=== PATIENT | male | born 1965 | race Hispanic/Latino ===

== ENCOUNTER 2017-12-13 20:47 | Emergency (ER) | payer MEDICARE ==
[~2017-12-13] VITALS: Ht 177.8 cm; Wt 167.8 kg
[~2017-12-13 20:47] MED LIST: ASPIR 8181 MG PO; COUMADIN1 MG PO; COUMADIN10 MG PO; COUMADIN5 MG PO; FUROSEMIDE40 MG PO; LEVAQUIN500 MG PO; LISINOPRIL5 MG PO; METOPROLOL TART25 MG PO; OMEPRAZOLE20 MG PO; POTASSIUM CHLO10 ME1 PO; POTASSIUM CHLO20 ME1 PO; PROAIR HFA INH8.5 GM; SPIRONOLACTONE25 MG PO; TESSALON PERLE100 MG PO; ULTRAM50 MG PO; ZOCOR10 MG PO; [UNRECOGNIZED DRUG - OTHER]
--- OUTSIDE RECORDS SUMMARY | 2017-12-13 20:50 | XMS REPORT ---
Author Author [facility] Address Unknown Phone Unavailable Care Team Providers Care Adult Remedial Education Instructor Name Role Phone OLEGARIO WILLIAM Unavailable Unavailable Problems This patient has no known problems. Allergies, Adverse Reactions, Alerts This patient has no known allergies or adverse reactions. Medications This patient has no known medications. Results Test Description Test Time Test Comments Text Results Atomic Results Result Comments CT ABDOMEN/PELVIS WO [place] [address] Patient Name: SHARMILA TORRES MR #: [id number] : 1965 Age/Sex: 52/M Req #: [id number] Adm Physician: Ordered by: OLEGARIO WILLIAM MD Report #: [id number] Location: ER Room/Bed: Procedure: [id number] CT/CT ABDOMEN/PELVIS WO Exam Date: 04/26/17 Exam Time: 2310 REPORT STATUS: Signed EXAM: CT ABDOMEN/PELVIS WO DATE: 11:06 PM INDICATION: Right flank pain, kidney stone history COMPARISON: None TECHNIQUE: The abdomen and pelvis were scanned using a multidetector helical scanner. Coronal and sagittal reformations were obtained. Routine protocol performed. IV Contrast: None FINDINGS: Lack of IV contrast and body habitus decrease sensitivity in evaluating abdominal and pelvic organs. LOWER THORAX: Cardiomegaly with prior sternotomy , aortic and mitral valve prosthesis. LIVER/BILIARY: No obvious masses seen. GALLBLADDER: Several gallstones are noted. SPLEEN: Not enlarged PANCREAS: Grossly unremarkable ADRENALS: No nodules KIDNEYS: No stones. No hydronephrosis. GI TRACT: No distention, wall thickening or evidence of obstruction. Appendix is not well seen but no secondary findings of appendicitis. VESSELS: Mild atherosclerotic calcifications PERITONEUM/ RETROPERITONEUM: No free air or fluid LYMPH NODES: No lymphadenopathy REPRODUCTIVE ORGANS/BLADDER: Bladder is decompressed precluding its evaluation. Prostate appears normal size. SOFT TISSUES: Rectus muscle diastases with small ventral fat-containing hernias at the level of the liver and umbilicus BONES: Multilevel degenerative changes with T6-7 and lumbar posterior disc osteophyte complexes causing spinal canal narrowing. IMPRESSION: Examination is degraded by body habitus and lack of IV contrast. No nephroureterolithiasis or acute abdominal or pelvic abnormality seen. Signed by: Dr Nkechi Doyle MD on 04/26/2017 11:45 PM Dictated By: NKECHI DOYLE MD [id number] Transcribed By: DEE DEE on 04/26/17 2345 COPY TO: OLEGARIO WILLIAM MD CHEST 2 VIEWS [place] [address] Patient Name: SHARMILA TORRES MR #: [id number] : 1965 Age/Sex: 52/M Req #: [id number] Adm Physician: Ordered by: OLEGARIO WILLIAM MD Report #: [id number] Location: ER Room/Bed: Procedure: [id number] DX/CHEST 2 VIEWS Exam Date: 04/26/17 Exam Time: 2124 REPORT STATUS: Signed CHEST 2 VIEWS, Technique: CHEST 2 VIEWS Comparison: 08/17/2016 History: Shortness of breath, right pleuritic pain DISCUSSION: See impression. Lateral is markedly degraded by motion. IMPRESSION: 1. Stable enlarged cardiomediastinal silhouette poststernotomy. 2. Diffuse right greater than left interstitial opacities, likely edema with small right pleural effusion. Signed by: Dr Nkechi Doyle MD on 04/26/2017 10:18 PM Dictated By: NKECHI DOYLE MD 17 Transcribed By: DEE DEE on 04/26/172217 COPY TO: OLEGARIO WILLIAM MD
[2017-12-13 22:07] LABS: BASOPHILS # (AUTO) 0.1 (0.0-0.1); BASOPHILS % 0.5 % (0.0-1.0); EOSINOPHILS # (AUTO) 0.4 (0.0-0.4); EOSINOPHILS % 3.3 % (0.0-6.0); HEMATOCRIT 48.4 % (38.2-49.6); HEMOGLOBIN 15.9 g/dL (14.0-18.0); LYMPHOCYTES # (AUTO) 1.5 (1.0-3.2); LYMPHOCYTES % 13.3 % (18.0-39.1); MEAN CORPUSCULAR HEMOGLOBIN 29.4 pg (28-32); MEAN CORPUSCULAR HGB CONC 32.9 g/dL (31-35); MEAN CORPUSCULAR VOLUME 89.5 fL (81-99); MONOCYTES # (AUTO) 0.9 (0.2-0.8); MONOCYTES % 8.1 % (4.4-11.3); NEUTROPHILS # (AUTO) 8.3 (2.1-6.9); NEUTROPHILS % 74.4 % (38.7-80.0); PLATELET COUNT 206 x10e3/uL (140-360); RED BLOOD COUNT 5.41 x10e6/uL (4.3-5.7); RED CELL DISTRIBUTION WIDTH 13.7 % (11.7-14.4)
[2017-12-13 22:25] LABS: ALANINE AMINOTRANSFERASE 14 IU/L (0-55); ALBUMIN 3.5 g/dL (3.5-5.0); ALBUMIN/GLOBULIN RATIO 0.7 (0.8-2.0); ALKALINE PHOSPHATASE 107 IU/L (40-150); ANION GAP 14.9 mmol/L (8-16); BLOOD UREA NITROGEN 14 mg/dL (7-26); BUN/CREATININE RATIO 17 (6-25); CALCIUM 9.4 mg/dL (8.4-10.2); CARBON DIOXIDE 30 mmol/L (22-29); CHLORIDE 95 mmol/L (98-107); CREATININE, SERUM 0.84 mg/dL (0.72-1.25); EST GLOMERULAR FILTRATION RATE > 60 ML/MIN (60-); GLUCOSE 95 mg/dL (74-118); POTASSIUM 3.9 mmol/L (3.5-5.1); SODIUM 136 mmol/L (136-145)
--- NOTE | 2017-12-13 22:56 | Diagnostic Imaging Report ---
History:Left cheek swelling since yesterday. Comparison studies: None Technique: Axial images were obtained through the maxillofacial region. Coronal and sagittal images reconstructed from the axial data. Intravenous contrast: None Findings: Soft tissues: Moderate left periparotid and perimandibular subcutaneous soft tissue inflammatory fat stranding with asymmetric thickening of left platysma. Asymmetric and heterogeneously enhancing mildly enlarged left parotid gland with multiple intrinsic punctate calcified lesion, the largest measures 2.5 mm in the anterior aspect of the superficial lobe of left parotid gland, possibly represents multiple sialoliths. Mild asymmetric prominence and dilatation of left Stensen's duct. No discrete hypodense fluid collection however suboptimal evaluation for abscess given lack of intravenous contrast. Bones: No fractures or bony abnormalities. Orbits: Globes: Intact Extra or intraconal abnormalities: None. Paranasal sinuses: Mild mucosal thickening in bilateral ethmoid sinuses. Incidental finding: Multiple missing teeth, multifocal dental caries and endodontal disease, the activity of which is to be determined mind clinically. Nonspecific linear 8 mm radiopaque density at the level of the thoracic inlet anterior and superior to the sternum. IMPRESSION: 1. Left periparotid cellulitis with findings concerning for acute left parotitis with multiple left parotid sialoliths. 2. Asymmetric mild dilatation of left Stensen's duct raises possibility of obstruction secondary to left intraparotid sialolith. Signed by: Dr. Khadijah Wiley M.D. on 12/13/2017 10:53 PM
[2017-12-14 00:33] VITALS: BP 121/74
== END 2017-12-14 00:44 | disposition home or self-care (01) ==
LOC: ER 20:51
CPT/HCPCS: 36415; 70486; 80053; 85025; 99283

== ENCOUNTER 2017-12-29 13:56 | Emergency (ER) | payer MEDICARE ==
[~2017-12-29] VITALS: Ht 177.8 cm; Wt 163.3 kg
--- OUTSIDE RECORDS SUMMARY | 2017-12-29 13:59 | XMS REPORT | Continuity of Care Document ---
Author Author [facility] Organization [facility] Address [address] [place] [address] Phone Unavailable Care Team Providers Care Activity Specialist Name Role Phone KATHRYN CUMMINGS MD PCP Insurance Providers Guarantor Tyrell Albright Address [address] [place] [address] Payer Medicare A & B Policy Number [id number] Subscriber's Name Tyrell Albright Relationship 18 Self / Same As Patient Effective Date 08 Advance Directives Directive Response Recorded Date/Time Does the patient have an advance directive? No 04/27/17 1:47am If yes, is advance directive on file with [facility]? No 08/16/16 8:00pm If not on file with [facility] will patient provide a copy? Yes 08/16/16 8:00pm Problems Medical Problem Onset Date Status CHF (congestive heart failure) 04/14/2016 Acute CHF exacerbation Unknown Chronic atrial fibrillation Unknown Dyspnea 04/14/2016 Acute Flank pain Unknown Hypoxia Unknown Morbid obesity 04/14/2016 Acute Medications Current Home Medications Medication Dose Units Route Directions Days Qty Instructions Start Date Aspirin (Aspir 81) 81 Mg Tablet.dr 81 Mg Oral Daily Furosemide 40 Mg Tablet 40 Mg Oral Twice A Day 30 Tab Metoprolol Tartrate 25 Mg Tablet 25 Mg Oral Every 12 Hours Potassium Chloride 10 Meq Tab.er.prt 10 Meq Oral Twice A Day Simvastatin (Zocor) 10 Mg Tablet 20 Mg Oral Daily Tramadol Hcl (Ultram) 50 Mg Tablet 50 Mg Oral Every 6 Hours as needed for Pain Warfarin Sodium (Coumadin) 1 Mg Tablet 5 Mg Oral Mtwthf 100 Warfarin Sodium (Coumadin) 5 Mg Tablet 7.5 Mg Oral Wednesday And Wednesday Past Home Medications Medication Directions Ordered Status Albuterol Sulfate (Proair Hfa Inhaler*) 8.5 Gm Inh, Unknown Dose Discontinued Benzonatate (Tessalon Perle) 100 Mg Capsule, Cap Oral Every 6 Hours for Cough Discontinued Benzonatate (Tessalon Perle) 100 Mg Capsule, Mg Oral Every 4 Hours Discontinued Furosemide 40 Mg Tablet, 40 Mg Oral Daily Discontinued Levofloxacin (Levaquin) 500 Mg Tablet, 500 Mg Oral Daily Discontinued Levofloxacin (Levaquin) 500 Mg Tablet, 500 Mg Oral Daily Discontinued Lisinopril 5 Mg Tablet, 5 Mg Oral Daily Discontinued Omeprazole 20 Mg Capsule.dr, 20 Mg Oral Daily Discontinued Potassium Chloride 20 Meq Tab.er.prt, 20 Mg Oral Twice A Day Discontinued Spironolactone 25 Mg Tablet, 25 Mg Oral Daily Discontinued Warfarin Sodium (Coumadin) 5 Mg Tablet, 1 - 5 Mg Oral Daily Discontinued Warfarin Sodium (Coumadin) 10 Mg Tablet, 10 Mg Oral Daily Discontinued Xaroxolyn , 5 Twice A Day for Swelling Discontinued Social History Social History Problem Response Recorded Date/Time Onset Date Status Hx Psychiatric Problems No 04/27/2017 1:47am Not Applicable Not Applicable Hx Eating Disorder No 04/27/2017 1:47am Not Applicable Not Applicable Hx Substance Use Disorder No 04/27/2017 1:47am Not Applicable Not Applicable Hx Depression No 04/27/2017 1:47am Not Applicable Not Applicable Hx Alcohol Use No 08/16/2016 8:00pm Not Applicable Not Applicable Hx Substance Use Treatment No 04/27/2017 1:47am Not Applicable Not Applicable Hx Physical Abuse No 08/16/2016 8:00pm Not Applicable Not Applicable Smoking Status Start Date Stop Date Never Smoker Hospital Discharge Instructions No hospital discharge instruction information available. Plan of Care Discharge Date 12/14/17 12:44am Disposition HOME, SELF-CARE Condition at Discharge Stable Forms Provided Work/School Excuse Prescriptions See Medication Section Referrals KATHRYN CUMMINGS MD Order Date: Call for an appointment Address: [address] [place] [id number] [address] ONE[address] Order Date: Call for an appointment Address: [address] [place] [address] ANYA BLANCHARD Address: [address] [place], [place] [id number] Additional Instructions/Education TAKE MEDS DIRECTED FOLLOW UP WITH PCP AND ENT SUCK ON LEMON OR SOUR THINGS APPLY WARM COMPRESSESS RETURN TO THE ER NEEDED Functional Status No functional status information available. Allergies, Adverse Reactions, Alerts Allergen Type Severity Reaction Status Last Updated Iodine Allergy Severe Anaphylaxis Active 08/16/16 Immunizations No immunization information available. Vital Signs Acute Vital Signs Vital Response Date/Time Temperature (Fahrenheit) 97.1 degrees F (97.6 - 99.5) 12/14/2017 12:33am Pulse Pulse Rate (adult) 75 bpm (60 - 90) 12/14/2017 12:33am Respiratory Rate 18 bpm (12 - 24) 12/14/2017 12:33am Blood Pressure 121/74 mm Hg 12/14/2017 12:33am Height 5 ft 10 in 12/13/2017 9:23pm Weight 370 lb 12/13/2017 9:23pm Body Mass Index 53.1 kg/m^2 12/13/2017 9:23pm Results Laboratory Results Test Name Result Units Flags Reference Collection Date/Time Result Date/ Time Comments Prothrombin Time 27.0 seconds H 11.9-14.5 04/26/2017 8:50pm 04/26/2017 9 :26pm Prothromb Time International Ratio 2.35 04/26/2017 8:50pm 2016 9:26pm Oral Anticoagulant Therapy INR Values: 1. Low Intensity Therapy 1.5 - 2.0 2. Moderate Intensity Therapy 2.0 - 3.0 3. High Intensity Therapy(1) 2.5 - 3.5 4. High Intensity Therapy(2) 3.0 - 4.0 5. Panic Value INR > 5.0 Activated Partial Thromboplast Time 46.8 seconds H 23.8-35.5 04/26/2017 8 :50pm 04/26/2017 9:28pm D-Dimer Quantitative (PE/DVT) 0.22 ug/mLFEU 0.00-0.45 04/26/2017 8:50pm 04/26/2017 9:31pm Urine Color YELLOW YELLOW 04/26/2017 9:05pm 04/26/2017 9:46pm Urine Clarity CLEAR CLEAR 04/26/2017 9:05pm 04/26/2017 9:46pm Urine Specific [place] 1.015 1.010-1.025 04/26/2017 9:05pm 2016 9:46pm Urine pH 6 5 - 7 04/26/2017 9:05pm 04/26/2017 9:46pm Urine Leukocyte Esterase NEGATIVE NEGATIVE 04/26/2017 9:05pm 2016 9:46pm Urine Nitrite NEGATIVE NEGATIVE 04/26/2017 9:05pm 04/26/2017 9:46pm Urine Protein 1+ H NEGATIVE 04/26/2017 9:05pm 04/26/2017 9:46pm Urine Glucose (UA) NEGATIVE NEGATIVE 04/26/2017 9:05pm 04/26/2017 9: 46pm Urine Ketones NEGATIVE NEGATIVE 04/26/2017 9:05pm 04/26/2017 9:46pm Urine Urobilinogen 0.2 mg/dL 0.2 - 1 04/26/2017 9:05pm 04/26/2017 9: 46pm Urine Bilirubin NEGATIVE NEGATIVE 04/26/2017 9:05pm 04/26/2017 9: 46pm Urine Blood 3+ H NEGATIVE 04/26/2017 9:05pm 04/26/2017 9:46pm Urine WBC 0-5 /HPF 0-5 04/26/2017 9:05pm 04/26/2017 9:51pm Urine RBC 21-50 /HPF H 0-5 04/26/2017 9:05pm 04/26/2017 9:51pm Urine Bacteria RARE /HPF NONE 04/26/2017 9:05pm 04/26/2017 9:51pm Urine Epithelial Cells FEW /LPF NONE 04/26/2017 9:05pm 04/26/2017 9: 51pm Magnesium Level 2.1 MG/DL 1.3-2.1 04/26/2017 8:50pm 04/26/2017 9:37pm B-Type Natriuretic Peptide 68.3 pg/mL 0-100 04/26/2017 8:50pm 2016 9:44pm Creatine Kinase 105 IU/L 30-200 04/27/2017 2:20pm 04/27/2017 3:23pm Creatine Kinase MB 1.90 ng/mL 0.00-5.00 04/27/2017 2:20pm 04/27/2017 3: 30pm Troponin I 0.012 ng/mL 0-0.300 04/27/2017 2:20pm 04/27/2017 3:30pm White Blood Count 11.20 x10e3/uL H 4.8-10.8 12/13/2017 9:50pm 2017 10:08pm Red Blood Count 5.41 x10e6/uL 4.3-5.7 12/13/2017 9:50pm 12/13/2017 10: 08pm Hemoglobin 15.9 g/dL 14.0-18.0 12/13/2017 9:50pm 12/13/2017 10:08pm Hematocrit 48.4 % 38.2-49.6 12/13/2017 9:50pm 12/13/2017 10:08pm Mean Corpuscular Volume 89.5 fL 81-99 12/13/2017 9:50pm 12/13/2017 10: 08pm Mean Corpuscular Hemoglobin 29.4 pg 28-32 12/13/2017 9:50pm 12/13/2017 10:08pm Mean Corpuscular Hemoglobin Concent 32.9 g/dL 31-35 12/13/2017 9:50pm 12/13/2017 10:08pm Red Cell Distribution Width 13.7 % 11.7-14.4 12/13/2017 9:50pm 2017 10:08pm Platelet Count 206 x10e3/uL 140-360 12/13/2017 9:50pm 12/13/2017 10: 08pm Neutrophils (%) (Auto) 74.4 % 38.7-80.0 12/13/2017 9:50pm 12/13/2017 10 :08pm Lymphocytes (%) (Auto) 13.3 % L 18.0-39.1 12/13/2017 9:50pm 12/13/2017 10:08pm Monocytes (%) (Auto) 8.1 % 4.4-11.3 12/13/2017 9:50pm 12/13/2017 10: 08pm Eosinophils (%) (Auto) 3.3 % 0.0-6.0 12/13/2017 9:50pm 12/13/2017 10: 08pm Basophils (%) (Auto) 0.5 % 0.0-1.0 12/13/2017 9:50pm 12/13/2017 10: 08pm IM GRANULOCYTES % 0.4 % 0.0-1.0 12/13/2017 9:50pm 12/13/2017 10:08pm Neutrophils # (Auto) 8.3 H 2.1-6.9 12/13/2017 9:50pm 12/13/2017 10: 08pm Lymphocytes # (Auto) 1.5 1.0-3.2 12/13/2017 9:50pm 12/13/2017 10: 08pm Monocytes # (Auto) 0.9 H 0.2-0.8 12/13/2017 9:50pm 12/13/2017 10:08pm Eosinophils # (Auto) 0.4 0.0-0.4 12/13/2017 9:50pm 12/13/2017 10: 08pm Basophils # (Auto) 0.1 0.0-0.1 12/13/2017 9:50pm 12/13/2017 10:08pm Absolute Immature Granulocyte (auto 0.05 x10e3/uL 0-0.1 12/13/2017 9: 50pm 12/13/2017 10:08pm Sodium Level 136 mmol/L 136-145 12/13/2017 9:50pm 12/13/2017 10:25pm Potassium Level 3.9 mmol/L 3.5-5.1 12/13/2017 9:50pm 12/13/2017 10: 25pm Chloride Level 95 mmol/L L 98-107 12/13/2017 9:50pm 12/13/2017 10:25pm Carbon Dioxide Level 30 mmol/L H 22-29 12/13/2017 9:50pm 12/13/2017 10: 25pm Anion Gap 14.9 mmol/L 8-16 12/13/2017 9:50pm 12/13/2017 10:25pm Blood Urea Nitrogen 14 mg/dL 7-12/13/2017 9:50pm 12/13/2017 10:25pm Creatinine 0.84 mg/dL 0.72-1.25 12/13/2017 9:50pm 12/13/2017 10:25pm BUN/Creatinine Ratio 17 6-12/13/2017 9:50pm 12/13/2017 10:25pm Estimat Glomerular Filtration Rate > 60 ML/MIN 60- 12/13/2017 9:50pm 10:25pm Ranges were taken from the National Kidney Disease Education Program and the National [employer] literature. Reference ranges: 60 or greater: Normal 16-59 (for 3 consecutive months): Chronic kidney disease 15 or less: Kidney failure Glucose Level 95 mg/dL 74-118 12/13/2017 9:50pm 12/13/2017 10:25pm Calcium Level 9.4 mg/dL 8.4-10.2 12/13/2017 9:50pm 12/13/2017 10:25pm Total Bilirubin 1.0 mg/dL 0.2-1.2 12/13/2017 9:50pm 12/13/2017 10:25pm Aspartate Amino Transf (AST/SGOT) 22 IU/L 5-34 12/13/2017 9:50pm 2017 10:25pm Alanine Aminotransferase (ALT/SGPT) 14 IU/L 0-55 12/13/2017 9:50pm 02/2018 10:25pm Total Protein 8.6 g/dL H 6.5-8.1 12/13/2017 9:50pm 12/13/2017 10:25pm Albumin 3.5 g/dL 3.5-5.0 12/13/2017 9:50pm 12/13/2017 10:25pm Globulin 5.1 g/dL H 2.3-3.5 12/13/2017 9:50pm 12/13/2017 10:25pm Albumin/Globulin Ratio 0.7 L 0.8-2.0 12/13/2017 9:50pm 12/13/2017 10: 25pm Alkaline Phosphatase 107 IU/L 40-150 12/13/2017 9:50pm 12/13/2017 10: 25pm Microbiology Results Procedure Source Organism/Result Collection Date/Time Result Date/Time Result Status Blood Culture Blood NO GROWTH AFTER 5 DAYS, FINAL REPORT 04/26/2017 8:50pm 05/01/2017 10:21pm Final Procedures Procedure Status Date Provider(s) X-ray of chest, two views Active 04/26/[address] of abdomen and pelvis without contrast Active 04/26/[address] maxillofacial area wo contrast Active 12/13/17 ELVA VIVEROS MD Encounters Encounter Location Arrival/Admit Date Discharge/Depart Date Attending Provider Departed Emergency Room [facility] 12/13/17 8:51pm 12:44am ELVA VIVEROS MD Discharged Inpatient (obs) [facility] 04/27/17 12:28am 6:02pm KATHRYN CUMMINGS MD
[2017-12-29] MEDS ORDERED: SODIUM CHLORIDE 0.9% 500ML 500 ML IV STA (14:32)
[2017-12-29] MEDS ORDERED: ACETAMINOPHEN 325 MG TAB PO ONE (14:32)
[2017-12-29 16:13] LABS: BASOPHILS # (AUTO) 0.1 (0.0-0.1); BASOPHILS % 0.5 % (0.0-1.0); EOSINOPHILS # (AUTO) 0.1 (0.0-0.4); EOSINOPHILS % 0.7 % (0.0-6.0); HEMATOCRIT 46.9 % (38.2-49.6); HEMOGLOBIN 15.7 g/dL (14.0-18.0); LYMPHOCYTES # (AUTO) 1.4 (1.0-3.2); LYMPHOCYTES % 9.5 % (18.0-39.1); MEAN CORPUSCULAR HEMOGLOBIN 29.9 pg (28-32); MEAN CORPUSCULAR HGB CONC 33.5 g/dL (31-35); MEAN CORPUSCULAR VOLUME 89.3 fL (81-99); MONOCYTES % 7.2 % (4.4-11.3); NEUTROPHILS # (AUTO) 11.6 (2.1-6.9); NEUTROPHILS % 81.5 % (38.7-80.0); PLATELET COUNT 184 x10e3/uL (140-360); RED BLOOD COUNT 5.25 x10e6/uL (4.3-5.7); RED CELL DISTRIBUTION WIDTH 13.8 % (11.7-14.4)
[2017-12-29 16:26] LABS: ALANINE AMINOTRANSFERASE 12 IU/L (0-55); ALBUMIN 3.8 g/dL (3.5-5.0); ALBUMIN/GLOBULIN RATIO 0.8 (0.8-2.0); ALKALINE PHOSPHATASE 98 IU/L (40-150); BLOOD UREA NITROGEN 12 mg/dL (7-26); BUN/CREATININE RATIO 14 (6-25); CALCIUM 9.8 mg/dL (8.4-10.2); CARBON DIOXIDE 32 mmol/L (22-29); CHLORIDE 95 mmol/L (98-107); CREATININE, SERUM 0.85 mg/dL (0.72-1.25); EST GLOMERULAR FILTRATION RATE > 60 ML/MIN (60-); GLUCOSE 100 mg/dL (74-118); SODIUM 136 mmol/L (136-145)
--- NOTE | 2017-12-29 16:30 | Diagnostic Imaging Report ---
PROCEDURE: Frontal and lateral views of the chest. COMPARISON: Patients [facility], , CHEST 2 VIEWS, 04/26/2017, 21:11. INDICATIONS: SHORT OF BREATH FINDINGS: Lines/tubes: None. Lungs: Prominence of the central pulmonary vasculature bilaterally. Reticular-nodular densities particularly in the lower lobes may reflect superimposed atypical pneumonia. Pleura: There is pneumothorax. Small left pleural effusion. Heart and mediastinum: The cardiac silhouette is moderately enlarged. Median sternotomy wires are Bones: No acute bony abnormality. IMPRESSION: 1. Findings suggestive of decompensated CHF with possible superimposed pneumonia in the proper clinical setting. Rasheed Woods M.D. Dictated by: Rasheed Woods M.D. on 12/29/2017 at 16:32 Electronically approved by: Rasheed Woods M.D. on 12/29/2017 at 16:32
[2017-12-29 16:35] LABS: BILIRUBIN,URINE NEGATIVE (NEGATIVE); CLARITY,URINE HAZY (CLEAR); COLOR,URINE YELLOW (YELLOW); KETONES,URINE NEGATIVE (NEGATIVE); LEUKOCYTE ESTERASE ,URINE 1+ (NEGATIVE); NITRITE,URINE NEGATIVE (NEGATIVE); PROTEIN,URINE DIPSTICK 2+ (NEGATIVE); URINE UROBILINOGEN 1 mg/dL (0.2 - 1)
[2017-12-29 16:48] LABS: WBC,URINE (MAN) >50 /HPF (0-5)
[2017-12-29 16:49] LABS: BACTERIA,URINE FEW /HPF; RBC,URINE 21-50 /HPF (0-5)
[2017-12-29 16:50] LABS: EPITHELIAL CELLS,URINE FEW /LPF; TRANSITIONAL EPI CELLS,URINE MODERATE
[2017-12-29] MEDS ORDERED: AZITHROMYCIN250 MG PO (17:28)
[2017-12-29] MEDS ORDERED: AZITHROMYCIN 250 MG TAB PO ONE (17:30)
[2017-12-29] MEDS ORDERED: LEVOFLOXACIN 500 MG TAB PO ONE (17:30)
[2017-12-29 18:59] VITALS: BP 141/85
== END 2017-12-29 18:40 | disposition home or self-care (01) ==
LOC: ER 13:56
DX: R50.9 Fever, unspecified (principal); R05 Cough; J15.9 Unspecified bacterial pneumonia; N30.91 Cystitis, unspecified with hematuria; I51.9 Heart disease, unspecified
CPT/HCPCS: 36415; 71046; 80053; 81001; 83605; 85025; 87040; 93005; 99283; J7040

== ENCOUNTER 2018-09-08 04:20 | Inpatient (IN) | payer MEDICARE ==
[~2018-09-08] VITALS: Ht 177.8 cm; Wt 167.0 kg
[~2018-09-08 04:20] MED LIST changes: +AZITHROMYCIN250 MG PO
[2018-09-08 04:44] LABS: BASOPHILS # (AUTO) 0.1 (0.0-0.1); BASOPHILS % 0.7 % (0.0-1.0); EOSINOPHILS # (AUTO) 0.3 (0.0-0.4); HEMATOCRIT 45.4 % (38.2-49.6); HEMOGLOBIN 14.2 g/dL (14.0-18.0); LYMPHOCYTES # (AUTO) 1.6 (1.0-3.2); LYMPHOCYTES % 18.6 % (18.0-39.1); MEAN CORPUSCULAR HEMOGLOBIN 29.1 pg (28-32); MEAN CORPUSCULAR HGB CONC 31.3 g/dL (31-35); MONOCYTES # (AUTO) 0.6 (0.2-0.8); MONOCYTES % 7.5 % (4.4-11.3); NEUTROPHILS # (AUTO) 5.8 (2.1-6.9); NEUTROPHILS % 68.8 % (38.7-80.0); PLATELET COUNT 187 x10e3/uL (140-360); RED BLOOD COUNT 4.88 x10e6/uL (4.3-5.7); RED CELL DISTRIBUTION WIDTH 15.1 % (11.7-14.4)
[2018-09-08 05:05] LABS: ALANINE AMINOTRANSFERASE 15 IU/L (0-55); ALBUMIN 3.8 g/dL (3.5-5.0); ALBUMIN/GLOBULIN RATIO 0.8 (0.8-2.0); ALKALINE PHOSPHATASE 129 IU/L (40-150); ANION GAP 15.9 mmol/L (8-16); BLOOD UREA NITROGEN 18 mg/dL (7-26); BUN/CREATININE RATIO 17 (6-25); CALCIUM 9.4 mg/dL (8.4-10.2); CARBON DIOXIDE 33 mmol/L (22-29); CHLORIDE 90 mmol/L (98-107); CREATINE KINASE 52 IU/L (30-200); CREATININE, SERUM 1.05 mg/dL (0.72-1.25); EST GLOMERULAR FILTRATION RATE > 60 ML/MIN (60-); GLUCOSE 106 mg/dL (74-118); INR 2.04; POTASSIUM 3.9 mmol/L (3.5-5.1); PROTHROMBIN TIME 24.6 seconds (11.9-14.5); SODIUM 135 mmol/L (136-145)
[2018-09-08 05:06] LABS: PARTIAL THROMBOPLASTIN TIME 43.5 seconds (23.8-35.5)
--- NOTE | 2018-09-08 05:18 | Diagnostic Imaging Report ---
CHEST SINGLE (PORTABLE), 09/08/2018 4:26 AM Technique: CHEST SINGLE (PORTABLE) Comparison: 12/29/2017 Clinical history: Shortness of breath Findings: See Impression Impression: 1. Limited by portable technique and soft tissue attenuation 2. Stable enlarged cardiomediastinal silhouette status post median sternotomy. 3. Diffuse opacities, likely edema. No significant effusion appreciated or pneumothorax. Signed by: Dr Raysa Doyle MD on 09/08/2018 5:15 AM
[2018-09-08] MEDS ORDERED: FUROSEMIDE INJ 10 MG/ML 4 ML VIAL IV ONE (05:45)
[2018-09-08] MEDS ORDERED: FUROSEMIDE40 MG PO (05:52)
[2018-09-08] MEDS ORDERED: VENTOLIN HFA18 GM INH (05:55)
[2018-09-08] MEDS ORDERED: SODIUM CHLORIDE FLUSH 10 ML SYR INJ PRN (06:00)
[2018-09-08] MEDS ORDERED: ASPIRIN 81 MG CHEW TAB PO ONE (06:00)
--- NOTE | 2018-09-08 07:10 | NUR ---
received pt lying in bed with eyes open, Resp even and unlabored. O2 via NC @3lpm. Tele in place with cont. pulse ox. PIV to right AC saline locked. denies pain at this time, denies Chest pain. call light within reach and instructed to call for assistance. bed in low and locked position.
[2018-09-08 07:51] VITALS: BP 133/90
[2018-09-08] MEDS ORDERED: ALBUTEROL SULFATE HFA 8GM INHALATION AEROSOL INH PRN (09:15)
[2018-09-08 09:43] VITALS: BP 133/90
[2018-09-08 09:46] VITALS: BP 133/90
[2018-09-08] MEDS ORDERED: WARFARIN SOD 2.5 MG TAB PO ONE ×2 (11:00→17:00)
[2018-09-08 11:49] VITALS: BP 124/76
[2018-09-08] MEDS: FUROSEMIDE INJ 10 MG/ML 4 ML VIAL IV SCH ×2 (12:40→18:07)
[2018-09-08] MEDS: METOPROLOL TARTRATE 25 MG TAB PO SCH ×2 (12:40→21:15)
[2018-09-08 13:14] LABS: CREATINE KINASE MB 1.6 ng/mL (0-5.0)
--- NOTE | 2018-09-08 13:21 | Consultation ---
DATE OF CONSULTATION: September 08, 2018 CARDIOLOGY CONSULTATION REASON FOR CONSULT: Congestive heart failure. HISTORY OF PRESENT ILLNESS: This is a 53-year-old man with a history of mechanical mitral and aortic valve replacements, hypertension, hyperlipidemia, and morbid obesity, who presents with complaints of shortness of breath. The patient reports he began having shortness of breath 3 days ago, but denies any chest pain, palpitations, orthopnea, or PND. He presented to the ER for further evaluation. REVIEW OF SYSTEMS: Negative except as per HPI. PAST MEDICAL HISTORY: Mechanical mitral and aortic valve replacements, hypertension, hyperlipidemia. PAST SURGICAL HISTORY: Mechanical mitral and aortic valve replacements, tonsillectomy. ALLERGIES: IODINE. MEDICATIONS: Please see medication list. SOCIAL HISTORY: No tobacco or drugs. Occasional alcohol. FAMILY HISTORY: Negative for heart disease. PHYSICAL EXAMINATION VITALS: Temperature 97 degrees, pulse 80, respiratory rate 19, blood pressure 133/90, oxygen saturation 95% on 3 L nasal cannula. GENERAL: A morbidly obese gentleman in no acute distress. Awake and alert. LUNGS: Clear to auscultation bilaterally. CARDIOVASCULAR: Irregularly irregular mechanical S1 and S2. Diastolic murmur is present. ABDOMEN: Soft and nontender. EXTREMITIES: Trace edema. NEURO: Nonfocal exam. CARDIAC MEDICATIONS 1. Warfarin 5 mg Wednesday through Wednesday with 7.5 mg on the weekends. 2. Metoprolol tartrate 25 mg. WBC 8.44, hemoglobin 14.2, hematocrit 45.4, and platelets 187,000. Sodium 135, potassium 3.9, chloride 93, CO2 33, BUN 18, creatinine 1.05. BNP 128. Troponin 0.025. INR 2.04. EKG with atrial fibrillation. Telemetry with atrial fibrillation. IMPRESSION 1. Mechanical aortic and mitral valves. 2. Limmk-aq-zgpxrsr diastolic heart failure. 3. Severe aortic valve insufficiency. 4. Atrial fibrillation. 5. Subtherapeutic INR. 6. Hypertension. 7. Hyperlipidemia. RECOMMENDATIONS: Continue monitoring the patient on telemetry. Additional 2.5 mg warfarin today given the patient's INR target is 2.5 to 3.5 given presence of his mechanical mitral valve, as well as atrial fibrillation. Agree with IV diuretics. Echocardiogram has been ordered to evaluate the patient's valvular disease. Continue home cardiac medications otherwise. Thank you for this consult. We will continue to follow. Job#: [id number] [place]
[2018-09-08 16:14] VITALS: BP 121/79
[2018-09-08] MEDS ORDERED: POTASSIUM CHLORIDE 10MEQ EA PO SCH (17:00)
[2018-09-08] MEDS ORDERED: WARFARIN SOD 1 MG TAB PO SCH (17:00)
[2018-09-08] MEDS: WARFARIN SOD 5 MG TAB PO SCH (18:08)
[2018-09-08 20:13] VITALS: BP 102/64
[2018-09-08] MEDS ORDERED: FUROSEMIDE INJ 10 MG/ML 4 ML VIAL IV SCH (21:00)
[2018-09-08 21:04] LABS: CREATINE KINASE MB 1.6 ng/mL (0-5.0)
[2018-09-08] MEDS: SIMVASTATIN 20 MG TAB PO SCH (21:15)
[2018-09-09] MEDS: FUROSEMIDE INJ 10 MG/ML 4 ML VIAL IV SCH ×5 (00:22→23:58)
[2018-09-09 05:56] VITALS: BP 119/68
[2018-09-09 06:19] LABS: BASOPHILS # (AUTO) 0.1 (0.0-0.1); BASOPHILS % 0.7 % (0.0-1.0); EOSINOPHILS # (AUTO) 0.3 (0.0-0.4); EOSINOPHILS % 3.8 % (0.0-6.0); HEMATOCRIT 46.2 % (38.2-49.6); LYMPHOCYTES # (AUTO) 1.2 (1.0-3.2); LYMPHOCYTES % 14.3 % (18.0-39.1); MEAN CORPUSCULAR HEMOGLOBIN 28.7 pg (28-32); MEAN CORPUSCULAR HGB CONC 30.3 g/dL (31-35); MEAN CORPUSCULAR VOLUME 94.9 fL (81-99); MONOCYTES # (AUTO) 0.6 (0.2-0.8); MONOCYTES % 6.9 % (4.4-11.3); NEUTROPHILS # (AUTO) 6.3 (2.1-6.9); NEUTROPHILS % 74.2 % (38.7-80.0); PLATELET COUNT 189 x10e3/uL (140-360); RED BLOOD COUNT 4.87 x10e6/uL (4.3-5.7); RED CELL DISTRIBUTION WIDTH 14.9 % (11.7-14.4)
[2018-09-09 06:35] LABS: INR 1.87
[2018-09-09 06:40] LABS: ANION GAP 15.2 mmol/L (8-16); BLOOD UREA NITROGEN 17 mg/dL (7-26); BUN/CREATININE RATIO 18 (6-25); CALCIUM 9.5 mg/dL (8.4-10.2); CARBON DIOXIDE 38 mmol/L (22-29); CHLORIDE 91 mmol/L (98-107); CREATININE, SERUM 0.95 mg/dL (0.72-1.25); EST GLOMERULAR FILTRATION RATE > 60 ML/MIN (60-); GLUCOSE 112 mg/dL (74-118); POTASSIUM 5.2 mmol/L (3.5-5.1); SODIUM 139 mmol/L (136-145)
--- NOTE | 2018-09-09 07:45 | NUR ---
The pt. is in bed awake and consuming morning meal at this time. The pt. reports he is discharging home today.
[2018-09-09 08:17] VITALS: BP 141/85
[2018-09-09 09:00] VITALS: BP 141/85
[2018-09-09] MEDS: ASPIRIN 81 MG CHEW TAB PO SCH (09:00)
[2018-09-09] MEDS ORDERED: SIMVASTATIN 20 MG PO SCH (09:00)
[2018-09-09] MEDS ORDERED: HEPARIN SOD (PORCINE) 5,000 UNIT/ML VIAL IV NR (11:00)
--- NOTE | 2018-09-09 12:00 | NUR ---
Dr. Brown visited earlier and left orders for heparin drip which was initiated at 1230 and next lab due at 1830.
[2018-09-09 12:10] VITALS: BP 91/51
[2018-09-09] MEDS: HEPARIN 25,000U/0.45% NS 250ML 1,500 UNIT in Premix Bag 250 ML IV SCH (12:30)
[2018-09-09 12:33] LABS: INR 2.07; PROTHROMBIN TIME 24.9 seconds (11.9-14.5)
[2018-09-09] MEDS: METOPROLOL TARTRATE 25 MG TAB PO SCH ×2 (12:42→20:37)
--- NOTE | 2018-09-09 13:47 | Progress Note ---
DATE: September 09, 2018 CARDIOLOGY PROGRESS NOTE SUBJECTIVE: The patient denies chest pain. He reports his shortness of breath is better. OBJECTIVE VITALS: Temperature 96.2 degrees, pulse 78, respiratory rate 20, blood pressure 141/85, oxygen saturation is 94% on 3 L nasal cannula. GENERAL: Obese gentleman in no acute distress. Awake and alert. LUNGS: Clear to auscultation bilaterally. No wheezes or crackles. CARDIOVASCULAR: Irregularly irregular. Mechanical S1 and S2. Diastolic murmur is present. ABDOMEN: Soft and nontender. EXTREMITIES: Trace edema. CARDIAC MEDICATIONS 1. Metoprolol tartrate 25 mg p.o. q.12 h. 2. Aspirin 81 mg p.o. daily. 3. Furosemide 40 mg IV q.6 h. 4. Simvastatin 20 mg p.o. at bedtime. 5. Warfarin 7.5 mg on Wednesday and Wednesday with 5 mg the rest of the week. LABS: WBC 8.53, hemoglobin 14, hematocrit 46.2, and platelets 189,000. INR 2.07. Sodium 139, potassium 5.2, chloride 91, CO2 38, BUN 17, creatinine 0.95. Troponin 0.21. Telemetry is atrial fibrillation. IMPRESSION 1. Mechanical aortic and mitral valves. 2. Ipcox-om-ycdpkma diastolic and systolic heart failure. 3. Severe aortic valve insufficiency. 4. Atrial fibrillation. 5. Subtherapeutic INR. 6. Hypertension. 7. Hyperlipidemia. RECOMMENDATIONS: Continue monitoring the patient on telemetry. Heparin drip to bridge the therapeutic INR given the patient's mechanical mitral and aortic valves. Continue IV diuretics. Continue current cardiac medications. Thank you for this consult. We will continue to follow. Job#: [id number] [place]
[2018-09-09 15:55] VITALS: BP 103/56
[2018-09-09] MEDS: WARFARIN SOD 5 MG TAB PO SCH (17:30)
--- NOTE | 2018-09-09 19:22 | NUR ---
Report to the oncoming nurse
[2018-09-09 19:30] VITALS: BP 115/67
[2018-09-09] MEDS: SIMVASTATIN 20 MG TAB PO SCH (20:37)
--- NOTE | 2018-09-09 22:43 | NUR ---
Patient receiving sitting up in bed. AAO x 3. No complaints of pain. No signs of respiratory distress. Heparin drip infusing at 50 cc /hr. Bed locked and in lowest position. Bed rails up x 2. Patient instructed to call for assistance when needed. Call light within reach. Addendum: 09/10/18 at 0204 by Timmy Kohler RN Heparin drip infusing at 15cc/hr.
[2018-09-10] VITALS (9 sets, daily range): BP systolic 90–148; BP diastolic 52–81
--- NOTE | 2018-09-10 01:10 | NUR ---
Blood specimen sent to the lab for PTT analysis.
--- NOTE | 2018-09-10 01:18 | NUR ---
PTT recorded as 57.0 (therapeutic range). No adjustment of dose. Heparin drip infusing at 15cc/hr.
[2018-09-10 05:59] LABS: BASOPHILS % 0.4 % (0.0-1.0); EOSINOPHILS # (AUTO) 0.3 (0.0-0.4); EOSINOPHILS % 4.4 % (0.0-6.0); HEMOGLOBIN 13.2 g/dL (14.0-18.0); LYMPHOCYTES # (AUTO) 1.3 (1.0-3.2); LYMPHOCYTES % 17.7 % (18.0-39.1); MEAN CORPUSCULAR HEMOGLOBIN 28.8 pg (28-32); MEAN CORPUSCULAR HGB CONC 30.7 g/dL (31-35); MEAN CORPUSCULAR VOLUME 93.9 fL (81-99); MONOCYTES # (AUTO) 0.7 (0.2-0.8); NEUTROPHILS # (AUTO) 4.9 (2.1-6.9); NEUTROPHILS % 68.2 % (38.7-80.0); PLATELET COUNT 165 x10e3/uL (140-360); RED BLOOD COUNT 4.58 x10e6/uL (4.3-5.7); RED CELL DISTRIBUTION WIDTH 14.7 % (11.7-14.4)
[2018-09-10] MEDS: FUROSEMIDE INJ 10 MG/ML 4 ML VIAL IV SCH ×3 (06:04→18:00)
[2018-09-10] MEDS: HEPARIN 25,000U/0.45% NS 250ML 1,500 UNIT in Premix Bag 250 ML IV SCH (06:09)
[2018-09-10 06:23] LABS: ANION GAP 13.8 mmol/L (8-16); BLOOD UREA NITROGEN 19 mg/dL (7-26); BUN/CREATININE RATIO 22 (6-25); CARBON DIOXIDE 36 mmol/L (22-29); CHLORIDE 89 mmol/L (98-107); CREATININE, SERUM 0.85 mg/dL (0.72-1.25); EST GLOMERULAR FILTRATION RATE > 60 ML/MIN (60-); GLUCOSE 99 mg/dL (74-118); POTASSIUM 3.8 mmol/L (3.5-5.1); SODIUM 135 mmol/L (136-145)
--- NOTE | 2018-09-10 07:00 | NUR ---
Received the pt. with heparin drip infusing @15 cc/hr.
--- NOTE | 2018-09-10 07:10 | NUR ---
Shift report given to oncoming nurse.
[2018-09-10] MEDS: ASPIRIN 81 MG CHEW TAB PO SCH (09:01)
[2018-09-10] MEDS: METOPROLOL TARTRATE 25 MG TAB PO SCH ×2 (09:03→21:16)
--- NOTE | 2018-09-10 12:31 | Progress Note ---
DATE: September 10, 2018 MEDICINE PROGRESS NOTE SUBJECTIVE: I am covering for Dr. Palmer. Patient is admitted for CHF and underlying atrial fibrillation. Patient is followed by cardiology. Currently doing well with no other issues OBJECTIVE VITAL SIGNS: Temperature is 96.6, pulse 83, respiratory rate is 22, blood pressure is 148/66, pulse ox 91% on 3 liters nasal cannula. GENERAL: Not in acute distress. Alert and oriented x3. Cooperative on examination. HEENT: Head is normocephalic and atraumatic. Eyes: Pupils equal, round and reactive to light bilaterally. Extraocular movements intact bilaterally. Throat with no evidence of any erythema or exudates in the posterior pharynx. Has poor dentition. NECK: Supple. Good range of motion. PULMONARY: Clear to auscultation bilaterally. No wheezing. No rales. No rhonchi. No crackles appreciated. CARDIOVASCULAR: Positive S1 and S2. No murmurs, rubs, or gallops appreciated. ABDOMEN: Soft, nondistended, and nontender to palpation. Bowel sounds present. He is morbidly obese. MUSCULOSKELETAL: Strength is 5/5 throughout. No evidence of any musculoskeletal deficit on examination. No weakness appreciated. NEUROLOGICAL: Cranial nerves II-XII are grossly intact. No evidence of any neurological deficits on exam. SKIN: Intact. Warm to touch. Good cap refill. PSYCHIATRIC: Normal affect and mood. EXTREMITIES: No edema. Good range of motion throughout. LAB FINDINGS: Show white count is 7.3, hemoglobin 13, hematocrit is 43, platelets of 165. Chemistries: Sodium 135, potassium 3.8, chloride 89, bicarb 36, anion gap of 13, BUN 19, creatinine 0.85. Troponins are negative. MICROBIOLOGY: None. IMAGING STUDIES: Chest x-ray on September 08, 2018 showed some decreased opacity, likely edema. IMPRESSION 1. Mechanical aortic and mitral valves, on heparin drip. 2. Ngxqr-sw-tgkkugt diastolic and systolic heart failure. 3. Severe aortic valve insufficiency. 4. Atrial fibrillation. 5. Subtherapeutic INR. 6. Hypertension. 7. Hyperglyceridemia. PLAN: Cardiology was consulted and evaluating and monitoring and managing this patient's valves. The patient continues to be on a heparin drip as per cardiology as the patient is subtherapeutic. Continue same antihypertensive medications. Resume same meds. Labs reviewed and stable. Vital signs are stable as well. We will continue to follow. Job#: [id number] SHAUN
--- NOTE | 2018-09-10 15:34 | Progress Note ---
DATE: September 10, 2018 CARDIOLOGY PROGRESS NOTE SUBJECTIVE: No major events overnight. Sleeping in bed. OBJECTIVE VITAL SIGNS: Temperature 96.9, pulse 60, respiratory rate 21, blood pressure 128/81, satting 93% on 2 liters nasal cannula. GENERAL: Obese man in no acute distress. CARDIOVASCULAR: Very difficult exam due to morbid obesity. Mechanical clicks at the aortic and mitral positions. No obvious murmurs, rubs, or gallops. Palpable carotid pulses. Palpable radial pulses. LUNGS: Difficult to examine. No obvious crackles. ABDOMEN: Morbidly obese, soft, and nontender. NEURO AND PSYCH: Alert and oriented to person, place, and time. Normal affect. INPATIENT MEDICATIONS: Reviewed. LABORATORY DATA: Reviewed. TELEMETRY DATA: Reviewed. ASSESSMENT 1. Status post mechanical, aortic, and mitral valve replacements. 2. Xzqjn-ms-anzwosl diastolic and systolic heart failure. 3. History of severe aortic insufficiency. 4. Atrial fibrillation. 5. Supratherapeutic INR. 6. Hypertension. 7. Hyperlipidemia. RECOMMENDATIONS: Continue IV diuretics. Continue monitoring telemetry. Continue IV heparin until INR is between 2.5 and 3.5. Thank you for this consult. We will continue to follow. Job#: [id number] SHAUN
[2018-09-10] MEDS: WARFARIN SOD 5 MG TAB PO SCH (17:00)
--- NOTE | 2018-09-10 19:06 | NUR ---
Report to the oncoming nurse.
--- NOTE | 2018-09-10 20:15 | NUR ---
Patient received lying in bed. AAO x 3. No acute distress noted. Call light within reach.
[2018-09-10] MEDS ORDERED: HEPARIN 25000UNITS/0.45% NS 250 ML BAG IV ONE (20:59)
[2018-09-10] MEDS ORDERED: HEPARIN IV SCH (21:15)
[2018-09-10] MEDS ORDERED: [UNRECOGNIZED DRUG - OTHER] IV SCH (21:15)
[2018-09-10] MEDS: SIMVASTATIN 20 MG TAB PO SCH (21:16)
[2018-09-11] VITALS (7 sets, daily range): BP systolic 98–145; BP diastolic 53–81
[2018-09-11] MEDS: FUROSEMIDE INJ 10 MG/ML 4 ML VIAL IV SCH ×4 (05:19→17:15)
--- NOTE | 2018-09-11 05:45 | NUR ---
PTT recorded as 64.3 (therapeutic range). No dose adjustment needed. Heparin infusing at 15 cc / hr.
[2018-09-11 05:55] LABS: BASOPHILS # (AUTO) 0.1 (0.0-0.1); BASOPHILS % 0.7 % (0.0-1.0); EOSINOPHILS # (AUTO) 0.4 (0.0-0.4); EOSINOPHILS % 5.3 % (0.0-6.0); HEMATOCRIT 40.7 % (38.2-49.6); HEMOGLOBIN 13.6 g/dL (14.0-18.0); LYMPHOCYTES # (AUTO) 1.4 (1.0-3.2); LYMPHOCYTES % 20.5 % (18.0-39.1); MEAN CORPUSCULAR HGB CONC 33.4 g/dL (31-35); MEAN CORPUSCULAR VOLUME 89.8 fL (81-99); MONOCYTES # (AUTO) 0.6 (0.2-0.8); MONOCYTES % 8.3 % (4.4-11.3); NEUTROPHILS # (AUTO) 4.4 (2.1-6.9); NEUTROPHILS % 64.9 % (38.7-80.0); PLATELET COUNT 160 x10e3/uL (140-360); RED BLOOD COUNT 4.53 x10e6/uL (4.3-5.7); RED CELL DISTRIBUTION WIDTH 14.7 % (11.7-14.4)
--- NOTE | 2018-09-11 07:10 | NUR ---
RCD PT AT BED PT IS ALERT AND ORIENTED ASSESSMENT DONE PT RESTING ON BED NO SIGNS OF ANY DISTRESS NOTED IV PATENT BED LOW AND LOCKED CALL LIGHT IN REACH
[2018-09-11] MEDS: METOPROLOL TARTRATE 25 MG TAB PO SCH ×2 (09:00→20:39)
[2018-09-11] MEDS: ASPIRIN 81 MG CHEW TAB PO SCH (09:00)
--- NOTE | 2018-09-11 12:20 | Progress Note ---
DATE: September 11, 2018 MEDICINE PROGRESS NOTE I am covering for Dr. Palmer. SUBJECTIVE: Patient is doing well today with no complaints. Denies any chest pain or palpitations. OBJECTIVE VITAL SIGNS: Temperature is 95.4, pulse 73, respiratory rate is 15, blood pressure 132/63, pulse ox 94% on room air. GENERAL: Not in acute distress. Alert and oriented x3. He is morbidly obese. HEENT: Head is normocephalic and atraumatic. Eyes; pupils equal, round, and reactive to light bilaterally. Extraocular movements intact bilaterally. Throat with no evidence of any erythema or exudates in the posterior pharynx. Has poor dentition. NECK: Supple. Good range of motion. PULMONARY: Clear to auscultation bilaterally. No wheezing. No rales. No rhonchi. No crackles appreciated. CARDIOVASCULAR: Positive S1 and S2. No murmurs, rubs, or gallops appreciated. ABDOMEN: Soft, nondistended, and nontender to palpation. Bowel sounds present. MUSCULOSKELETAL: Strength is 5/5 throughout. No evidence of any musculoskeletal deficit on examination. No weakness appreciated. NEUROLOGICAL: Cranial nerves II through XII are grossly intact. No evidence of any neurological deficits on exam. SKIN: Intact. Warm to touch. Good cap refill. PSYCHIATRIC: Normal affect and mood. EXTREMITIES: No edema. Good range of motion throughout. LAB FINDINGS: Show white count 6.7, hemoglobin is 13.6, hematocrit is 41, platelets of 160. Coagulation: PTT 64. Chemistries: Sodium 135, potassium 3.8, chloride 89, bicarb 36, anion gap of 13, BUN is 19, creatinine is 0.85, glucose is 99, calcium is 9. Troponins are all negative. MICROBIOLOGY: None. IMPRESSION 1. Mechanical aortic and mitral valves, on heparin drip. 2. Mylcs-vb-ajwekoq diastolic and systolic heart failure. 3. Severe aortic valve insufficiency. 4. Atrial fibrillation. 5. Subtherapeutic INR. 6. Hypertension. 7. Hypertriglyceridemia. PLAN: At this time, cardiology is following. He continues to be on heparin drip. Continue with same antihypertensive medications for now. He reports no issues at this time. The goal INR is between 2.5 and 3.5. The current INR is 2.07. We will get a.m. INR level. Continue with warfarin. Job#: [id number] LPA
[2018-09-11] MEDS: WARFARIN SOD 5 MG TAB PO SCH (16:25)
[2018-09-11] MEDS: [UNRECOGNIZED DRUG - OTHER] IV SCH (16:27)
[2018-09-11] MEDS: HEPARIN IV SCH (16:27)
--- NOTE | 2018-09-11 18:40 | NUR ---
PT RESTING ON BED BED SIDE REPORT GIVEN TO ONCOMING NURSE
--- NOTE | 2018-09-11 19:14 | NUR ---
Patient resting in bed. AAO x 4. No acute distress noted. Fall precautions in place. Call light within reach.
[2018-09-11] MEDS: SIMVASTATIN 20 MG TAB PO SCH (20:40)
--- NOTE | 2018-09-11 20:45 | NUR ---
Patient has both upper and lower left side rails up . Patient instructed about the importance of having both left and right upper side rails up for safety reasons. Patient declined use of upper right side rail.
[2018-09-12] VITALS (12 sets, daily range): BP systolic 102–152; BP diastolic 53–93
[2018-09-12] MEDS: FUROSEMIDE INJ 10 MG/ML 4 ML VIAL IV SCH ×4 (01:06→18:00)
--- NOTE | 2018-09-12 04:00 | NUR ---
Patient fell off the bed. Patient assessed and neuro checks conducted. Family and MD notified.
--- NOTE | 2018-09-12 04:29 | NUR ---
Dr. Shane Loera notified of patient falling off the bed with a contusion to the left knee. An order received for X-Ray of left knee.
--- NOTE | 2018-09-12 05:17 | Diagnostic Imaging Report ---
KNEE LEFT 1-2 VIEWS Comparison: None Clinical history: Contusion of the left knee Findings: No fracture or dislocation. Mild tricompartmental degenerative changes. Prepatellar/infrapatellar soft tissue swelling. Impression: No acute bony abnormality Signed by: Dr Raysa Doyle MD on 09/12/2018 5:14 AM
[2018-09-12 05:20] LABS: BASOPHILS # (AUTO) 0.1 (0.0-0.1); BASOPHILS % 0.8 % (0.0-1.0); EOSINOPHILS # (AUTO) 0.3 (0.0-0.4); HEMATOCRIT 39.3 % (38.2-49.6); HEMOGLOBIN 13.3 g/dL (14.0-18.0); LYMPHOCYTES # (AUTO) 1.3 (1.0-3.2); LYMPHOCYTES % 20.8 % (18.0-39.1); MEAN CORPUSCULAR HEMOGLOBIN 30.4 pg (28-32); MEAN CORPUSCULAR HGB CONC 33.8 g/dL (31-35); MEAN CORPUSCULAR VOLUME 89.9 fL (81-99); MONOCYTES # (AUTO) 0.6 (0.2-0.8); MONOCYTES % 9.4 % (4.4-11.3); NEUTROPHILS % 63.7 % (38.7-80.0); PLATELET COUNT 161 x10e3/uL (140-360); RED BLOOD COUNT 4.37 x10e6/uL (4.3-5.7); RED CELL DISTRIBUTION WIDTH 14.7 % (11.7-14.4)
--- NOTE | 2018-09-12 05:53 | NUR ---
PTT recorded as 54.6. No dose adjustment needed. Heparin infusing at 15 cc /hr.
[2018-09-12 06:00] LABS: INR 2.11; PROTHROMBIN TIME 25.3 seconds (11.9-14.5)
--- NOTE | 2018-09-12 07:25 | NUR ---
Walking rounds done. Shift report given to oncoming nurse.
[2018-09-12] MEDS: METOPROLOL TARTRATE 25 MG TAB PO SCH ×2 (09:00→20:21)
[2018-09-12] MEDS: ASPIRIN 81 MG CHEW TAB PO SCH (09:00)
--- NOTE | 2018-09-12 11:24 | Progress Note ---
DATE: September 12, 2018 MEDICINE PROGRESS NOTE SUBJECTIVE: The patient apparently rolled out of the bed and landed on his left knee leading to some bruising. He is currently on a heparin drip. The patient does not even recall how he actually got up out of he bed last night. X-ray of the knee was negative. CT brain was ordered. He denies hitting his head on the ground. OBJECTIVE VITAL SIGNS: Temperature is 96.2, pulse 78, respiratory rate 20, blood pressure 115/71, pulse ox 92% on room air. LAB FINDINGS: White count is 6.2, hemoglobin 13.3, hematocrit 39, platelets 161. Coagulation: PT 25, INR 2.1. Chemistries: Sodium 135, potassium 3.8, chloride 89, bicarb 36, anion gap 13, BUN 19, creatinine 0.85, calcium 9. IMAGING STUDIES: X-ray of the left knee shows no acute bony abnormality. It shows some swelling. PHYSICAL EXAMINATION GENERAL: Not in acute distress. Alert and oriented x3. Cooperative on exam. He is morbidly obese. HEENT: Head is normocephalic and atraumatic. Eyes: Pupils are equal, round, and reactive to light bilaterally. Extraocular movements intact bilaterally. NECK: Supple. Good range of motion. Throat with no evidence of any erythema or exudates in the posterior pharynx. Has poor dentition. PULMONARY: Clear to auscultation bilaterally. No wheezing. No rales. No rhonchi. No crackles appreciated. CARDIOVASCULAR: Positive S1 and S2. No murmurs, rubs, or gallops appreciated. ABDOMEN: Soft, nondistended, and nontender to palpation. Bowel sounds present. MUSCULOSKELETAL: Strength is 5/5 throughout. No evidence of any musculoskeletal deficit on examination. No weakness appreciated. NEUROLOGICAL: Cranial nerves II through XII are grossly intact. No evidence of any neurological deficits on exam. SKIN: Intact. Warm to touch. Good cap refill. PSYCHIATRIC: Normal affect and mood. EXTREMITIES: No edema. Good range of motion throughout. IMPRESSION 1. Mechanical aortic and mitral valves on heparin drip. 2. Qpmzl-mn-unlbrwc diastolic and systolic heart failure. 3. Severe aortic valve insufficiency. 4. Atrial fibrillation. 5. Subtherapeutic international normalization ratio. Goal international normalization ratio 2.5 to 3.5. 6. Hypertension. 7. Hypertriglyceridemia. 8. Mechanical fall. PLAN: At this time, get CT brain without contrast to rule out any kind of issues or bleeding. He is currently on a heparin drip. His INR is 2. We will continue with the heparin drip and warfarin until is INR is 2.5 to 3.5. Get a.m. INR level. Resume same home medications. Dr. Palmer will be available tomorrow and will resume care at that time. His x-ray of his left knee was negative. It just showed some swelling. Job#: [id number]
--- NOTE | 2018-09-12 14:00 | NUR ---
PT ON BIG BOY BED
--- NOTE | 2018-09-12 14:24 | NUR ---
CASE MANAGEMENT INITIAL ASSESSMENT Specimen Processor to bedside to discuss plan of care with patient/family. CM/SW role and care transitions discussed. Anticipated discharge plan discussed along with duration of care. CM/SW discussed patients right to make decisions in care. CM/SW work hours given. Patient lives: with a friend Admit/Transfer: thru ED Hospital/ER visits since last admit: pt states last hospitalization was in July 2018 POA/Emergency contact: daughter Laura Albright [phone] Current/Previous Home Health: none PCP/Follow-up Care: Dr. Channing Palmer; pt states he follows up with MD frequently Current/Previous DME: Home oxygen and concentrator; does not remember the name of the company he gets it thru. Medications (referring to index hospitalization or the first time you were in the hospital) a. Were changes made in your medications when you were in the hospital on [date of index hospitalization]? no b. Did you understand the changes? n/a c. Were you able to obtain your new medications right away? n/a d. Were you able to take your medications like the doctor wanted you to? yes e. Did the hospital give you an accurate, easy to understand list of medications when you left? yes Scale of 1-10 how comfortable does patient feel with disease management in outpatient settin Other Services: none Employment Status: unemployed Areas of Concerns: CHF Referral Needs: may need home health for CHF monitoring Education Needs: medical management IMM/PITTS given and signed (if applicable): none at this time Goal for discharge: home as soon as possible. pt's friend will provide transportation and bring his portable oxygen tank on discharge. CM/SW left business card at the bedside with contact information. Name and number was also written on the patients whiteboard. Patient verbalized understanding of discussion. CM will follow-up with ongoing discharge and transition of care needs.
--- NOTE | 2018-09-12 14:25 | Diagnostic Imaging Report ---
History: Fell Comparison studies: None Technique: Axial images were obtained from the skull base to the vertex. Coronal and sagittal reconstructions obtained from the axial data. Dose modulation, iterative reconstruction, and/or weight based adjustment of the mA/kV was utilized to reduce the radiation dose to as low as reasonably achievable. Findings: Scalp/skull: No abnormalities. No fractures, blastic or lytic lesions. Extra-axial spaces: No masses. No fluid collections. Brain sulci: Appropriate for age. Ventricles: Normal in size and configuration. No hydrocephalus. Parenchyma: No abnormal densities. No masses, hemorrhage, acute or chronic cortical vascular insults. Sellar/suprasellar region: No abnormalities Craniocervical junction: Patent foramen magnum. No Chiari one malformation. Atherosclerotic calcifications of the carotid siphons IMPRESSION: No acute abnormalities . Signed by: DR Cristian Cunningham M.D. on 09/12/2018 2:22 PM
--- NOTE | 2018-09-12 14:43 | Diagnostic Imaging Report ---
EXAMINATION: CHEST SINGLE (PORTABLE) INDICATION: Shortness of breath. COMPARISON: Chest radiograph 09/08/2018. FINDINGS: Limited by portable technique and soft tissue attenuation. TUBES and LINES: None. LUNGS: Moderate perihilar and interstitial opacities. No evidence of lobar consolidation. PLEURA: No pleural effusion or pneumothorax. HEART AND MEDIASTINUM: The cardiomediastinal silhouette is enlarged, unchanged. BONES AND SOFT TISSUES: No acute osseous abnormality. Status post median sternotomy. UPPER ABDOMEN: No free air under the diaphragm. IMPRESSION: Limited by portable technique and soft tissue attenuation. Cardiomegaly with similar appearance of moderate perihilar and interstitial opacities, likely pulmonary edema. No evidence of lobar pneumonia. Signed by: Dr. Jona Rucker MD on 09/12/2018 2:40 PM
--- NOTE | 2018-09-12 15:36 | Progress Note ---
DATE: CARDIOLOGY PROGRESS NOTE SUBJECTIVE: Feeling well. Denies any chest pain. Fell out of bed last night. No chest pain or shortness of breath now. OBJECTIVE VITAL SIGNS: Temperature is 97.8. Heart rate is 66. Respirations are 15. Blood pressure is 109/59. Oxygen saturation 94% on 2 liters nasal cannula. GENERAL: Well-appearing, no apparent distress. CARDIOVASCULAR: Regular rate and rhythm with valvular sounds crisp. LUNGS: Clear to auscultation. ABDOMEN: Soft, obese, nontender. EXTREMITIES: Trace edema. LABORATORY DATA: Reviewed. INR is 2.11. IMPRESSION 1. Mechanical aortic valve and mitral valve replacements. 2. Gzdvl-ci-qfgcytt diastolic and systolic heart failure. 3. Paroxysmal atrial fibrillation. 4. Supratherapeutic international normalization ratio. 5. Hypertension. 6. Hyperlipidemia. PLAN: Continue current cardiovascular medications including Lasix intravenously for adequate urinary output. Continue warfarin for therapeutic INR of 2.5 to 3.5. Job#: [id number]
[2018-09-12] MEDS: [UNRECOGNIZED DRUG - OTHER] IV SCH (16:30)
[2018-09-12] MEDS: HEPARIN IV SCH (16:30)
[2018-09-12] MEDS: WARFARIN SOD 5 MG TAB PO SCH (17:00)
--- NOTE | 2018-09-12 18:46 | NUR ---
PT RESTING ON BED BED SIDE REPORT GIVEN TO ONCOMING NURSE
--- NOTE | 2018-09-12 19:10 | NUR ---
RECEIVED PT SITTING UP IN BED.NO S/S OF DISTRESS NOTED.RESPIRATIONS EVEN/NON LABORED.PT HAS HEPARIN INFUSING AT 15 ML/HR AT THIS TIME.NEXT PTT IN THE AM(0500).PT DENIES ANY PAIN/DISCOMFORT.INSTRUCTED PT TO CALL FOR ASSISTANCE NEEDED BY USING CALL LIGHT.PT VERBALIZED UNDERSTANDING.CALL LIGHT WITHIN EASY REACH.
[2018-09-12] MEDS: SIMVASTATIN 20 MG TAB PO SCH (20:26)
[2018-09-13] VITALS (7 sets, daily range): BP systolic 107–140; BP diastolic 51–88
[2018-09-13] MEDS: FUROSEMIDE INJ 10 MG/ML 4 ML VIAL IV SCH ×4 (00:55→17:43)
--- NOTE | 2018-09-13 06:36 | NUR ---
PTT RESULTS BACK NOTED 68.0,THERAPEUTIC PER PROTOCOL.PTT DAILY.HEPARIN INFUSING AT 15 ML/HR.
[2018-09-13 06:37] LABS: ANION GAP 13.2 mmol/L (8-16); BLOOD UREA NITROGEN 12 mg/dL (7-26); BUN/CREATININE RATIO 14 (6-25); CALCIUM 8.9 mg/dL (8.4-10.2); CARBON DIOXIDE 35 mmol/L (22-29); CHLORIDE 93 mmol/L (98-107); CREATININE, SERUM 0.83 mg/dL (0.72-1.25); EST GLOMERULAR FILTRATION RATE > 60 ML/MIN (60-); GLUCOSE 95 mg/dL (74-118); POTASSIUM 4.2 mmol/L (3.5-5.1); SODIUM 137 mmol/L (136-145)
--- NOTE | 2018-09-13 06:49 | NUR ---
REPORT GIVEN TO ONCOMING NURSE.WALKING ROUNDS MADE.PT RESTING IN BED WITH NO S/S DISTRESS.
[2018-09-13 07:25] LABS: BASOPHILS % 0.7 % (0.0-1.0); EOSINOPHILS # (AUTO) 0.3 (0.0-0.4); EOSINOPHILS % 4.3 % (0.0-6.0); HEMATOCRIT 41.1 % (38.2-49.6); HEMOGLOBIN 12.8 g/dL (14.0-18.0); LYMPHOCYTES % 16.7 % (18.0-39.1); MEAN CORPUSCULAR HEMOGLOBIN 29.2 pg (28-32); MEAN CORPUSCULAR HGB CONC 31.1 g/dL (31-35); MEAN CORPUSCULAR VOLUME 93.8 fL (81-99); MONOCYTES # (AUTO) 0.6 (0.2-0.8); MONOCYTES % 10.3 % (4.4-11.3); NEUTROPHILS # (AUTO) 4.1 (2.1-6.9); NEUTROPHILS % 67.5 % (38.7-80.0); PLATELET COUNT 159 x10e3/uL (140-360); RED BLOOD COUNT 4.38 x10e6/uL (4.3-5.7); RED CELL DISTRIBUTION WIDTH 15.1 % (11.7-14.4)
[2018-09-13 07:51] LABS: INR 2.19
[2018-09-13] MEDS: METOPROLOL TARTRATE 25 MG TAB PO SCH ×2 (08:57→21:22)
[2018-09-13] MEDS: ASPIRIN 81 MG CHEW TAB PO SCH (08:57)
[2018-09-13] MEDS: [UNRECOGNIZED DRUG - OTHER] IV SCH (16:30)
[2018-09-13] MEDS: HEPARIN IV SCH (16:30)
[2018-09-13] MEDS: WARFARIN SOD 5 MG TAB PO SCH (17:00)
--- NOTE | 2018-09-13 18:46 | NUR ---
PT RESTING ON BED BED SIDE REPORT GIVEN TO ONCOMING NURSE
--- NOTE | 2018-09-13 19:02 | NUR ---
RECEIVED PT RESTING IN BED.NO S/S OF DISTRESS NOTED.RESPIRATIONS EVEN/NON LABORED.PT HAS HEPARIN INFUSING AT 15 ML/HR AT THIS TIME.PT DENIES ANY PAIN/DISCOMFORT.INSTRUCTED PT TO CALL FOR ASSISTANCE NEEDED BY USING CALL LIGHT.PT VERBALIZED UNDERSTANDING.CALL LIGHT WITHIN EASY REACH.
--- NOTE | 2018-09-13 20:05 | Progress Note ---
DATE: September 13, 2018 CARDIOLOGY PROGRESS NOTE SUBJECTIVE: No major events overnight. OBJECTIVE: VITAL SIGNS: Temperature 97.9, pulse 60, respiratory rate 20, blood pressure 107/60, satting 91% on nasal cannula. GENERAL: Morbidly obese man, in no acute distress. CARDIOVASCULAR: Difficult exam due to morbid obesity. Mechanical heart sounds. LUNGS: Decreased breath sounds, bilateral bases, no obvious rales. ABDOMEN: Extremely obese, soft, nontender, nondistended. NEURO AND PSYCH: Alert and oriented to person, place, and time. Normal affect. INPATIENT MEDICATIONS: Reviewed. LABORATORY DATA: Reviewed. IMAGING DATA: Reviewed. ASSESSMENT: 1. mechanical aortic valve and mechanical mitral valve replacement. 2. Crraw-xc-jyzhnxt systolic and diastolic heart failure. 3. Paroxysmal atrial fibrillation. 4. Hypertension. 5. Hyperlipidemia. PLAN: Doing well from a cardiovascular standpoint. Please increase dose of warfarin to maintain goal INR between 2.5 and 3.5 given mechanical mitral valve prosthesis. Continue aspirin. Thank you for this consult. Will continue to follow. Job#: [id number]
[2018-09-13] MEDS: SIMVASTATIN 20 MG TAB PO SCH (21:22)
[2018-09-14] MEDS: FUROSEMIDE INJ 10 MG/ML 4 ML VIAL IV SCH ×2 (00:10→06:00)
[2018-09-14 00:12] VITALS: BP 111/58
[2018-09-14 05:23] LABS: BASOPHILS # (AUTO) 0.1 (0.0-0.1); BASOPHILS % 0.8 % (0.0-1.0); EOSINOPHILS # (AUTO) 0.2 (0.0-0.4); EOSINOPHILS % 3.3 % (0.0-6.0); HEMATOCRIT 41.3 % (38.2-49.6); HEMOGLOBIN 12.9 g/dL (14.0-18.0); LYMPHOCYTES # (AUTO) 1.3 (1.0-3.2); LYMPHOCYTES % 20.8 % (18.0-39.1); MEAN CORPUSCULAR HEMOGLOBIN 28.7 pg (28-32); MEAN CORPUSCULAR HGB CONC 31.2 g/dL (31-35); MONOCYTES # (AUTO) 0.8 (0.2-0.8); MONOCYTES % 12.6 % (4.4-11.3); NEUTROPHILS # (AUTO) 3.8 (2.1-6.9); NEUTROPHILS % 62.2 % (38.7-80.0); PLATELET COUNT 147 x10e3/uL (140-360); RED BLOOD COUNT 4.49 x10e6/uL (4.3-5.7)
--- NOTE | 2018-09-14 05:50 | NUR ---
PTT RESULTS BACK NOTED 64.9,THERAPEUTIC PER PROTOCOL.PTT DAILY.HEPARIN INFUSING AT 15ML/HR.
[2018-09-14 05:54] VITALS: BP 101/50
[2018-09-14 05:58] LABS: INR 2.05; PROTHROMBIN TIME 24.7 seconds (11.9-14.5)
--- NOTE | 2018-09-14 07:21 | NUR ---
REPORT GIVEN TO ONCOMING NURSE,WALKING ROUNDS MADE.PT RESTING IN BED WITH NO S/S OF DISTRESS.
[2018-09-14 08:00] VITALS: BP 103/55
[2018-09-14] MEDS: ASPIRIN 81 MG CHEW TAB PO SCH (08:15)
[2018-09-14] MEDS: METOPROLOL TARTRATE 25 MG TAB PO SCH (08:24)
[2018-09-14 09:23] VITALS: BP 112/58
--- NOTE | 2018-09-14 10:08 | Discharge Summary ---
CONSULTANTS: Dr. Devin Hoyt FINAL DIAGNOSES 1. Runpu-jo-iocgflv systolic dysfunction congestive heart failure exacerbation. 2. Chronic atrial fibrillation. 3. Morbidly obese. 4. Pulmonary edema. A 53-year-old male noncompliant to fluid intake, apparently increasing fluid intake came in with pulmonary edema with djsla-sp-osvktdd systolic dysfunction congestive heart failure exacerbation. The patient received increase in Lasix. He is doing much better now. The patient is stable to go home. He will double up on his furosemide. Continue with his anticoagulation the same. The patient is stable. Follow up in approximately 1 week. Job#: [id number] MANFRED
--- NOTE | 2018-09-14 10:43 | NUR ---
IMM letter delivered and explained to pt. He verbalized understanding. Signed copy placed in chart. Copy given to pt. Pt states he will follow up with his PCP Dr. Palmer in 1 week.
[2018-09-14 12:00] VITALS: BP 125/66
--- NOTE | 2018-09-14 15:15 | NUR ---
PT DISCHARGED HOME WITH WRITTEN INSTRUCTIONS. D/C TEACHING DONE AND PT VERBALIZES UNDERSTANDING. IV D/C SITE LOOKS CLEAN NO REDNESS OR SWELLING NOTED. TRANSPORTED VIA W/C BY STAFF TO [facility] BY FAMILY. DENIES PAIN OR DISCOMFORT AT TIME OF D/C.
== END 2018-09-14 16:44 | disposition home or self-care (01) | DRG 292 ==
LOC: ER 04:20 → ERHOLD 05:51 → MED/SURG2 06:24
PROVIDERS: ADMIT Internal Medicine; ATTEND Internal Medicine
DX: I11.0 Hypertensive heart disease with heart failure (principal); Z68.43 Body mass index [BMI] 50.0-59.9, adult; I50.43 Acute on chronic combined systolic (congestive) and diastolic (congestive) heart failure; I48.91 Unspecified atrial fibrillation; E78.5 Hyperlipidemia, unspecified; I35.1 Nonrheumatic aortic (valve) insufficiency; Z79.01 Long term (current) use of anticoagulants; Z95.2 Presence of prosthetic heart valve; E66.01 Morbid (severe) obesity due to excess calories; E87.5 Hyperkalemia; R73.9 Hyperglycemia, unspecified; S80.02XA Contusion of left knee, initial encounter; E78.1 Pure hyperglyceridemia; W06.XXXA Fall from bed, initial encounter; Y93.89 Activity, other specified; Y92.230 Patient room in hospital as the place of occurrence of the external cause
CPT/HCPCS: 36415; 70450; 71045; 80048; 80053; 82550; 82553; 82948; 83880; 84484; 85025; 85610; 85730; 93005; 93306; 99284; J1644; J1940

== ENCOUNTER 2018-11-20 17:49 | Emergency (ER) | payer MEDICARE ==
[~2018-11-20] VITALS: Ht 177.8 cm; Wt 166.9 kg
[~2018-11-20 17:49] MED LIST changes: +VENTOLIN HFA18 GM INH
--- NOTE | 2018-11-20 19:42 | Diagnostic Imaging Report ---
WRIST COMPLETE LEFT - 4 views HISTORY: Pain. Nontraumatic pain. Woke up with left wrist pain. COMPARISON: None available. FINDINGS: Bones: No acute displaced fracture. Osseous alignment is within normal limits. Joints: The joint spaces are well-maintained. Soft tissues: The soft tissues appear unremarkable. IMPRESSION: No acute radiographic abnormality. Signed by: Dr. Ed Aguirre M.D. on 11/20/2018 7:39 PM
[2018-11-20 20:13] LABS: INR 2.65
[2018-11-20 20:29] VITALS: BP 132/83
== END 2018-11-20 20:42 | disposition home or self-care (01) ==
LOC: ER 17:49
DX: M25.532 Pain in left wrist (principal); M10.032 Idiopathic gout, left wrist; W06.XXXA Fall from bed, initial encounter; Y93.84 Activity, sleeping; Y92.003 Bedroom of unspecified non-institutional (private) residence as the place of occurrence of the external cause; I10 Essential (primary) hypertension; I48.91 Unspecified atrial fibrillation
CPT/HCPCS: 36415; 84550; 85610; 99283

== ENCOUNTER 2020-03-25 09:49 | Inpatient (IN) | payer MEDICARE ==
[~2020-03-25] VITALS: Ht 177.8 cm; Wt 166.9 kg
--- OUTSIDE RECORDS SUMMARY | 2020-03-25 10:20 | XMS REPORT | Continuity of Care Document ---
Author Author [facility] t Organization [facility] Address [address] [place] [address] Phone Unavailable Care Team Providers Care Director Of Human Resources Name Role Phone KATHRYN CUMMINGS MD PCP Tierra YBARRA Attphys Unavailable KATHRYN CUMMINGS Attphys Unavailable Luis A GORMAN Attphys Unavailable Marvin VIVEROS Attphys Unavailable Fidelia WILLIAM Attphys Unavailable KATHRYN CUMMINGS Admphygarland Unavailable Payers Payer Name Policy Type Policy Number Effective Date [facility]piration Date [facility] B [id number] 2008 00:00:00 [facility] Problems Condition Name Condition Details Condition Category Status Onset Date Resolution Date Last Treatment Date Treating Clinician Comments Source Acute on chronic congestive heart failure CHF exacerbation Problem Active 2016-04-14 00:00:00 [facility] Dyspnea Dyspnea Problem Active 2016-04-14 00:00:00 [facility] Morbid obesity Morbid obesity Problem Active 2016-04-14 00:00:00 [facility] Chronic atrial fibrillation Chronic atrial fibrillation Problem Active [facility] Flank pain Flank pain Problem Active [facility] Hypoxia Hypoxia Problem Active [facility] Allergies, Adverse Reactions, Alerts Allergy Name Allergy Type Status Severity Reaction(s) Onset Date Inacti ve Date Treating Clinician Comments Source Iodine Allergy to Substance Active Severe Anaphylaxis 2018-11-20 00:00:00 [facility] iodine DA Active 2015-09-09 00:00:00 [facility] shellfish derived DA Active SV 2015-09-09 00:00:00 [facility] Medications Ordered Medication Name Filled Medication Name Start Date Stop Da te Current Medication? Ordering Clinician Indication Dosage Frequency Signature (SIG) Comments Components Source Azithromycin (Z-Terrell) 250 Mg Tablet, 250 Mg Oral Azithr omycin (Z-Terrell) 250 Mg Tablet, 250 Mg Oral 2017-12-29 00:00:00 2018-09-08 00:00:00 No Silvia Gorman Md 250 Use As Directed [facility] Albuterol Sulfate (Ventolin Hfa) 18 Gm Hfa.aer.ad Albu terol Sulfate (Ventolin Hfa) 18 Gm Hfa.aer.ad Yes 2 Ev aura 6 Hours as needed for Shortness Of Breath [facility] Aspirin (Aspir 81) 81 Mg Tablet. Aspirin (Aspir 81) 81 Mg Tablet. Yes 81 Daily [facility] Furosemide 40 Mg Tablet Furosemide 40 Mg Tablet Yes 80 Daily [facility] Furosemide 40 Mg Tablet Furosemide 40 Mg Tablet Yes 40 Daily [facility] Metoprolol Tartrate 25 Mg Tablet Metoprolol Tartrate 25 Mg Tablet Yes 25 Every 12 Hours [facility] Potassium Chloride 10 Meq Tab.er.prt Potassium Chloride 10 Meq Tab. er.prt Yes 10 Twice A Day [facility] Simvastatin (Zocor) 10 Mg Tablet Simvastatin (Zocor) 10 Mg Tablet Yes 20 Daily [facility] Warfarin Sodium (Coumadin) 1 Mg Tablet Warfarin Sodium (Coumadin ) 1 Mg Tablet Yes 5 Mtwthf [facility] Warfarin Sodium (Coumadin) 5 Mg Tablet Warfarin Sodium (Coumadin ) 5 Mg Tablet Yes 7.5 Wednesday And Wednesday [facility] Tramadol Hcl (Ultram) 50 Mg Tablet, 50 Mg Oral Tramado l Hcl (Ultram) 50 Mg Tablet, 50 Mg Oral 2018-09-08 00:00:00 No 50 Every 6 Hours as needed for Pain [facility] Benzonatate (Tessalon Perle) 100 Mg Capsule, Cap Oral Benzonatate (Tessalon Perle) 100 Mg Capsule, Cap Oral 2017-04-26 00:00:00 No Every 6 Hours for Cough [facility] Levofloxacin (Levaquin) 500 Mg Tablet, 500 Mg Oral Lev ofloxacin (Levaquin) 500 Mg Tablet, 500 Mg Oral 2017-04-26 00:00:00 No 500 D aily [facility] Albuterol Sulfate (Proair Hfa Inhaler*) 8.5 Gm Inh, Un known Dose Albuterol Sulfate (Proair Hfa Inhaler*) 8.5 Gm Inh, Unknown Dose 9 00:00:[address] [facility] Benzonatate (Tessalon Perle) 100 Mg Capsule, Mg Oral Benzonatate (Tessalon Perle) 100 Mg Capsule, Mg Oral 2016-08-16 00:00:00 No Every 4 Hours [facility] Levofloxacin (Levaquin) 500 Mg Tablet, 500 Mg Oral Lev ofloxacin (Levaquin) 500 Mg Tablet, 500 Mg Oral 2016-08-16 00:00:00 No [facility] 5 Mg Tablet, 5 Mg Oral Lisinopril 5 Mg Tablet, 5 Mg O ral 2016-08-16 00:00:00 No 5 Daily [facility] Omeprazole 20 Mg Capsule., 20 Mg Oral Omeprazole 20 Mg Cap luz maria., 20 Mg Oral 2016-08-16 00:00:00 No 20 Daily [facility] Potassium Chloride 20 Meq Tab.er.prt, 20 Mg Oral Potas sium Chloride 20 Meq Tab.er.prt, 20 Mg Oral 2016-08-16 00:00:00 No 20 T wice A Day [facility] Spironolactone 25 Mg Tablet, 25 Mg Oral Spironolactone 25 Mg Tablet, 25 Mg Oral 2016-08-16 00:00:00 No 25 Daily [facility] Xaroxolyn , 5 Xaroxolyn , 5 2016-08-16 00:00:00 No 5 Twice A Day for Swelling [facility] Furosemide 40 Mg Tablet, 40 Mg Oral Furosemide 40 Mg Tablet, 40 Mg Oral 2016-04-18 00:00:00 No 40 Daily [facility] Warfarin Sodium (Coumadin) 5 Mg Tablet, 1 - 5 Mg Oral Warfarin Sodium (Coumadin) 5 Mg Tablet, 1 - 5 Mg Oral 2012-09-27 00:00:00 No Daily [facility] Warfarin Sodium (Coumadin) 10 Mg Tablet, 10 Mg Oral Wa rfarin Sodium (Coumadin) 10 Mg Tablet, 10 Mg Oral 2012-09-27 00:00:00 No 10 Daily [facility] Procedures Procedure Date / Time Performed Performing Clinician [facility] e Computed tomography of brain without radiopaque contrast 201 04-10-04 00:00:00 SAL MAXWELL [facility] Encounters Start Date/Time End Date/Time Encounter Type [facility] ID Source 2018-11-20 17:49:00 2018-11-20 20:42:00 Departed Emergency Room 1 DEBBIERAVIN BA [facility] [id number] [facility] 2018-09-08 05:51:00 2018-09-14 16:44:00 Discharged Inpatient 1 KATHRYN CUMMINGS [facility] [id number] [facility] 2017-12-29 13:56:00 2017-12-29 18:40:00 Departed Emergency Room 1 JONPAM RICHARDSON [facility] [id number] [facility] 2017-12-13 20:51:00 2017-12-14 00:44:00 Departed Emergency Room ER ELVA VIVEROS [facility] [id number] [facility] 2017-04-27 00:28:00 2017-04-27 18:02:00 Discharged Inpatient (obs) ER OLEGARIO WILLIAM [facility] [id number] [facility] Results Test Description Test Time Test Comments Results Result Comments Source Prothrombin Time 2018-11-20 20:17:00 Test Item Prothrombin Time (test code = 5902-2) 29.0 11.9-14.5 H [facility] Tyler[facility]th[facility] Time International Ratio 2018-11-20 20:17:00* Test Item Value Reference Range Interpretation Comments Prothromb Time International Ratio (test code = 6301-6) 2.65 Oral Anticoagulant Therapy INR Values:1. Low Intensity Therapy 1.5 - 2.02 . Moderate Intensity Therapy 2.0 - 3.03. High Intensity Therapy(1) 2.5 - 3. 54. High Intensity Therapy(2) 3.0 - 4.05. Panic Value INR > 5.0 [facility] Tyler[facility] [id number] 19:38:00 [place] [address] Patient Name: SHARMILA TORRES MR #: [id number] : 1965 Age/Sex: 53/M Req #: [id number] Adm Physician: Ordered by: RAVIN YBARRA MD Report #: [id number] Location: ER Room/Bed: Procedure: [id number] DX/ WRIST COMPLETE LEFT Exam Date: 11/20/18 Exam Time: 1 848 REPORT STATUS: Signed WRIST COMPLETE LEFT - 4 views HISTORY: Pain. Nontraumatic pain. Woke up with lef t wrist pain. COMPARISON: None available. FINDINGS: Bones: No ac rashel displaced fracture. Osseous alignment is within normal limits. Join ts: The joint spaces are well-maintained. Soft tissues: The soft tissue s appear unremarkable. IMPRESSION: No acute radiographic abnormality. Signed by: Dr. Ed Zhang M.D. on 11/20/2018 7:39 PM Dictated By: ED ZHANG MD 38 Transcribed By: Luis A HARRINGOTN on 11/20/181938 COPY TO: RAVIN YBARRA MD Uric Acid 2018-11-20 19:12:00* Test Item Value Reference Range Interpretation Comments Uric Acid (test code = 3084-1) 11.9 4.8-8.0 H [facility] Tyler[facility]thrombin [id number] 06:00:00* Test Item Value Reference Range Interpretation Comments Prothrombin Time (test code = 5902-2) 24.7 11.9-14.5 H [facility] TylerProthromb Time International Ratio 2018-09-14 06:00:00* Test Item Value Reference Range Interpretation Comments Prothromb Time International Ratio (test code = 6301-6) 2.05 Oral Anticoagulant Therapy INR Values:1. Low Intensity Therapy 1.5 - 2.02 . Moderate Intensity Therapy 2.0 - 3.03. High Intensity Therapy(1) 2.5 - 3. 54. High Intensity Therapy(2) 3.0 - 4.05. Panic Value INR > 5.0 [facility] Tyler[facility] Partial Thromboplast Time 2018-09-14 05:39:00* Test Item Value Reference Range Interpretation Comments Activated Partial Thromboplast Time (test code = 01347-0) 64.9 23.8-35.5 H [facility] TylerAct[facility] Partial Thromboplast Time 2018-09-14 05:39:00* Test Item Value Reference Range Interpretation Comments Activated Partial Thromboplast Time (test code = 71973-4) 64.9 23.8-35.5 H [facility] TylerWhite Blood [id number] 05:24:00* Test Item Value Reference Range Interpretation Comments White Blood Count (test code = 6690-2) 6.12 4.8-10.8 [facility] Tyler[facility] Blood Nupfx3201-21-51 05:24:00* Test Item Value Reference Range Interpretation Comments Red Blood Count (test code = 789-8) 4.49 4.3-5.7 [facility] TylerHemoglobin2019-02-06 05:24:00* Test Item Value Reference Range Interpretation Comments Hemoglobin (test code = 57319-6) 12.9 14.0-18.0 L [facility] TylerHematocrit2019-02-06 05:24:00* Test Item Value Reference Range Interpretation Comments Hematocrit (test code = 4544-3) 41.3 38.2-49.6 [facility] TylerMean Corpuscular Rmgtsk0249-20-96 05:24:00* Test Item Value Reference Range Interpretation Comments Mean Corpuscular Volume (test code = 787-2) 92.0 81-99 [facility] TylerMean Corpuscular Abndfehlhp5561-86-62 05:24:00* Test Item Value Reference Range Interpretation Comments Mean Corpuscular Hemoglobin (test code = 785-6) 28.7 28-32 [facility] TylerMean Corpuscular Hemoglobin Concent 2018-09-14 05:24:00* Test Item Value Reference Range Interpretation Comments Mean Corpuscular Hemoglobin Concent (test code = 786-4) 31.2 31-35 [facility] TylerRed Cell Distribution Ptaoe0714-27-54 05:24:00* Test Item Value Reference Range Interpretation Comments Red Cell Distribution Width (test code = 71357-6) 15.0 11.7 -14.4 H [facility] TylerPlatelet Gxxxr6062-04-54 05:24:00* Test Item Value Reference Range Interpretation Comments Platelet Count (test code = 777-3) 147 140-360 [facility] TylerNeutrophils (%) (Auto)2018-09-14 05:24:00 * Test Item Value Reference Range Interpretation Comments Neutrophils (%) (Auto) (test code = 55466-9) 62.2 38.7-80.0 [facility] TylerLymphocytes (%) (Auto)2018-09-14 05:24:00 * Test Item Value Reference Range Interpretation Comments Lymphocytes (%) (Auto) (test code = 736-9) 20.8 18.0-39.1 [facility] TylerMonocytes (%) (Auto)2018-09-14 05:24:00* Test Item Value Reference Range Interpretation Comments Monocytes (%) (Auto) (test code = 5905-5) 12.6 4.4-11.3 H [facility] TylerEosinophils (%) (Auto)2018-09-14 05:24:00 * Test Item Value Reference Range Interpretation Comments Eosinophils (%) (Auto) (test code = 713-8) 3.3 0.0-6.0 [facility] Tyler[facility]ophils (%) (Auto)2018-09-14 05:24:00* Test Item Value Reference Range Interpretation Comments Basophils (%) (Auto) (test code = 706-2) 0.8 0.0-1.0 [facility] TylerIM GRANULOCYTES %2018-09-14 05:24:00* Test Item Value Reference Range Interpretation Comments IM GRANULOCYTES % (test code = IM GRANULOCYTES %) 0.3 0.0- 1.0 [facility] TylerNeutrophils # (Auto)2018-09-14 05:24:00* Test Item Value Reference Range Interpretation Comments Neutrophils # (Auto) (test code = 751-8) 3.8 2.1-6.9 [facility] TylerLymphocytes # (Auto)2018-09-14 05:24:00* Test Item Value Reference Range Interpretation Comments Lymphocytes # (Auto) (test code = 84231-6) 1.3 1.0-3.2 [facility] TylerMonocytes # (Auto)2018-09-14 05:24:00* Test Item Value Reference Range Interpretation Comments Monocytes # (Auto) (test code = 742-7) 0.8 0.2-0.8 [facility] TylerEosinophils # (Auto)2018-09-14 05:24:00* Test Item Value Reference Range Interpretation Comments Eosinophils # (Auto) (test code = 711-2) 0.2 0.0-0.4 [facility] Tyler[facility]ophils # (Auto)2018-09-14 05:24:00* Test Item Value Reference Range Interpretation Comments Basophils # (Auto) (test code = 704-7) 0.1 0.0-0.1 [facility] TylerAbsolute Immature Granulocyte (auto 2018-09-14 05:24:00* Test Item Value Reference Range Interpretation Comments Absolute Immature Granulocyte (auto (jeyson t code = Absolute Immature Granulocyte (auto) 0.02 0-0.1 [facility] TylerWhite Blood Blezj2479-77-63 05:24:00* Test Item Value Reference Range Interpretation Comments White Blood Count (test code = 6690-2) 6.12 4.8-10.8 [facility] TylerRed Blood Eekqk5558-71-51 05:24:00* Test Item Value Reference Range Interpretation Comments Red Blood Count (test code = 789-8) 4.49 4.3-5.7 [facility] TylerHemoglobin2019-02-06 05:24:00* Test Item Value Reference Range Interpretation Comments Hemoglobin (test code = 94801-1) 12.9 14.0-18.0 L [facility] TylerHematocrit2019-02-06 05:24:00* Test Item Value Reference Range Interpretation Comments Hematocrit (test code = 4544-3) 41.3 38.2-49.6 [facility] TylerMean Corpuscular Zlxiye0901-07-09 05:24:00* Test Item Value Reference Range Interpretation Comments Mean Corpuscular Volume (test code = 787-2) 92.0 81-99 [facility] TylerMean Corpuscular Wtuzhgrdfj5785-09-17 05:24:00* Test Item Value Reference Range Interpretation Comments Mean Corpuscular Hemoglobin (test code = 785-6) 28.7 28-32 [facility] TylerMean Corpuscular Hemoglobin Concent 2018-09-14 05:24:00* Test Item Value Reference Range Interpretation Comments Mean Corpuscular Hemoglobin Concent (test code = 786-4) 31.2 31-35 [facility] TylerRed Cell Distribution Psjne3842-14-92 05:24:00* Test Item Value Reference Range Interpretation Comments Red Cell Distribution Width (test code = 14474-3) 15.0 11.7 -14.4 H [facility] TylerPlatelet Rtecm7523-71-05 05:24:00* Test Item Value Reference Range Interpretation Comments Platelet Count (test code = 777-3) 147 140-360 [facility] TylerNeutrophils (%) (Auto)2018-09-14 05:24:00 * Test Item Value Reference Range Interpretation Comments Neutrophils (%) (Auto) (test code = 88349-1) 62.2 38.7-80.0 [facility] TylerLymphocytes (%) (Auto)2018-09-14 05:24:00 * Test Item Value Reference Range Interpretation Comments Lymphocytes (%) (Auto) (test code = 736-9) 20.8 18.0-39.1 [facility] TylerMonocytes (%) (Auto)2018-09-14 05:24:00* Test Item Value Reference Range Interpretation Comments Monocytes (%) (Auto) (test code = 5905-5) 12.6 4.4-11.3 H [facility] TylerEosinophils (%) (Auto)2018-09-14 05:24:00 * Test Item Value Reference Range Interpretation Comments Eosinophils (%) (Auto) (test code = 713-8) 3.3 0.0-6.0 [facility] TylerBasophils (%) (Auto)2018-09-14 05:24:00* Test Item Value Reference Range Interpretation Comments Basophils (%) (Auto) (test code = 706-2) 0.8 0.0-1.0 [facility] TylerIM GRANULOCYTES %2018-09-14 05:24:00* Test Item Value Reference Range Interpretation Comments IM GRANULOCYTES % (test code = IM GRANULOCYTES %) 0.3 0.0- 1.0 [facility] TylerNeutrophils # (Auto)2018-09-14 05:24:00* Test Item Value Reference Range Interpretation Comments Neutrophils # (Auto) (test code = 751-8) 3.8 2.1-6.9 [facility] TylerLymphocytes # (Auto)2018-09-14 05:24:00* Test Item Value Reference Range Interpretation Comments Lymphocytes # (Auto) (test code = 51003-2) 1.3 1.0-3.2 [facility] TylerMonocytes # (Auto)2018-09-14 05:24:00* Test Item Value Reference Range Interpretation Comments Monocytes # (Auto) (test code = 742-7) 0.8 0.2-0.8 [facility] TylerEosinophils # (Auto)2018-09-14 05:24:00* Test Item Value Reference Range Interpretation Comments Eosinophils # (Auto) (test code = 711-2) 0.2 0.0-0.4 [facility] TylerBasophils # (Auto)2018-09-14 05:24:00* Test Item Value Reference Range Interpretation Comments Basophils # (Auto) (test code = 704-7) 0.1 0.0-0.1 [facility] TylerAbsolute Immature Granulocyte (auto 2018-09-14 05:24:00* Test Item Value Reference Range Interpretation Comments Absolute Immature Granulocyte (auto (jeyson t code = Absolute Immature Granulocyte (auto) 0.02 0-0.1 [facility] Hqzrz9756-55-19 06:39:00* Test Item Value Reference Range Interpretation Comments Sodium Level (test code = 2951-2) 137 136-145 [facility] TylerPotassium Oimnp1958-07-03 06:39:00* Test Item Value Reference Range Interpretation Comments Potassium Level (test code = 2823-3) 4.2 3.5-5.1 [facility] TylerChloride Dkauo5343-26-86 06:39:00* Test Item Value Reference Range Interpretation Comments Chloride Level (test code = 2075-0) 93 98-107 L [facility] TylerCarbon Dioxide Eyhiz5926-45-36 06:39:00* Test Item Value Reference Range Interpretation Comments Carbon Dioxide Level (test code = 2028-9) 35 22-29 H [facility] TylerAnion Bba1040-11-98 06:39:00* Test Item Value Reference Range Interpretation Comments Anion Gap (test code = 34728-0) 13.2 8-16 [facility] TylerBlood Urea Fdxthiju5597-25-98 06:39:00* Test Item Value Reference Range Interpretation Comments Blood Urea Nitrogen (test code = 3094-0) 12 7-26 [facility] TylerCreatinine2019-02-05 06:39:00* Test Item Value Reference Range Interpretation Comments Creatinine (test code = 2160-0) 0.83 0.72-1.25 [facility] TylerBUN/Creatinine Nbngo5023-38-31 06:39:00* Test Item Value Reference Range Interpretation Comments BUN/Creatinine Ratio (test code = 3097-3) 14 6-25 [facility] TylerEstimat Glomerular Filtration Rate 2018-09-13 06:39:00* Test Item Value Reference Range Interpretation Comments Estimat Glomerular Filtration Rate (test code = 397582996) > 60 >60 Ranges were taken from the National Kidney Disease Education Program and the [facility] literature.Reference ranges:60 or greater: Nrnlsv47-49 ( for 3 consecutive months): Chronic kidney disease 15 or less: Kidney failureCHRISTUS Mother Frances Hospital – TylerGlucose Osuhf2908-18-88 06:39:00* Test Item Value Reference Range Interpretation Comments Glucose Level (test code = BPX0654) 95 74-118 [facility] TylerCalcium Faruj2571-39-02 06:39:00* Test Item Value Reference Range Interpretation Comments Calcium Level (test code = 03530-3) 8.9 8.4-10.2 [facility]odium Udoyr5043-76-38 06:39:00* Test Item Value Reference Range Interpretation Comments Sodium Level (test code = 2951-2) 137 136-145 [facility] TylerPotassium Yavoy1751-31-44 06:39:00* Test Item Value Reference Range Interpretation Comments Potassium Level (test code = 2823-3) 4.2 3.5-5.1 [facility] TylerChloride Hhlmr1245-09-93 06:39:00* Test Item Value Reference Range Interpretation Comments Chloride Level (test code = 2075-0) 93 98-107 L [facility] TylerCarbon Dioxide Xrjnp7453-39-02 06:39:00* Test Item Value Reference Range Interpretation Comments Carbon Dioxide Level (test code = 2028-9) 35 22-29 H [facility] TylerAnion Jdi2133-90-05 06:39:00* Test Item Value Reference Range Interpretation Comments Anion Gap (test code = 37844-8) 13.2 8-16 [facility] TylerBlood Urea Ryreqrbp4137-25-54 06:39:00* Test Item Value Reference Range Interpretation Comments Blood Urea Nitrogen (test code = 3094-0) 12 7-26 [facility] TylerCreatinine2019-02-05 06:39:00* Test Item Value Reference Range Interpretation Comments Creatinine (test code = 2160-0) 0.83 0.72-1.25 [facility] TylerBUN/Creatinine Xtxcc9486-82-98 06:39:00* Test Item Value Reference Range Interpretation Comments BUN/Creatinine Ratio (test code = 3097-3) 14 6- [facility] TylerEstimat Glomerular Filtration Rate 2018-09-13 06:39:00* Test Item Value Reference Range Interpretation Comments Estimat Glomerular Filtration Rate (test code = 840433898) > 60 >60 Ranges were taken from the National Kidney Disease Education Program and the [facility] literature.Reference ranges:60 or greater: Rcgole11-39 ( for 3 consecutive months): Chronic kidney disease 15 or less: Kidney failureCHRISTUS Mother Frances Hospital – TylerGlucose Fpnul6862-66-02 06:39:00* Test Item Value Reference Range Interpretation Comments Glucose Level (test code = UNH6634) 95 74-118 [facility] TylerCalcium Kujlp2403-93-55 06:39:00* Test Item Value Reference Range Interpretation Comments Calcium Level (test code = 02853-1) 8.9 8.4-10.2 [facility] TylerCHEST SINGLE (PORTABLE)2018-09-12 14:35:00 [place] [address] Patient Name: SHARMILA TORRES MR #: [id number] : 1965 Age/Sex: 53/M Req #: [id number] Adm Physician: KATHRYN CUMMINGS MD Ordered by: SAL MAXWELL MD Report #: [id number] Location: MED/SURG2 Room/Bed: [facility] Procedure: [id number] DX/CH EST SINGLE (PORTABLE) Exam Date: 09/12/18 Exam Time: 1400 REPORT STATUS: Signed EXAM INATION: CHEST SINGLE (PORTABLE) INDICATION: Shortness of breath. COMPARISON: Chest radiograph 09/08/2018. FINDINGS: Limited by port able technique and soft tissue attenuation. TUBES and LINES: None. L UNGS: Moderate perihilar and interstitial opacities. No evidence of lobar cons olidation. PLEURA: No pleural effusion or pneumothorax. HEART AND ME DIASTINUM: The cardiomediastinal silhouette is enlarged, unchanged. BON ES AND SOFT TISSUES: No acute osseous abnormality. Status post median sternoto my. UPPER ABDOMEN: No free air under the diaphragm. IMPRESSION: Limited by portable technique and soft tissue attenuation. Cardiomegaly with similar appearance of moderate perihilar and interstitial opacities, like ly pulmonary edema. No evidence of lobar pneumonia. Signed by: Dr. Garland Winkler MD on 09/12/2018 2:40 PM Dictated By: YASEMIN WINKLER MD [employer]ly Signed By: YASEMIN WINKLER MD on 09/12/18 1440 Transcribed By: DEE DEE on 1440 COPY TO: SAL MAXWELL MD CT BRAIN [id number] 14:14:[address] [facility] [address] [address] Patient Name: SHARMILA TORRES MR #: [id number] : 1965 Age/Sex: 53/M Req #: [id number] Adm Physician: KATHRYN CUMMINGS MD Ordered by: SAL MAXWELL MD Report #: [id number] Location: MED/SURG2 Room/Bed: [facility] Procedure: [id number] CT/CT BRAIN WO Exam Date: 09/12/18 Exam Time: 1330 REPORT STATUS: Signed History: Fell Comparison studies: None Technique: Axial images were obtained from the skull base to the vertex. Coronal and sagittal reconstructions obtained from the axial data. Dose modulation, iterative reconstruction, and/or weight based adjustment of the mA/kV was utilized to reduce the radiation dose to as low as reasonably achievable. Findings: Scalp/skull: No abnormalities. No fractures, blastic or lytic lesions. Extra-axial spaces: No masses. No fluid collections. Brain sulci: Appropriate for age. Ventricles: Nor mal in size and configuration. No hydrocephalus. Parenchyma: No abnormal densities. No masses, hemorrhage, acute or chronic cortical vascular insults. Sellar/suprasellar region: No abnormalities Craniocervical junction: Pa tent foramen magnum. No Chiari one malformation. Atherosclerotic calcifica tions of the carotid siphons IMPRESSION: No acute abnormalities . Signed by: DR Cristian Cunningham M.D. on 09/12/2018 2:22 PM Dictated B y: CRISTIAN DIAZ MD 1422 COPY TO: CARMENZA MAXWELL MD KNEE LEFT 1-2 DOKCK5665-56-06 05:13:[address] [address] Patient Name: SHARMILA TORRES MR #: [id number] : 1965 Age/Sex: 53/M Req #: [id number] Adm Physician: KATHRYN CUMMINGS MD Ordered by: SAL MAXWELL MD Report #: [id number] Location: MED/SURG2 Room/Bed: [facility] Procedure: [id number] DX/KN EE LEFT 1-2 VIEWS Exam Date: 09/12/18 Exam Time: 044 5 REPORT STATUS: Signed KNEE LEF T 1-2 VIEWS Comparison: None Clinical history: Contusion of the left knee Findings: No fracture or dislocation. Mild tricompartmental degenerative changes. Prepatellar/infrapatellar soft tissue swelling. Impression: No acute bony abnormality Signed by: Dr Nkechi Medley MD on 09/12/2018 5:14 AM Dictated By: NKECHI MEDLEY MD 3 Transcribed By: DEE DEE on 09/12/18513 COPY TO : SAL MAXWELL MD Creatine Kinase GZ9395-84-39 21:06:00* Test Item Value Reference Range Interpretation Comments Creatine Kinase MB (test code = 96735-8) 1.60 0-5.0 [facility] TylerTroponin [id number] 21:06:00* Test Item Value Reference Range Interpretation Comments Troponin I (test code = APS8005) 0.021 0-0.300 [facility] TylerCreatine Kinase RE1132-33-87 21:06:00* Test Item Value Reference Range Interpretation Comments Creatine Kinase MB (test code = 24802-0) 1.60 0-5.0 [facility] TylerTroponin S1324-87-10 21:06:00* Test Item Value Reference Range Interpretation Comments Troponin I (test code = OBK9650) 0.021 0-0.300 [facility] TylerCreatine Bcfcpm7372-99-18 20:57:00* Test Item Value Reference Range Interpretation Comments Creatine Kinase (test code = 2157-6) 50 30-200 [facility] TylerCreatine Jsyedu2942-38-37 20:57:00* Test Item Value Reference Range Interpretation Comments Creatine Kinase (test code = 2157-6) 50 30-200 [facility] TylerB-Type Natriuretic Ukzpbjp2802-50-07 05:16:00* Test Item Value Reference Range Interpretation Comments B-Type Natriuretic Peptide (test code = 71868-3) 128.2 0-100 H [facility] TylerB-Type Natriuretic Padlkun9895-49-51 05:16:00* Test Item Value Reference Range Interpretation Comments B-Type Natriuretic Peptide (test code = 77008-2) 128.2 0-100 H [facility] TylerCHEST SINGLE (PORTABLE)2018-09-08 05:14:[address] [address] Patient Name: SHARMILA TORRES MR #: [id number] : 1965 Age/Sex: 53/M Req #: [id number] Adm Physician: Ordered by: ELVA VIVEROS MD Report #: [id number] Location: Room/Bed: Procedure: [id number] DX/CHEST SINGLE (PORTABLE) Exam Date: 09/08/18 Bladimir varela Time: 444 REPORT STATUS: Signed CHEST SINGLE (PORTABLE), 09/08/2018 4:26 AM Technique: CHEST SINGLE (PORT ABLE) Comparison: 12/29/2017 Clinical history: Shortness of breath Findi ngs: See Impression Impression: 1. Limited by portable technique and so ft tissue attenuation 2. Stable enlarged cardiomediastinal silhouette status p ost median sternotomy. 3. Diffuse opacities, likely edema. No significant effu be appreciated or pneumothorax. Signed by: Dr Nkechi Medley MD on 09/08 5:15 AM Dictated By: NKECHI MEDLEY MD 4 Transcribed By: DEE DEE on 09/08/18514 COPY TO: ELVA VIVEROS MD Total Weydmdltz0175-77-19 05:06:00 * Test Item Value Reference Range Interpretation Comments Total Bilirubin (test code = 1975-2) 1.0 0.2-1.2 [facility] TylerAspartate Amino Transf (AST/SGOT) 2018-09-08 05:06:00* Test Item Value Reference Range Interpretation Comments Aspartate Amino Transf (AST/SGOT) (test code = Aspartate Amino Transf (AST/SGOT)) 27 5-34 [facility] TylerAlanine Aminotransferase (ALT/SGPT) 2018-09-08 05:06:00* Test Item Value Reference Range Interpretation Comments Alanine Aminotransferase (ALT/SGPT) (test code = 1742-6) 15 0-55 [facility] TylerTotal Hdciecu4744-85-41 05:06:00* Test Item Value Reference Range Interpretation Comments Total Protein (test code = 2885-2) 8.7 6.5-8.1 H [facility] TylerAlbumin2019-01-31 05:06:00* Test Item Value Reference Range Interpretation Comments Albumin (test code = 1751-7) 3.8 3.5-5.0 [facility] TylerGlobulin2019-01-31 05:06:00* Test Item Value Reference Range Interpretation Comments Globulin (test code = 37602-0) 4.9 2.3-3.5 H [facility] TylerAlbumin/Globulin Xsdwt0665-46-31 05:06:00 * Test Item Value Reference Range Interpretation Comments Albumin/Globulin Ratio (test code = 1759-0) 0.8 0.8-2.0 [facility] TylerAlkaline Skutwtfixxo9498-29-10 05:06:00* Test Item Value Reference Range Interpretation Comments Alkaline Phosphatase (test code = 6768-6) 129 40-150 [facility] TylerTotal Fuswkrfyj7990-44-04 05:06:00* Test Item Value Reference Range Interpretation Comments Total Bilirubin (test code = 1975-2) 1.0 0.2-1.2 [facility] TylerAspartate Amino Transf (AST/SGOT) 2018-09-08 05:06:00* Test Item Value Reference Range Interpretation Comments Aspartate Amino Transf (AST/SGOT) (test code = Aspartate Amino Transf (AST/SGOT)) 27 5-34 [facility] TylerAlanine Aminotransferase (ALT/SGPT) 2018-09-08 05:06:00* Test Item Value Reference Range Interpretation Comments Alanine Aminotransferase (ALT/SGPT) (test code = 1742-6) 15 0-55 [facility] Pteiefh3008-00-55 05:06:00* Test Item Value Reference Range Interpretation Comments Total Protein (test code = 2885-2) 8.7 6.5-8.1 H [facility] TylerAlbumin2019-01-31 05:06:00* Test Item Value Reference Range Interpretation Comments Albumin (test code = 1751-7) 3.8 3.5-5.0 [facility] TylerGlobulin2019-01-31 05:06:00* Test Item Value Reference Range Interpretation Comments Globulin (test code = 78152-3) 4.9 2.3-3.5 H [facility] TylerAlbumin/Globulin Izkvd7773-83-79 05:06:00 * Test Item Value Reference Range Interpretation Comments Albumin/Globulin Ratio (test code = 1759-0) 0.8 0.8-2.0 [facility] TylerAlkaline Lwvdrraqvgg2496-28-57 05:06:00* Test Item Value Reference Range Interpretation Comments Alkaline Phosphatase (test code = 6768-6) 129 40-150 [facility] Nlumwxs4034-51-45 04:57:00* Test Item Value Reference Range Interpretation Comments Bedside Glucose (test code = 98002-6) 105 70-120 Meter ID: [id number] General Hospital Glucose 2018-09-08 04:57:00* Test Item Value Reference Range Interpretation Comments Bedside Glucose (test code = 43105-7) 105 70-120 Meter ID: [id number] [facility] TylerBlood Culture 2018-01-03 16:13:00* Test Item Value Reference Range Interpretation Comments Blood Culture (test code = 32745016) NO GROWTH AFTER 5 DAYS, FINAL REPORT [facility] TylerUrine WWT0192-16-29 16:51:00* Test Item Value Reference Range Interpretation Comments Urine WBC (test code = 5821-4) 50- 0-5 H [facility] TylerUrine QTD0108-69-26 16:51:00* Test Item Value Reference Range Interpretation Comments Urine RBC (test code = 68052-7) 21-50 0-5 H [facility] TylerUrine Rzfjlzgj7850-22-54 16:51:00* Test Item Value Reference Range Interpretation Comments Urine Bacteria (test code = 28432-1) FEW NONE [facility] TylerUrine Epithelial Rjjfr3426-76-95 16:51:00 * Test Item Value Reference Range Interpretation Comments Urine Epithelial Cells (test code = 93575-7) FEW NONE [facility] TylerUrine Transitional Epithelial Cells 2017-12-29 16:51:00* Test Item Value Reference Range Interpretation Comments Urine Transitional Epithelial Cells (test code = 8249-5) MODERATE NONE [facility] TylerUrine DYU0058-13-67 16:51:00* Test Item Value Reference Range Interpretation Comments Urine WBC (test code = 5821-4) >50 0-5 H [facility] TylerUrine EZW3247-15-05 16:51:00* Test Item Value Reference Range Interpretation Comments Urine RBC (test code = 74261-1) 21-50 0-5 H [facility] TylerUrine Ixjlkpuo7647-13-52 16:51:00* Test Item Value Reference Range Interpretation Comments Urine Bacteria (test code = 70683-1) FEW NONE [facility] TylerUrine Epithelial Akudc6797-08-69 16:51:00 * Test Item Value Reference Range Interpretation Comments Urine Epithelial Cells (test code = 30235-9) FEW NONE [facility] TylerUrine Transitional Epithelial Cells 2017-12-29 16:51:00* Test Item Value Reference Range Interpretation Comments Urine Transitional Epithelial Cells (test code = 8249-5) MODERATE NONE [facility] TylerUrine Vjiwg0339-31-46 16:36:00* Test Item Value Reference Range Interpretation Comments Urine Color (test code = 5778-6) YELLOW YELLOW [facility] TylerUrine Dblmgua0140-04-25 16:36:00* Test Item Value Reference Range Interpretation Comments Urine Clarity (test code = 49744-6) HAZY CLEAR [facility] TylerUrine Specific Prcyzpu0262-48-58 16:36:00 * Test Item Value Reference Range Interpretation Comments Urine Specific [place] (test code = 5811-5) 1.015 1.010-1.02 5 [facility] TylerUrine qC1128-06-06 16:36:00* Test Item Value Reference Range Interpretation Comments Urine pH (test code = 12355-9) 8 5-7 H [facility] TylerUrine Leukocyte Ouzkzmux0122-60-55 16:36:00* Test Item Value Reference Range Interpretation Comments Urine Leukocyte Esterase (test code = 5799-2) 1+ NEGATIVE H [facility] TylerUrine Ygkqebg7112-67-99 16:36:00* Test Item Value Reference Range Interpretation Comments Urine Nitrite (test code = 77828-5) NEGATIVE NEGATIVE [facility] TylerUrine Htamroc0590-87-68 16:36:00* Test Item Value Reference Range Interpretation Comments Urine Protein (test code = 5804-0) 2+ NEGATIVE H [facility] TylerUrine Glucose (UA)2017-12-29 16:36:00* Test Item Value Reference Range Interpretation Comments Urine Glucose (UA) (test code = 2349-9) NEGATIVE NEGATIVE [facility] TylerUrine Jrhdqht4984-27-15 16:36:00* Test Item Value Reference Range Interpretation Comments Urine Ketones (test code = 99303-3) NEGATIVE NEGATIVE [facility] TylerUrine Yoovyhzcxrdy2242-03-22 16:36:00* Test Item Value Reference Range Interpretation Comments Urine Urobilinogen (test code = 43268-1) 1 0.2-1 [facility] TylerUrine Bksonvwjl6218-25-48 16:36:00* Test Item Value Reference Range Interpretation Comments Urine Bilirubin (test code = 1978-6) NEGATIVE NEGATIVE [facility] TylerUrine Xoqjq1238-48-88 16:36:00* Test Item Value Reference Range Interpretation Comments Urine Blood (test code = 68146-5) 2+ NEGATIVE H [facility] TylerUrine Zmfzs4632-19-31 16:36:00* Test Item Value Reference Range Interpretation Comments Urine Color (test code = 5778-6) YELLOW YELLOW [facility] TylerUrine Pxargky7740-39-65 16:36:00* Test Item Value Reference Range Interpretation Comments Urine Clarity (test code = 91446-1) HAZY CLEAR [facility] TylerUrine Specific Vkfuhga6271-63-97 16:36:00 * Test Item Value Reference Range Interpretation Comments Urine Specific [place] (test code = 5811-5) 1.015 1.010-1.02 5 [facility] TylerUrine nV0145-68-62 16:36:00* Test Item Value Reference Range Interpretation Comments Urine pH (test code = 32427-7) 8 5-7 H [facility] TylerUrine Leukocyte Hlxyxuja9067-65-42 16:36:00* Test Item Value Reference Range Interpretation Comments Urine Leukocyte Esterase (test code = 5799-2) 1+ NEGATIVE H [facility] TylerUrine Chhpzwv3928-53-12 16:36:00* Test Item Value Reference Range Interpretation Comments Urine Nitrite (test code = 69454-0) NEGATIVE NEGATIVE [facility] TylerUrine Rwpdzbw4700-02-93 16:36:00* Test Item Value Reference Range Interpretation Comments Urine Protein (test code = 5804-0) 2+ NEGATIVE H [facility] TylerUrine Glucose (UA)2017-12-29 16:36:00* Test Item Value Reference Range Interpretation Comments Urine Glucose (UA) (test code = 2349-9) NEGATIVE NEGATIVE [facility] TylerUrine Tiiyged7979-07-62 16:36:00* Test Item Value Reference Range Interpretation Comments Urine Ketones (test code = 78025-5) NEGATIVE NEGATIVE [facility] Oslblondxkxt3609-43-65 16:36:00* Test Item Value Reference Range Interpretation Comments Urine Urobilinogen (test code = 48761-7) 1 0.2-1 [facility] TylerUrine Vmrjqbfsp9089-12-97 16:36:00* Test Item Value Reference Range Interpretation Comments Urine Bilirubin (test code = 1978-6) NEGATIVE NEGATIVE [facility] TylerUrine Iftyv9557-58-51 16:36:00* Test Item Value Reference Range Interpretation Comments Urine Blood (test code = 53293-1) 2+ NEGATIVE H [facility] Udvev6755-85-70 16:26:00* Test Item Value Reference Range Interpretation Comments Sodium Level (test code = 2951-2) 136 136-145 [facility] TylerPotassium Brffj8485-72-40 16:26:00* Test Item Value Reference Range Interpretation Comments Potassium Level (test code = 2823-3) 4.0 3.5-5.1 [facility] TylerChloride Nmegk6907-66-25 16:26:00* Test Item Value Reference Range Interpretation Comments Chloride Level (test code = 2075-0) 95 98-107 L [facility] TylerCarbon Dioxide Lfxjn5863-01-48 16:26:00* Test Item Value Reference Range Interpretation Comments Carbon Dioxide Level (test code = 2028-9) 32 22-29 H [facility] TylerAnion Mgv4077-61-38 16:26:00* Test Item Value Reference Range Interpretation Comments Anion Gap (test code = 73582-4) 13.0 8-16 [facility] TylerBlood Urea Qriuejxl8787-55-99 16:26:00* Test Item Value Reference Range Interpretation Comments Blood Urea Nitrogen (test code = 3094-0) 12 7-26 [facility] TylerCreatinine2018-05-23 16:26:00* Test Item Value Reference Range Interpretation Comments Creatinine (test code = 2160-0) 0.85 0.72-1.25 [facility] TylerBUN/Creatinine Mysxz6017-00-32 16:26:00* Test Item Value Reference Range Interpretation Comments BUN/Creatinine Ratio (test code = 3097-3) 14 6- [facility] TylerEstimat Glomerular Filtration Rate 2017-12-29 16:26:00* Test Item Value Reference Range Interpretation Comments Estimat Glomerular Filtration Rate (test code = 27918-4) 60- >60 Ranges were taken from the National Kidney Disease Education Program and the [facility] Kidney Foundation literature.Reference ranges:60 or greater: Kaqpuz24-02 ( for 3 consecutive months): Chronic kidney disease 15 or less: Kidney failureCHRISTUS Mother Frances Hospital – TylerGlucose Oafzs4605-35-40 16:26:00* Test Item Value Reference Range Interpretation Comments Glucose Level (test code = SEW8063) 100 74-118 [facility] TylerCalcium Swnwp2103-74-67 16:26:00* Test Item Value Reference Range Interpretation Comments Calcium Level (test code = 66979-6) 9.8 8.4-10.2 [facility] TylerLactic Acid Sonio5499-32-05 16:26:00* Test Item Value Reference Range Interpretation Comments Lactic Acid Level (test code = Lactic Acid Level) 10.5 4.5- 19.8 [facility] TylerTotal Fyuqizkhx2044-85-18 16:26:00* Test Item Value Reference Range Interpretation Comments Total Bilirubin (test code = 1975-2) 1.9 0.2-1.2 H [facility] TylerAspartate Amino Transf (AST/SGOT) 2017-12-29 16:26:00* Test Item Value Reference Range Interpretation Comments Aspartate Amino Transf (AST/SGOT) (test code = Aspartate Amino Transf (AST/SGOT)) 18 5-34 [facility] TylerAlanine Aminotransferase (ALT/SGPT) 2017-12-29 16:26:00* Test Item Value Reference Range Interpretation Comments Alanine Aminotransferase (ALT/SGPT) (test code = 1742-6) 12 0-55 [facility] TylerTotal Rswcknd0527-48-86 16:26:00* Test Item Value Reference Range Interpretation Comments Total Protein (test code = 2885-2) 8.7 6.5-8.1 H [facility] TylerAlbumin2018-05-23 16:26:00* Test Item Value Reference Range Interpretation Comments Albumin (test code = 1751-7) 3.8 3.5-5.0 [facility] TylerGlobulin2018-05-23 16:26:00* Test Item Value Reference Range Interpretation Comments Globulin (test code = 01514-6) 4.9 2.3-3.5 H [facility] TylerAlbumin/Globulin Tujwn8649-18-90 16:26:00 * Test Item Value Reference Range Interpretation Comments Albumin/Globulin Ratio (test code = 1759-0) 0.8 0.8-2.0 [facility] TylerAlkaline Iiepxrdtrkd9040-46-81 16:26:00* Test Item Value Reference Range Interpretation Comments Alkaline Phosphatase (test code = 6768-6) 98 40-150 [facility] TylerLactic Acid Tjfaw0862-06-28 16:26:00* Test Item Value Reference Range Interpretation Comments Lactic Acid Level (test code = Lactic Acid Level) 10.5 4.5- 19.8 [facility] TylerWhite Blood Ncivf8057-84-15 16:14:00* Test Item Value Reference Range Interpretation Comments White Blood Count (test code = 6690-2) 14.28 4.8-10.8 H [facility] TylerRed Blood Vpzts1592-09-97 16:14:00* Test Item Value Reference Range Interpretation Comments Red Blood Count (test code = 789-8) 5.25 4.3-5.7 [facility] TylerHemoglobin2018-05-23 16:14:00* Test Item Value Reference Range Interpretation Comments Hemoglobin (test code = 55764-2) 15.7 14.0-18.0 [facility] TylerHematocrit2018-05-23 16:14:00* Test Item Value Reference Range Interpretation Comments Hematocrit (test code = 4544-3) 46.9 38.2-49.6 [facility] TylerMean Corpuscular Bnmzve7698-16-94 16:14:00* Test Item Value Reference Range Interpretation Comments Mean Corpuscular Volume (test code = 787-2) 89.3 81-99 [facility] TylerMean Corpuscular Xtrebylrom0289-50-95 16:14:00* Test Item Value Reference Range Interpretation Comments Mean Corpuscular Hemoglobin (test code = 785-6) 29.9 28-32 [facility] TylerMean Corpuscular Hemoglobin Concent 2017-12-29 16:14:00* Test Item Value Reference Range Interpretation Comments Mean Corpuscular Hemoglobin Concent (test code = 786-4) 33.5 31-35 [facility] TylerRed Cell Distribution Qtyhv7583-96-52 16:14:00* Test Item Value Reference Range Interpretation Comments Red Cell Distribution Width (test code = 61751-3) 13.8 11.7 -14.4 [facility] TylerPlatelet Hvxtu7132-09-39 16:14:00* Test Item Value Reference Range Interpretation Comments Platelet Count (test code = 777-3) 184 140-360 [facility] TylerNeutrophils (%) (Auto)2017-12-29 16:14:00 * Test Item Value Reference Range Interpretation Comments Neutrophils (%) (Auto) (test code = 29334-1) 81.5 38.7-80.0 H [facility] TylerLymphocytes (%) (Auto)2017-12-29 16:14:00 * Test Item Value Reference Range Interpretation Comments Lymphocytes (%) (Auto) (test code = 736-9) 9.5 18.0-39.1 L [facility] TylerMonocytes (%) (Auto)2017-12-29 16:14:00* Test Item Value Reference Range Interpretation Comments Monocytes (%) (Auto) (test code = 5905-5) 7.2 4.4-11.3 [facility] TylerEosinophils (%) (Auto)2017-12-29 16:14:00 * Test Item Value Reference Range Interpretation Comments Eosinophils (%) (Auto) (test code = 713-8) 0.7 0.0-6.0 [facility] TylerBasophils (%) (Auto)2017-12-29 16:14:00* Test Item Value Reference Range Interpretation Comments Basophils (%) (Auto) (test code = 706-2) 0.5 0.0-1.0 [facility] TylerIM GRANULOCYTES %2017-12-29 16:14:00* Test Item Value Reference Range Interpretation Comments IM GRANULOCYTES % (test code = IM GRANULOCYTES %) 0.6 0.0- 1.0 [facility] TylerNeutrophils # (Auto)2017-12-29 16:14:00* Test Item Value Reference Range Interpretation Comments Neutrophils # (Auto) (test code = 751-8) 11.6 2.1-6.9 H [facility] TylerLymphocytes # (Auto)2017-12-29 16:14:00* Test Item Value Reference Range Interpretation Comments Lymphocytes # (Auto) (test code = 76756-1) 1.4 1.0-3.2 [facility] TylerMonocytes # (Auto)2017-12-29 16:14:00* Test Item Value Reference Range Interpretation Comments Monocytes # (Auto) (test code = 742-7) 1.0 0.2-0.8 H [facility] TylerEosinophils # (Auto)2017-12-29 16:14:00* Test Item Value Reference Range Interpretation Comments Eosinophils # (Auto) (test code = 711-2) 0.1 0.0-0.4 [facility] TylerBasophils # (Auto)2017-12-29 16:14:00* Test Item Value Reference Range Interpretation Comments Basophils # (Auto) (test code = 704-7) 0.1 0.0-0.1 [facility] TylerAbsolute Immature Granulocyte (auto 2017-12-29 16:14:00* Test Item Value Reference Range Interpretation Comments Absolute Immature Granulocyte (auto (jeyson t code = Absolute Immature Granulocyte (auto) 0.08 0-0.1 [facility]odium Buizw1999-92-04 22:25:00* Test Item Value Reference Range Interpretation Comments Sodium Level (test code = 2951-2) 136 136-145 [facility] TylerPotassium Zdied6353-97-75 22:25:00* Test Item Value Reference Range Interpretation Comments Potassium Level (test code = 2823-3) 3.9 3.5-5.1 [facility] TylerChloride Xzfdl8411-54-92 22:25:00* Test Item Value Reference Range Interpretation Comments Chloride Level (test code = 2075-0) 95 98-107 L [facility] TylerCarbon Dioxide Awqcv1241-70-22 22:25:00* Test Item Value Reference Range Interpretation Comments Carbon Dioxide Level (test code = 2028-9) 30 22-29 H [facility] TylerAnion Pkl1215-44-96 22:25:00* Test Item Value Reference Range Interpretation Comments Anion Gap (test code = 79053-6) 14.9 8-16 [facility] TylerBlood Urea Yeegxmbh4533-64-03 22:25:00* Test Item Value Reference Range Interpretation Comments Blood Urea Nitrogen (test code = 3094-0) 14 7-26 [facility] TylerCreatinine2018-05-07 22:25:00* Test Item Value Reference Range Interpretation Comments Creatinine (test code = 2160-0) 0.84 0.72-1.25 [facility] TylerBUN/Creatinine Xxtvx6660-02-03 22:25:00* Test Item Value Reference Range Interpretation Comments BUN/Creatinine Ratio (test code = 3097-3) 17 6-25 [facility] TylerEstimat Glomerular Filtration Rate 2017-12-13 22:25:00* Test Item Value Reference Range Interpretation Comments Estimat Glomerular Filtration Rate (test code = 65114-4) 60- >60 Ranges were taken from the National Kidney Disease Education Program and the [facility] literature.Reference ranges:60 or greater: Bfllvy86-40 ( for 3 consecutive months): Chronic kidney disease 15 or less: Kidney failureCH[facility] TylerGlucose Jmxdz4107-18-78 22:25:00* Test Item Value Reference Range Interpretation Comments Glucose Level (test code = YNY3384) 95 74-118 [facility] TylerCalcium Zuyot2274-87-75 22:25:00* Test Item Value Reference Range Interpretation Comments Calcium Level (test code = 21812-3) 9.4 8.4-10.2 [facility] Iguhefbok7227-54-64 22:25:00* Test Item Value Reference Range Interpretation Comments Total Bilirubin (test code = 1975-2) 1.0 0.2-1.2 [facility] TylerAspartate Amino Transf (AST/SGOT) 2017-12-13 22:25:00* Test Item Value Reference Range Interpretation Comments Aspartate Amino Transf (AST/SGOT) (test code = Aspartate Amino Transf (AST/SGOT)) 22 5-34 [facility] TylerAlanine Aminotransferase (ALT/SGPT) 2017-12-13 22:25:00* Test Item Value Reference Range Interpretation Comments Alanine Aminotransferase (ALT/SGPT) (test code = 1742-6) 14 0-55 [facility] TylerTotal Crdkykd7838-16-84 22:25:00* Test Item Value Reference Range Interpretation Comments Total Protein (test code = 2885-2) 8.6 6.5-8.1 H [facility] TylerAlbumin2018-05-07 22:25:00* Test Item Value Reference Range Interpretation Comments Albumin (test code = 1751-7) 3.5 3.5-5.0 [facility] TylerGlobulin2018-05-07 22:25:00* Test Item Value Reference Range Interpretation Comments Globulin (test code = 22339-4) 5.1 2.3-3.5 H [facility] TylerAlbumin/Globulin Skxim9728-49-03 22:25:00 * Test Item Value Reference Range Interpretation Comments Albumin/Globulin Ratio (test code = 1759-0) 0.7 0.8-2.0 L [facility] TylerAlkaline Zeipzqncccx7217-92-97 22:25:00* Test Item Value Reference Range Interpretation Comments Alkaline Phosphatase (test code = 6768-6) 107 40-150 [facility] TylerWhite Blood Yvriq4886-17-39 22:08:00* Test Item Value Reference Range Interpretation Comments White Blood Count (test code = 6690-2) 11.20 4.8-10.8 H [facility] TylerRed Blood Qlamv8746-31-17 22:08:00* Test Item Value Reference Range Interpretation Comments Red Blood Count (test code = 789-8) 5.41 4.3-5.7 [facility] TylerHemoglobin2018-05-07 22:08:00* Test Item Value Reference Range Interpretation Comments Hemoglobin (test code = 52042-2) 15.9 14.0-18.0 [facility] TylerHematocrit2018-05-07 22:08:00* Test Item Value Reference Range Interpretation Comments Hematocrit (test code = 4544-3) 48.4 38.2-49.6 [facility] TylerMean Corpuscular Revakw5373-11-87 22:08:00* Test Item Value Reference Range Interpretation Comments Mean Corpuscular Volume (test code = 787-2) 89.5 81-99 [facility] TylerMean Corpuscular Sneczqhexu3625-96-88 22:08:00* Test Item Value Reference Range Interpretation Comments Mean Corpuscular Hemoglobin (test code = 785-6) 29.4 28-32 [facility] TylerMean Corpuscular Hemoglobin Concent 2017-12-13 22:08:00* Test Item Value Reference Range Interpretation Comments Mean Corpuscular Hemoglobin Concent (test code = 786-4) 32.9 31-35 [facility] TylerRed Cell Distribution Eptjo6641-72-46 22:08:00* Test Item Value Reference Range Interpretation Comments Red Cell Distribution Width (test code = 69934-4) 13.7 11.7 -14.4 [facility] TylerPlatelet Vcwcq2856-14-25 22:08:00* Test Item Value Reference Range Interpretation Comments Platelet Count (test code = 777-3) 206 140-360 [facility] TylerNeutrophils (%) (Auto)2017-12-13 22:08:00 * Test Item Value Reference Range Interpretation Comments Neutrophils (%) (Auto) (test code = 89957-4) 74.4 38.7-80.0 [facility] TylerLymphocytes (%) (Auto)2017-12-13 22:08:00 * Test Item Value Reference Range Interpretation Comments Lymphocytes (%) (Auto) (test code = 736-9) 13.3 18.0-39.1 L [facility] TylerMonocytes (%) (Auto)2017-12-13 22:08:00* Test Item Value Reference Range Interpretation Comments Monocytes (%) (Auto) (test code = 5905-5) 8.1 4.4-11.3 [facility] TylerEosinophils (%) (Auto)2017-12-13 22:08:00 * Test Item Value Reference Range Interpretation Comments Eosinophils (%) (Auto) (test code = 713-8) 3.3 0.0-6.0 [facility] TylerBasophils (%) (Auto)2017-12-13 22:08:00* Test Item Value Reference Range Interpretation Comments Basophils (%) (Auto) (test code = 706-2) 0.5 0.0-1.0 [facility] TylerIM GRANULOCYTES %2017-12-13 22:08:00* Test Item Value Reference Range Interpretation Comments IM GRANULOCYTES % (test code = IM GRANULOCYTES %) 0.4 0.0- 1.0 [facility] TylerNeutrophils # (Auto)2017-12-13 22:08:00* Test Item Value Reference Range Interpretation Comments Neutrophils # (Auto) (test code = 751-8) 8.3 2.1-6.9 H [facility] TylerLymphocytes # (Auto)2017-12-13 22:08:00* Test Item Value Reference Range Interpretation Comments Lymphocytes # (Auto) (test code = 68077-5) 1.5 1.0-3.2 [facility] TylerMonocytes # (Auto)2017-12-13 22:08:00* Test Item Value Reference Range Interpretation Comments Monocytes # (Auto) (test code = 742-7) 0.9 0.2-0.8 H [facility] TylerEosinophils # (Auto)2017-12-13 22:08:00* Test Item Value Reference Range Interpretation Comments Eosinophils # (Auto) (test code = 711-2) 0.4 0.0-0.4 [facility] TylerBasophils # (Auto)2017-12-13 22:08:00* Test Item Value Reference Range Interpretation Comments Basophils # (Auto) (test code = 704-7) 0.1 0.0-0.1 [facility] TylerAbsolute Immature Granulocyte (auto 2017-12-13 22:08:00* Test Item Value Reference Range Interpretation Comments Absolute Immature Granulocyte (auto (jeyson t code = Absolute Immature Granulocyte (auto) 0.05 0-0.1 [facility] TylerBlood Ducahji9995-68-61 22:21:00* Test Item Value Reference Range Interpretation Comments Blood Culture (test code = 03977906) NO GROWTH AFTER 5 DAYS, FINAL REPORT [facility] TylerBlood Ioodbjj8484-57-34 22:21:00* Test Item Value Reference Range Interpretation Comments Blood Culture (test code = 96530733) NO GROWTH AFTER 5 DAYS, FINAL REPORT [facility] TylerCreatine Kinase WZ4182-87-10 15:30:00* Test Item Value Reference Range Interpretation Comments Creatine Kinase MB (test code = 06816-3) 1.90 0.00-5.00 [facility] TylerTroponin O3440-54-00 15:30:00* Test Item Value Reference Range Interpretation Comments Troponin I (test code = CGO8769) 0.012 0-0.300 [facility] TylerCreatine Kinase AF4435-07-79 15:30:00* Test Item Value Reference Range Interpretation Comments Creatine Kinase MB (test code = 22505-9) 1.90 0.00-5.00 [facility] TylerTroponin S0918-57-51 15:30:00* Test Item Value Reference Range Interpretation Comments Troponin I (test code = INX7841) 0.012 0-0.300 [facility] TylerCreatine Tuhecj5440-61-51 15:23:00* Test Item Value Reference Range Interpretation Comments Creatine Kinase (test code = 2157-6) 105 30-200 [facility] TylerCreatine Juamdj3205-66-77 15:23:00* Test Item Value Reference Range Interpretation Comments Creatine Kinase (test code = 2157-6) 105 30-200 [facility] TylerUrine GEA1809-42-70 21:51:00* Test Item Value Reference Range Interpretation Comments Urine WBC (test code = 5821-4) 0-5 0-5 [facility] TylerUrine KVW4488-69-79 21:51:00* Test Item Value Reference Range Interpretation Comments Urine RBC (test code = 19059-7) 21-50 0-5 H [facility] TylerUrine Nkztptto6636-24-30 21:51:00* Test Item Value Reference Range Interpretation Comments Urine Bacteria (test code = 24607-6) RARE NONE [facility] TylerUrine Epithelial Oxaqk0525-36-94 21:51:00 * Test Item Value Reference Range Interpretation Comments Urine Epithelial Cells (test code = 33179-0) FEW NONE [facility] TylerUrine Yskzy8740-91-48 21:46:00* Test Item Value Reference Range Interpretation Comments Urine Color (test code = 5778-6) YELLOW YELLOW [facility] TylerUrine Qgltpnr8444-22-22 21:46:00* Test Item Value Reference Range Interpretation Comments Urine Clarity (test code = 31216-2) CLEAR CLEAR [facility] TylerUrine Specific Vmcofgv6846-25-52 21:46:00 * Test Item Value Reference Range Interpretation Comments Urine Specific [place] (test code = 5811-5) 1.015 1.010-1.02 5 [facility] TylerUrine yH2261-72-59 21:46:00* Test Item Value Reference Range Interpretation Comments Urine pH (test code = 10929-2) 6 5-7 [facility] TylerUrine Leukocyte Yhfdfpog0135-98-97 21:46:00* Test Item Value Reference Range Interpretation Comments Urine Leukocyte Esterase (test code = 5799-2) NEGATIVE NEGATIVE [facility] TylerUrine Mkqbecd4472-34-34 21:46:00* Test Item Value Reference Range Interpretation Comments Urine Nitrite (test code = 71054-1) NEGATIVE NEGATIVE [facility] TylerUrine Itefnql5979-29-80 21:46:00* Test Item Value Reference Range Interpretation Comments Urine Protein (test code = 5804-0) 1+ NEGATIVE H [facility] TylerUrine Glucose (UA)2017-04-26 21:46:00* Test Item Value Reference Range Interpretation Comments Urine Glucose (UA) (test code = 2349-9) NEGATIVE NEGATIVE [facility] TylerUrine Fxdghno7402-73-15 21:46:00* Test Item Value Reference Range Interpretation Comments Urine Ketones (test code = 00355-7) NEGATIVE NEGATIVE [facility] Ffdynfagwrfr2668-28-02 21:46:00* Test Item Value Reference Range Interpretation Comments Urine Urobilinogen (test code = 19649-4) 0.2 0.2-1 [facility] TylerUrine Uyetzoani2806-81-60 21:46:00* Test Item Value Reference Range Interpretation Comments Urine Bilirubin (test code = 1978-6) NEGATIVE NEGATIVE [facility] Hzuwe0804-79-85 21:46:00* Test Item Value Reference Range Interpretation Comments Urine Blood (test code = 06036-0) 3+ NEGATIVE H [facility] TylerB-Type Natriuretic Cwkvkql3952-35-04 21:44:00* Test Item Value Reference Range Interpretation Comments B-Type Natriuretic Peptide (test code = 40849-0) 68.3 0-100 [facility] TylerB-Type Natriuretic Tbuzyjd1779-65-10 21:44:00* Test Item Value Reference Range Interpretation Comments B-Type Natriuretic Peptide (test code = 56667-8) 68.3 0-100 [facility] TylerMagnesium Uscgs6337-24-43 21:37:00* Test Item Value Reference Range Interpretation Comments Magnesium Level (test code = 58829-3) 2.1 1.3-2.1 [facility] Amsdp6543-82-40 21:37:00* Test Item Value Reference Range Interpretation Comments Magnesium Level (test code = 64659-6) 2.1 1.3-2.1 [facility] TylerD-Dimer Quantitative (PE/DVT)2017-04-26 21:31:00* Test Item Value Reference Range Interpretation Comments D-Dimer Quantitative (PE/DVT) (test code = 45526-0) 0.22 0. 00-0.45 [facility] TylerD-Dimer Quantitative (PE/DVT)2017-04-26 21:31:00* Test Item Value Reference Range Interpretation Comments D-Dimer Quantitative (PE/DVT) (test code = 21542-5) 0.22 0. 00-0.45 [facility] TylerActivated Partial Thromboplast Time 2017-04-26 21:28:00* Test Item Value Reference Range Interpretation Comments Activated Partial Thromboplast Time (test code = 29266-6) 46.8 23.8-35.5 H [facility] TylerActivated Partial Thromboplast Time 2017-04-26 21:28:00* Test Item Value Reference Range Interpretation Comments Activated Partial Thromboplast Time (test code = 03299-4) 46.8 23.8-35.5 H [facility] TylerProthrombin Ftsq3090-35-55 21:26:00* Test Item Value Reference Range Interpretation Comments Prothrombin Time (test code = 5902-2) 27.0 11.9-14.5 H [facility] TylerProthromb Time International Ratio 2017-04-26 21:26:00* Test Item Value Reference Range Interpretation Comments Prothromb Time International Ratio (test code = 6301-6) 2.35 Oral Anticoagulant Therapy INR Values:1. Low Intensity Therapy 1.5 - 2.02 . Moderate Intensity Therapy 2.0 - 3.03. High Intensity Therapy(1) 2.5 - 3. 54. High Intensity Therapy(2) 3.0 - 4.05. Panic Value INR > 5.0 [facility] TylerProthrombin Uqdp6293-86-70 21:26:00* Test Item Value Reference Range Interpretation Comments Prothrombin Time (test code = 5902-2) 27.0 11.9-14.5 H [facility] TylerProthromb Time International Ratio 2017-04-26 21:26:00* Test Item Value Reference Range Interpretation Comments Prothromb Time International Ratio (test code = 6301-6) 2.35 Oral Anticoagulant Therapy INR Values:1. Low Intensity Therapy 1.5 - 2.02 . Moderate Intensity Therapy 2.0 - 3.03. High Intensity Therapy(1) 2.5 - 3. 54. High Intensity Therapy(2) 3.0 - 4.05. Panic Value INR > 5.0 [facility] TylerCHE[facility] [place] [address] Patient Name: SHARMILA TORRES MR #: [id number] : 1965 Age/Sex: 52/M Req #: [id number] Adm Physician: Ordered by: PMA GORMAN MD Report #: [id number] Location: ER Room/Bed: Procedure: [id number] DX/CHEST 2 VIEWS Exam Date: 12/29/17 Exam Time: 1600 REPORT STATUS: Signed PROCEDURE: Frontal and lateral views of the chest. COMPARISON: [facility], DX, CHEST 2 VIEWS, 04/26/2017, 21:11. INDICATIONS: SHORT OF BREATH FINDINGS: Lines/tubes: None. Lungs: Promin ence of the central pulmonary vasculature bilaterally. Reticular-nodular dens ities particularly in the lower lobes may reflect superimposed atypical pneum onia. Pleura: There is pneumothorax. Small left pleural effusion. H eart and mediastinum: The cardiac silhouette is moderately enlarged. Median sternotomy wires are Bones: No acute bony abnormality. IMPRESSION: 1. Findings suggestive of decompensated CHF with possible superimposed pneumonia in the proper clinical setting. Rasheed Friedman M.D. Dictated by: Rasheed Friedman M.D. on 12/29/2017 at 16:32 Electr onically approved by: Rasheed Friedman M.D. on 12/29/2017 at 16:32 Dictated By: TMAY FRIEDMAN MD, MD 1632 Transcribed By: SHAHLA on 12/29/17 1632 COPY TO: PAM GORMAN MD CT MAXIO FAC/PARANAS WO [place] [address] Patient Name: SHARMILA TORRES MR #: [id number] : 1965 Age/Sex: 52/M Req #: [id number] Adm Physician: Ordered by: ELVA VIVEROS MD Report #: [id number] Location: ER Room/Bed: Procedure: [id number] CT/CT MAXIO FAC/PARANAS W O Exam Date: 12/13/17 Exam Time: 2137 REPORT S TATUS: Signed History:Left cheek swelling since yesterday. Comparison st udies: None Technique: Axial images were obtained through the maxillofaci al region. Coronal and sagittal images reconstructed from the axial data. In travenous contrast: None Findings: Soft tissues: Moderate left gloria parotid and perimandibular subcutaneous soft tissue inflammatory fat stranding with asymmetric thickening of left platysma. Asymmetric and heterogeneously e nhancing mildly enlarged left parotid gland with multiple intrinsic punctate c alcified lesion, the largest measures 2.5 mm in the anterior aspect of the sup erficial lobe of left parotid gland, possibly represents multiple sialoliths. Mild asymmetric prominence and dilatation of left Stensen's duct. No discrete hypodense fluid collection however suboptimal evaluation for abscess given l ack of intravenous contrast. Bones: No fractures or bony abnormalities. Orbits: Globes: Intact Extra or intraconal abnormalities: None. P aranasal sinuses: Mild mucosal thickening in bilateral ethmoid sinuses. Incidental finding: Multiple missing teeth, multifocal dental caries and endod ontal disease, the activity of which is to be determined mind clinically. No nspecific linear 8 mm radiopaque density at the level of the thoracic inlet an terior and superior to the sternum. IMPRESSION: 1. Left periparotid cellulitis with findings concerning for acute left parotitis with multiple lef t parotid sialoliths. 2. Asymmetric mild dilatation of left Stensen's duct raises possibility of obstruction secondary to left intraparotid sialolith. Signed by: Dr. Khadijah Wiley M.D. on 12/13/2017 10:53 PM Dictated By: KHADIJAH WILEY MD 2 253 Transcribed By: DEE DEE on 12/13/17 0440 COPY TO: LAMAR VIVEROS MD CT ABDOMEN/PELVIS WO [place] [address] Patient Name: SHARMILA TORRES MR #: [id number] : 1965 Age/Sex: 52/M Req #: [id number] Adm Physician: Ordered by: OLEGARIO WILLIAM MD Report #: [id number] Location: ER Room/Bed: Procedure: [id number] CT/CT ABDOMEN/PELVIS WO Exam Da te: 04/26/17 Exam Time: 2310 REPORT STATUS: Sig brandon EXAM: CT ABDOMEN/PELVIS WO DATE: 04/26/2017 11:06 PM INDICATION: Ri ght flank pain, kidney stone history COMPARISON: None TECHNIQUE: The abdom en and pelvis were scanned using a multidetector helical scanner. Coronal and sagittal reformations were obtained. Routine protocol performed. IV Contrast : None FINDINGS: Lack of IV contrast and body habitus decrease sensit ivity in evaluating abdominal and pelvic organs. LOWER THORAX: Cardiomegaly with prior sternotomy, aortic and mitral valve prosthesis. LIVER/BILIARY : No obvious masses seen. GALLBLADDER: Several gallstones are noted. SPLE EN: Not enlarged PANCREAS: Grossly unremarkable ADRENALS: No nodules KI DNEYS: No stones. No hydronephrosis. GI TRACT: No distention, wall thickeni ng or evidence of obstruction. Appendix is not well seen but no secondary find ings of appendicitis. VESSELS: Mild atherosclerotic calcifications PERITO NEUM/RETROPERITONEUM: No free air or fluid LYMPH NODES: No lymphadenopathy REPRODUCTIVE ORGANS/BLADDER: Bladder is decompressed precluding its evaluation. Prostate appears normal size. SOFT TISSUES: Rectus muscle diastases with small ventral fat-containing hernias at the level of the liver and umbilicus BONES: Multilevel degenerative changes with T6-7 and lumbar posterior disc osteophyte complexes causing spinal canal narrowing. IMPRESSION: Examinat ion is degraded by body habitus and lack of IV contrast. No nephroureterolithi asis or acute abdominal or pelvic abnormality seen. Signed by: Dr Nkechi holguin MD on 04/26/2017 11:45 PM Dictated By: NKECHI engel Signed By: NKECHI MEDLEY MD on 04/26/17 8369 Transcribed By: DEE DEE on 04/26/17 1639 COPY TO: OLEGARIO WILLIAM MD CHEST 2 VIEWS [facility] [address] [address] Patient Name: SHARMILA TORRES MR #: [id number] : Age/Sex: 52/M Req #: [id number] Adm Physician: Ordered by: OLEGARIO WILLIAM MD Report #: [id number] Location: ER Room/Bed: Procedure: [id number] DX/CHEST 2 VIEWS Exam Date: Exam Time: 2124 REPORT STATUS: Signed CHEST 2 VIEWS, Technique: CHEST 2 VIEWS Comparison: 08/17/2016 Histor y: Shortness of breath, right pleuritic pain DISCUSSION: See impression. Lateral is markedly degraded by motion. IMPRESSION: 1. Stable enlarged c ardiomediastinal silhouette poststernotomy. 2. Diffuse right greater than left interstitial opacities, likely edema with small right pleural effusion. Signed by: Dr Nkechi Medley MD on 04/26/2017 10:18 PM Dictated By: NKECHI MEDLEY MD 17 Tra nscribed By: DEE DEE on 04/26/172217 COPY TO: OLEGARIO WILLIAM MD
[2020-03-25 10:23] LABS: BASOPHILS # (AUTO) 0.1 (0.0-0.1); BASOPHILS % 0.8 % (0.0-1.0); EOSINOPHILS # (AUTO) 0.3 (0.0-0.4); HEMATOCRIT 41.3 % (38.2-49.6); HEMOGLOBIN 12.5 g/dL (14.0-18.0); LYMPHOCYTES # (AUTO) 1.4 (1.0-3.2); LYMPHOCYTES % 17.6 % (18.0-39.1); MEAN CORPUSCULAR HEMOGLOBIN 29.1 pg (28-32); MEAN CORPUSCULAR HGB CONC 30.3 g/dL (31-35); MONOCYTES # (AUTO) 0.6 (0.2-0.8); MONOCYTES % 8.3 % (4.4-11.3); NEUTROPHILS # (AUTO) 5.3 (2.1-6.9); NEUTROPHILS % 68.8 % (38.7-80.0); PLATELET COUNT 164 x10e3/uL (140-360); RED CELL DISTRIBUTION WIDTH 15.9 % (11.7-14.4)
[2020-03-25 10:37] LABS: INR 3.25; PROTHROMBIN TIME 35.4 seconds (11.9-14.5)
[2020-03-25 10:38] LABS: ALANINE AMINOTRANSFERASE 14 IU/L (0-55); ALBUMIN 3.8 g/dL (3.5-5.0); ALBUMIN/GLOBULIN RATIO 0.8 (0.8-2.0); ALKALINE PHOSPHATASE 121 IU/L (40-150); BLOOD UREA NITROGEN 20 mg/dL (7-26); BUN/CREATININE RATIO 17 (6-25); CALCIUM 8.9 mg/dL (8.4-10.2); CARBON DIOXIDE 34 mmol/L (22-29); CHLORIDE 92 mmol/L (98-107); CREATINE KINASE 52 IU/L (30-200); EST GLOMERULAR FILTRATION RATE > 60 ML/MIN (60-); GLUCOSE 107 mg/dL (74-118); PARTIAL THROMBOPLASTIN TIME 50.9 seconds (23.8-35.5); SODIUM 137 mmol/L (136-145)
--- NOTE | 2020-03-25 10:47 | Diagnostic Imaging Report ---
X-ray chest AP portable Comparison: 09/12/2018 History: Shortness of breath, congestive heart failure Findings: Status post median sternotomy and CABG. Cardiomegaly. Central airways unremarkable. No definite pleural effusion. No pneumothorax. Bilateral central pulmonary vascular prominence with peribronchial thickening. No Erin's B lines visualized. Visualized skeletal structures show degenerative changes. Upper abdomen unremarkable. Impression: Findings of mild to moderate interstitial pulmonary edema and presence of cardiomegaly consistent with the clinical diagnosis of congestive heart failure. Signed by: Shaw [place] MD on 03/25/2020 10:44 AM
[2020-03-25] MEDS ORDERED: FUROSEMIDE INJ 10 MG/ML 4 ML VIAL IV ONE (11:00)
[2020-03-25 11:20] LABS: CLARITY,URINE CLEAR (CLEAR); COLOR,URINE YELLOW (YELLOW)
[2020-03-25 11:21] LABS: BILIRUBIN,URINE NEGATIVE (NEGATIVE); KETONES,URINE NEGATIVE (NEGATIVE); LEUKOCYTE ESTERASE ,URINE NEGATIVE (NEGATIVE); NITRITE,URINE NEGATIVE (NEGATIVE); PROTEIN,URINE DIPSTICK NEGATIVE (NEGATIVE); URINE UROBILINOGEN 1 mg/dL (0.2 - 1)
[2020-03-25 11:22] LABS: BACTERIA,URINE RARE /HPF; EPITHELIAL CELLS,URINE FEW /LPF
--- OUTSIDE RECORDS SUMMARY | 2020-03-25 11:50 | XMS REPORT | Continuity of Care Document ---
Author Author [facility] t Organization [facility] Address [address] [place] [address] Phone Unavailable Care Team Providers Care Seo Coordinator Name Role Phone KATHRYN CUMMINGS MD PCP Fidelia WILLIAM Attphys Unavailable Tierra YBARRA Attphys Unavailable KATHRYN CUMMINGS Attphys Unavailable Luis A GORMAN Attphys Unavailable Marvin VIVEROS Attphys Unavailable KATHRYN CUMMINGS Admphygarland Unavailable Payers Payer Name Policy Type Policy Number Effective Date Expiration Date S ource Medicare A & B [id number] 2008 00:00:00 [facility] Problems Condition Name Condition Details Condition Category Status Onset Date Resolution Date Last Treatment Date Treating Clinician Comments Source Acute on chronic congestive heart failure CHF exacerbation Problem Active 2016-04-14 00:00:00 [facility] Dyspnea Dyspnea Problem Active 2016-04-14 00:00:00 [facility] Morbid obesity Morbid obesity Problem Active 2016-04-14 00:00:00 [facility] Chronic atrial fibrillation Chronic atrial fibrillation Problem Active [facility] Flank pain Flank pain Problem Active [facility] Hypoxia Hypoxia Problem Active [facility] Allergies, Adverse Reactions, Alerts Allergy Name Allergy Type Status Severity Reaction(s) Onset Date Inacti ve Date Treating Clinician Comments Source Iodine Allergy to Substance Active Severe Anaphylaxis 2018-11-20 00:00:00 [facility] iodine DA Active 2015-09-09 00:00:00 [facility] shellfish derived DA Active SV 2015-09-09 00:00:00 [facility] Medications Ordered Medication Name Filled Medication Name Start Date Stop Da te Current Medication? Ordering Clinician Indication Dosage Frequency Signature (SIG) Comments Components Source Azithromycin (Z-Terrell) 250 Mg Tablet, 250 Mg Oral Azithr omycin (Z-Terrell) 250 Mg Tablet, 250 Mg Oral 2017-12-29 00:00:00 2018-09-08 00:00:00 No Silvia Gorman Md 250 Use As Directed [facility] Albuterol Sulfate (Ventolin Hfa) 18 Gm Hfa.aer.ad Albu terol Sulfate (Ventolin Hfa) 18 Gm Hfa.aer.ad Yes 2 Ev aura 6 Hours as needed for Shortness Of Breath [facility] Aspirin (Aspir 81) 81 Mg Tablet. Aspirin (Aspir 81) 81 Mg Tablet. Yes 81 Daily [facility] Furosemide 40 Mg Tablet Furosemide 40 Mg Tablet Yes 80 Daily [facility] Furosemide 40 Mg Tablet Furosemide 40 Mg Tablet Yes 40 Daily [facility] Metoprolol Tartrate 25 Mg Tablet Metoprolol Tartrate 25 Mg Tablet Yes 25 Every 12 Hours [facility] Potassium Chloride 10 Meq Tab.er.prt Potassium Chloride 10 Meq Tab. er.prt Yes 10 Twice A Day [facility] Simvastatin (Zocor) 10 Mg Tablet Simvastatin (Zocor) 10 Mg Tablet Yes 20 Daily [facility] Warfarin Sodium (Coumadin) 1 Mg Tablet Warfarin Sodium (Coumadin ) 1 Mg Tablet Yes 5 Mtwthf [facility] Warfarin Sodium (Coumadin) 5 Mg Tablet Warfarin Sodium (Coumadin ) 5 Mg Tablet Yes 7.5 Wednesday And Wednesday [facility] Tramadol Hcl (Ultram) 50 Mg Tablet, 50 Mg Oral Tramado l Hcl (Ultram) 50 Mg Tablet, 50 Mg Oral 2018-09-08 00:00:00 No 50 Every 6 Hours as needed for Pain [facility] Benzonatate (Tessalon Perle) 100 Mg Capsule, Cap Oral Benzonatate (Tessalon Perle) 100 Mg Capsule, Cap Oral 2017-04-26 00:00:00 No Every 6 Hours for Cough [facility] Levofloxacin (Levaquin) 500 Mg Tablet, 500 Mg Oral Lev ofloxacin (Levaquin) 500 Mg Tablet, 500 Mg Oral 2017-04-26 00:00:00 No 500 D aily [facility] Albuterol Sulfate (Proair Hfa Inhaler*) 8.5 Gm Inh, Un known Dose Albuterol Sulfate (Proair Hfa Inhaler*) 8.5 Gm Inh, Unknown Dose 9 00:00:00 No [facility] Benzonatate (Tessalon Perle) 100 Mg Capsule, Mg Oral Benzonatate (Tessalon Perle) 100 Mg Capsule, Mg Oral 2016-08-16 00:00:00 No Every 4 Hours [facility] Levofloxacin (Levaquin) 500 Mg Tablet, 500 Mg Oral Lev ofloxacin (Levaquin) 500 Mg Tablet, 500 Mg Oral 2016-08-16 00:00:00 No 500 D aily [facility] Lisinopril 5 Mg Tablet, 5 Mg Oral Lisinopril 5 Mg Tablet, 5 Mg O ral 2016-08-16 00:00:00 No 5 Daily [facility] Omeprazole 20 Mg Capsule., 20 Mg Oral Omeprazole 20 Mg Cap luz maria., 20 Mg Oral 2016-08-16 00:00:00 No 20 Daily [facility] Potassium Chloride 20 Meq Tab.er.prt, 20 Mg Oral Potas sium Chloride 20 Meq Tab.er.prt, 20 Mg Oral 2016-08-16 00:00:00 No 20 T wice A Day [facility] Spironolactone 25 Mg Tablet, 25 Mg Oral Spironolactone 25 Mg Tablet, 25 Mg Oral 2016-08-16 00:00:00 No 25 Daily [facility] Xaroxolyn , 5 Xaroxolyn , 5 2016-08-16 00:00:00 No 5 Twice A Day for Swelling [facility] Furosemide 40 Mg Tablet, 40 Mg Oral Furosemide 40 Mg Tablet, 40 Mg Oral 2016-04-18 00:00:00 No 40 Daily [facility] Warfarin Sodium (Coumadin) 5 Mg Tablet, 1 - 5 Mg Oral Warfarin Sodium (Coumadin) 5 Mg Tablet, 1 - 5 Mg Oral 2012-09-27 00:00:00 No Daily [facility] Warfarin Sodium (Coumadin) 10 Mg Tablet, 10 Mg Oral Wa rfarin Sodium (Coumadin) 10 Mg Tablet, 10 Mg Oral 2012-09-27 00:00:00 No 10 Daily [facility] Procedures Procedure Date / Time Performed Performing Clinician [facility] e Computed tomography of brain without radiopaque contrast 201 04-10-04 00:00:00 SAL MAXWELL [facility] Encounters Start Date/Time End Date/Time En[facility] Ad[facility] ID Source 2018-11-20 17:49:00 2018-11-20 20:42:00 Departed Emergency Room 1 DEBBIERAVIN BA [facility] [id number] [facility] 2018-09-08 05:51:00 2018-09-14 16:44:00 Discharged Inpatient 1 KATHRYN CUMMINGS [facility] [id number] [facility] 2017-12-29 13:56:00 2017-12-29 18:40:00 Departed Emergency Room 1 JONPAM RICHARDSON [facility] [id number] [facility] 2017-12-13 20:51:00 2017-12-14 00:44:00 Departed Emergency Room ER ELVA VIVEROS [facility] [id number] [facility] 2017-04-27 00:28:00 2017-04-27 18:02:00 Discharged Inpatient (obs) ER OLEGARIO WILLIAM [facility] [id number] [facility] Results Test Description Test Time Test Comments Results Result Comments Source CHEST SINGLE (PORTABLE) 2020-03-25 10:41:00 [facility] [address] [address] Patient Name: SHARMILA TORRES MR #: [id number] : 1965 Age/Sex: 55/M Req #: [id number] Adm Physician: Ordered by: OLEGARIO WILLIAM MD Report #: [id number] Location: ER Room/Bed: Procedure: [id number] DX/CHEST SINGLE (PORTABLE) Exam Date: 03/25/20 Exam Time: 1020 REPORT STATUS: Signed X-ray chest AP portable Comparison: 09/12/2018 History: Shortness of breath, congestive heart failure Findings: Status post median sternotomy and CABG. Cardiomegaly. Central airways unremarkable. No definite pleural effusion. No pneumothorax. Bilateral central pulmonary vascular prominence with peribronchial thickening. No Erin's B lines visualized. Visualized skeletal structures show degenerative changes. Upper abdomen unremarkable. Impression: Findings of mild to moderate interstitial pulmonary edema and presence of cardiomegaly consistent with the clinical diagnosis of congestive heart failure. Signed by: Shaw Bacon MD on 03/25/2020 10:44 AM Dictated By: SHAW BACON MD 104 Transcribed By: DEE DEE on 03/25/20 1044 COPY TO: OLEGARIO WILLIAM MD Prothrombin Time 2018-11-20 20:17:00 Test Item Prothrombin Time (test code = 5902-2) 29.0 11.9-14.[address] International Ratio 2018-11-20 20:17:00* Test Item Value Reference Range Interpretation Comments Prothromb Time International Ratio (test code = 6301-6) 2.65 Oral Anticoagulant Therapy INR Values:1. Low Intensity Therapy 1.5 - 2.02 . Moderate Intensity Therapy 2.0 - 3.03. High Intensity Therapy(1) 2.5 - 3. 54. High Intensity Therapy(2) 3.0 - 4.05. Panic Value INR > 5.0 [facility] [id number] 19:38:00 [facility] [address] [address] Patient Name: SHARMILA TORRES MR #: [id number] : 1965 Age/Sex: 53/M Req #: [id number] Adm Physician: Ordered by: RAVIN YBARRA MD Report #: [id number] Location: ER Room/Bed: Procedure: [id number] DX/ WRIST COMPLETE LEFT Exam Date: 11/20/18 Exam Time: 1 848 REPORT STATUS: Signed WRIST COMPLETE LEFT - 4 views HISTORY: Pain. Nontraumatic pain. Woke up with lef t wrist pain. COMPARISON: None available. FINDINGS: Bones: No ac [place] displaced fracture. Osseous alignment is within normal limits. Join ts: The joint spaces are well-maintained. Soft tissues: The soft tissue s appear unremarkable. IMPRESSION: No acute radiographic abnormality. Signed by: Dr. Ed Zhang M.D. on 11/20/2018 7:39 PM Dictated By: ED ZHANG MD 38 Transcribed By: Luis A HARRINGTON on 11/20/181938 COPY TO: RAVIN YBARRA MD Uric Acid 2018-11-20 19:12:00* Test Item Value Reference Range Interpretation Comments Uric Acid (test code = 3084-1) 11.9 4.8-8.0 H [facility]th[facility] [id number] 06:00:00* Test Item Value Reference Range Interpretation Comments Prothrombin Time (test code = 5902-2) 24.7 11.9-14.5 [facility]Prothromb Time International Ratio 2018-09-14 06:00:00* Test Item Value Reference Range Interpretation Comments Prothromb Time International Ratio (test code = 6301-6) 2.05 Oral Anticoagulant Therapy INR Values:1. Low Intensity Therapy 1.5 - 2.02 . Moderate Intensity Therapy 2.0 - 3.03. High Intensity Therapy(1) 2.5 - 3. 54. High Intensity Therapy(2) 3.0 - 4.05. Panic Value INR > 5.0 [facility]Act[facility] Partial Thromboplast Time 2018-09-14 05:39:00* Test Item Value Reference Range Interpretation Comments Activated Partial Thromboplast Time (test code = 59693-2) 64.9 23.8-35.5 H [facility]ownAct[facility] Partial Thromboplast Time 2018-09-14 05:39:00* Test Item Value Reference Range Interpretation Comments Activated Partial Thromboplast Time (test code = 79927-3) 64.9 23.8-35.5 H [facility]ownWhite Blood Vitag4614-04-47 05:24:00* Test Item Value Reference Range Interpretation Comments White Blood Count (test code = 6690-2) 6.12 4.8-10.8 [facility]ownRed Blood Cacot9160-42-09 05:24:00* Test Item Value Reference Range Interpretation Comments Red Blood Count (test code = 789-8) 4.49 4.3-5.7 [facility]ownHemoglobin2019-02-06 05:24:00* Test Item Value Reference Range Interpretation Comments Hemoglobin (test code = 86957-9) 12.9 14.0-18.0 L [facility]ownHematocrit2019-02-06 05:24:00* Test Item Value Reference Range Interpretation Comments Hematocrit (test code = 4544-3) 41.3 38.2-49.6 [facility]ownMean Corpuscular Ieqjzc3990-80-63 05:24:00* Test Item Value Reference Range Interpretation Comments Mean Corpuscular Volume (test code = 787-2) 92.0 81-99 [facility]ownMean Corpuscular Mrldymmptf5141-91-51 05:24:00* Test Item Value Reference Range Interpretation Comments Mean Corpuscular Hemoglobin (test code = 785-6) 28.7 28-32 [facility]ownMean Corpuscular Hemoglobin Concent 2018-09-14 05:24:00* Test Item Value Reference Range Interpretation Comments Mean Corpuscular Hemoglobin Concent (test code = 786-4) 31.2 31-35 [facility]ownRed Cell Distribution Enlvt0826-51-66 05:24:00* Test Item Value Reference Range Interpretation Comments Red Cell Distribution Width (test code = 93330-4) 15.0 11.7 -14.4 H [facility]ownPlatelet Mymzb8481-40-79 05:24:00* Test Item Value Reference Range Interpretation Comments Platelet Count (test code = 777-3) 147 140-360 [facility]ownNeutrophils (%) (Auto)2018-09-14 05:24:00 * Test Item Value Reference Range Interpretation Comments Neutrophils (%) (Auto) (test code = 90135-3) 62.2 38.7-80.0 [facility]ownLymphocytes (%) (Auto)2018-09-14 05:24:00 * Test Item Value Reference Range Interpretation Comments Lymphocytes (%) (Auto) (test code = 736-9) 20.8 18.0-39.1 [facility]ownMonocytes (%) (Auto)2018-09-14 05:24:00* Test Item Value Reference Range Interpretation Comments Monocytes (%) (Auto) (test code = 5905-5) 12.6 4.4-11.3 H [facility]ownEosinophils (%) (Auto)2018-09-14 05:24:00 * Test Item Value Reference Range Interpretation Comments Eosinophils (%) (Auto) (test code = 713-8) 3.3 0.0-6.0 [facility]ownBasophils (%) (Auto)2018-09-14 05:24:00* Test Item Value Reference Range Interpretation Comments Basophils (%) (Auto) (test code = 706-2) 0.8 0.0-1.0 [facility]ownIM GRANULOCYTES %2018-09-14 05:24:00* Test Item Value Reference Range Interpretation Comments IM GRANULOCYTES % (test code = IM GRANULOCYTES %) 0.3 0.0- 1.0 [facility]ownNeutrophils # (Auto)2018-09-14 05:24:00* Test Item Value Reference Range Interpretation Comments Neutrophils # (Auto) (test code = 751-8) 3.8 2.1-6.9 [facility]ownLymphocytes # (Auto)2018-09-14 05:24:00* Test Item Value Reference Range Interpretation Comments Lymphocytes # (Auto) (test code = 80340-7) 1.3 1.0-3.2 [facility]ownMonocytes # (Auto)2018-09-14 05:24:00* Test Item Value Reference Range Interpretation Comments Monocytes # (Auto) (test code = 742-7) 0.8 0.2-0.8 [facility]ownEosinophils # (Auto)2018-09-14 05:24:00* Test Item Value Reference Range Interpretation Comments Eosinophils # (Auto) (test code = 711-2) 0.2 0.0-0.4 [facility]ownBasophils # (Auto)2018-09-14 05:24:00* Test Item Value Reference Range Interpretation Comments Basophils # (Auto) (test code = 704-7) 0.1 0.0-0.1 [facility]ownAbsolute Immature Granulocyte (auto 2018-09-14 05:24:00* Test Item Value Reference Range Interpretation Comments Absolute Immature Granulocyte (auto (jeyson t code = Absolute Immature Granulocyte (auto) 0.02 0-0.1 [facility]ownWhite Blood Krvaw1334-02-95 05:24:00* Test Item Value Reference Range Interpretation Comments White Blood Count (test code = 6690-2) 6.12 4.8-10.8 [facility] U[facility]ownRed Blood Wlvtp0513-15-09 05:24:00* Test Item Value Reference Range Interpretation Comments Red Blood Count (test code = 789-8) 4.49 4.3-5.7 [facility]ownHemoglobin2019-02-06 05:24:00* Test Item Value Reference Range Interpretation Comments Hemoglobin (test code = 17844-6) 12.9 14.0-18.0 L [facility]ownHematocrit2019-02-06 05:24:00* Test Item Value Reference Range Interpretation Comments Hematocrit (test code = 4544-3) 41.3 38.2-49.6 [facility] UptownMean Corpuscular Taztwt7601-86-13 05:24:00* Test Item Value Reference Range Interpretation Comments Mean Corpuscular Volume (test code = 787-2) 92.0 81-99 [facility] UptownMean Corpuscular Zmeusbiyhi5493-64-20 05:24:00* Test Item Value Reference Range Interpretation Comments Mean Corpuscular Hemoglobin (test code = 785-6) 28.7 28-32 [facility] UptownMean Corpuscular Hemoglobin Concent 2018-09-14 05:24:00* Test Item Value Reference Range Interpretation Comments Mean Corpuscular Hemoglobin Concent (test code = 786-4) 31.2 31-35 [facility] UptownRed Cell Distribution Ypwha8714-53-53 05:24:00* Test Item Value Reference Range Interpretation Comments Red Cell Distribution Width (test code = 79226-1) 15.0 11.7 -14.4 H [facility] UptownPlatelet Fjnya7905-19-06 05:24:00* Test Item Value Reference Range Interpretation Comments Platelet Count (test code = 777-3) 147 140-360 [facility]ownNeutrophils (%) (Auto)2018-09-14 05:24:00 * Test Item Value Reference Range Interpretation Comments Neutrophils (%) (Auto) (test code = 34847-2) 62.2 38.7-80.0 [facility]ownLymphocytes (%) (Auto)2018-09-14 05:24:00 * Test Item Value Reference Range Interpretation Comments Lymphocytes (%) (Auto) (test code = 736-9) 20.8 18.0-39.1 [facility]ownMonocytes (%) (Auto)2018-09-14 05:24:00* Test Item Value Reference Range Interpretation Comments Monocytes (%) (Auto) (test code = 5905-5) 12.6 4.4-11.3 H [facility]ownEosinophils (%) (Auto)2018-09-14 05:24:00 * Test Item Value Reference Range Interpretation Comments Eosinophils (%) (Auto) (test code = 713-8) 3.3 0.0-6.0 [facility]ownBasophils (%) (Auto)2018-09-14 05:24:00* Test Item Value Reference Range Interpretation Comments Basophils (%) (Auto) (test code = 706-2) 0.8 0.0-1.0 [facility]ownIM GRANULOCYTES %2018-09-14 05:24:00* Test Item Value Reference Range Interpretation Comments IM GRANULOCYTES % (test code = IM GRANULOCYTES %) 0.3 0.0- 1.0 [facility]ownNeutrophils # (Auto)2018-09-14 05:24:00* Test Item Value Reference Range Interpretation Comments Neutrophils # (Auto) (test code = 751-8) 3.8 2.1-6.9 [facility]ownLymphocytes # (Auto)2018-09-14 05:24:00* Test Item Value Reference Range Interpretation Comments Lymphocytes # (Auto) (test code = 17151-2) 1.3 1.0-3.2 [facility]ownMonocytes # (Auto)2018-09-14 05:24:00* Test Item Value Reference Range Interpretation Comments Monocytes # (Auto) (test code = 742-7) 0.8 0.2-0.8 [facility]ownEosinophils # (Auto)2018-09-14 05:24:00* Test Item Value Reference Range Interpretation Comments Eosinophils # (Auto) (test code = 711-2) 0.2 0.0-0.4 [facility]ownBasophils # (Auto)2018-09-14 05:24:00* Test Item Value Reference Range Interpretation Comments Basophils # (Auto) (test code = 704-7) 0.1 0.0-0.1 [facility] UptownAbsolute Immature Granulocyte (auto 2018-09-14 05:24:00* Test Item Value Reference Range Interpretation Comments Absolute Immature Granulocyte (auto (jeyson t code = Absolute Immature Granulocyte (auto) 0.02 0-0.1 [facility] Uptownodium Fvhqd9120-60-37 06:39:00* Test Item Value Reference Range Interpretation Comments Sodium Level (test code = 2951-2) 137 136-145 [facility] U[facility]ownPotassium Xbfue2879-82-10 06:39:00* Test Item Value Reference Range Interpretation Comments Potassium Level (test code = 2823-3) 4.2 3.5-5.1 [facility]ownChloride Ogfkk6125-18-95 06:39:00* Test Item Value Reference Range Interpretation Comments Chloride Level (test code = 2075-0) 93 98-107 L [facility] UptownCarbon Dioxide Juykt4284-25-45 06:39:00* Test Item Value Reference Range Interpretation Comments Carbon Dioxide Level (test code = 2028-9) 35 22-29 H [facility] UptownAnion Jpc0027-35-39 06:39:00* Test Item Value Reference Range Interpretation Comments Anion Gap (test code = 87981-3) 13.2 8-16 [facility] UptownBlood Urea Gttiixlo3560-87-65 06:39:00* Test Item Value Reference Range Interpretation Comments Blood Urea Nitrogen (test code = 3094-0) 12 7-26 [facility] UptownCreatinine2019-02-05 06:39:00* Test Item Value Reference Range Interpretation Comments Creatinine (test code = 2160-0) 0.83 0.72-1.25 [facility]ptownBUN/Creatinine Cgdxr8300-41-23 06:39:00* Test Item Value Reference Range Interpretation Comments BUN/Creatinine Ratio (test code = 3097-3) 14 6-25 [facility] UptownEstimat Glomerular Filtration Rate 2018-09-13 06:39:00* Test Item Value Reference Range Interpretation Comments Estimat Glomerular Filtration Rate (test code = 934511978) > 60 >60 Ranges were taken from the National Kidney Disease Education Program and the [facility] Kidney Foundation literature.Reference ranges:60 or greater: Ntjahd46-32 ( for 3 consecutive months): Chronic kidney disease 15 or less: Kidney failureBaylor Scott & White Medical Center – UptownGlucose Qeftn2834-43-16 06:39:00* Test Item Value Reference Range Interpretation Comments Glucose Level (test code = EWV8206) 95 74-118 [facility] UptownCalcium Aegiv6038-06-87 06:39:00* Test Item Value Reference Range Interpretation Comments Calcium Level (test code = 67836-8) 8.9 8.4-10.2 [facility] Uptownodium Ivnmt0271-87-30 06:39:00* Test Item Value Reference Range Interpretation Comments Sodium Level (test code = 2951-2) 137 136-145 [facility] UptownPotassium Uonzq9711-94-52 06:39:00* Test Item Value Reference Range Interpretation Comments Potassium Level (test code = 2823-3) 4.2 3.5-5.1 [facility] UptownChloride Wsrpe3234-70-42 06:39:00* Test Item Value Reference Range Interpretation Comments Chloride Level (test code = 2075-0) 93 98-107 L [facility] UptownCarbon Dioxide Hxhud0727-11-16 06:39:00* Test Item Value Reference Range Interpretation Comments Carbon Dioxide Level (test code = 2028-9) 35 22-29 H [facility] UptownAnion Ocb4167-27-86 06:39:00* Test Item Value Reference Range Interpretation Comments Anion Gap (test code = 61480-9) 13.2 8-16 [facility] UptownBlood Urea Wgsiqlic2867-25-96 06:39:00* Test Item Value Reference Range Interpretation Comments Blood Urea Nitrogen (test code = 3094-0) 12 7-26 [facility] UptownCreatinine2019-02-05 06:39:00* Test Item Value Reference Range Interpretation Comments Creatinine (test code = 2160-0) 0.83 0.72-1.25 [facility] UptownBUN/Creatinine Fnkzk5884-92-11 06:39:00* Test Item Value Reference Range Interpretation Comments BUN/Creatinine Ratio (test code = 3097-3) 14 6- [facility] UptownEstimat Glomerular Filtration Rate 2018-09-13 06:39:00* Test Item Value Reference Range Interpretation Comments Estimat Glomerular Filtration Rate (test code = 696165194) > 60 >60 Ranges were taken from the National Kidney Disease Education Program and the [facility] Foundation literature.Reference ranges:60 or greater: Lholji48-88 ( for 3 consecutive months): Chronic kidney disease 15 or less: Kidney failureBaylor Scott & White Medical Center – UptownGlucose Wwmym9763-84-40 06:39:00* Test Item Value Reference Range Interpretation Comments Glucose Level (test code = ZGN7905) 95 74-118 [facility] UptownCalcium Wrjhw9424-48-43 06:39:00* Test Item Value Reference Range Interpretation Comments Calcium Level (test code = 43826-5) 8.9 8.4-10.2 [facility]2018-09-12 14:35:00 [facility] [address] [place] [address] Patient Name: SHARMILA TORRES MR #: [id number] : 1965 Age/Sex: 53/M Req #: [id number] Adm Physician: KATHRYN CUMMINGS MD Ordered by: SAL MAXWELL MD Report #: [id number] Location: MED/SURG2 Room/Bed: [facility] Procedure: [id number] DX/CH EST SINGLE (PORTABLE) Exam Date: 09/12/18 [...] PM Dictated By: YASEMIN WINKLER MD Electronica ll Signed By: YASEMIN WINKLER MD on 09/12/18 1440 Transcribed By: DEE DEE on 1440 COPY TO: SAL MAXWELL MD CT BRAIN [id number] 14:14:00 [place] [address] Patient Name: SHARMILA TORRES MR #: [id number] : 1965 Age/Sex: 53/M Req #: [id number] Adm Physician: KATHRYN CUMMINGS MD Ordered by: SAL MAXWELL MD Report #: [id number] Location: MED/SURG2 Room/Bed: [facility] Procedure: [id number] CT/CT BRAIN WO Exam Date: 09/12/18 Exam [...] Cristian Cunningham M.D. on 09/12/2018 2:22 PM Luis A [place] y: CRISTIAN DIAZ MD 1422 COPY TO: CARMENZA MAXWELL MD KNEE LEFT 1-2 [id number] 05:13:00 [place] [address] Patient Name: SHARMILA TORRES MR #: [id number] : 1965 Age/Sex: 53/M Req #: [id number] [facility] Physician: KATHRYN CUMMINGS MD Ordered by: SAL MAXWELL MD Report #: [id number] Location: MED/SURG2 Room/Bed: [facility] Procedure: [id number] DX/KN EE LEFT 1-2 VIEWS Exam Date: [...] TO : SAL MAXWELL MD Creatine Kinase [id number] 21:06:00* Test Item Value Reference Range Interpretation Comments Creatine Kinase MB (test code = 87709-3) 1.60 0-5.0 [facility] [id number] 21:06:00* Test Item Value Reference Range Interpretation Comments Troponin I (test code = TPF0504) 0.021 0-0.300 [facility]ownCreatine Kinase YX7751-31-26 21:06:00* Test Item Value Reference Range Interpretation Comments Creatine Kinase MB (test code = 29089-4) 1.60 0-5.0 [facility] [id number] 21:06:00* Test Item Value Reference Range Interpretation Comments Troponin I (test code = JJA9779) 0.021 0-0.300 [facility]ownCreatine Vxbscr0247-58-58 20:57:00* Test Item Value Reference Range Interpretation Comments Creatine Kinase (test code = 2157-6) 50 30-200 [facility]ownCreatine Eqafff4764-04-38 20:57:00* Test Item Value Reference Range Interpretation Comments Creatine Kinase (test code = 2157-6) 50 30-200 [facility]ownB-Type Natriuretic Jbmebii6706-43-27 05:16:00* Test Item Value Reference Range Interpretation Comments B-Type Natriuretic Peptide (test code = 56033-2) 128.2 0-100 H [facility]ownB-Type Natriuretic Gaggcnr1464-78-57 05:16:00* Test Item Value Reference Range Interpretation Comments B-Type Natriuretic Peptide (test code = 39718-1) 128.2 0-100 H [facility]own[facility]ABLE)2018-09-08 05:14:00 [place] [address] Patient Name: SHARMILA TORRES MR #: [id number] : 1965 Age/Sex: 53/M Req #: [id number] Adm Physician: Ordered by: ELVA VIVEROS MD Report #: [id number] Location: ER Room/Bed: Procedure: [id number] DX/CHEST SINGLE (PORTABLE) Exam Date: 09/08/18 Bladimir varela Time: 9178 REPORT STATUS: Signed CHEST SINGLE (PORTABLE), 09/08/2018 [...] 09/08/18514 COPY TO: ELVA VIVEROS MD Total Zqbwdvqha7047-28-87 05:06:00 * Test Item Value Reference Range Interpretation Comments Total Bilirubin (test code = 1975-2) 1.0 0.2-1.2 [facility]ownAspartate Amino Transf (AST/SGOT) 2018-09-08 05:06:00* Test Item Value Reference Range Interpretation Comments Aspartate Amino Transf (AST/SGOT) (test code = Aspartate Amino Transf (AST/SGOT)) 27 5-34 [facility] UptownAlanine Aminotransferase (ALT/SGPT) 2018-09-08 05:06:00* Test Item Value Reference Range Interpretation Comments Alanine Aminotransferase (ALT/SGPT) (test code = 1742-6) 15 0-55 [facility] UptownTotal Lcbabou5181-20-19 05:06:00* Test Item Value Reference Range Interpretation Comments Total Protein (test code = 2885-2) 8.7 6.5-8.1 H [facility] UptownAlbumin2019-01-31 05:06:00* Test Item Value Reference Range Interpretation Comments Albumin (test code = 1751-7) 3.8 3.5-5.0 [facility]ownGlobulin2019-01-31 05:06:00* Test Item Value Reference Range Interpretation Comments Globulin (test code = 02981-0) 4.9 2.3-3.5 H [facility]ownAlbumin/Globulin Hrxax3384-89-03 05:06:00 * Test Item Value Reference Range Interpretation Comments Albumin/Globulin Ratio (test code = 1759-0) 0.8 0.8-2.0 [facility]ownAlkaline Ewqgrbyzsdu1972-60-59 05:06:00* Test Item Value Reference Range Interpretation Comments Alkaline Phosphatase (test code = 6768-6) 129 40-150 [facility] UptownTotal Cwcyicrss2597-40-64 05:06:00* Test Item Value Reference Range Interpretation Comments Total Bilirubin (test code = 1975-2) 1.0 0.2-1.2 [facility]ptownAspartate Amino Transf (AST/SGOT) 2018-09-08 05:06:00* Test Item Value Reference Range Interpretation Comments Aspartate Amino Transf (AST/SGOT) (test code = Aspartate Amino Transf (AST/SGOT)) 27 5-34 [facility] UptownAlanine Aminotransferase (ALT/SGPT) 2018-09-08 05:06:00* Test Item Value Reference Range Interpretation Comments Alanine Aminotransferase (ALT/SGPT) (test code = 1742-6) 15 0-55 [facility] Jtkctlc3444-66-48 05:06:00* Test Item Value Reference Range Interpretation Comments Total Protein (test code = 2885-2) 8.7 6.5-8.1 H [facility] UptownAlbumin2019-01-31 05:06:00* Test Item Value Reference Range Interpretation Comments Albumin (test code = 1751-7) 3.8 3.5-5.0 [facility]ptownGlobulin2019-01-31 05:06:00* Test Item Value Reference Range Interpretation Comments Globulin (test code = 09022-5) 4.9 2.3-3.5 H [facility]ownAlbumin/Globulin Ooxjn5901-56-14 05:06:00 * Test Item Value Reference Range Interpretation Comments Albumin/Globulin Ratio (test code = 1759-0) 0.8 0.8-2.0 [facility] UptownAlkaline Qgsnsmxshur7910-36-20 05:06:00* Test Item Value Reference Range Interpretation Comments Alkaline Phosphatase (test code = 6768-6) 129 40-150 [facility] UptownBedside Fcuxhgl8508-45-96 04:57:00* Test Item Value Reference Range Interpretation Comments Bedside Glucose (test code = 00217-9) 105 70-120 Meter ID: [id number] [facility] 2018-09-08 04:57:00* Test Item Value Reference Range Interpretation Comments Bedside Glucose (test code = 63397-6) 105 70-120 Meter ID: [id number] [facility] CampusBlood Culture 2018-01-03 16:13:00* Test Item Value Reference Range Interpretation Comments Blood Culture (test code = 43771403) NO GROWTH AFTER 5 DAYS, FINAL REPORT [facility] UptownUrine JPY9015-22-15 16:51:00* Test Item Value Reference Range Interpretation Comments Urine WBC (test code = 5821-4) 50- 0-5 H [facility]ptownUrine CJV6768-84-51 16:51:00* Test Item Value Reference Range Interpretation Comments Urine RBC (test code = 09290-9) 21-50 0-5 H [facility]ptownUrine Laasdytj7376-04-06 16:51:00* Test Item Value Reference Range Interpretation Comments Urine Bacteria (test code = 05156-5) FEW NONE [facility] UptownUrine Epithelial Lippf6278-69-86 16:51:00 * Test Item Value Reference Range Interpretation Comments Urine Epithelial Cells (test code = 83862-6) FEW NONE [facility]ptownUrine Transitional Epithelial Cells 2017-12-29 16:51:00* Test Item Value Reference Range Interpretation Comments Urine Transitional Epithelial Cells (test code = 8249-5) MODERATE NONE [facility]ptownUrine QBY5400-29-77 16:51:00* Test Item Value Reference Range Interpretation Comments Urine WBC (test code = 5821-4) >50 0-5 H [facility]ptownUrine TRX3414-55-66 16:51:00* Test Item Value Reference Range Interpretation Comments Urine RBC (test code = 40856-8) 21-50 0-5 H [facility]ownUrine Zoxjjyua6296-56-41 16:51:00* Test Item Value Reference Range Interpretation Comments Urine Bacteria (test code = 14361-7) FEW NONE [facility]ownUrine Epithelial Fqxtw3568-52-36 16:51:00 * Test Item Value Reference Range Interpretation Comments Urine Epithelial Cells (test code = 85531-6) FEW NONE [facility]ptownUrine Transitional Epithelial Cells 2017-12-29 16:51:00* Test Item Value Reference Range Interpretation Comments Urine Transitional Epithelial Cells (test code = 8249-5) MODERATE NONE [facility]ownUrine Famsh7805-82-11 16:36:00* Test Item Value Reference Range Interpretation Comments Urine Color (test code = 5778-6) YELLOW YELLOW [facility]ownUrine Vjhjjos6506-17-13 16:36:00* Test Item Value Reference Range Interpretation Comments Urine Clarity (test code = 81769-4) HAZY CLEAR [facility] UptownUrine Specific Aqllprj4277-30-62 16:36:00 * Test Item Value Reference Range Interpretation Comments Urine Specific [place] (test code = 5811-5) 1.015 1.010-1.02 5 [facility]ptownUrine vQ1719-21-18 16:36:00* Test Item Value Reference Range Interpretation Comments Urine pH (test code = 13534-8) 8 5-7 H [facility]ownUrine Leukocyte Iycuukub7454-55-37 16:36:00* Test Item Value Reference Range Interpretation Comments Urine Leukocyte Esterase (test code = 5799-2) 1+ NEGATIVE H [facility] Fboxdmj1587-03-63 16:36:00* Test Item Value Reference Range Interpretation Comments Urine Nitrite (test code = 20746-9) NEGATIVE NEGATIVE [facility]ownUrine Fdioeex0508-45-90 16:36:00* Test Item Value Reference Range Interpretation Comments Urine Protein (test code = 5804-0) 2+ NEGATIVE H [facility]ownUrine Glucose (UA)2017-12-29 16:36:00* Test Item Value Reference Range Interpretation Comments Urine Glucose (UA) (test code = 2349-9) NEGATIVE NEGATIVE [facility]ptownUrine Eoabowh2058-66-89 16:36:00* Test Item Value Reference Range Interpretation Comments Urine Ketones (test code = 41326-9) NEGATIVE NEGATIVE [facility]ownUrine Tlugvtrrrhnn6857-17-00 16:36:00* Test Item Value Reference Range Interpretation Comments Urine Urobilinogen (test code = 59334-4) 1 0.2-1 [facility]ownUrine Retezlsho1759-34-27 16:36:00* Test Item Value Reference Range Interpretation Comments Urine Bilirubin (test code = 1978-6) NEGATIVE NEGATIVE [facility]ptownUrine Sjoet6979-83-63 16:36:00* Test Item Value Reference Range Interpretation Comments Urine Blood (test code = 38701-8) 2+ NEGATIVE H [facility]ptownUrine Efxzv7643-17-14 16:36:00* Test Item Value Reference Range Interpretation Comments Urine Color (test code = 5778-6) YELLOW YELLOW [facility]ownUrine Qdtlfqt0295-10-02 16:36:00* Test Item Value Reference Range Interpretation Comments Urine Clarity (test code = 15738-0) HAZY CLEAR [facility] UptownUrine Specific Rikgvdq8326-88-82 16:36:00 * Test Item Value Reference Range Interpretation Comments Urine Specific [place] (test code = 5811-5) 1.015 1.010-1.02 5 [facility] UptownUrine hO3435-47-03 16:36:00* Test Item Value Reference Range Interpretation Comments Urine pH (test code = 27674-0) 8 5-7 H [facility]ownUrine Leukocyte Gjkytkxu2925-05-61 16:36:00* Test Item Value Reference Range Interpretation Comments Urine Leukocyte Esterase (test code = 5799-2) 1+ NEGATIVE H [facility]ptownUrine Jbymqyd1898-53-87 16:36:00* Test Item Value Reference Range Interpretation Comments Urine Nitrite (test code = 61528-9) NEGATIVE NEGATIVE [facility] UptownUrine Noxjisq4573-82-96 16:36:00* Test Item Value Reference Range Interpretation Comments Urine Protein (test code = 5804-0) 2+ NEGATIVE H [facility] UptownUrine Glucose (UA)2017-12-29 16:36:00* Test Item Value Reference Range Interpretation Comments Urine Glucose (UA) (test code = 2349-9) NEGATIVE NEGATIVE [facility]ownUrine Duydscb6862-75-91 16:36:00* Test Item Value Reference Range Interpretation Comments Urine Ketones (test code = 75338-8) NEGATIVE NEGATIVE [facility] UptownUrine Wtxihsozhosz4451-42-95 16:36:00* Test Item Value Reference Range Interpretation Comments Urine Urobilinogen (test code = 57126-6) 1 0.2-1 [facility]ownUrine Lbjfwvxtt6115-98-61 16:36:00* Test Item Value Reference Range Interpretation Comments Urine Bilirubin (test code = 1978-6) NEGATIVE NEGATIVE [facility] UptownUrine Ijhtc1458-71-80 16:36:00* Test Item Value Reference Range Interpretation Comments Urine Blood (test code = 45729-5) 2+ NEGATIVE H [facility] Uptownodium Nljqy5880-44-10 16:26:00* Test Item Value Reference Range Interpretation Comments Sodium Level (test code = 2951-2) 136 136-145 [facility] UptownPotassium Zcuiy1399-28-20 16:26:00* Test Item Value Reference Range Interpretation Comments Potassium Level (test code = 2823-3) 4.0 3.5-5.1 [facility] UptownChloride Jnrsm0828-32-64 16:26:00* Test Item Value Reference Range Interpretation Comments Chloride Level (test code = 2075-0) 95 98-107 L [facility] UptownCarbon Dioxide Xbarj7692-84-32 16:26:00* Test Item Value Reference Range Interpretation Comments Carbon Dioxide Level (test code = 2028-9) 32 22-29 H [facility] UptownAnion Wue9043-39-80 16:26:00* Test Item Value Reference Range Interpretation Comments Anion Gap (test code = 07604-7) 13.0 8-16 [facility] UptownBlood Urea Oktjblyi9491-12-24 16:26:00* Test Item Value Reference Range Interpretation Comments Blood Urea Nitrogen (test code = 3094-0) 12 7-26 [facility] UptownCreatinine2018-05-23 16:26:00* Test Item Value Reference Range Interpretation Comments Creatinine (test code = 2160-0) 0.85 0.72-1.25 [facility] UptownBUN/Creatinine Ugivh1879-82-35 16:26:00* Test Item Value Reference Range Interpretation Comments BUN/Creatinine Ratio (test code = 3097-3) 14 6-25 [facility] UptownEstimat Glomerular Filtration Rate 2017-12-29 16:26:00* Test Item Value Reference Range Interpretation Comments Estimat Glomerular Filtration Rate (test code = 04311-2) 60- >60 Ranges were taken from the National Kidney Disease Education Program and the [facility] Kidney Foundation literature.Reference ranges:60 or greater: Eidjnx37-31 ( for 3 consecutive months): Chronic kidney disease 15 or less: Kidney failureBaylor Scott & White Medical Center – UptownGlucose Kddws2208-71-99 16:26:00* Test Item Value Reference Range Interpretation Comments Glucose Level (test code = JBJ0629) 100 74-118 [facility] UptownCalcium Tzenz9531-04-90 16:26:00* Test Item Value Reference Range Interpretation Comments Calcium Level (test code = 34715-0) 9.8 8.4-10.2 [facility] UptownLactic Acid Ukpfk9669-42-63 16:26:00* Test Item Value Reference Range Interpretation Comments Lactic Acid Level (test code = Lactic Acid Level) 10.5 4.5- 19.8 [facility] UptownTotal Trtiyjtyz0461-41-13 16:26:00* Test Item Value Reference Range Interpretation Comments Total Bilirubin (test code = 1975-2) 1.9 0.2-1.2 H [facility] UptownAspartate Amino Transf (AST/SGOT) 2017-12-29 16:26:00* Test Item Value Reference Range Interpretation Comments Aspartate Amino Transf (AST/SGOT) (test code = Aspartate Amino Transf (AST/SGOT)) 18 5-34 [facility] UptownAlanine Aminotransferase (ALT/SGPT) 2017-12-29 16:26:00* Test Item Value Reference Range Interpretation Comments Alanine Aminotransferase (ALT/SGPT) (test code = 1742-6) 12 0-55 [facility] UptownTotal Znftjlz7218-50-53 16:26:00* Test Item Value Reference Range Interpretation Comments Total Protein (test code = 2885-2) 8.7 6.5-8.1 H [facility] UptownAlbumin2018-05-23 16:26:00* Test Item Value Reference Range Interpretation Comments Albumin (test code = 1751-7) 3.8 3.5-5.0 [facility] UptownGlobulin2018-05-23 16:26:00* Test Item Value Reference Range Interpretation Comments Globulin (test code = 31412-9) 4.9 2.3-3.5 H [facility] UptownAlbumin/Globulin Kygnh8457-07-80 16:26:00 * Test Item Value Reference Range Interpretation Comments Albumin/Globulin Ratio (test code = 1759-0) 0.8 0.8-2.0 [facility] UptownAlkaline Hfkjnawbznp4713-99-78 16:26:00* Test Item Value Reference Range Interpretation Comments Alkaline Phosphatase (test code = 6768-6) 98 40-150 [facility] UptownLactic Acid Fpcok8662-66-25 16:26:00* Test Item Value Reference Range Interpretation Comments Lactic Acid Level (test code = Lactic Acid Level) 10.5 4.5- 19.8 [facility] UptownWhite Blood Jmdcs5403-89-69 16:14:00* Test Item Value Reference Range Interpretation Comments White Blood Count (test code = 6690-2) 14.28 4.8-10.8 H [facility] UptownRed Blood Hlyhi5584-26-54 16:14:00* Test Item Value Reference Range Interpretation Comments Red Blood Count (test code = 789-8) 5.25 4.3-5.7 [facility] UptownHemoglobin2018-05-23 16:14:00* Test Item Value Reference Range Interpretation Comments Hemoglobin (test code = 80896-7) 15.7 14.0-18.0 [facility] UptownHematocrit2018-05-23 16:14:00* Test Item Value Reference Range Interpretation Comments Hematocrit (test code = 4544-3) 46.9 38.2-49.6 [facility] UptownMean Corpuscular Silgdw5247-00-34 16:14:00* Test Item Value Reference Range Interpretation Comments Mean Corpuscular Volume (test code = 787-2) 89.3 81-99 [facility] UptownMean Corpuscular Makqgkupzv7747-50-89 16:14:00* Test Item Value Reference Range Interpretation Comments Mean Corpuscular Hemoglobin (test code = 785-6) 29.9 28-32 [facility] UptownMean Corpuscular Hemoglobin Concent 2017-12-29 16:14:00* Test Item Value Reference Range Interpretation Comments Mean Corpuscular Hemoglobin Concent (test code = 786-4) 33.5 31-35 [facility] UptownRed Cell Distribution Zzfzt5154-50-29 16:14:00* Test Item Value Reference Range Interpretation Comments Red Cell Distribution Width (test code = 13949-9) 13.8 11.7 -14.4 [facility] UptownPlatelet Cidkr9850-38-64 16:14:00* Test Item Value Reference Range Interpretation Comments Platelet Count (test code = 777-3) 184 140-360 [facility] UptownNeutrophils (%) (Auto)2017-12-29 16:14:00 * Test Item Value Reference Range Interpretation Comments Neutrophils (%) (Auto) (test code = 35326-7) 81.5 38.7-80.0 H [facility] UptownLymphocytes (%) (Auto)2017-12-29 16:14:00 * Test Item Value Reference Range Interpretation Comments Lymphocytes (%) (Auto) (test code = 736-9) 9.5 18.0-39.1 L [facility] UptownMonocytes (%) (Auto)2017-12-29 16:14:00* Test Item Value Reference Range Interpretation Comments Monocytes (%) (Auto) (test code = 5905-5) 7.2 4.4-11.3 [facility]ptownEosinophils (%) (Auto)2017-12-29 16:14:00 * Test Item Value Reference Range Interpretation Comments Eosinophils (%) (Auto) (test code = 713-8) 0.7 0.0-6.0 [facility] UptownBasophils (%) (Auto)2017-12-29 16:14:00* Test Item Value Reference Range Interpretation Comments Basophils (%) (Auto) (test code = 706-2) 0.5 0.0-1.0 [facility] UptownIM GRANULOCYTES %2017-12-29 16:14:00* Test Item Value Reference Range Interpretation Comments IM GRANULOCYTES % (test code = IM GRANULOCYTES %) 0.6 0.0- 1.0 [facility] UptownNeutrophils # (Auto)2017-12-29 16:14:00* Test Item Value Reference Range Interpretation Comments Neutrophils # (Auto) (test code = 751-8) 11.6 2.1-6.9 H [facility] UptownLymphocytes # (Auto)2017-12-29 16:14:00* Test Item Value Reference Range Interpretation Comments Lymphocytes # (Auto) (test code = 51245-1) 1.4 1.0-3.2 [facility] UptownMonocytes # (Auto)2017-12-29 16:14:00* Test Item Value Reference Range Interpretation Comments Monocytes # (Auto) (test code = 742-7) 1.0 0.2-0.8 H [facility]ptownEosinophils # (Auto)2017-12-29 16:14:00* Test Item Value Reference Range Interpretation Comments Eosinophils # (Auto) (test code = 711-2) 0.1 0.0-0.4 [facility] UptownBasophils # (Auto)2017-12-29 16:14:00* Test Item Value Reference Range Interpretation Comments Basophils # (Auto) (test code = 704-7) 0.1 0.0-0.1 [facility] UptownAbsolute Immature Granulocyte (auto 2017-12-29 16:14:00* Test Item Value Reference Range Interpretation Comments Absolute Immature Granulocyte (auto (jeyson t code = Absolute Immature Granulocyte (auto) 0.08 0-0.1 [facility] Uptownodium Ifwop9129-22-91 22:25:00* Test Item Value Reference Range Interpretation Comments Sodium Level (test code = 2951-2) 136 136-145 [facility] UptownPotassium Jqebf4000-23-54 22:25:00* Test Item Value Reference Range Interpretation Comments Potassium Level (test code = 2823-3) 3.9 3.5-5.1 [facility] UptownChloride Beviq6830-35-76 22:25:00* Test Item Value Reference Range Interpretation Comments Chloride Level (test code = 2075-0) 95 98-107 L [facility] UptownCarbon Dioxide Kzfhp4308-41-35 22:25:00* Test Item Value Reference Range Interpretation Comments Carbon Dioxide Level (test code = 2028-9) 30 22-29 H [facility] UptownAnion Nlo8449-76-15 22:25:00* Test Item Value Reference Range Interpretation Comments Anion Gap (test code = 41092-7) 14.9 8-16 [facility] UptownBlood Urea Rkmifgvv5374-49-93 22:25:00* Test Item Value Reference Range Interpretation Comments Blood Urea Nitrogen (test code = 3094-0) 14 7-26 [facility] UptownCreatinine2018-05-07 22:25:00* Test Item Value Reference Range Interpretation Comments Creatinine (test code = 2160-0) 0.84 0.72-1.25 [facility] UptownBUN/Creatinine Jxyhn5194-93-44 22:25:00* Test Item Value Reference Range Interpretation Comments BUN/Creatinine Ratio (test code = 3097-3) 17 6-25 [facility] UptownEstimat Glomerular Filtration Rate 2017-12-13 22:25:00* Test Item Value Reference Range Interpretation Comments Estimat Glomerular Filtration Rate (test code = 26149-6) 60- >60 Ranges were taken from the National Kidney Disease Education Program and the [facility] Kid[facility] Foundation literature.Reference ranges:60 or greater: Gkcgev01-42 ( for 3 consecutive months): Chronic kidney disease 15 or less: Kidney failureB[facility] UptownGlucose [id number] 22:25:00* Test Item Value Reference Range Interpretation Comments Glucose Level (test code = XXG6968) 95 74-118 [facility] UptownCalcium Ntyey6515-97-72 22:25:00* Test Item Value Reference Range Interpretation Comments Calcium Level (test code = 44267-8) 9.4 8.4-10.2 [facility] UptownTotal Flsmlikeb4566-14-71 22:25:00* Test Item Value Reference Range Interpretation Comments Total Bilirubin (test code = 1975-2) 1.0 0.2-1.2 [facility] UptownAspartate Amino Transf (AST/SGOT) 2017-12-13 22:25:00* Test Item Value Reference Range Interpretation Comments Aspartate Amino Transf (AST/SGOT) (test code = Aspartate Amino Transf (AST/SGOT)) 22 5-34 [facility] UptownAlanine Aminotransferase (ALT/SGPT) 2017-12-13 22:25:00* Test Item Value Reference Range Interpretation Comments Alanine Aminotransferase (ALT/SGPT) (test code = 1742-6) 14 0-55 [facility] UptownTotal Uleqzkc5787-50-09 22:25:00* Test Item Value Reference Range Interpretation Comments Total Protein (test code = 2885-2) 8.6 6.5-8.1 H [facility] UptownAlbumin2018-05-07 22:25:00* Test Item Value Reference Range Interpretation Comments Albumin (test code = 1751-7) 3.5 3.5-5.0 [facility] UptownGlobulin2018-05-07 22:25:00* Test Item Value Reference Range Interpretation Comments Globulin (test code = 03695-6) 5.1 2.3-3.5 H [facility] UptownAlbumin/Globulin Tixmr0331-35-17 22:25:00 * Test Item Value Reference Range Interpretation Comments Albumin/Globulin Ratio (test code = 1759-0) 0.7 0.8-2.0 L [facility] UptownAlkaline Zquzljxgaeo0549-22-41 22:25:00* Test Item Value Reference Range Interpretation Comments Alkaline Phosphatase (test code = 6768-6) 107 40-150 [facility] UptownWhite Blood Pylbx7733-05-97 22:08:00* Test Item Value Reference Range Interpretation Comments White Blood Count (test code = 6690-2) 11.20 4.8-10.8 H [facility] UptownRed Blood Qizgj1688-72-66 22:08:00* Test Item Value Reference Range Interpretation Comments Red Blood Count (test code = 789-8) 5.41 4.3-5.7 [facility] UptownHemoglobin2018-05-07 22:08:00* Test Item Value Reference Range Interpretation Comments Hemoglobin (test code = 79976-8) 15.9 14.0-18.0 [facility] UptownHematocrit2018-05-07 22:08:00* Test Item Value Reference Range Interpretation Comments Hematocrit (test code = 4544-3) 48.4 38.2-49.6 [facility] UptownMean Corpuscular Yrghon4352-71-34 22:08:00* Test Item Value Reference Range Interpretation Comments Mean Corpuscular Volume (test code = 787-2) 89.5 81-99 [facility] UptownMean Corpuscular Tsrzwyzkgq4381-63-25 22:08:00* Test Item Value Reference Range Interpretation Comments Mean Corpuscular Hemoglobin (test code = 785-6) 29.4 28-32 [facility] UptownMean Corpuscular Hemoglobin Concent 2017-12-13 22:08:00* Test Item Value Reference Range Interpretation Comments Mean Corpuscular Hemoglobin Concent (test code = 786-4) 32.9 31-35 [facility] UptownRed Cell Distribution Roisy2633-70-26 22:08:00* Test Item Value Reference Range Interpretation Comments Red Cell Distribution Width (test code = 38602-5) 13.7 11.7 -14.4 [facility] UptownPlatelet Lqdlo2936-06-03 22:08:00* Test Item Value Reference Range Interpretation Comments Platelet Count (test code = 777-3) 206 140-360 [facility] UptownNeutrophils (%) (Auto)2017-12-13 22:08:00 * Test Item Value Reference Range Interpretation Comments Neutrophils (%) (Auto) (test code = 07860-4) 74.4 38.7-80.0 [facility] UptownLymphocytes (%) (Auto)2017-12-13 22:08:00 * Test Item Value Reference Range Interpretation Comments Lymphocytes (%) (Auto) (test code = 736-9) 13.3 18.0-39.1 L [facility] UptownMonocytes (%) (Auto)2017-12-13 22:08:00* Test Item Value Reference Range Interpretation Comments Monocytes (%) (Auto) (test code = 5905-5) 8.1 4.4-11.3 [facility]ptownEosinophils (%) (Auto)2017-12-13 22:08:00 * Test Item Value Reference Range Interpretation Comments Eosinophils (%) (Auto) (test code = 713-8) 3.3 0.0-6.0 [facility]ptownBasophils (%) (Auto)2017-12-13 22:08:00* Test Item Value Reference Range Interpretation Comments Basophils (%) (Auto) (test code = 706-2) 0.5 0.0-1.0 [facility] UptownIM GRANULOCYTES %2017-12-13 22:08:00* Test Item Value Reference Range Interpretation Comments IM GRANULOCYTES % (test code = IM GRANULOCYTES %) 0.4 0.0- 1.0 [facility]ptownNeutrophils # (Auto)2017-12-13 22:08:00* Test Item Value Reference Range Interpretation Comments Neutrophils # (Auto) (test code = 751-8) 8.3 2.1-6.9 H [facility] UptownLymphocytes # (Auto)2017-12-13 22:08:00* Test Item Value Reference Range Interpretation Comments Lymphocytes # (Auto) (test code = 42300-6) 1.5 1.0-3.2 [facility]ownMonocytes # (Auto)2017-12-13 22:08:00* Test Item Value Reference Range Interpretation Comments Monocytes # (Auto) (test code = 742-7) 0.9 0.2-0.8 H [facility]ownEosinophils # (Auto)2017-12-13 22:08:00* Test Item Value Reference Range Interpretation Comments Eosinophils # (Auto) (test code = 711-2) 0.4 0.0-0.4 [facility]ptownBasophils # (Auto)2017-12-13 22:08:00* Test Item Value Reference Range Interpretation Comments Basophils # (Auto) (test code = 704-7) 0.1 0.0-0.1 [facility] UptownAbsolute Immature Granulocyte (auto 2017-12-13 22:08:00* Test Item Value Reference Range Interpretation Comments Absolute Immature Granulocyte (auto (jeyson t code = Absolute Immature Granulocyte (auto) 0.05 0-0.1 [facility] Cvipwfp6839-65-94 22:21:00* Test Item Value Reference Range Interpretation Comments Blood Culture (test code = 59122268) NO GROWTH AFTER 5 DAYS, FINAL REPORT [facility]2017-09-23 22:21:00* Test Item Value Reference Range Interpretation Comments Blood Culture (test code = 36293696) NO GROWTH AFTER 5 DAYS, FINAL REPORT [facility] UptownCreatine Kinase [id number] 15:30:00* Test Item Value Reference Range Interpretation Comments Creatine Kinase MB (test code = 34775-1) 1.90 0.00-5.00 [facility] UptownTroponin [id number] 15:30:00* Test Item Value Reference Range Interpretation Comments Troponin I (test code = VDG6252) 0.012 0-0.300 [facility] UptownCreatine Kinase [id number] 15:30:00* Test Item Value Reference Range Interpretation Comments Creatine Kinase MB (test code = 62142-3) 1.90 0.00-5.00 [place] [id number] 15:30:00* Test Item Value Reference Range Interpretation Comments Troponin I (test code = GGZ0308) 0.012 0-0.300 [facility] UptownCreatine Ezqxhs7536-74-92 15:23:00* Test Item Value Reference Range Interpretation Comments Creatine Kinase (test code = 2157-6) 105 30-200 [facility] UptownCreatine Gxloqm1692-55-99 15:23:00* Test Item Value Reference Range Interpretation Comments Creatine Kinase (test code = 2157-6) 105 30-200 [facility] UptownUrine GFS9087-28-22 21:51:00* Test Item Value Reference Range Interpretation Comments Urine WBC (test code = 5821-4) 0-5 0-5 [facility] UptownUrine [id number] 21:51:00* Test Item Value Reference Range Interpretation Comments Urine RBC (test code = 61588-6) 21-50 0-5 H [facility] UptownUrine Aqrlntqw6095-78-14 21:51:00* Test Item Value Reference Range Interpretation Comments Urine Bacteria (test code = 14479-9) RARE NONE [facility] UptownUrine Epithelial Rzbpr8425-06-58 21:51:00 * Test Item Value Reference Range Interpretation Comments Urine Epithelial Cells (test code = 00890-4) FEW NONE [facility] UptownUrine Itkcb7976-52-14 21:46:00* Test Item Value Reference Range Interpretation Comments Urine Color (test code = 5778-6) YELLOW YELLOW [facility] UptownUrine Utcrlgr4327-39-81 21:46:00* Test Item Value Reference Range Interpretation Comments Urine Clarity (test code = 74679-7) CLEAR CLEAR [facility] UptownUrine Specific Lojinqb7386-29-18 21:46:00 * Test Item Value Reference Range Interpretation Comments Urine Specific [place] (test code = 5811-5) 1.015 1.010-1.02 5 [facility] UptownUrine [id number] 21:46:00* Test Item Value Reference Range Interpretation Comments Urine pH (test code = 70550-2) 6 5-7 [facility] UptownUrine Leukocyte Chbpkyag5742-74-98 21:46:00* Test Item Value Reference Range Interpretation Comments Urine Leukocyte Esterase (test code = 5799-2) NEGATIVE NEGATIVE [facility] UptownUrine Dbzryaz5135-68-51 21:46:00* Test Item Value Reference Range Interpretation Comments Urine Nitrite (test code = 17418-1) NEGATIVE NEGATIVE [facility] UptownUrine Tfkeotv1698-47-19 21:46:00* Test Item Value Reference Range Interpretation Comments Urine Protein (test code = 5804-0) 1+ NEGATIVE H [facility] UptownUrine Glucose (UA)2017-04-26 21:46:00* Test Item Value Reference Range Interpretation Comments Urine Glucose (UA) (test code = 2349-9) NEGATIVE NEGATIVE [facility] UptownUrine Xhfobri3502-71-08 21:46:00* Test Item Value Reference Range Interpretation Comments Urine Ketones (test code = 64798-0) NEGATIVE NEGATIVE [facility] UptownUrine Fpqwnkzstidu1632-80-47 21:46:00* Test Item Value Reference Range Interpretation Comments Urine Urobilinogen (test code = 75500-6) 0.2 0.2-1 [facility]ptownUrine Llhbrbdtf1552-58-37 21:46:00* Test Item Value Reference Range Interpretation Comments Urine Bilirubin (test code = 1978-6) NEGATIVE NEGATIVE [facility] UptownUrine Pfghw6062-67-19 21:46:00* Test Item Value Reference Range Interpretation Comments Urine Blood (test code = 88943-5) 3+ NEGATIVE H [facility] UptownB-Type Natriuretic Vnzbgmt6733-35-96 21:44:00* Test Item Value Reference Range Interpretation Comments B-Type Natriuretic Peptide (test code = 80486-9) 68.3 0-100 [facility] UptownB-Type Natriuretic Izqcvku2923-96-38 21:44:00* Test Item Value Reference Range Interpretation Comments B-Type Natriuretic Peptide (test code = 54245-4) 68.3 0-100 [facility] UptownMagnesium Qskxx6018-54-33 21:37:00* Test Item Value Reference Range Interpretation Comments Magnesium Level (test code = 36517-9) 2.1 1.3-2.1 [facility] UptownMagnesium Mzxkx9450-40-69 21:37:00* Test Item Value Reference Range Interpretation Comments Magnesium Level (test code = 32887-2) 2.1 1.3-2.1 [facility] UptownD-Dimer Quantitative (PE/DVT)2017-04-26 21:31:00* Test Item Value Reference Range Interpretation Comments D-Dimer Quantitative (PE/DVT) (test code = 88387-3) 0.22 0. 00-0.45 [facility] UptownD-Dimer Quantitative (PE/DVT)2017-04-26 21:31:00* Test Item Value Reference Range Interpretation Comments D-Dimer Quantitative (PE/DVT) (test code = 72290-8) 0.22 0. 00-0.45 [facility] UptownActivated Partial Thromboplast Time 2017-04-26 21:28:00* Test Item Value Reference Range Interpretation Comments Activated Partial Thromboplast Time (test code = 51484-4) 46.8 23.8-35.5 H [facility] UptownActivated Partial Thromboplast Time 2017-04-26 21:28:00* Test Item Value Reference Range Interpretation Comments Activated Partial Thromboplast Time (test code = 82570-7) 46.8 23.8-35.5 H [facility] UptownProthrombin [id number] 21:26:00* Test Item Value Reference Range Interpretation Comments Prothrombin Time (test code = 5902-2) 27.0 11.9-14.5 H [facility] UptownProthromb Time International Ratio 2017-04-26 21:26:00* Test Item Value Reference Range Interpretation Comments Prothromb Time International Ratio (test code = 6301-6) 2.35 Oral Anticoagulant Therapy INR Values:1. Low Intensity Therapy 1.5 - 2.02 . Moderate Intensity Therapy 2.0 - 3.03. High Intensity Therapy(1) 2.5 - 3. 54. High Intensity Therapy(2) 3.0 - 4.05. Panic Value INR > 5.0 [facility] UptownProthrombin [id number] 21:26:00* Test Item Value Reference Range Interpretation Comments Prothrombin Time (test code = 5902-2) 27.0 11.9-14.5 H [facility] UptownProthromb Time International Ratio 2017-04-26 21:26:00* Test Item Value Reference Range Interpretation Comments Prothromb Time International Ratio (test code = 6301-6) 2.35 Oral Anticoagulant Therapy INR Values:1. Low Intensity Therapy 1.5 - 2.02 . Moderate Intensity Therapy 2.0 - 3.03. High Intensity Therapy(1) 2.5 - 3. 54. High Intensity Therapy(2) 3.0 - 4.05. Panic Value INR > 5.0 [facility]ownCHEST [facility] V[facility] [address] [address] Patient Name: SHARMILA TORRES MR #: [id number] : 1965 Age/Sex: 52/M Req #: [id number] Adm Physician: Ordered by: PAM GORMAN MD Report #: [id number] Location: ER Room/Bed: Procedure: [id number] DX/CHEST 2 VIEWS Exam Date: 12/29/17 Exam Time: 1600 REPORT STATUS: Signed PROCEDURE: Frontal and lateral views of the chest. COMPARISON: [facility], DX, CHEST 2 VIEWS, 04/26/2017, 21:11. [...] M.D. on 12/29/2017 at 16:32 Dictated By: TAMY FRIEDMAN MD, MD 163 Transcribed By: SHAHLA on 12/29/17 163 COPY TO: PAM GORMAN MD CT MAXIO FAC/PARANAS WO [place] [address] Patient Name: SHARMILA TORRES MR #: [id number] : 1965 Age/Sex: 52/M Req #: [id number] Adm Physician: Ordered by: ELVA VIVEROS MD Report #: [id number] Location: ER Room/Bed: Procedure: [id number] CT/CT MAXIO FAC/PARANAS W O Exam Date: 12/13/17 Exam Time: 2137 S TATUS: Signed History:Left cheek swelling since [...] 253 Transcribed By: DEE DEE on 12/13/17 8224 COPY TO: LAMAR VIVEROS MD CT ABDOMEN/PELVIS [place] [address] Patient Name: SHARMILA TORRES MR #: [id number] : 1965 Age/Sex: 52/M Req #: [id number] Adm Physician: Ordered by: OLEGARIO WILLIAM MD Report #: [id number] Location: ER Room/Bed: Procedure: [id number] CT/CT ABDOMEN/PELVIS WO Exam Da te: 04/26/17 [...] Signed By: NKECHI MEDLEY MD on 04/26/17 2348 Transcribed By: DEE DEE on 04/26/17 2340 COPY TO: OLEGARIO WILLIAM MD CHEST 2 VIEWS [place] [address] Patient Name: SHARMILA TORRES MR #: [id number] : Age/Sex: 52/M Req #: [id number] Adm Physician: Ordered by: OLEGARIO WILLIAM MD Report #: [id number] Location: ER Room/Bed: Procedure: [id number] DX/CHEST 2 VIEWS Exam Date: Exam Time: [...]
--- NOTE | 2020-03-25 13:21 | Emergency Department Note ---
History of Present Illnes History of Present Illness Chief Complaint: Respiratory History of Present Illness This is a 55 year old male Patient in from home via EMS with complaints of shortness of breath and difficulty breathing which he relates to "bloating" in his abdomen. Patient reports that on he noticed that his abdomen felt bloated and he doubled his lasix every dose since then. Patient states that he has not noticed any improvement. Patient has an oxygen saturation of 100% on 3L which is the same amount of oxygen he is dependent on at home. Patient is tachypneic but not in obvious distress. 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 Any updates have been documented here. Past Medical History Recent Fever: No Clinical Suspicion of Infectio: No New/Unexplained Change in Ment: No Past Medical History: Hypertension, CHF, A-Fib, Hyperlipedemia Other Medical History: high cholesterol HEART ARRYTHMIA Past Surgical History: T&A Other Surgery: aortic valve repair x 2 Social History Smoking Cessation: Never Smoker Counseling Performed: No Alcohol Use: None Any Illegal Drug Use: No Physically hurt or threatened: No Family History Family history of heart diseas: No Other Last Tetanus: UTD Any Pre-Existing Lines (PICC,: No Review of Systems Review of Systems Constitutional: Reports no symptoms EENTM: Reports no symptoms Cardiovascular: Reports no symptoms Respiratory: Reports as per HPI Gastrointestinal: Reports as per HPI Genitourinary: Reports no symptoms Musculoskeletal: Reports no symptoms Integumentary: Reports no symptoms Neurological: Reports no symptoms Psychological: Reports no symptoms Endocrine: Reports no symptoms Hematological/Lymphatic: Reports no symptoms Physical Exam Related Data Allergies: Coded Allergies: iodine (Verified Allergy, Severe, Anaphylaxis, 11/20/18) Triage Vital Signs Vital Signs Date Time Temp Pulse Resp B/P (MAP) Pulse Ox O2 Delivery O2 Flow Rate FiO2 03/25/20 09:56 98.6 72 31 116/77 100 Nasal Cannula 3.0 Vital signs reviewed: Yes Physical Exam CONSTITUTIONAL Constitutional: Present well-developed, Present well-nourished, Present morbidly obese HENT HENT: Present normocephalic, Present atraumatic, Present oropharynx clear/moist, Present nose normal HENT L/R: Present left ext ear normal, Present right ext ear normal EYES Eyes: Reports PERRL, Reports conjunctivae normal NECK Neck: Present ROM normal PULMONARY Pulmonary: Present respiratory distress (TACHYPNEA), Present rales (BIBASILAR) CARDIOVASCULAR Cardiovascular: Present irregular rhythm, Present LLE edema, Present RLE edema, Present other (MECHANICAL VALVE CLICK) GASTROINTESTINAL Abdominal: Present soft, Present nontender, Present bowel sounds normal GENITOURINARY Genitourinary: Present exam deferred SKIN Skin: Present warm, Present dry MUSCULOSKELETAL Musculoskeletal: Present ROM normal NEUROLOGICAL Neurological: Present alert, Present oriented x 3, Present no gross motor or sensory deficits PSYCHOLOGICAL Psychological: Present mood/affect normal, Present judgement normal Results Laboratory Result Diagram: 03/25/20 0954 03/25/20 0954 Laboratory Laboratory Tests Test 03/25/20 12:02 03/25/20 10:52 03/25/20 09:54 Urine Color Yellow (YELLOW) Urine Clarity Clear (CLEAR) Urine pH 7 (5 - 7) Urine Specific [place] 1.020 (1.010-1.025) Urine Protein Negative (NEGATIVE) Urine Glucose (UA) Negative (NEGATIVE) Urine Ketones Negative (NEGATIVE) Urine Blood Trace (NEGATIVE) Urine Nitrite Negative (NEGATIVE) Urine Bilirubin Negative (NEGATIVE) Urine Urobilinogen 1 mg/dL (0.2 - 1) Urine Leukocyte Esterase Negative (NEGATIVE) Urine RBC 6-10 /HPF (0-5) Urine WBC 6-10 /HPF (0-5) Urine Epithelial Cells Few /LPF (NONE) Urine Bacteria Rare /HPF (NONE) White Blood Count 7.68 x10e3/uL (4.8-10.8) Red Blood Count 4.30 x10e6/uL (4.3-5.7) Hemoglobin 12.5 g/dL (14.0-18.0) Hematocrit 41.3 % (38.2-49.6) Mean Corpuscular Volume 96.0 fL (81-99) Mean Corpuscular Hemoglobin 29.1 pg (28-32) Mean Corpuscular Hemoglobin Concent 30.3 g/dL (31-35) Red Cell Distribution Width 15.9 % (11.7-14.4) Platelet Count 164 x10e3/uL (140-360) Neutrophils (%) (Auto) 68.8 % (38.7-80.0) Lymphocytes (%) (Auto) 17.6 % (18.0-39.1) Monocytes (%) (Auto) 8.3 % (4.4-11.3) Eosinophils (%) (Auto) 4.0 % (0.0-6.0) Basophils (%) (Auto) 0.8 % (0.0-1.0) Neutrophils # (Auto) 5.3 (2.1-6.9) Lymphocytes # (Auto) 1.4 (1.0-3.2) Monocytes # (Auto) 0.6 (0.2-0.8) Eosinophils # (Auto) 0.3 (0.0-0.4) Basophils # (Auto) 0.1 (0.0-0.1) Absolute Immature Granulocyte (auto 0.04 x10e3/uL (0-0.1) Prothrombin Time 35.4 seconds (11.9-14.5) Prothromb Time International Ratio 3.25 Activated Partial Thromboplast Time 50.9 seconds (23.8-35.5) Sodium Level 137 mmol/L (136-145) Potassium Level 4.0 mmol/L (3.5-5.1) Chloride Level 92 mmol/L (98-107) Carbon Dioxide Level 34 mmol/L (22-29) Anion Gap 15.0 mmol/L (8-16) Blood Urea Nitrogen 20 mg/dL (7-26) Creatinine 1.20 mg/dL (0.72-1.25) Estimat Glomerular Filtration Rate > 60 ML/MIN (60-) BUN/Creatinine Ratio 17 (6-25) Glucose Level 107 mg/dL (74-118) Calcium Level 8.9 mg/dL (8.4-10.2) Magnesium Level 2.0 MG/DL (1.3-2.1) Total Bilirubin 1.1 mg/dL (0.2-1.2) Aspartate Amino Transf (AST/SGOT) 22 IU/L (5-34) Alanine Aminotransferase (ALT/SGPT) 14 IU/L (0-55) Alkaline Phosphatase 121 IU/L (40-150) Creatine Kinase 52 IU/L (30-200) Creatine Kinase MB 2.20 ng/mL (0-5.0) Troponin I 0.069 ng/mL (0-0.300) B-Type Natriuretic Peptide 91.9 pg/mL (0-100) Total Protein 8.7 g/dL (6.5-8.1) Albumin 3.8 g/dL (3.5-5.0) Globulin 4.9 g/dL (2.3-3.5) Albumin/Globulin Ratio 0.8 (0.8-2.0) Lab results reviewed: Yes Imaging Imaging results reviewed: Yes Procedures 12 Lead ECG Interpretation ECG Interpretation : ECG: ECG 1 Tung Nut Grower: Interpreted by ED physician Date: Mar 25, 2020 Time: 10:02 Rhythm: atrial fibrillation Rate: normal (74) QRS axis: normal ST segments normal: Yes T waves flattening: I, II, III, aVL, aVF, V5, V6 Clinical Impression: abnormal ECG Assessment & Plan Medical Decision Making MDM SOB, H/O CHF AFIB AND MORBID OBESITY - CBC, CHEM, ECG, CARDIACS, BNP, CXR, COVID - R/O CHF, STEMI/NSTEMI, COVID, PNEUMONIA Reassessment Reassessment ADMIT TO EMILIANO, CONSULT TO YANNA (I SPOKE WITH BOTH) Assessment & Plan Final Impression: (1) CHF exacerbation (2) Chronic atrial fibrillation (3) Dyspnea (4) Morbid obesity Depart Disposition: ADMITTED Last Vital Signs Date Time Temp Pulse Resp B/P (MAP) Pulse Ox O2 Delivery O2 Flow Rate FiO2 03/25/20 09:56 98.6 72 31 116/77 100 Nasal Cannula 3.0 Home Meds Reported Medications Albuterol Sulfate (VENTOLIN HFA) 18 Gm Hfa.aer.ad, 2 INH INH Q6H PRN for SHORTNESS OF BREATH 09/08/18 Furosemide (FUROSEMIDE) 40 Mg Tablet, 40 MG PO Daily, #30 TAB 09/08/18 Potassium Chloride (POTASSIUM CHLORIDE) 10 Meq Tab.er.prt, 10 MEQ PO BID, TAB 08/16/16 Furosemide (FUROSEMIDE) 40 Mg Tablet, 80 MG PO DAILY, #30 TAB 04/18/16 Warfarin Sodium (COUMADIN) 1 Mg Tablet, 5 MG PO NYWTF, #100 09/27/12 Warfarin Sodium (COUMADIN) 5 Mg Tablet, 7.5 MG PO wednesday and wednesday, 12 Refills 09/27/12 Aspirin (ASPIR 81) 81 Mg Tablet.dr, 81 MG PO DAILY 09/27/12 Simvastatin (ZOCOR) 10 Mg Tablet, 20 MG PO DAILY 09/27/12 Metoprolol Tartrate (METOPROLOL TARTRATE) 25 Mg Tablet, 25 MG PO Q12H 09/27/12 Medications in the ED Furosemide 80 mg ONCE ONCE IV ; Start 03/25/20 at 11:00; Stop 03/25/20 at 11:01; Status DC OLEGARIO WILLIAM MD Mar 25, 2020 13:21
--- NOTE | 2020-03-25 13:47 | NUR ---
Report called to Shelli JOHNSON.
[2020-03-25 14:30] VITALS: BP 118/70
--- NOTE | 2020-03-25 14:30 | NUR ---
PATIENT RECEIVED FROM ER PER STRETCHER. ALERT AND VERBALLY RESPONSIVE, DENIED PAIN AT THIS TIME. ABLE TO TRANSFER SELF TO BED SIDE. SKIN WARM AND DRY TO TOUCH WITH SOME DRYNESS NOTED TO BOTH FEET. RESPIRATION EVEN AND UNLABORED, WITH O2 IN PLACE AT 3L VIA N/C. ABDOMEN, SOFT, LARGE, AND NON DISTENDED. TELEMETRY BOX [address] BED IN LOWER POSITION, CALL LIGHT AT REACH.
[2020-03-25 15:34] VITALS: BP 118/70
[2020-03-25] MEDS ORDERED: FUROSEMIDE INJ 10 MG/ML 4 ML VIAL IV SCH (17:00)
[2020-03-25] MEDS ORDERED: ALBUTEROL SULFATE HFA 8GM INHALATION AEROSOL INH PRN (18:00)
[2020-03-25] MEDS: FUROSEMIDE INJ 10 MG/ML 4 ML VIAL IV SCH (18:28)
[2020-03-25] MEDS: METOPROLOL TARTRATE 25 MG TAB PO SCH (18:28)
--- NOTE | 2020-03-25 18:54 | Consultation ---
DATE OF CONSULTATION: Cardiology Consultation. REASON FOR CONSULTATION: Heart failure. HISTORY OF PRESENT ILLNESS: This is a 55-year-old man with a history of mechanical aortic and mitral valve replacement, chronic systolic and diastolic congestive heart failure, paroxysmal atrial fibrillation, hypertension, hyperlipidemia, and morbid obesity, who presented to emergency department with progressively worsening shortness of breath. The patient is on chronic home O2, however, states over the last few days he has developed abdominal distention, swelling in the lower extremity, shortness of breath. Symptoms were moderate in intensity, no other exacerbating or relieving factors. The patient denies any symptoms of typical angina or chest pain. REVIEW OF SYSTEMS: A 12-point review of system was conducted and is negative except as stated above in the HPI. PAST MEDICAL HISTORY: As stated above. PAST SURGICAL HISTORY: As stated above in the HPI. PAST FAMILY HISTORY: Noncontributory to current illness. ALLERGIES: IODINE. MEDICATIONS: See medication reconciliation form. PHYSICAL EXAMINATION: VITAL SIGNS: Temperature 97.5, heart rate 73, respirations are 20, blood pressure is 182/70, ox saturation 100% on 3 L nasal cannula. GENERAL: He is well appearing, in no apparent distress. Alert and oriented x3. HEAD: Normocephalic and atraumatic. EYES: Extraocular muscles are intact. Conjunctivae clear. NECK: No JVD. No bruits. CARDIOVASCULAR: He is regularly irregular, systolic murmur at the left sternal border, crisp mechanical mitral valve sounds. LUNGS: Diminished breath sounds at bases. ABDOMEN: Soft, nontender, and obese. EXTREMITIES: Edema. VASCULAR: 2+ pulses. SKIN: Warm, dry, and intact. NEUROLOGIC: No focal deficits noted. LABORATORY DATA: Reviewed. BNP is 91. Troponin is negative. INR is 3.25. IMPRESSION: 1. Acute on chronic systolic and diastolic heart failure. 2. Presence of a mechanical aortic and mitral valve replacement. 3. Atrial fibrillation. 4. Obesity. 5. Hypertension. 6. Hyperlipidemia. RECOMMENDATIONS: Continue Lasix 40 mg q.12 hours. Monitor creatinine, electrolytes, and in's and out's. Resume all other current cardiovascular medications. His INR is therapeutic and we will keep this 2.5 to 3.5. We will check a 2D echocardiogram to assess valvular function and systolic status. DO MER Ocampo/YARITZA /[id number]
[2020-03-25 18:55] LABS: CREATINE KINASE MB 2.3 ng/mL (0-5.0)
--- NOTE | 2020-03-25 19:48 | NUR ---
RECEIVED PT IN BED AOX3 .RESPIRATIONS ARE EVEN AND UNLABORED .TELE 28 SR 20G RT AC S/L PT IS STRICT I AND O .CALL LIGHT WITH IN REACH CONTINUE TO MONITOR .
[2020-03-25 20:00] VITALS: BP 97/48
[2020-03-25 20:19] VITALS: BP 128/72
[2020-03-25] MEDS: SIMVASTATIN 20 MG TAB PO SCH (20:29)
[2020-03-25] MEDS: ACETAMINOPHEN 325 MG TAB PO PRN (21:45)
[2020-03-26] VITALS (8 sets, daily range): BP systolic 95–124; BP diastolic 48–83
--- NOTE | 2020-03-26 00:19 | History and Physical ---
CHIEF COMPLAINT: [id number] systolic dysfunction congestive heart failure exacerbation. HISTORY OF PRESENT ILLNESS: The patient is a 55-year-old male, morbidly obese, atrial fibrillation, cardiomyopathy with chronic systolic dysfunction congestive heart failure, came in with acute respiratory insufficiency associated with pulmonary edema. The patient has history of mitral and aortic valve replacement with mechanical valve. The patient is on anticoagulant therapy. His INR is therapeutic greater than 3, but less than 4. Baseline morbid obesity, associated hypertension, dyslipidemia, reflux, and that the patient has also had paroxysmal atrial fibrillation. The patient has cardiomyopathy. He is on diuretic and for the past few days, the patient has doubled his furosemide, but without any relief. The patient is in pulmonary edema. He was receiving IV furosemide here and he is doing a little better. X-ray of the chest showed that the patient has moderate interstitial pulmonary edema present, no cardiomegaly consistent with diagnosis of congestive heart failure. The patient also has history of previous surgery as well. PAST MEDICAL HISTORY: 1. Systolic dysfunction congestive heart failure. 2. Mitral valve replacement. 3. Paroxysmal atrial fibrillation. 4. Hypertension. 5. Dyslipidemia. 6. Morbid obesity. 7. Obstructive sleep apnea. SOCIAL HISTORY: The patient does not smoke or use alcohol. No regular drugs. ALLERGIES: TO IODINE. HOME MEDICATIONS: The patient is on albuterol, aspirin, furosemide, metoprolol tartrate, potassium, simvastatin, and warfarin. PHYSICAL EXAMINATION: VITAL SIGNS: Temperature is 98, blood pressure 118/70, pulse rate 78, respirations 22. GENERAL: The patient is awake, alert, respiratory insufficiency, but not in any distress. HEENT: Normocephalic and atraumatic. Anicteric. NECK: JVD. PULMONARY: Bilateral rales at the bases. CARDIOVASCULAR: S1 and S2. Atrial fibrillation, rate controlled. ABDOMEN: Severely morbidly obese. EXTREMITIES: 3+ edema. NEUROLOGIC: No focal deficit. Moving all extremities. LABORATORY DATA: WBC 7.7, hemoglobin 12.5, hematocrit 41, and platelet is 162. Chemistry; sodium 137, potassium 4, chloride 92, bicarb 34, BUN 20, creatinine 1.2, glucose 108. BNP is 101. Chest x-ray, pulmonary edema. IMPRESSION: 1. Gckyn-dw-ipdphzr systolic and diastolic dysfunction congestive heart failure exacerbation. 2. Pulmonary edema. 3. Acute hypoxia. 4. Morbidly obese. 5. Anticoagulant therapy for mechanical mitral and aortic valve replacement. 6. Atrial fibrillation. PLAN: IV furosemide 40 mg IV q.6 hours. Replace electrolytes if needed. Repeat lab work. Home medication resumed. Anticoagulant therapy. We will monitor the patient closely at this time. The patient is admitted for treatment. MD TED Reynoso/YARITZA /[id number]
[2020-03-26] MEDS: FUROSEMIDE INJ 10 MG/ML 4 ML VIAL IV SCH ×4 (00:32→17:31)
[2020-03-26] MEDS: METOPROLOL TARTRATE 25 MG TAB PO SCH ×2 (05:23→17:31)
--- NOTE | 2020-03-26 06:05 | NUR ---
PT C/O HEADACHE AND GIVEN TYLENOL .CALL LIGHT WITH IN REACH ,CONTINUE TO MONITOR
--- NOTE | 2020-03-26 07:38 | NUR ---
BEDSIDE REPORT GIVEN TO THE ONCOMING NURSE
[2020-03-26 07:49] LABS: BASOPHILS # (AUTO) 0.1 (0.0-0.1); BASOPHILS % 0.8 % (0.0-1.0); EOSINOPHILS # (AUTO) 0.2 (0.0-0.4); EOSINOPHILS % 3.1 % (0.0-6.0); HEMATOCRIT 41.2 % (38.2-49.6); HEMOGLOBIN 12.4 g/dL (14.0-18.0); LYMPHOCYTES # (AUTO) 1.1 (1.0-3.2); LYMPHOCYTES % 14.4 % (18.0-39.1); MEAN CORPUSCULAR HEMOGLOBIN 28.9 pg (28-32); MEAN CORPUSCULAR HGB CONC 30.1 g/dL (31-35); MONOCYTES # (AUTO) 0.6 (0.2-0.8); MONOCYTES % 7.8 % (4.4-11.3); NEUTROPHILS # (AUTO) 5.5 (2.1-6.9); NEUTROPHILS % 73.6 % (38.7-80.0); PLATELET COUNT 175 x10e3/uL (140-360); RED BLOOD COUNT 4.29 x10e6/uL (4.3-5.7); RED CELL DISTRIBUTION WIDTH 15.8 % (11.7-14.4)
[2020-03-26 08:07] LABS: ANION GAP 15.3 mmol/L (8-16); BLOOD UREA NITROGEN 22 mg/dL (7-26); BUN/CREATININE RATIO 19 (6-25); CARBON DIOXIDE 35 mmol/L (22-29); CHLORIDE 92 mmol/L (98-107); CREATININE, SERUM 1.13 mg/dL (0.72-1.25); EST GLOMERULAR FILTRATION RATE > 60 ML/MIN (60-); GLUCOSE 113 mg/dL (74-118); POTASSIUM 4.3 mmol/L (3.5-5.1); SODIUM 138 mmol/L (136-145)
[2020-03-26 08:26] LABS: CREATINE KINASE MB 3.1 ng/mL (0-5.0)
[2020-03-26] MEDS: ASPIRIN 81 MG CHEW TAB PO SCH (08:59)
[2020-03-26] MEDS: POTASSIUM CHLORIDE 10MEQ EA PO SCH ×2 (08:59→17:31)
[2020-03-26] MEDS ORDERED: SIMVASTATIN 20 MG PO SCH (09:00)
--- NOTE | 2020-03-26 12:03 | Progress Note ---
DATE: Cardiology Progress Note SUBJECTIVE: The patient is feeling somewhat better. Reports that his swelling, abdominal distention and shortness of breath has mildly improved. OBJECTIVE: VITAL SIGNS: Temperature is 97.9, heart rate 71, respirations are 18, blood pressure is 119/74, oxygen saturation is 98% on 4 L nasal cannula. GENERAL: He is a chronically ill-appearing man, lying comfortably in bed, no apparent distress. CARDIOVASCULAR: Regular rate and rhythm. Mechanical heart sounds. LUNGS: Diminished breath sounds at the bases. ABDOMEN: Distended, soft, obese. EXTREMITIES: Pitting edema. CARDIOVASCULAR MEDICATIONS: Reviewed. LABORATORY DATA: Reviewed. IMPRESSION: 1. Acute on chronic systolic and diastolic heart failure. 2. Presence of a mechanical aortic and mitral valve. 3. Atrial fibrillation. 4. Obesity. 5. Hypertension. 6. Hyperlipidemia. RECOMMENDATIONS: Continue Lasix for adequate diuresis. Monitor his creatinine, electrolytes, and his in's and out's. Otherwise, continue all current cardiovascular medications. Continue warfarin for therapeutic INR of 2.5 to 3.5. We will check a 2D echocardiogram. DO MER Ocampo/MODL /[id number]
[2020-03-26] MEDS ORDERED: WARFARIN SOD 1 MG TAB PO SCH (17:00)
[2020-03-26] MEDS: WARFARIN SOD 3 MG TAB PO SCH (17:41)
[2020-03-26] MEDS: ACETAMINOPHEN 325 MG TAB PO PRN (17:41)
--- NOTE | 2020-03-26 17:42 | NUR ---
Donna to give Coumadin 6 mg with INR of 3.[address] Palmer.
--- NOTE | 2020-03-26 19:49 | NUR ---
Nutrition Screen Note RD Recommendation for Physician: - Continue current diet Plan of Care: RD following, monitoring for tolerance and adequacy - Diet education provided 03/26 Nutrition reason for involvement: DX: CHF Primary Diagnose(s): CHF PMH: CHF, MVR, HTN, dyslipidemia, morbid obesity, obstructive sleep apnea Ht: 70 in Wt: 368 lb BMI: 52.8 kg/m2 IBW: 166lb RD Assessment: (03/26) 55 YOM admitted for CHF, seen today per admit dx. Pt reports good appetite and po intake currently and [employer]. Pt denies any wt loss, reports fluid gains/losses due to CHF. Pt reports "dry weight" of 340 lb and that his weight goes up to 380 lb. Pt denies any N/V/C/D. Pt reports that he tries to follow a low sodium diet at home, receptive to diet education review at time of visit. Pt educated on heart failure diet restrictions emphasizing Na diet restriction. Pt with no questions or concerns at time of visit. Chart reviewed. Labs and meds reviewed. Will continue to monitor. Current Diet: Cardiac Malnutrition Evaluation (03/26/20l) The patient does not meet criteria for a specified degree of malnutrition at this time. Will re-evaluate at follow-up as appropriate. Diet Education Needs Assessment: Diet education indicated, pt receptive to review. Learner(s): pt Barriers: none Cultural/Language Modifications: none Readiness: ready Method: handouts, discussion Topics: heart failure nutrition therapy, Na restriction, heart healthy cooking tips Understanding/Compliance: fair Diet tolerance: tolerating po Nutrition Care Level: low Signed: Gwendolyn Sánchez RD, LD, [facility]
--- NOTE | 2020-03-26 20:42 | NUR ---
RECEIVED PT SITTING ON THE SIDE OF THE BED .DENIES PAIN .NO ACUTE DISTRESS NOTED CALL LIGHT WITH IN REACH .CONTINUE TO MONITOR
[2020-03-26] MEDS: SIMVASTATIN 20 MG TAB PO SCH (21:19)
[2020-03-26] MEDS: OXYMETAZOLINE HCL 0.05% NAS 1 SPRAY BTL PRN (23:15)
[2020-03-27] VITALS (8 sets, daily range): BP systolic 110–131; BP diastolic 64–93
[2020-03-27] MEDS: FUROSEMIDE INJ 10 MG/ML 4 ML VIAL IV SCH ×4 (00:33→17:12)
[2020-03-27] MEDS: METOPROLOL TARTRATE 25 MG TAB PO SCH ×2 (05:59→17:12)
--- NOTE | 2020-03-27 05:59 | NUR ---
NOSE BLEEDING DURING THE SHIFT ,NOTIFIED DR CUMMINGS AND GOT THE ORDER TO SPRAY AFRIN .GIVEN AFRIN AND BLEEDING STOPPED ,CONTINUE TO MONITOR ,CALL LIGHT WITH IN REACH
--- NOTE | 2020-03-27 07:00 | NUR ---
received bedside report. pt is sleeping in bed, no s/s of distress noted. call light within reach and bed safety in place
[2020-03-27 07:12] LABS: INR 2.71; PROTHROMBIN TIME 30.6 seconds (11.9-14.5)
--- NOTE | 2020-03-27 07:19 | NUR ---
BEDSIDE REPORT GIVEN TO THE ONCOMING NURSE
--- NOTE | 2020-03-27 07:20 | NUR ---
BEDSIDE REPORT GIVEN TO THE ONCOMING NURSE
[2020-03-27 07:24] LABS: ANION GAP 14.2 mmol/L (8-16); BLOOD UREA NITROGEN 21 mg/dL (7-26); BUN/CREATININE RATIO 21 (6-25); CALCIUM 8.8 mg/dL (8.4-10.2); CARBON DIOXIDE 35 mmol/L (22-29); CHLORIDE 93 mmol/L (98-107); CREATININE, SERUM 1.01 mg/dL (0.72-1.25); EST GLOMERULAR FILTRATION RATE > 60 ML/MIN (60-); GLUCOSE 108 mg/dL (74-118); POTASSIUM 4.2 mmol/L (3.5-5.1); SODIUM 138 mmol/L (136-145)
[2020-03-27] MEDS: ASPIRIN 81 MG CHEW TAB PO SCH (09:14)
[2020-03-27] MEDS: POTASSIUM CHLORIDE 10MEQ EA PO SCH ×2 (09:15→17:12)
[2020-03-27] MEDS: OXYMETAZOLINE HCL 0.05% NAS 1 SPRAY BTL PRN (15:22)
[2020-03-27] MEDS: WARFARIN SOD 3 MG TAB PO SCH (17:12)
--- NOTE | 2020-03-27 18:57 | Progress Note ---
DATE: Cardiology Progress Note SUBJECTIVE: The patient is feeling better. Shortness of breath has improved. No chest pain. OBJECTIVE: VITAL SIGNS: Temperature is 98.3, heart rate is 80, respirations are 20, blood pressure is 125/82, and oxygen saturation 96% on 3 L nasal cannula. GENERAL: Well appearing, in no apparent distress. CARDIOVASCULAR: Irregularly irregular. LUNGS: Diminished breath sounds at bases. ABDOMEN: Obese and distended. EXTREMITIES: Pitting edema. LABORATORY DATA: Reviewed. Hemoglobin is 12.4. Creatinine is 1.01 and potassium 4.2. Echocardiogram reviewed and was very technically difficult. Valvular structures were not well visualized. Ejection fraction appeared to be mildly depressed around 35% to 40%. IMPRESSION: 1. Ukdzo-cp-ddkviso systolic and diastolic heart failure. 2. Presence of a mechanical aortic and mitral valve. 3. Atrial fibrillation. 4. Obesity. 5. Hypertension. 6. Hyperlipidemia. RECOMMENDATIONS: Continue Lasix intravenously q.6 hours for adequate diuresis. His creatinine has remained stable. Continue warfarin for INR of 2.5 to 3.5. His echocardiogram showed moderately reduced systolic function. We will start optimal medical therapy for his heart failure. We will continue to follow along with you. Pawan Catherine DO BM/MODL /[id number]
--- NOTE | 2020-03-27 19:52 | Consultation ---
DATE OF CONSULTATION: 03/27/2020 Hospital Consultation HISTORY OF PRESENT ILLNESS: I was kindly asked to see this 55-year-old man for evaluation of epistaxis. The patient has a many year history of mild intermittent epistaxis, usually worse on his left side and usually very self-limited. He now has a history of significant bleeding from the left side of his nose. Evening prior to consultation, the patient believed that the bleeding was exacerbated by nasal prong oxygen. His history of present illness, past medical history, and past surgical history were all reviewed in detail in the chart, and is pertinent for use of Coumadin and aspirin. PHYSICAL EXAMINATION: On examination, the right pinna was normal, right external auditory canal was normal, right tympanic membrane was normal; there was no postauricular pain, swelling, erythema, or tenderness. The left pinna was normal, left external auditory canal was normal, the left tympanic membrane was normal; there was no left postauricular pain, swelling, erythema, or tenderness. Intranasal examination showed blood clots on the left side of the nose. There was a gncdtlcw-af-nczhng S-shaped nasal septal deviation. There was crusting present in both sides of the nose. He was using nasal prong oxygen, which was went through a heated humidifier. Oral cavity examination showed mild candidiasis on the dorsum of the tongue and a long soft palate with redundant folds of hypopharyngeal mucosa. There was no palpable cervical adenopathy on fiberoptic diagnostic rhinoscopy. There was bleeding point identified in the anterior left mid nasal septum along a nasal septal buccal abnormality. There was no clinically significant paranasal sinus pathology and no other bleeding points were identified. After application of 2% Pontocaine, now bleeding point was cauterized with silver nitrate. ASSESSMENT: 1. Epistaxis. 2. Nasal septal deviation. 3. Medication-induced coagulopathy. PLAN: 1. [place] nasal spray two puffs each side of nose q.4 hours while awake. 2. Bacitracin ointment to the left nostril t.i.d. 3. Continuation of heated humidification for oxygen. MD KATHRINE Calix/YARITZA /[id number]
[2020-03-27] MEDS: SIMVASTATIN 20 MG TAB PO SCH (21:00)
[2020-03-27] MEDS: SALINE 0.65% NAS SOLN 1 SPRAY BTL SCH (22:00)
[2020-03-27] MEDS: NEOMYCIN/POLYMYXIN/BACITRACIN 15 GM TUBE TOP SCH (22:49)
[2020-03-28] VITALS (8 sets, daily range): BP systolic 95–137; BP diastolic 55–92
[2020-03-28 05:49] LABS: BASOPHILS # (AUTO) 0.1 (0.0-0.1); BASOPHILS % 0.7 % (0.0-1.0); EOSINOPHILS # (AUTO) 0.2 (0.0-0.4); EOSINOPHILS % 2.2 % (0.0-6.0); HEMATOCRIT 38.2 % (38.2-49.6); LYMPHOCYTES % 11.8 % (18.0-39.1); MEAN CORPUSCULAR HEMOGLOBIN 31.2 pg (28-32); MEAN CORPUSCULAR HGB CONC 31.4 g/dL (31-35); MEAN CORPUSCULAR VOLUME 99.2 fL (81-99); MONOCYTES # (AUTO) 0.9 (0.2-0.8); MONOCYTES % 10.1 % (4.4-11.3); NEUTROPHILS # (AUTO) 6.4 (2.1-6.9); NEUTROPHILS % 74.6 % (38.7-80.0); PLATELET COUNT 159 x10e3/uL (140-360); RED BLOOD COUNT 3.85 x10e6/uL (4.3-5.7); RED CELL DISTRIBUTION WIDTH 17.2 % (11.7-14.4)
[2020-03-28] MEDS: SALINE 0.65% NAS SOLN 1 SPRAY BTL SCH ×4 (06:00→22:00)
[2020-03-28] MEDS: FUROSEMIDE INJ 10 MG/ML 4 ML VIAL IV SCH ×4 (06:00→17:09)
[2020-03-28 06:03] LABS: INR 2.76; PROTHROMBIN TIME 31.1 seconds (11.9-14.5)
[2020-03-28 06:12] LABS: ANION GAP 13.1 mmol/L (8-16); BLOOD UREA NITROGEN 21 mg/dL (7-26); BUN/CREATININE RATIO 22 (6-25); CALCIUM 8.8 mg/dL (8.4-10.2); CARBON DIOXIDE 35 mmol/L (22-29); CHLORIDE 93 mmol/L (98-107); CREATININE, SERUM 0.94 mg/dL (0.72-1.25); EST GLOMERULAR FILTRATION RATE > 60 ML/MIN (60-); GLUCOSE 107 mg/dL (74-118); POTASSIUM 4.1 mmol/L (3.5-5.1); SODIUM 137 mmol/L (136-145)
[2020-03-28] MEDS: ASPIRIN 81 MG CHEW TAB PO SCH (09:20)
[2020-03-28] MEDS: POTASSIUM CHLORIDE 10MEQ EA PO SCH ×2 (09:21→17:09)
[2020-03-28] MEDS: METOPROLOL SUCCINATE 25 MG TAB XL PO SCH (09:21)
[2020-03-28] MEDS: NEOMYCIN/POLYMYXIN/BACITRACIN 15 GM TUBE TOP SCH ×3 (09:22→21:00)
--- NOTE | 2020-03-28 10:52 | Progress Note ---
DATE: Cardiology Progress Note SUBJECTIVE: The patient found sleeping comfortably. No events. OBJECTIVE: VITAL SIGNS: Temperature is 98.6, heart rate 73, respirations 18, blood pressure is 100/55, ox saturation 97% on 3 L nasal cannula. GENERALLY: Sleeping comfortably. CARDIOVASCULAR: Mechanical aortic and mitral valve sounds. Irregularly irregular. LUNGS: Diminished breath sounds at bases. ABDOMEN: Obese, soft, nontender. EXTREMITIES: 1+ pitting edema. CARDIOVASCULAR MEDICATIONS: Reviewed. LABORATORY DATA: Hemoglobin 12, creatinine 0.94, INR 2.76. IMPRESSION: 1. Acute on chronic systolic and diastolic heart failure. 2. History of aortic and mitral mechanical valve replacement. 3. Atrial fibrillation. 4. Obesity. 5. Hypertension. 6. Hyperlipidemia. 7. Chronic hypoxia. RECOMMENDATIONS: Continue Lasix for adequate diuresis. He was started on optimal medical therapy for his heart failure with Toprol-XL and lisinopril. Continue warfarin for an INR of 2.5-3.5. We will continue to follow along. Pawan Catherine DO BM/MODL /[id number]
[2020-03-28] MEDS: LISINOPRIL 10 MG TAB PO SCH (17:08)
[2020-03-28] MEDS: WARFARIN SOD 3 MG TAB PO SCH (17:09)
--- NOTE | 2020-03-28 19:00 | NUR ---
Received shift report from morning nurse. Pt alert and oriented, sitting up on side of bed, denies pain at this time. Call light within reach.
[2020-03-28] MEDS: SIMVASTATIN 20 MG TAB PO SCH (21:00)
[2020-03-29] VITALS: BP 90/48
[2020-03-29 04:00] VITALS: BP 120/79
[2020-03-29] MEDS: FUROSEMIDE INJ 10 MG/ML 4 ML VIAL IV SCH ×3 (05:42→12:30)
[2020-03-29] MEDS: SALINE 0.65% NAS SOLN 1 SPRAY BTL SCH ×2 (05:42→10:00)
[2020-03-29 08:02] LABS: INR 2.9; PROTHROMBIN TIME 32.3 seconds (11.9-14.5)
[2020-03-29 08:32] VITALS: BP 121/68
[2020-03-29 08:55] VITALS: BP 121/68
[2020-03-29 09:06] VITALS: BP 121/68
[2020-03-29] MEDS: POTASSIUM CHLORIDE 10MEQ EA PO SCH (09:14)
[2020-03-29] MEDS: LISINOPRIL 10 MG TAB PO SCH (09:14)
[2020-03-29] MEDS: ASPIRIN 81 MG CHEW TAB PO SCH (09:14)
[2020-03-29] MEDS: METOPROLOL SUCCINATE 25 MG TAB XL PO SCH (09:15)
[2020-03-29] MEDS: NEOMYCIN/POLYMYXIN/BACITRACIN 15 GM TUBE TOP SCH (09:16)
[2020-03-29 12:16] VITALS: BP 122/81
--- NOTE | 2020-03-29 15:01 | NUR ---
Pt discharged home at this time. Pt verbalized understanding of all discharge instructions and follow up appointments. Pt was discharged with prescription for lasix 80mg TID. 0 s/s of acute distress noted at time of discharge. 0 s/s of acute distress noted at time of discharge.
--- NOTE | 2020-03-30 00:16 | Discharge Summary ---
CONSULTANTS: 1. Devin Hoyt MD. 2. Aureliano Antonio MD. FINAL DIAGNOSES: 1. Siksv-ps-tnmcwwd systolic dysfunction, congestive heart failure exacerbation. 2. Morbidly obese. 3. Anticoagulation. 4. Mitral valve replacement and aortic valve replacement with mechanical valve. HISTORY OF PRESENT ILLNESS: A 55-year-old male with acute exacerbation of his congestive heart failure, severely fluid overload. He is morbidly obese. BMI greater than 52. The patient with significant pulmonary edema and bilateral lower extremities swelling. He has also on anticoagulant therapy for his mitral valve and aortic valve replacement. The patient is otherwise stable. He is doing much better now. He will go home today. We will increase his Lasix to 80 mg 3 times a day and then subsequently if his fluid improved, he can take it twice a day. Discussed with the patient at length. He will follow up with me next week. No further management from cardiac standpoint at this time. Therefore, the patient will go home and I will continue to monitor the patient as an outpatient. He did have some nosebleed, but that because of the oxygen dryness. He is stable now. No nose bleed. He is doing well. The patient will be discharged to home today. MD TED Reynoso/YARITZA /[id number]
== END 2020-03-29 15:01 | disposition home or self-care (01) | DRG 292 ==
LOC: ER 10:15 → ERHOLD 11:41 → MED/SURG3 14:13
PROVIDERS: ADMIT Internal Medicine; ATTEND Internal Medicine
DX: I11.0 Hypertensive heart disease with heart failure (principal); Z68.43 Body mass index [BMI] 50.0-59.9, adult; I48.20 Chronic atrial fibrillation, unspecified; I50.43 Acute on chronic combined systolic (congestive) and diastolic (congestive) heart failure; Z79.01 Long term (current) use of anticoagulants; E66.01 Morbid (severe) obesity due to excess calories; E78.5 Hyperlipidemia, unspecified; E78.00 Pure hypercholesterolemia, unspecified; R09.02 Hypoxemia; Z95.2 Presence of prosthetic heart valve; G47.33 Obstructive sleep apnea (adult) (pediatric); Z91.041 Radiographic dye allergy status; R04.0 Epistaxis; J34.2 Deviated nasal septum
CPT/HCPCS: 36415; 71045; 80048; 80053; 81001; 82550; 82553; 83735; 83880; 84484; 85025; 85610; 85730; 87040; 87086; 93005; 93306; 99285; J1940; U0002

== ENCOUNTER 2020-04-26 13:53 | Inpatient (IN) | payer MEDICARE, OTHER ==
[~2020-04-26] VITALS: Ht 177.8 cm; Wt 171.5 kg
--- NOTE | 2020-04-26 14:17 | Emergency Department Note ---
History of Present Illnes History of Present Illness Chief Complaint: Abdominal Complaints History of Present Illness This is a 55 year old male arrives to the ED with worsening abdominal distention. Patient denies any cough shortness of breath but states he is not able to bring his abdomen down despite Lasix.. Chief Complaint Comment Patient in from home via EMS with complaints of abdominal pain and distension, shortness of breath, fatigure and headache over the last week. Patient states that he has never had the abdominal swelling before. Patient's abdomen is distended and the patient is tachypneic at a rate of 24-26. Patient does have a history of CHF and is on diuretics at home. Patient is on home oxygen at 3L. 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 Any updates have been documented here. Past Medical History Recent Fever: No Clinical Suspicion of Infectio: No New/Unexplained Change in Ment: No Past Medical History: Hypertension, CHF, A-Fib, Hyperlipedemia Other Medical History: high cholesterol HEART ARRYTHMIA Past Surgical History: T&A Other Surgery: aortic valve repair x 2 Social History Smoking Cessation: Former smoker Other Last Tetanus: UTD Review of Systems Review of Systems Constitutional: Reports no symptoms EENTM: Reports no symptoms Cardiovascular: Reports no symptoms Respiratory: Reports no symptoms Gastrointestinal: Reports as per HPI, Reports other (abdominal distention) Genitourinary: Reports no symptoms Musculoskeletal: Reports no symptoms Integumentary: Reports no symptoms Neurological: Reports no symptoms Psychological: Reports no symptoms Endocrine: Reports no symptoms Hematological/Lymphatic: Reports no symptoms Physical Exam Related Data Allergies: Coded Allergies: iodine (Verified Allergy, Severe, Anaphylaxis, 11/20/18) Triage Vital Signs Vital Signs Date Time Temp Pulse Resp B/P (MAP) Pulse Ox O2 Delivery O2 Flow Rate FiO2 04/26/20 14:03 98.5 75 24 117/70 99 Nasal Cannula 5.0 Vital signs reviewed: Yes Physical Exam CONSTITUTIONAL Constitutional: Present well-developed, Present well-nourished, Present morbidly obese, Present ill appearing HENT HENT: Present normocephalic, Present atraumatic, Present oropharynx clear/moist, Present nose normal HENT L/R: Present left ext ear normal, Present right ext ear normal EYES Eyes: Reports PERRL, Reports conjunctivae normal NECK Neck: Present ROM normal PULMONARY Pulmonary: Present effort normal, Present respiratory distress CARDIOVASCULAR Cardiovascular: Present regular rhythm, Present heart sounds normal, Present capillary refill normal, Present normal rate GASTROINTESTINAL Abdominal: Present soft, Present bowel sounds normal, Present distension GENITOURINARY Genitourinary: Present exam deferred SKIN Skin: Present warm, Present dry MUSCULOSKELETAL Musculoskeletal: Present ROM normal NEUROLOGICAL Neurological: Present alert, Present oriented x 3, Present no gross motor or sensory deficits PSYCHOLOGICAL Psychological: Present mood/affect normal, Present judgement normal Results Laboratory Lab results reviewed: Yes Laboratory comments Laboratory Tests Test 04/26/20 14:18 White Blood Count 7.54 x10e3/uL (4.8-10.8) Red Blood Count 4.30 x10e6/uL (4.3-5.7) Hemoglobin 12.1 g/dL (14.0-18.0) Hematocrit 40.2 % (38.2-49.6) Mean Corpuscular Volume 93.5 fL (81-99) Mean Corpuscular Hemoglobin 28.1 pg (28-32) Mean Corpuscular Hemoglobin Concent 30.1 g/dL (31-35) Red Cell Distribution Width 15.9 % (11.7-14.4) Platelet Count 201 x10e3/uL (140-360) Neutrophils (%) (Auto) 68.5 % (38.7-80.0) Lymphocytes (%) (Auto) 17.6 % (18.0-39.1) Monocytes (%) (Auto) 8.9 % (4.4-11.3) Eosinophils (%) (Auto) 3.8 % (0.0-6.0) Basophils (%) (Auto) 0.8 % (0.0-1.0) Neutrophils # (Auto) 5.2 (2.1-6.9) Lymphocytes # (Auto) 1.3 (1.0-3.2) Monocytes # (Auto) 0.7 (0.2-0.8) Eosinophils # (Auto) 0.3 (0.0-0.4) Basophils # (Auto) 0.1 (0.0-0.1) Absolute Immature Granulocyte (auto 0.03 x10e3/uL (0-0.1) Sodium Level 139 mmol/L (136-145) Potassium Level 3.8 mmol/L (3.5-5.1) Chloride Level 91 mmol/L (98-107) Carbon Dioxide Level 37 mmol/L (22-29) Anion Gap 14.8 mmol/L (8-16) Blood Urea Nitrogen 17 mg/dL (7-26) Creatinine 0.92 mg/dL (0.72-1.25) Estimat Glomerular Filtration Rate > 60 ML/MIN (60-) BUN/Creatinine Ratio 18 (6-25) Glucose Level 117 mg/dL (74-118) Calcium Level 9.3 mg/dL (8.4-10.2) Total Bilirubin 1.1 mg/dL (0.2-1.2) Aspartate Amino Transf (AST/SGOT) 27 IU/L (5-34) Alanine Aminotransferase (ALT/SGPT) 16 IU/L (0-55) Alkaline Phosphatase 123 IU/L (40-150) Creatine Kinase 47 IU/L (30-200) Creatine Kinase MB 2.00 ng/mL (0-5.0) Troponin I 0.033 ng/mL (0-0.300) B-Type Natriuretic Peptide 266.9 pg/mL (0-100) Total Protein 8.4 g/dL (6.5-8.1) Albumin 3.9 g/dL (3.5-5.0) Globulin 4.5 g/dL (2.3-3.5) Albumin/Globulin Ratio 0.9 (0.8-2.0) Lipase 31 U/L (8-78) Imaging Imaging results reviewed: Yes Procedures 12 Lead ECG Interpretation ECG Interpretation : Rhythm: atrial fibrillation Rate: normal QRS axis: right ST segments normal: Yes T waves normal: Yes Assessment & Plan Medical Decision Making MDM 55-year-old male arrives to the ED with abdominal distention and chest pain. Markedly heart failure. Case discussed with his belt picker, recommended hospital admission for cardiac optimization. Assessment & Plan Final Impression: (1) Morbid obesity (2) Dyspnea (3) Chronic atrial fibrillation (4) CHF exacerbation Depart Disposition: ADMITTED Last Vital Signs Date Time Temp Pulse Resp B/P (MAP) Pulse Ox O2 Delivery O2 Flow Rate FiO2 04/26/20 14:03 98.5 75 24 117/70 99 Nasal Cannula 5.0 Home Meds Reported Medications Albuterol Sulfate (VENTOLIN HFA) 18 Gm Hfa.aer.ad, 2 INH INH Q6H PRN for SHORTNESS OF BREATH 09/08/18 Furosemide (FUROSEMIDE) 40 Mg Tablet, 40 MG PO Daily, #30 TAB 09/08/18 Potassium Chloride (POTASSIUM CHLORIDE) 10 Meq Tab.er.prt, 10 MEQ PO BID, TAB 08/16/16 Furosemide (FUROSEMIDE) 40 Mg Tablet, 80 MG PO DAILY, #30 TAB 04/18/16 Warfarin Sodium (COUMADIN) 1 Mg Tablet, [facility] 09/27/12 Warfarin Sodium (COUMADIN) 5 Mg Tablet, 7.5 MG PO wednesday and wednesday, 12 Refills 09/27/12 Aspirin (ASPIR 81) 81 Mg Tablet.dr, 81 MG PO DAILY 09/27/12 Simvastatin (ZOCOR) 10 Mg Tablet, 20 MG PO DAILY 09/27/12 Metoprolol Tartrate (METOPROLOL TARTRATE) 25 Mg Tablet, 25 MG PO Q12H 09/27/12 HOLGER ROBERTS, Apr 26, 2020 14:18
[2020-04-26 14:34] LABS: BASOPHILS # (AUTO) 0.1 (0.0-0.1); BASOPHILS % 0.8 % (0.0-1.0); EOSINOPHILS # (AUTO) 0.3 (0.0-0.4); EOSINOPHILS % 3.8 % (0.0-6.0); HEMATOCRIT 40.2 % (38.2-49.6); HEMOGLOBIN 12.1 g/dL (14.0-18.0); LYMPHOCYTES # (AUTO) 1.3 (1.0-3.2); LYMPHOCYTES % 17.6 % (18.0-39.1); MEAN CORPUSCULAR HEMOGLOBIN 28.1 pg (28-32); MEAN CORPUSCULAR HGB CONC 30.1 g/dL (31-35); MEAN CORPUSCULAR VOLUME 93.5 fL (81-99); MONOCYTES # (AUTO) 0.7 (0.2-0.8); MONOCYTES % 8.9 % (4.4-11.3); NEUTROPHILS # (AUTO) 5.2 (2.1-6.9); NEUTROPHILS % 68.5 % (38.7-80.0); PLATELET COUNT 201 x10e3/uL (140-360); RED CELL DISTRIBUTION WIDTH 15.9 % (11.7-14.4)
--- NOTE | 2020-04-26 14:48 | Diagnostic Imaging Report ---
Examination: Single AP view of the chest. COMPARISON: 03/25/2020 INDICATION: Abdominal pain DISCUSSION: The lungs are reasonably well inflated. Prominence of the central pulmonary interstitium is similar to prior. No new airspace consolidation. Trace bilateral pleural effusions are suspected. Stable enlargement of the cardiac silhouette status post median sternotomy. No acute osseous abnormalities. IMPRESSION: Enlargement of the cardiac silhouette with interstitial pulmonary edema and small bilateral pleural effusions, similar to that described on 03/25/2020. Signed by: Dr. Fabio Abernathy M.D. on 04/26/2020 2:45 PM
[2020-04-26 14:56] LABS: ALANINE AMINOTRANSFERASE 16 IU/L (0-55); ALBUMIN 3.9 g/dL (3.5-5.0); ALBUMIN/GLOBULIN RATIO 0.9 (0.8-2.0); ALKALINE PHOSPHATASE 123 IU/L (40-150); ANION GAP 14.8 mmol/L (8-16); BLOOD UREA NITROGEN 17 mg/dL (7-26); BUN/CREATININE RATIO 18 (6-25); CALCIUM 9.3 mg/dL (8.4-10.2); CARBON DIOXIDE 37 mmol/L (22-29); CHLORIDE 91 mmol/L (98-107); CREATINE KINASE 47 IU/L (30-200); CREATININE, SERUM 0.92 mg/dL (0.72-1.25); EST GLOMERULAR FILTRATION RATE > 60 ML/MIN (60-); GLUCOSE 117 mg/dL (74-118); POTASSIUM 3.8 mmol/L (3.5-5.1); SODIUM 139 mmol/L (136-145)
--- OUTSIDE RECORDS SUMMARY | 2020-04-26 15:19 | XMS REPORT | Continuity of Care Document ---
Author Author [facility] t Organization [facility] Address [address] [place] [address] Phone Unavailable Care Team Providers Care Religious Studies Professor Name Role Phone EMILIANO JOYCE, MD PERALTA PCP Garland ROBERTS Attphys Unavailable Brandon WILLIAM Attphys Unavailable Tierra YBARRA Attphys Unavailable KATHRYN CUMMINGS Attphys Unavailable Luis A WEBB Attphys Unavailable Marvin VIVEROS Attphys Unavailable KATHRYN CUMMINGS Admphygarland Unavailable Payers Payer Name Policy Type Policy Number Effective Date Expiration Date S ource Medicare A & B [id number] 2008 00:00:00 [facility] Problems Condition Name Condition Details Condition Category Status Onset Date Resolution Date Last Treatment Date Treating Clinician Comments Source Congestive heart failure CHF exacerbation Problem Active 00:00:00 [facility] Dyspnea Dyspnea Problem Active 2016-04-14 00:00:00 [facility] Morbid obesity Morbid obesity Problem Active 2016-04-14 00:00:00 [facility] Chronic atrial fibrillation Chronic atrial fibrillation Problem Active [facility] Flank pain Flank pain Problem Active [facility] Hypoxia Hypoxia Problem Active [facility] Acute on chronic congestive heart failure Problem Active [facility] Allergies, Adverse Reactions, Alerts Allergy Name Allergy Type Status Severity Reaction(s) Onset Date Inacti ve Date Treating Clinician Comments Source Iodine Allergy to substance Active Severe Anaphylaxis 2018-11-20 00:00:00 [facility] iodine DA Active 2015-09-09 00:00:00 [facility] shellfish derived DA Active 2015-09-09 00:00:00 [facility] Social History Social Habit Start Date Stop Date Quantity Comments Source Sex Assigned At 1965 00:00:00 1965 00:00:00 Male [facility] Medications Ordered Medication Name Filled Medication Name Start Date Stop Da te Current Medication? Ordering Clinician Indication Dosage Frequency Signature (SIG) Comments Components Source Azithromycin (Z-Terrell) 250 Mg TABLET Azithromycin (Z-Terrell) 250 Mg TABLET 2017-12-29 17:28:00 2018-09-08 00:00:00 No 250 Use As Directed [facility] Albuterol Sulfate (Ventolin Hfa) 18 Gm HFA.AER.AD Albu terol Sulfate (Ventolin Hfa) 18 Gm HFA.AER.AD Yes 2 Ev aura 6 Hours as needed for Shortness Of Breath [facility] Aspirin (Aspir 81) 81 Mg TABLET. Aspirin (Aspir 81) 81 Mg TABLET. Yes 81 Daily [facility] Furosemide Furosemide Yes 80 Daily [facility] Furosemide Furosemide Yes 40 Daily [facility] Metoprolol Tartrate Metoprolol Tartrate Yes 25 Every 12 Hours [facility] Potassium Chloride Potassium Chloride Yes 10 Tw ice A Day [facility] Simvastatin (Zocor) 10 Mg TABLET Simvastatin (Zocor) 10 Mg TABLET Yes 20 Daily [facility] Warfarin Sodium (Coumadin) 1 Mg TABLET Warfarin Sodium (Coumadin ) 1 Mg TABLET Yes 5 Mtwthf [facility] Warfarin Sodium (Coumadin) 5 Mg TABLET Warfarin Sodium (Coumadin ) 5 Mg TABLET Yes 7.5 Wednesday And Wednesday [facility] Tramadol Hcl (Ultram) 50 Mg TABLET Tramadol Hcl (Ultram) 50 Mg T ABLET 2018-09-08 00:00:00 No 50 Every 6 Hours as nee ded for Pain [facility] Benzonatate (Tessalon Perle) 100 Mg CAPSULE Benzonatat e (Tessalon Perle) 100 Mg CAPSULE 2017-04-26 00:00:00 No Every 6 Hours fo r Cough [facility] Levofloxacin (Levaquin) 500 Mg TABLET Levofloxacin (Levaquin) 50 0 Mg TABLET 2017-04-26 00:00:00 No 500 Daily [facility] Albuterol Sulfate (Proair Hfa Inhaler*) 8.5 Gm INH Alb uterol Sulfate (Proair Hfa Inhaler*) 8.5 Gm INH 2016-08-17 00:00:00 No [facility] Benzonatate (Tessalon Perle) 100 Mg CAPSULE Benzonatat e (Tessalon Perle) 100 Mg CAPSULE 2016-08-16 00:00:00 No Every 4 Hours [facility] Levofloxacin (Levaquin) 500 Mg TABLET Levofloxacin (Levaquin) 50 0 Mg TABLET 2016-08-16 00:00:00 No 500 Daily [facility] Lisinopril Lisinopril 2016-08-16 00:00:00 No 5 Merlene ly [facility] Omeprazole Omeprazole 2016-08-16 00:00:00 No 20 Merlene ly [facility] Potassium Chloride Potassium Chloride 2016-08-16 00:00:00 No 20 Twice A Day [facility] Spironolactone Spironolactone 2016-08-16 00:00:00 No 25 Daily [facility] Xaroxolyn Xaroxolyn 2016-08-16 00:00:00 No 5 Twice A Day for Swelling [facility] Furosemide Furosemide 2016-04-18 00:00:00 No 40 Merlene ly [facility] Warfarin Sodium (Coumadin) 5 Mg TABLET Warfarin Sodium (Coumadin ) 5 Mg TABLET 2012-09-27 00:00:00 No Daily [facility] Warfarin Sodium (Coumadin) 10 Mg TABLET Warfarin Sodium (Cou madin) 10 Mg TABLET 2012-09-27 00:00:00 No 10 Daily [facility] Vital Signs Vital Name Observation Time Observation Value Comments Source Body Temperature 2020-03-29 12:16:00 98.6 [degF] [facility] BMI (Body Mass Index) 2020-03-25 14:30:00 52.8 kg/m2 [facility] Weight 2020-03-25 09:56:00 368 [lb_av] [facility] Procedures This patient has no known procedures. Plan of Care Planned Activity Planned Date Details Comments Source Instructions Congestive Heart Failure [facility] Encounters Start Date/Time End Date/Time En[facility] ID Source 2020-03-25 11:41:00 2020-03-29 15:01:00 Discharged Inpatient 1 NATALIIA OLEGARIO [facility] [id number] [facility] 2018-11-20 17:49:00 2018-11-20 20:42:00 Departed Emergency Room 1 RAVIN YBARRA [facility] [id number] [facility] 2018-09-08 05:51:00 2018-09-14 16:44:00 Discharged Inpatient 1 KATHRYN CUMMINGS [facility] [id number] [facility] 2017-12-29 13:56:00 2017-12-29 18:40:00 Departed Emergency Room 1 JONPAM RICHARDSON [facility] [id number] [facility] 2017-12-13 20:51:00 2017-12-14 00:44:00 Departed Emergency Room ER ELVA VIVEROS [facility] [id number] [facility] 2017-04-27 00:28:00 2017-04-27 18:02:00 Discharged Inpatient (obs) ER NATALIIAFELICARYL [facility] [id number] [facility] Results Test Description Test Time Test Comments Results Result Comments Source CHEST SINGLE (PORTABLE) 2020-04-26 14:40:00 [facility] [address] [address] Patient Name: SHARMILA TORRES MR #: [id number] : 1965 Age/Sex: 55/M Req #: [id number] Adm Physician: Ordered by: HOLGER ROBERTS DO Report #: [id number] Location: ER Room/Bed: Procedure: [id number] DX/CHEST SINGLE (PORTABLE) Exam Date: 04/26/20 Exam Time: 1420 REPORT STATUS: Signed Examination: Single AP view of the chest. COMPARISON: 03/25/2020 INDICATION: Abdominal pain DISCUSSION: The lungs are reasonably well inflated. Prominence of the central pulmonary interstitium is similar to prior. No new airspace consoli dation. Trace bilateral pleural effusions are suspected. Stable enlargement of the cardiac silhouette status post median sternotomy. No acute osseous abnormalities. IMPRESSION: Enlargement of the cardiac silhouette with interstitial pulmonary edema and small bilateral pleural effusions, similar to that described on 03/25/2020. Signed by: Dr. Yolanda Abernathy M.D. on 04/26/2020 2:45 PM Dictated By: YOLANDA ABERNATHY MD 1447 Transcribed By: DEE DEE on 04/26/20 1445 COPY TO: HOLGER ROBERTS DO Prothrombin time (PT) in platelet poor plasma by coagu lation assay 2020-03-29 07:10:00 Test Item Prothrombin Time (test code = 5902-2) 32.3 11.9-14.5 [facility] Platelet poor plasma by Coagulation [id number] 07:10:00* Test Item Value Reference Range Interpretation Comments Prothromb Time International Ratio (test code = 6301-6) 2.90 Oral Anticoagulant Therapy INR Values:1. Low Intensity Therapy 1.5 - 2.02 . Moderate Intensity Therapy 2.0 - 3.03. High Intensity Therapy(1) 2.5 - 3. 54. High Intensity Therapy(2) 3.0 - 4.05. Panic Value INR > 5.0 [facility] leukocytes automated count (number/volume)2020-03-28 05:30:00* Test Item Value Reference Range Interpretation Comments White Blood Count (test code = 6690-2) 8.61 4.8-10.8 [facility] erythrocytes automated count (number/volume)2020-03-28 05:30:00* Test Item Value Reference Range Interpretation Comments Red Blood Count (test code = 789-8) 3.85 4.3-5.7 [facility]Blood hemoglobin measurement (moles/volume)2020-03-28 05:30:00* Test Item Value Reference Range Interpretation Comments Hemoglobin (test code = 96159-5) 12.0 14.0-18.0 [facility] HospitalAutomated blood hematocrit (volume fraction)2020-03-28 05:30:00* Test Item Value Reference Range Interpretation Comments Hematocrit (test code = 4544-3) 38.2 38.2-49.6 [facility] HospitalAutomated erythrocyte mean corpuscular geollk7186-48-97 05:30:00* Test Item Value Reference Range Interpretation Comments Mean Corpuscular Volume (test code = 787-2) 99.2 81-99 [facility] HospitalAutomated erythrocyte mean corpuscular hemoglobin (mass per erythrocyte)2020-03-28 05:30:00* Test Item Value Reference Range Interpretation Comments Mean Corpuscular Hemoglobin (test code = 785-6) 31.2 28-32 [facility] HospitalAutomated erythrocyte mean corpuscular hemoglobin concentration measurement (mass/volume)2020-03-28 05:30:00* Test Item Value Reference Range Interpretation Comments Mean Corpuscular Hemoglobin Concent (test code = 786-4) 31.4 31-35 [facility] HospitalRDW UdaKj-Rwr0342-30-20 05:30:00* Test Item Value Reference Range Interpretation Comments Red Cell Distribution Width (test code = 62931-2) 17.2 11.7 -14.4 [facility] HospitalAutomated blood platelet count (count/volume)2020-03-28 05:30:00* Test Item Value Reference Range Interpretation Comments Platelet Count (test code = 777-3) 159 140-360 [facility] HospitalAutomated blood segmented neutrophil count as percentage of total yegkvfwatj8977-04-35 05:30:00* Test Item Value Reference Range Interpretation Comments Neutrophils (%) (Auto) (test code = 45974-2) 74.6 38.7-80.0 [facility] HospitalAutomated blood lymphocyte count as percentage ot total bmmlwzsqxl7544-95-74 05:30:00* Test Item Value Reference Range Interpretation Comments Lymphocytes (%) (Auto) (test code = 736-9) 11.8 18.0-39.1 [facility] HospitalAutomated blood monocyte count as percentage of total llxcvyrwro3573-49-39 05:30:00* Test Item Value Reference Range Interpretation Comments Monocytes (%) (Auto) (test code = 5905-5) 10.1 4.4-11.3 [facility] HospitalAutomated blood eosinophil count as percentage of total hnivwjkwxi5188-42-44 05:30:00* Test Item Value Reference Range Interpretation Comments Eosinophils (%) (Auto) (test code = 713-8) 2.2 0.0-6.0 [facility] HospitalAutomated blood basophil count as percentage of total vfzwgkpbyf1368-03-81 05:30:00* Test Item Value Reference Range Interpretation Comments Basophils (%) (Auto) (test code = 706-2) 0.7 0.0-1.0 [facility] HospitalFluoroscopic procedure less than one hour upnwbzfp8475-74-53 05:30:00* Test Item Value Reference Range Interpretation Comments IM GRANULOCYTES % (test code = IM GRANULOCYTES %) 0.6 0.0- 1.0 [facility] HospitalAutomated blood neutrophil count 2020-03-28 05:30:00* Test Item Value Reference Range Interpretation Comments Neutrophils # (Auto) (test code = 751-8) 6.4 2.1-6.9 [facility] HospitalBlood lymphocytes count (number/volume) 2020-03-28 05:30:00* Test Item Value Reference Range Interpretation Comments Lymphocytes # (Auto) (test code = 09075-9) 1.0 1.0-3.2 [facility] monocytes automated count (number/volume)2020-03-28 05:30:00* Test Item Value Reference Range Interpretation Comments Monocytes # (Auto) (test code = 742-7) 0.9 0.2-0.8 [facility] HospitalAutomated blood eosinophil count 2020-03-28 05:30:00* Test Item Value Reference Range Interpretation Comments Eosinophils # (Auto) (test code = 711-2) 0.2 0.0-0.4 [facility] HospitalAutomated blood basophil count (count/volume)2020-03-28 05:30:00* Test Item Value Reference Range Interpretation Comments Basophils # (Auto) (test code = 704-7) 0.1 0.0-0.1 [facility] HospitalFluoroscopic procedure less than one hour xyuogbdg0578-20-09 05:30:00* Test Item Value Reference Range Interpretation Comments Absolute Immature Granulocyte (auto (jeyson t code = Absolute Immature Granulocyte (auto) 0.05 0-0.1 [facility] sodium measurement (moles/volume)2020-03-28 05:30:00* Test Item Value Reference Range Interpretation Comments Sodium Level (test code = 2951-2) 137 136-145 [facility] or plasma potassium measurement (moles/volume)2020-03-28 05:30:00* Test Item Value Reference Range Interpretation Comments Potassium Level (test code = 2823-3) 4.1 3.5-5.1 [facility] plasma chloride measurement (moles/volume)2020-03-28 05:30:00* Test Item Value Reference Range Interpretation Comments Chloride Level (test code = 2075-0) 93 98-107 [facility] or plasma carbon dioxide, total measurement (moles/volume)2020-03-28 05:30:00* Test Item Value Reference Range Interpretation Comments Carbon Dioxide Level (test code = 2028-9) 35 22-29 [facility] or plasma anion spa2998-72-95 05:30:00* Test Item Value Reference Range Interpretation Comments Anion Gap (test code = 21762-6) 13.1 8-16 [facility] plasma urea nitrogen measurement (mass/volume)2020-03-28 05:30:00* Test Item Value Reference Range Interpretation Comments Blood Urea Nitrogen (test code = 3094-0) 21 7-26 [facility] plasma creatinine measurement (mass/volume)2020-03-28 05:30:00* Test Item Value Reference Range Interpretation Comments Creatinine (test code = 2160-0) 0.94 0.72-1.25 [facility] or plasma urea nitrogen/creatinine mass vleex2959-73-12 05:30:00* Test Item Value Reference Range Interpretation Comments BUN/Creatinine Ratio (test code = 3097-3) 22 6-25 [facility] HospitalEstimated glomerular filtration rate (GFR) iciqafrrfivmj1248-35-69 05:30:00* Test Item Value Reference Range Interpretation Comments Estimat Glomerular Filtration Rate (test code = 523689103) > 60 >60 Ranges were taken from the National Kidney Disease Education Program and the [facility] Foundation literature.Reference ranges:60 or greater: Sdmuym97-99 ( for 3 consecutive months): Chronic kidney disease 15 or less: Kidney failureCleveland Emergency HospitalGlucose jknsrigmghh1817-30-70 05:30:00* Test Item Value Reference Range Interpretation Comments Glucose Level (test code = OKU7086) 107 74-118 [facility] plasma calcium measurement (mass/volume)2020-03-28 05:30:00* Test Item Value Reference Range Interpretation Comments Calcium Level (test code = 01862-3) 8.8 8.4-10.2 [facility] or plasma creatine kinase measurement (enzymatic activity/volume)2020-03-26 07:10:00* Test Item Value Reference Range Interpretation Comments Creatine Kinase (test code = 2157-6) 80 30-200 [facility] or plasma creatine kinase MB measurement (mass/volume)2020-03-26 07:10:00* Test Item Value Reference Range Interpretation Comments Creatine Kinase MB (test code = 61175-1) 3.10 0-5.0 [facility] HospitalTroponin I measurement by highly sensitive enzyme joxmsozuowm5916-07-14 07:10:00* Test Item Value Reference Range Interpretation Comments Troponin I (test code = 05093-6) 0.090 0-0.300 [facility] HospitalBNP Rph-tTxd3366-59-17 18:20:00* Test Item Value Reference Range Interpretation Comments B-Type Natriuretic Peptide (test code = 64006-6) 100.6 0-100 [facility] HospitalFluoroscopic procedure less than one hour avuzztpm5496-99-05 12:02:00* Test Item Value Reference Range Interpretation Comments Coronavirus (PCR) (test code = Coronavirus (PCR)) NOT DETECTED NOTD ETECTED [employer]Calculator Aptima SARS-CoV-2 assay is a nucleic amplification test intended for the qualitative detection of RNA from SARS-CoV-2 from nasopharyngeal (CORRESPONDENCE SPECIALIST) specimens . It is used under Emergency Use Authorization (EUA) by FDA.A positive result is indicative of the presence of SARS-CoV-2 RNA. Clinical correlation with patient history and other diagnostic information is necessary to determine patient infe ction status.A negative (Not Detected) result does not preclude SARS-CoV-2 infec tion. Clinical Correlation with patient history and other diagnostic information should be used in patient management decisions.Invalid: Unable to generate a va lid result on this specimen. Please submit a new specimen for reprat testing oc clinically indicated.Tesing performed by:[facility] [id number] [place] [address] [id number], Elva Baugh MD, PhD [facility] HospitalUrine color elaadyiiohblk0045-95-28 10:52:00* Test Item Value Reference Range Interpretation Comments Urine Color (test code = 5778-6) YELLOW YELLOW [facility] HospitalUrine tjuijaq6170-69-50 10:52:00* Test Item Value Reference Range Interpretation Comments Urine Clarity (test code = 60891-7) CLEAR CLEAR [facility] gravity of Urine by Test strip 2020-03-25 10:52:00* Test Item Value Reference Range Interpretation Comments Urine Specific [place] (test code = 5811-5) 1.020 1.010-1.02 5 [facility] HospitalUrine pH measurement by automated test dovqc2448-76-79 10:52:00* Test Item Value Reference Range Interpretation Comments Urine pH (test code = 09297-3) 7 5-7 [facility] HospitalUrine leukocyte esterase detection by igddukgk0913-48-05 10:52:00* Test Item Value Reference Range Interpretation Comments Urine Leukocyte Esterase (test code = 5799-2) NEGATIVE NEGATIVE [facility] HospitalUrine nitrite pboczcyhe3389-56-68 10:52:00* Test Item Value Reference Range Interpretation Comments Urine Nitrite (test code = 73593-7) NEGATIVE NEGATIVE [facility] HospitalUrine protein measurement by test strip (mass/volume)2020-03-25 10:52:00* Test Item Value Reference Range Interpretation Comments Urine Protein (test code = 5804-0) NEGATIVE NEGATIVE [facility] HospitalUrine glucose mvjnkgnva5990-39-86 10:52:00* Test Item Value Reference Range Interpretation Comments Urine Glucose (UA) (test code = 2349-9) NEGATIVE NEGATIVE [facility] HospitalUrine ketones detection by automated test kblmw0095-32-25 10:52:00* Test Item Value Reference Range Interpretation Comments Urine Ketones (test code = 94844-7) NEGATIVE NEGATIVE [facility] HospitalUrine urobilinogen measurement by test strip (mass/volume)2020-03-25 10:52:00* Test Item Value Reference Range Interpretation Comments Urine Urobilinogen (test code = 91060-4) 1 0.2-1 [facility] HospitalUrine total bilirubin measurement (mass/volume)2020-03-25 10:52:00* Test Item Value Reference Range Interpretation Comments Urine Bilirubin (test code = 1978-6) NEGATIVE NEGATIVE [facility] HospitalUrine erythrocytes mfnivqqci3889-59-19 10:52:00* Test Item Value Reference Range Interpretation Comments Urine Blood (test code = 58350-2) TRACE NEGATIVE [facility] HospitalAutomated urine sediment leukocyte count by microscopy (number/high power field)2020-03-25 10:52:00* Test Item Value Reference Range Interpretation Comments Urine WBC (test code = 5821-4) 6-10 0-5 [facility] HospitalErythrocytes detection in urine sediment by light iuaconruuj8981-00-98 10:52:00* Test Item Value Reference Range Interpretation Comments Urine RBC (test code = 21931-8) 6-10 0-5 [facility] HospitalBacteria detection in urine sediment by light lsundbutxz2843-15-41 10:52:00* Test Item Value Reference Range Interpretation Comments Urine Bacteria (test code = 95920-0) RARE NONE [facility] HospitalEpithelial cells detection in urine sediment by light jfmmbflqsx9809-79-62 10:52:00* Test Item Value Reference Range Interpretation Comments Urine Epithelial Cells (test code = 14443-4) FEW NONE [facility] HospitalCHEST SINGLE (PORTABLE)2020-03-25 10:41:00 [facility] [address] [address] Patient Name: SHARMILA TORRES MR #: [id number] : 1965 Age/Sex: 55/M Req #: [id number] Adm Physician: Ordered by: OLEGARIO WILLIAM MD Report #: [id number] Location: ER Room/Bed: Procedure: [id number] DX/CHEST SINGLE (PORTABLE) Exam Date: 03/25/20 Exam Time: 1020 REPORT STATUS: Signed X-ray chest AP portable Comparison: 09/12/2018 History: Shortness of breath, congestive heart failure Findings: Status post median sternotomy and CABG. Cardiomega ly. Central airways unremarkable. No definite pleural effusion. No pneumothora x. Bilateral central pulmonary vascular prominence with peribronchial thickeni ng. No Erin's B lines visualized. Visualized skeletal structures show d egenerative changes. Upper abdomen unremarkable. Impression: Findings of mild to moderate interstitial pulmonary edema and presence of cardiomegaly con sistent with the clinical diagnosis of congestive heart failure. Signed b y: Shaw Bacon MD on 03/25/2020 10:44 AM Dictated By: SHAW Ozuna 1044 Transcribed By : DEE DEE on 03/25/20 1044 COPY TO: OLEGARIO WILLIAM MD Activated partial thromboplastin time (aPTT) in platelet poor plasma by coagulation assay 2020-03-25 09:54:00* Test Item Value Reference Range Interpretation Comments Activated Partial Thromboplast Time (test code = 46476-5) 50.9 23.8-35.5 [facility] plasma magnesium measurement (mass/volume)2020-03-25 09:54:00* Test Item Value Reference Range Interpretation Comments Magnesium Level (test code = 63048-3) 2.0 1.3-2.1 [facility] plasma total bilirubin measurement (mass/volume)2020-03-25 09:54:00* Test Item Value Reference Range Interpretation Comments Total Bilirubin (test code = 1975-2) 1.1 0.2-1.2 [facility] HospitalFluoroscopic procedure less than one hour amkuhokc8956-60-55 09:54:00* Test Item Value Reference Range Interpretation Comments Aspartate Amino Transf (AST/SGOT) (test code = Aspartate Amino Transf (AST/SGOT)) 22 5-34 [facility] or plasma alanine aminotransferase measurement (enzymatic activity/volume)2020-03-25 09:54:00* Test Item Value Reference Range Interpretation Comments Alanine Aminotransferase (ALT/SGPT) (test code = 1742-6) 14 0-55 [facility] plasma protein measurement (mass/volume)2020-03-25 09:54:00* Test Item Value Reference Range Interpretation Comments Total Protein (test code = 2885-2) 8.7 6.5-8.1 [facility] plasma albumin measurement (mass/volume)2020-03-25 09:54:00* Test Item Value Reference Range Interpretation Comments Albumin (test code = 1751-7) 3.8 3.5-5.0 [facility] HospitalPlasma globulin measurement (mass/volume) 2020-03-25 09:54:00* Test Item Value Reference Range Interpretation Comments Globulin (test code = 68427-6) 4.9 2.3-3.5 [facility] plasma albumin/globulin mass idnrj1761-08-82 09:54:00* Test Item Value Reference Range Interpretation Comments Albumin/Globulin Ratio (test code = 1759-0) 0.8 0.8-2.0 [facility] Camp[facility] or plasma alkaline phosphatase measurement (enzymatic activity/volume)2020-03-25 09:54:00* Test Item Value Reference Range Interpretation Comments Alkaline Phosphatase (test code = 6768-6) 121 40-150 [facility] HospitalBlood unecfpb4618-94-96 09:54:00* Test Item Value Reference Range Interpretation Comments Blood Culture (test code = 51233180) NO GROWTH AFTER 72 HOURS [facility] HospitalProthrombin Vdhd0238-67-70 20:17:00* Test Item Value Reference Range Interpretation Comments Prothrombin Time (test code = 5902-2) 29.0 11.9-14.5 H [facility] HospitalProthromb Time International Ratio 2018-11-20 20:17:00* Test Item Value Reference Range Interpretation Comments Prothromb Time International Ratio (test code = 6301-6) 2.65 Oral Anticoagulant Therapy INR Values:1. Low Intensity Therapy 1.5 - 2.02 . Moderate Intensity Therapy 2.0 - 3.03. High Intensity Therapy(1) 2.5 - 3. 54. High Intensity Therapy(2) 3.0 - 4.05. Panic Value INR > 5.0 [facility] HospitalWRIST COMPLETE LYAO1863-90-25 19:38:00 [facility] [address] [address] Patient Name: SHARMILA TORRES MR #: [id number] : 1965 Age/Sex: 53/M Req #: [id number] Adm Physician: Ordered by: RAVIN YBARRA MD Report #: [id number] Location: ER Room/Bed: Procedure: [id number] DX/ WRIST COMPLETE LEFT Exam Date: 11/20/18 [...] (test code = 3084-1) 11.9 4.8-8.0 H [facility] HospitalProthrombin Stxs8762-04-17 06:00:00* Test Item Value Reference Range Interpretation Comments Prothrombin Time (test code = 5902-2) 24.7 11.9-14.5 H [facility] HospitalProthromb Time International Ratio 2018-09-14 06:00:00* Test Item Value Reference Range Interpretation Comments Prothromb Time International Ratio (test code = 6301-6) 2.05 Oral Anticoagulant Therapy INR Values:1. Low Intensity Therapy 1.5 - 2.02 . Moderate Intensity Therapy 2.0 - 3.03. High Intensity Therapy(1) 2.5 - 3. 54. High Intensity Therapy(2) 3.0 - 4.05. Panic Value INR > 5.0 [facility] HospitalActivated Partial Thromboplast Time 2018-09-14 05:39:00* Test Item Value Reference Range Interpretation Comments Activated Partial Thromboplast Time (test code = 76238-9) 64.9 23.8-35.5 H [facility] HospitalActivated Partial Thromboplast Time 2018-09-14 05:39:00* Test Item Value Reference Range Interpretation Comments Activated Partial Thromboplast Time (test code = 93909-3) 64.9 23.8-35.5 H [facility] HospitalWhite Blood Eyzkk7192-40-16 05:24:00* Test Item Value Reference Range Interpretation Comments White Blood Count (test code = 6690-2) 6.12 4.8-10.8 [facility] HospitalRed Blood Vlobl5285-83-64 05:24:00* Test Item Value Reference Range Interpretation Comments Red Blood Count (test code = 789-8) 4.49 4.3-5.7 [facility] HospitalHemoglobin2019-02-06 05:24:00* Test Item Value Reference Range Interpretation Comments Hemoglobin (test code = 80626-7) 12.9 14.0-18.0 L [facility] HospitalHematocrit2019-02-06 05:24:00* Test Item Value Reference Range Interpretation Comments Hematocrit (test code = 4544-3) 41.3 38.2-49.6 [facility] HospitalMean Corpuscular Xtjleh4143-27-09 05:24:00* Test Item Value Reference Range Interpretation Comments Mean Corpuscular Volume (test code = 787-2) 92.0 81-99 [facility] HospitalMean Corpuscular Yrwljkgcsl1494-24-16 05:24:00* Test Item Value Reference Range Interpretation Comments Mean Corpuscular Hemoglobin (test code = 785-6) 28.7 28-32 [facility] HospitalMean Corpuscular Hemoglobin Concent 2018-09-14 05:24:00* Test Item Value Reference Range Interpretation Comments Mean Corpuscular Hemoglobin Concent (test code = 786-4) 31.2 31-35 [facility] HospitalRed Cell Distribution Jjipz8298-66-08 05:24:00* Test Item Value Reference Range Interpretation Comments Red Cell Distribution Width (test code = 93015-1) 15.0 11.7 -14.4 H [facility] HospitalPlatelet Djrwr0060-92-85 05:24:00* Test Item Value Reference Range Interpretation Comments Platelet Count (test code = 777-3) 147 140-360 [facility] HospitalNeutrophils (%) (Auto)2018-09-14 05:24:00 * Test Item Value Reference Range Interpretation Comments Neutrophils (%) (Auto) (test code = 76827-1) 62.2 38.7-80.0 [facility] HospitalLymphocytes (%) (Auto)2018-09-14 05:24:00 * Test Item Value Reference Range Interpretation Comments Lymphocytes (%) (Auto) (test code = 736-9) 20.8 18.0-39.1 [facility] HospitalMonocytes (%) (Auto)2018-09-14 05:24:00* Test Item Value Reference Range Interpretation Comments Monocytes (%) (Auto) (test code = 5905-5) 12.6 4.4-11.3 H [facility] HospitalEosinophils (%) (Auto)2018-09-14 05:24:00 * Test Item Value Reference Range Interpretation Comments Eosinophils (%) (Auto) (test code = 713-8) 3.3 0.0-6.0 [facility] HospitalBasophils (%) (Auto)2018-09-14 05:24:00* Test Item Value Reference Range Interpretation Comments Basophils (%) (Auto) (test code = 706-2) 0.8 0.0-1.0 [facility] HospitalIM GRANULOCYTES %2018-09-14 05:24:00* Test Item Value Reference Range Interpretation Comments IM GRANULOCYTES % (test code = IM GRANULOCYTES %) 0.3 0.0- 1.0 [facility] HospitalNeutrophils # (Auto)2018-09-14 05:24:00* Test Item Value Reference Range Interpretation Comments Neutrophils # (Auto) (test code = 751-8) 3.8 2.1-6.9 [facility] HospitalLymphocytes # (Auto)2018-09-14 05:24:00* Test Item Value Reference Range Interpretation Comments Lymphocytes # (Auto) (test code = 19034-5) 1.3 1.0-3.2 [facility] HospitalMonocytes # (Auto)2018-09-14 05:24:00* Test Item Value Reference Range Interpretation Comments Monocytes # (Auto) (test code = 742-7) 0.8 0.2-0.8 [facility] HospitalEosinophils # (Auto)2018-09-14 05:24:00* Test Item Value Reference Range Interpretation Comments Eosinophils # (Auto) (test code = 711-2) 0.2 0.0-0.4 [facility] HospitalBasophils # (Auto)2018-09-14 05:24:00* Test Item Value Reference Range Interpretation Comments Basophils # (Auto) (test code = 704-7) 0.1 0.0-0.1 [facility] HospitalAbsolute Immature Granulocyte (auto 2018-09-14 05:24:00* Test Item Value Reference Range Interpretation Comments Absolute Immature Granulocyte (auto (jeyson t code = Absolute Immature Granulocyte (auto) 0.02 0-0.1 [facility] HospitalWhite Blood Fecva7788-19-98 05:24:00* Test Item Value Reference Range Interpretation Comments White Blood Count (test code = 6690-2) 6.12 4.8-10.8 [facility] HospitalRed Blood Hzufg3428-61-13 05:24:00* Test Item Value Reference Range Interpretation Comments Red Blood Count (test code = 789-8) 4.49 4.3-5.7 [facility] HospitalHemoglobin2019-02-06 05:24:00* Test Item Value Reference Range Interpretation Comments Hemoglobin (test code = 78431-6) 12.9 14.0-18.0 L [facility] HospitalHematocrit2019-02-06 05:24:00* Test Item Value Reference Range Interpretation Comments Hematocrit (test code = 4544-3) 41.3 38.2-49.6 [facility] HospitalMean Corpuscular Ilmqoq9388-32-52 05:24:00* Test Item Value Reference Range Interpretation Comments Mean Corpuscular Volume (test code = 787-2) 92.0 81-99 [facility] HospitalMean Corpuscular Hncvcqjcfw6680-21-62 05:24:00* Test Item Value Reference Range Interpretation Comments Mean Corpuscular Hemoglobin (test code = 785-6) 28.7 28-32 [facility] HospitalMean Corpuscular Hemoglobin Concent 2018-09-14 05:24:00* Test Item Value Reference Range Interpretation Comments Mean Corpuscular Hemoglobin Concent (test code = 786-4) 31.2 31-35 [facility] HospitalRed Cell Distribution Pyhez1425-82-95 05:24:00* Test Item Value Reference Range Interpretation Comments Red Cell Distribution Width (test code = 85316-5) 15.0 11.7 -14.4 H [facility] HospitalPlatelet Gogad4670-77-23 05:24:00* Test Item Value Reference Range Interpretation Comments Platelet Count (test code = 777-3) 147 140-360 [facility] HospitalNeutrophils (%) (Auto)2018-09-14 05:24:00 * Test Item Value Reference Range Interpretation Comments Neutrophils (%) (Auto) (test code = 81104-0) 62.2 38.7-80.0 [facility] HospitalLymphocytes (%) (Auto)2018-09-14 05:24:00 * Test Item Value Reference Range Interpretation Comments Lymphocytes (%) (Auto) (test code = 736-9) 20.8 18.0-39.1 [facility] HospitalMonocytes (%) (Auto)2018-09-14 05:24:00* Test Item Value Reference Range Interpretation Comments Monocytes (%) (Auto) (test code = 5905-5) 12.6 4.4-11.3 H [facility] HospitalEosinophils (%) (Auto)2018-09-14 05:24:00 * Test Item Value Reference Range Interpretation Comments Eosinophils (%) (Auto) (test code = 713-8) 3.3 0.0-6.0 [facility] HospitalBasophils (%) (Auto)2018-09-14 05:24:00* Test Item Value Reference Range Interpretation Comments Basophils (%) (Auto) (test code = 706-2) 0.8 0.0-1.0 [facility] HospitalIM GRANULOCYTES %2018-09-14 05:24:00* Test Item Value Reference Range Interpretation Comments IM GRANULOCYTES % (test code = IM GRANULOCYTES %) 0.3 0.0- 1.0 [facility] HospitalNeutrophils # (Auto)2018-09-14 05:24:00* Test Item Value Reference Range Interpretation Comments Neutrophils # (Auto) (test code = 751-8) 3.8 2.1-6.9 [facility] HospitalLymphocytes # (Auto)2018-09-14 05:24:00* Test Item Value Reference Range Interpretation Comments Lymphocytes # (Auto) (test code = 95406-2) 1.3 1.0-3.2 [facility] HospitalMonocytes # (Auto)2018-09-14 05:24:00* Test Item Value Reference Range Interpretation Comments Monocytes # (Auto) (test code = 742-7) 0.8 0.2-0.8 [facility] HospitalEosinophils # (Auto)2018-09-14 05:24:00* Test Item Value Reference Range Interpretation Comments Eosinophils # (Auto) (test code = 711-2) 0.2 0.0-0.4 [facility] HospitalBasophils # (Auto)2018-09-14 05:24:00* Test Item Value Reference Range Interpretation Comments Basophils # (Auto) (test code = 704-7) 0.1 0.0-0.1 [facility] HospitalAbsolute Immature Granulocyte (auto 2018-09-14 05:24:00* Test Item Value Reference Range Interpretation Comments Absolute Immature Granulocyte (auto (jeyson t code = Absolute Immature Granulocyte (auto) 0.02 0-0.1 [facility] Campusodium Lvnxo9899-35-75 06:39:00* Test Item Value Reference Range Interpretation Comments Sodium Level (test code = 2951-2) 137 136-145 [facility] HospitalPotassium Mkpyc6377-11-78 06:39:00* Test Item Value Reference Range Interpretation Comments Potassium Level (test code = 2823-3) 4.2 3.5-5.1 [facility] HospitalChloride Uqpra4017-51-58 06:39:00* Test Item Value Reference Range Interpretation Comments Chloride Level (test code = 2075-0) 93 98-107 L [facility] HospitalCarbon Dioxide Lrjxj3327-08-41 06:39:00* Test Item Value Reference Range Interpretation Comments Carbon Dioxide Level (test code = 2028-9) 35 22-29 H [facility] HospitalAnion Qor9403-23-59 06:39:00* Test Item Value Reference Range Interpretation Comments Anion Gap (test code = 16650-5) 13.2 8-16 [facility] HospitalBlood Urea Cpxgxvpm7101-45-95 06:39:00* Test Item Value Reference Range Interpretation Comments Blood Urea Nitrogen (test code = 3094-0) 12 7-26 [facility] HospitalCreatinine2019-02-05 06:39:00* Test Item Value Reference Range Interpretation Comments Creatinine (test code = 2160-0) 0.83 0.72-1.25 [facility] HospitalBUN/Creatinine Cgsiz6177-09-23 06:39:00* Test Item Value Reference Range Interpretation Comments BUN/Creatinine Ratio (test code = 3097-3) 14 6-25 [facility] HospitalEstimat Glomerular Filtration Rate 2018-09-13 06:39:00* Test Item Value Reference Range Interpretation Comments Estimat Glomerular Filtration Rate (test code = 244082254) > 60 >60 Ranges were taken from the National Kidney Disease Education Program and the [facility] Foundation literature.Reference ranges:60 or greater: Vodqdj08-70 ( for 3 consecutive months): Chronic kidney disease 15 or less: Kidney failureCleveland Emergency HospitalGlucose Ozfsz7878-22-07 06:39:00* Test Item Value Reference Range Interpretation Comments Glucose Level (test code = REA7686) 95 74-118 [facility] HospitalCalcium Uurwx1368-58-85 06:39:00* Test Item Value Reference Range Interpretation Comments Calcium Level (test code = 03240-1) 8.9 8.4-10.2 [facility] Campusodium Duwrf7042-86-68 06:39:00* Test Item Value Reference Range Interpretation Comments Sodium Level (test code = 2951-2) 137 136-145 [facility] HospitalPotassium Rzbeb1373-01-23 06:39:00* Test Item Value Reference Range Interpretation Comments Potassium Level (test code = 2823-3) 4.2 3.5-5.1 [facility] HospitalChloride Gzyfk0700-78-07 06:39:00* Test Item Value Reference Range Interpretation Comments Chloride Level (test code = 2075-0) 93 98-107 L [facility] HospitalCarbon Dioxide Zvfye5698-08-07 06:39:00* Test Item Value Reference Range Interpretation Comments Carbon Dioxide Level (test code = 2028-9) 35 22-29 H [facility] HospitalAnion Qga4308-42-11 06:39:00* Test Item Value Reference Range Interpretation Comments Anion Gap (test code = 35977-0) 13.2 8-16 [facility] HospitalBlood Urea Snxflrlc8538-62-07 06:39:00* Test Item Value Reference Range Interpretation Comments Blood Urea Nitrogen (test code = 3094-0) 12 7-26 [facility] HospitalCreatinine2019-02-05 06:39:00* Test Item Value Reference Range Interpretation Comments Creatinine (test code = 2160-0) 0.83 0.72-1.25 [facility] HospitalBUN/Creatinine Xrlql3524-17-09 06:39:00* Test Item Value Reference Range Interpretation Comments BUN/Creatinine Ratio (test code = 3097-3) 14 01-31 [facility] HospitalEstimat Glomerular Filtration Rate 2018-09-13 06:39:00* Test Item Value Reference Range Interpretation Comments Estimat Glomerular Filtration Rate (test code = 271426479) > 60 >60 Ranges were taken from the National Kidney Disease Education Program and the [facility] literature.Reference ranges:60 or greater: Yewaus04-80 ( for 3 consecutive months): Chronic kidney disease 15 or less: Kidney failureC[facility] Emergency HospitalGlucose Cudfp3314-31-80 06:39:00* Test Item Value Reference Range Interpretation Comments Glucose Level (test code = GWK1762) 95 74-118 [facility] HospitalCalcium Nyjgh9320-00-71 06:39:00* Test Item Value Reference Range Interpretation Comments Calcium Level (test code = 40508-8) 8.9 8.4-10.2 [facility] HospitalCHEST SINGLE (PORTABLE)2018-09-12 14:35:00 [facility] [address] [place] [address] Patient Name: SHARMILA TORRES MR #: [id number] : 1965 Age/Sex: 53/M Req #: [id number] Adm Physician: KATHRYN CUMMINGS MD Ordered by: SAL MAXWELL MD Report #: [id number] Location: MED/SURG2 Room/Bed: [facility]- Procedure: [id number] DX/CH EST SINGLE (PORTABLE) Exam Date: 09/12/18 [...] COPY TO: SAL MAXWELL MD CT BRAIN RZ5682-65-33 14:14:[address] [address] Patient Name: SHARMILA TORRES MR #: [id number] : 1965 Age/Sex: 53/M Req #: [id number] Adm Physician: KATHRYN CUMMINGS MD Ordered by: SAL MAXWELL MD Report #: [id number] Location: MED/SURG2 Room/Bed: [facility] Procedure: [id number] CT/CT BRAIN WO Exam Date: 09/12/18 Exam Time: 1330 REPORT STATUS: Signed History: Fell Comparison studies: None Technique: Axial images were obtained from the skull base to the vertex. Coronal and sagittal reconstructions obtained from the axial data. Dose modulation, iterative reconstruction, and/or weight base d adjustment of the mA/kV was utilized to reduce the radiation dose to as low as reasonably achievable. Findings: Scalp/skull: No abnormalities . No fractures, blastic or lytic lesions. Extra-axial spaces: No masses. No fluid collections. Brain sulci: Appropriate for age. Ventricles: Nor mal in size and configuration. No hydrocephalus. Parenchyma: No abnormal densities. No masses, hemorrhage, acute or chronic cortical vascular insults . Sellar/suprasellar region: No abnormalities Craniocervical junction: Pa tent foramen magnum. No Chiari one malformation. Atherosclerotic calcifica tions of the carotid siphons IMPRESSION: No acute abnormalities . Signed by: DR Cristian Cunningham M.D. on 09/12/2018 2:22 PM Dictated B y: CRISTIAN DIAZ MD 1422 COPY TO: CARMENZA MAXWELL MD KNEE LEFT 1-2 IWBOG3115-78-87 05:13:[address] [address] Patient Name: SHARMILA TORRES MR #: [id number] : 1965 Age/Sex: 53/M Req #: [id number] Adm Physician: KATHRYN CUMMINGS MD Ordered by: SAL MAXWELL MD Report #: [id number] Location: MED/SURG2 Room/Bed: 207 Procedure: [id number] DX/KN EE LEFT 1-2 VIEWS Exam Date: 09/12/18 Exam Time: 044 5 REPORT STATUS: Signed KNEE LEF T 1-2 VIEWS Comparison: None Clinical history: Contusion of the left knee Findings: No fracture or dislocation. Mild tricompartmental degenerative changes. Prepatellar/infrapatellar soft tissue swelling. Impression: N o acute bony abnormality Signed by: Dr Nkechi Medley MD on 09/12/2018 5:14 AM Dictated By: NKECHI MEDLEY MD 3 Transcribed By: DEE DEE on 09/12/18513 COPY TO : SAL MAXWELL MD Creatine Kinase WH1409-89-90 21:06:00* Test Item Value Reference Range Interpretation Comments Creatine Kinase MB (test code = 02983-4) 1.60 0-5.0 [facility] Q3727-78-06 21:06:00* Test Item Value Reference Range Interpretation Comments Troponin I (test code = HKA3775) 0.021 0-0.300 [facility] HospitalCreatine Kinase CY4391-75-87 21:06:00* Test Item Value Reference Range Interpretation Comments Creatine Kinase MB (test code = 53799-3) 1.60 0-5.0 [facility] F3568-09-75 21:06:00* Test Item Value Reference Range Interpretation Comments Troponin I (test code = RLZ5559) 0.021 0-0.300 [facility] HospitalCreatine Tdlzah4851-42-84 20:57:00* Test Item Value Reference Range Interpretation Comments Creatine Kinase (test code = 2157-6) 50 30-200 [facility] HospitalCreatine Vtxjgv3373-33-03 20:57:00* Test Item Value Reference Range Interpretation Comments Creatine Kinase (test code = 2157-6) 50 30-200 [facility] HospitalB-Type Natriuretic Ahrpiec0918-34-05 05:16:00* Test Item Value Reference Range Interpretation Comments B-Type Natriuretic Peptide (test code = 34302-5) 128.2 0-100 H [facility] HospitalB-Type Natriuretic Eboxjrx1563-48-45 05:16:00* Test Item Value Reference Range Interpretation Comments B-Type Natriuretic Peptide (test code = 66650-4) 128.2 0-100 H [facility] HospitalCHEST SINGLE (PORTABLE)2018-09-08 05:14:[address] [address] Patient Name: SHARMILA TORRES MR #: [id number] : 1965 Age/Sex: 53/M Req #: [id number] Adm Physician: Ordered by: EVLA VIVEROS MD Report #: [id number] Location: ER Room/Bed: Procedure: [id number] DX/CHEST SINGLE (PORTABLE) Exam Date: 09/08/18 [place] a[place] Time: 044 REPORT STATUS: Signed CHEST SINGLE (PORTABLE), 09/08/2018 [...] 09/08/18514 COPY TO: ELVA VIVEROS MD Total Wfnixgzyo1823-05-70 05:06:00 * Test Item Value Reference Range Interpretation Comments Total Bilirubin (test code = 1975-2) 1.0 0.2-1.2 [facility] HospitalAspartate Amino Transf (AST/SGOT) 2018-09-08 05:06:00* Test Item Value Reference Range Interpretation Comments Aspartate Amino Transf (AST/SGOT) (test code = Aspartate Amino Transf (AST/SGOT)) 27 5-34 [facility] HospitalAlanine Aminotransferase (ALT/SGPT) 2018-09-08 05:06:00* Test Item Value Reference Range Interpretation Comments Alanine Aminotransferase (ALT/SGPT) (test code = 1742-6) 15 0-55 [facility] HospitalTotal Atotlkd2976-25-74 05:06:00* Test Item Value Reference Range Interpretation Comments Total Protein (test code = 2885-2) 8.7 6.5-8.1 H [facility] HospitalAlbumin2019-01-31 05:06:00* Test Item Value Reference Range Interpretation Comments Albumin (test code = 1751-7) 3.8 3.5-5.0 [facility] HospitalGlobulin2019-01-31 05:06:00* Test Item Value Reference Range Interpretation Comments Globulin (test code = 08419-1) 4.9 2.3-3.5 H [facility] HospitalAlbumin/Globulin Yngfe2052-22-15 05:06:00 * Test Item Value Reference Range Interpretation Comments Albumin/Globulin Ratio (test code = 1759-0) 0.8 0.8-2.0 [facility] HospitalAlkaline Nagksqrbumm7816-94-60 05:06:00* Test Item Value Reference Range Interpretation Comments Alkaline Phosphatase (test code = 6768-6) 129 40-150 [facility] HospitalTotal Qckjmfkhf8818-37-98 05:06:00* Test Item Value Reference Range Interpretation Comments Total Bilirubin (test code = 1975-2) 1.0 0.2-1.2 [facility] HospitalAspartate Amino Transf (AST/SGOT) 2018-09-08 05:06:00* Test Item Value Reference Range Interpretation Comments Aspartate Amino Transf (AST/SGOT) (test code = Aspartate Amino Transf (AST/SGOT)) 27 5-34 [facility] HospitalAlanine Aminotransferase (ALT/SGPT) 2018-09-08 05:06:00* Test Item Value Reference Range Interpretation Comments Alanine Aminotransferase (ALT/SGPT) (test code = 1742-6) 15 0-55 [facility] HospitalTotal Lrigexs4490-28-54 05:06:00* Test Item Value Reference Range Interpretation Comments Total Protein (test code = 2885-2) 8.7 6.5-8.1 H [facility] HospitalAlbumin2019-01-31 05:06:00* Test Item Value Reference Range Interpretation Comments Albumin (test code = 1751-7) 3.8 3.5-5.0 [facility] HospitalGlobulin2019-01-31 05:06:00* Test Item Value Reference Range Interpretation Comments Globulin (test code = 30622-4) 4.9 2.3-3.5 H [facility] HospitalAlbumin/Globulin Safwy5323-53-00 05:06:00 * Test Item Value Reference Range Interpretation Comments Albumin/Globulin Ratio (test code = 1759-0) 0.8 0.8-2.0 [facility] HospitalAlkaline Fptlilpgvik7772-02-87 05:06:00* Test Item Value Reference Range Interpretation Comments Alkaline Phosphatase (test code = 6768-6) 129 40-150 [facility] HospitalBedside Ltmjnso0249-98-15 04:57:00* Test Item Value Reference Range Interpretation Comments Bedside Glucose (test code = 00789-0) 105 70-120 Meter ID: [id number] Emergency HospitalBedside Glucose 2018-09-08 04:57:00* Test Item Value Reference Range Interpretation Comments Bedside Glucose (test code = 66757-8) 105 70-120 Meter ID: [id number] [facility] 2018-[facility]-03 16:13:00* Test Item Value Reference Range Interpretation Comments Blood Culture (test code = 01465185) NO GROWTH AFTER 5 DAYS, FINAL REPORT [facility] HospitalUrine DXY9142-53-03 16:51:00* Test Item Value Reference Range Interpretation Comments Urine WBC (test code = 5821-4) 50- 0-5 H [facility] RPB4193-08-47 16:51:00* Test Item Value Reference Range Interpretation Comments Urine RBC (test code = 33320-0) 21-50 0-5 H [facility] Ozitmxfz9318-25-40 16:51:00* Test Item Value Reference Range Interpretation Comments Urine Bacteria (test code = 46802-7) FEW NONE [facility] HospitalUrine Epithelial Wfocv5590-65-89 16:51:00 * Test Item Value Reference Range Interpretation Comments Urine Epithelial Cells (test code = 15630-7) FEW NONE [facility] HospitalUrine Transitional Epithelial Cells 2017-12-29 16:51:00* Test Item Value Reference Range Interpretation Comments Urine Transitional Epithelial Cells (test code = 8249-5) MODERATE NONE [facility] HospitalUrine PCF2506-45-88 16:51:00* Test Item Value Reference Range Interpretation Comments Urine WBC (test code = 5821-4) >50 0-5 H [facility] HospitalUrine QKJ6708-48-34 16:51:00* Test Item Value Reference Range Interpretation Comments Urine RBC (test code = 19982-0) 21-50 0-5 H [facility] HospitalUrine Mtipkhpm7638-08-53 16:51:00* Test Item Value Reference Range Interpretation Comments Urine Bacteria (test code = 36369-6) FEW NONE [facility] HospitalUrine Epithelial Tbfjd6656-25-97 16:51:00 * Test Item Value Reference Range Interpretation Comments Urine Epithelial Cells (test code = 43242-2) FEW NONE [facility] HospitalUrine Transitional Epithelial Cells 2017-12-29 16:51:00* Test Item Value Reference Range Interpretation Comments Urine Transitional Epithelial Cells (test code = 8249-5) MODERATE NONE [facility] Tdshp9802-52-63 16:36:00* Test Item Value Reference Range Interpretation Comments Urine Color (test code = 5778-6) YELLOW YELLOW [facility] Zbbtwpr6706-87-56 16:36:00* Test Item Value Reference Range Interpretation Comments Urine Clarity (test code = 01181-0) HAZY CLEAR [facility] Specific Mvehakg6265-97-52 16:36:00 * Test Item Value Reference Range Interpretation Comments Urine Specific [place] (test code = 5811-5) 1.015 1.010-1.02 5 [facility] uZ7543-22-14 16:36:00* Test Item Value Reference Range Interpretation Comments Urine pH (test code = 47849-6) 8 5-7 H [facility] Leukocyte Gferygvv4666-83-43 16:36:00* Test Item Value Reference Range Interpretation Comments Urine Leukocyte Esterase (test code = 5799-2) 1+ NEGATIVE H [facility] Blwbrxx9356-00-40 16:36:00* Test Item Value Reference Range Interpretation Comments Urine Nitrite (test code = 30156-7) NEGATIVE NEGATIVE [facility] Acvytrs1638-37-37 16:36:00* Test Item Value Reference Range Interpretation Comments Urine Protein (test code = 5804-0) 2+ NEGATIVE H [facility] Glucose (UA)2017-12-29 16:36:00* Test Item Value Reference Range Interpretation Comments Urine Glucose (UA) (test code = 2349-9) NEGATIVE NEGATIVE [facility] Vopuopa2724-75-18 16:36:00* Test Item Value Reference Range Interpretation Comments Urine Ketones (test code = 30513-4) NEGATIVE NEGATIVE [facility] Xcvurvlrkhmj5114-40-38 16:36:00* Test Item Value Reference Range Interpretation Comments Urine Urobilinogen (test code = 22579-8) 1 0.2-1 [facility] Zyjjqjycl0155-02-68 16:36:00* Test Item Value Reference Range Interpretation Comments Urine Bilirubin (test code = 1978-6) NEGATIVE NEGATIVE [facility] Mvbns3213-94-99 16:36:00* Test Item Value Reference Range Interpretation Comments Urine Blood (test code = 84247-1) 2+ NEGATIVE H [facility] Auruo1125-33-25 16:36:00* Test Item Value Reference Range Interpretation Comments Urine Color (test code = 5778-6) YELLOW YELLOW [facility] Psyfkjs8873-15-05 16:36:00* Test Item Value Reference Range Interpretation Comments Urine Clarity (test code = 08921-7) HAZY CLEAR [facility] Specific Lzojyat1882-68-63 16:36:00 * Test Item Value Reference Range Interpretation Comments Urine Specific [place] (test code = 5811-5) 1.015 1.010-1.02 5 [facility] dG6738-56-79 16:36:00* Test Item Value Reference Range Interpretation Comments Urine pH (test code = 26107-8) 8 5-7 H [facility] Leukocyte Cdxrqyat3851-88-37 16:36:00* Test Item Value Reference Range Interpretation Comments Urine Leukocyte Esterase (test code = 5799-2) 1+ NEGATIVE H [facility] Wlldjtq8748-94-39 16:36:00* Test Item Value Reference Range Interpretation Comments Urine Nitrite (test code = 59228-9) NEGATIVE NEGATIVE [facility] Ydxtazw5042-82-53 16:36:00* Test Item Value Reference Range Interpretation Comments Urine Protein (test code = 5804-0) 2+ NEGATIVE H [facility] Glucose (UA)2017-12-29 16:36:00* Test Item Value Reference Range Interpretation Comments Urine Glucose (UA) (test code = 2349-9) NEGATIVE NEGATIVE [facility] Kztsuim2125-33-95 16:36:00* Test Item Value Reference Range Interpretation Comments Urine Ketones (test code = 68651-5) NEGATIVE NEGATIVE [facility] Kudiflsglwdn4252-22-40 16:36:00* Test Item Value Reference Range Interpretation Comments Urine Urobilinogen (test code = 95841-6) 1 0.2-1 [facility] Riqypuhkd9470-22-49 16:36:00* Test Item Value Reference Range Interpretation Comments Urine Bilirubin (test code = 1978-6) NEGATIVE NEGATIVE [facility] Vketi8094-33-79 16:36:00* Test Item Value Reference Range Interpretation Comments Urine Blood (test code = 52978-1) 2+ NEGATIVE H [facility] Vnkqo4320-13-07 16:26:00* Test Item Value Reference Range Interpretation Comments Sodium Level (test code = 2951-2) 136 136-145 [facility]Potassium Ofaqg0118-14-12 16:26:00* Test Item Value Reference Range Interpretation Comments Potassium Level (test code = 2823-3) 4.0 3.5-5.1 [facility] HospitalChloride Zftyd4931-24-45 16:26:00* Test Item Value Reference Range Interpretation Comments Chloride Level (test code = 2075-0) 95 98-107 L [facility] HospitalCarbon Dioxide Fqcwd2066-30-58 16:26:00* Test Item Value Reference Range Interpretation Comments Carbon Dioxide Level (test code = 2028-9) 32 22-29 H [facility] HospitalAnion Vvj1692-30-51 16:26:00* Test Item Value Reference Range Interpretation Comments Anion Gap (test code = 01155-1) 13.0 8-16 [facility] HospitalBlood Urea Ocpxcsnw0441-49-61 16:26:00* Test Item Value Reference Range Interpretation Comments Blood Urea Nitrogen (test code = 3094-0) 12 7-26 [facility] HospitalCreatinine2018-05-23 16:26:00* Test Item Value Reference Range Interpretation Comments Creatinine (test code = 2160-0) 0.85 0.72-1.25 [facility] HospitalBUN/Creatinine Ubnpg5067-36-77 16:26:00* Test Item Value Reference Range Interpretation Comments BUN/Creatinine Ratio (test code = 3097-3) 14 6-25 [facility] HospitalEstimat Glomerular Filtration Rate 2017-12-29 16:26:00* Test Item Value Reference Range Interpretation Comments Estimat Glomerular Filtration Rate (test code = 19803-5) 60- >60 Ranges were taken from the National Kidney Disease Education Program and the [facility] Kidney Foundation literature.Reference ranges:60 or greater: Qcfmxa73-81 ( for 3 consecutive months): Chronic kidney disease 15 or less: Kidney failureC[facility] Emergency HospitalGlucose Ukzqb5785-72-88 16:26:00* Test Item Value Reference Range Interpretation Comments Glucose Level (test code = VVM8204) 100 74-118 [facility] HospitalCalcium Brevo3825-48-03 16:26:00* Test Item Value Reference Range Interpretation Comments Calcium Level (test code = 70413-0) 9.8 8.4-10.2 [facility] HospitalLactic Acid Lssgm8236-90-34 16:26:00* Test Item Value Reference Range Interpretation Comments Lactic Acid Level (test code = Lactic Acid Level) 10.5 4.5- 19.8 [facility] HospitalTotal Stsoeuzxf4194-21-45 16:26:00* Test Item Value Reference Range Interpretation Comments Total Bilirubin (test code = 1975-2) 1.9 0.2-1.2 H [facility] HospitalAspartate Amino Transf (AST/SGOT) 2017-12-29 16:26:00* Test Item Value Reference Range Interpretation Comments Aspartate Amino Transf (AST/SGOT) (test code = Aspartate Amino Transf (AST/SGOT)) 18 5-34 [facility] HospitalAlanine Aminotransferase (ALT/SGPT) 2017-12-29 16:26:00* Test Item Value Reference Range Interpretation Comments Alanine Aminotransferase (ALT/SGPT) (test code = 1742-6) 12 0-55 [facility] HospitalTotal Sqdgnpj0463-17-72 16:26:00* Test Item Value Reference Range Interpretation Comments Total Protein (test code = 2885-2) 8.7 6.5-8.1 H [facility] HospitalAlbumin2018-05-23 16:26:00* Test Item Value Reference Range Interpretation Comments Albumin (test code = 1751-7) 3.8 3.5-5.0 [facility] HospitalGlobulin2018-05-23 16:26:00* Test Item Value Reference Range Interpretation Comments Globulin (test code = 44388-5) 4.9 2.3-3.5 H [facility] HospitalAlbumin/Globulin Ixahm0731-62-52 16:26:00 * Test Item Value Reference Range Interpretation Comments Albumin/Globulin Ratio (test code = 1759-0) 0.8 0.8-2.0 [facility] HospitalAlkaline Lbcnmkhdbbe6947-82-50 16:26:00* Test Item Value Reference Range Interpretation Comments Alkaline Phosphatase (test code = 6768-6) 98 40-150 [facility] HospitalLactic Acid Ayhtn2668-16-00 16:26:00* Test Item Value Reference Range Interpretation Comments Lactic Acid Level (test code = Lactic Acid Level) 10.5 4.5- 19.8 [facility] HospitalWhite Blood Qvgkh3774-18-67 16:14:00* Test Item Value Reference Range Interpretation Comments White Blood Count (test code = 6690-2) 14.28 4.8-10.8 H [facility] HospitalRed Blood Ruwrk1696-86-94 16:14:00* Test Item Value Reference Range Interpretation Comments Red Blood Count (test code = 789-8) 5.25 4.3-5.7 [facility] HospitalHemoglobin2018-05-23 16:14:00* Test Item Value Reference Range Interpretation Comments Hemoglobin (test code = 19485-4) 15.7 14.0-18.0 [facility] HospitalHematocrit2018-05-23 16:14:00* Test Item Value Reference Range Interpretation Comments Hematocrit (test code = 4544-3) 46.9 38.2-49.6 [facility] HospitalMean Corpuscular Abfpth4305-18-17 16:14:00* Test Item Value Reference Range Interpretation Comments Mean Corpuscular Volume (test code = 787-2) 89.3 81-99 [facility] HospitalMean Corpuscular Phiaxqduww2479-14-01 16:14:00* Test Item Value Reference Range Interpretation Comments Mean Corpuscular Hemoglobin (test code = 785-6) 29.9 28-32 [facility] HospitalMean Corpuscular Hemoglobin Concent 2017-12-29 16:14:00* Test Item Value Reference Range Interpretation Comments Mean Corpuscular Hemoglobin Concent (test code = 786-4) 33.5 31-35 [facility] HospitalRed Cell Distribution Hgaqw5975-11-16 16:14:00* Test Item Value Reference Range Interpretation Comments Red Cell Distribution Width (test code = 31640-7) 13.8 11.7 -14.4 [facility] HospitalPlatelet Tobtr3842-30-42 16:14:00* Test Item Value Reference Range Interpretation Comments Platelet Count (test code = 777-3) 184 140-360 [facility] HospitalNeutrophils (%) (Auto)2017-12-29 16:14:00 * Test Item Value Reference Range Interpretation Comments Neutrophils (%) (Auto) (test code = 15905-2) 81.5 38.7-80.0 H [facility] HospitalLymphocytes (%) (Auto)2017-12-29 16:14:00 * Test Item Value Reference Range Interpretation Comments Lymphocytes (%) (Auto) (test code = 736-9) 9.5 18.0-39.1 L [facility] HospitalMonocytes (%) (Auto)2017-12-29 16:14:00* Test Item Value Reference Range Interpretation Comments Monocytes (%) (Auto) (test code = 5905-5) 7.2 4.4-11.3 [facility] HospitalEosinophils (%) (Auto)2017-12-29 16:14:00 * Test Item Value Reference Range Interpretation Comments Eosinophils (%) (Auto) (test code = 713-8) 0.7 0.0-6.0 [facility] HospitalBasophils (%) (Auto)2017-12-29 16:14:00* Test Item Value Reference Range Interpretation Comments Basophils (%) (Auto) (test code = 706-2) 0.5 0.0-1.0 [facility] HospitalIM GRANULOCYTES %2017-12-29 16:14:00* Test Item Value Reference Range Interpretation Comments IM GRANULOCYTES % (test code = IM GRANULOCYTES %) 0.6 0.0- 1.0 [facility] HospitalNeutrophils # (Auto)2017-12-29 16:14:00* Test Item Value Reference Range Interpretation Comments Neutrophils # (Auto) (test code = 751-8) 11.6 2.1-6.9 H [facility] HospitalLymphocytes # (Auto)2017-12-29 16:14:00* Test Item Value Reference Range Interpretation Comments Lymphocytes # (Auto) (test code = 74163-6) 1.4 1.0-3.2 [facility] HospitalMonocytes # (Auto)2017-12-29 16:14:00* Test Item Value Reference Range Interpretation Comments Monocytes # (Auto) (test code = 742-7) 1.0 0.2-0.8 H [facility] HospitalEosinophils # (Auto)2017-12-29 16:14:00* Test Item Value Reference Range Interpretation Comments Eosinophils # (Auto) (test code = 711-2) 0.1 0.0-0.4 [facility] HospitalBasophils # (Auto)2017-12-29 16:14:00* Test Item Value Reference Range Interpretation Comments Basophils # (Auto) (test code = 704-7) 0.1 0.0-0.1 [facility] HospitalAbsolute Immature Granulocyte (auto 2017-12-29 16:14:00* Test Item Value Reference Range Interpretation Comments Absolute Immature Granulocyte (auto (jeyson t code = Absolute Immature Granulocyte (auto) 0.08 0-0.1 [facility] Fnrsk1026-49-03 22:25:00* Test Item Value Reference Range Interpretation Comments Sodium Level (test code = 2951-2) 136 136-145 [facility] HospitalPotassium Pgooq4753-22-59 22:25:00* Test Item Value Reference Range Interpretation Comments Potassium Level (test code = 2823-3) 3.9 3.5-5.1 [facility] HospitalChloride Rpjkj2641-48-57 22:25:00* Test Item Value Reference Range Interpretation Comments Chloride Level (test code = 2075-0) 95 98-107 L [facility] HospitalCarbon Dioxide Nvkyw7396-99-05 22:25:00* Test Item Value Reference Range Interpretation Comments Carbon Dioxide Level (test code = 2028-9) 30 22-29 H [facility] HospitalAnion Qrc9634-92-90 22:25:00* Test Item Value Reference Range Interpretation Comments Anion Gap (test code = 55143-7) 14.9 8-16 [facility] HospitalBlood Urea Acuqhdsp7204-61-16 22:25:00* Test Item Value Reference Range Interpretation Comments Blood Urea Nitrogen (test code = 3094-0) 14 7-26 [facility] HospitalCreatinine2018-05-07 22:25:00* Test Item Value Reference Range Interpretation Comments Creatinine (test code = 2160-0) 0.84 0.72-1.25 [facility] HospitalBUN/Creatinine Urfxq5780-89-26 22:25:00* Test Item Value Reference Range Interpretation Comments BUN/Creatinine Ratio (test code = 3097-3) 17 6-25 [facility] HospitalEstimat Glomerular Filtration Rate 2017-12-13 22:25:00* Test Item Value Reference Range Interpretation Comments Estimat Glomerular Filtration Rate (test code = 88259-8) 60- >60 Ranges were taken from the National Kidney Disease Education Program and the [facility] literature.Reference ranges:60 or greater: Jov[place]39-74 ( for 3 consecutive months): Chronic kidney disease 15 or less: Kidney failureC[facility] Emergency HospitalGlucose Wevqg7888-59-66 22:25:00* Test Item Value Reference Range Interpretation Comments Glucose Level (test code = YFL6730) 95 74-118 [facility] HospitalCalcium Tewuo7967-27-47 22:25:00* Test Item Value Reference Range Interpretation Comments Calcium Level (test code = 41959-7) 9.4 8.4-10.2 [facility] HospitalTotal Fykzkzipy7372-60-71 22:25:00* Test Item Value Reference Range Interpretation Comments Total Bilirubin (test code = 1975-2) 1.0 0.2-1.2 [facility] HospitalAspartate Amino Transf (AST/SGOT) 2017-12-13 22:25:00* Test Item Value Reference Range Interpretation Comments Aspartate Amino Transf (AST/SGOT) (test code = Aspartate Amino Transf (AST/SGOT)) 22 5-34 [facility] HospitalAlanine Aminotransferase (ALT/SGPT) 2017-12-13 22:25:00* Test Item Value Reference Range Interpretation Comments Alanine Aminotransferase (ALT/SGPT) (test code = 1742-6) 14 0-55 [facility] HospitalTotal Tczmucc8730-21-39 22:25:00* Test Item Value Reference Range Interpretation Comments Total Protein (test code = 2885-2) 8.6 6.5-8.1 H [facility] HospitalAlbumin2018-05-07 22:25:00* Test Item Value Reference Range Interpretation Comments Albumin (test code = 1751-7) 3.5 3.5-5.0 [facility] HospitalGlobulin2018-05-07 22:25:00* Test Item Value Reference Range Interpretation Comments Globulin (test code = 87025-5) 5.1 2.3-3.5 H [facility] HospitalAlbumin/Globulin Zikjt3300-69-52 22:25:00 * Test Item Value Reference Range Interpretation Comments Albumin/Globulin Ratio (test code = 1759-0) 0.7 0.8-2.0 L [facility] HospitalAlkaline Etvsjxxmfyv5813-74-63 22:25:00* Test Item Value Reference Range Interpretation Comments Alkaline Phosphatase (test code = 6768-6) 107 40-150 [facility] HospitalWhite Blood Xhgtl1928-37-53 22:08:00* Test Item Value Reference Range Interpretation Comments White Blood Count (test code = 6690-2) 11.20 4.8-10.8 H [facility] HospitalRed Blood Jwjhn9123-84-73 22:08:00* Test Item Value Reference Range Interpretation Comments Red Blood Count (test code = 789-8) 5.41 4.3-5.7 [facility] HospitalHemoglobin2018-05-07 22:08:00* Test Item Value Reference Range Interpretation Comments Hemoglobin (test code = 83114-5) 15.9 14.0-18.0 [facility] HospitalHematocrit2018-05-07 22:08:00* Test Item Value Reference Range Interpretation Comments Hematocrit (test code = 4544-3) 48.4 38.2-49.6 [facility] HospitalMean Corpuscular Qryeik1014-48-71 22:08:00* Test Item Value Reference Range Interpretation Comments Mean Corpuscular Volume (test code = 787-2) 89.5 81-99 [facility] HospitalMean Corpuscular Lmpggtdtwm6150-41-83 22:08:00* Test Item Value Reference Range Interpretation Comments Mean Corpuscular Hemoglobin (test code = 785-6) 29.4 28-32 [facility] HospitalMean Corpuscular Hemoglobin Concent 2017-12-13 22:08:00* Test Item Value Reference Range Interpretation Comments Mean Corpuscular Hemoglobin Concent (test code = 786-4) 32.9 31-35 [facility] HospitalRed Cell Distribution Wlykx2504-34-91 22:08:00* Test Item Value Reference Range Interpretation Comments Red Cell Distribution Width (test code = 70205-7) 13.7 11.7 -14.4 [facility] HospitalPlatelet Fdrnv0791-45-76 22:08:00* Test Item Value Reference Range Interpretation Comments Platelet Count (test code = 777-3) 206 140-360 [facility] HospitalNeutrophils (%) (Auto)2017-12-13 22:08:00 * Test Item Value Reference Range Interpretation Comments Neutrophils (%) (Auto) (test code = 32438-2) 74.4 38.7-80.0 [facility] HospitalLymphocytes (%) (Auto)2017-12-13 22:08:00 * Test Item Value Reference Range Interpretation Comments Lymphocytes (%) (Auto) (test code = 736-9) 13.3 18.0-39.1 L [facility] HospitalMonocytes (%) (Auto)2017-12-13 22:08:00* Test Item Value Reference Range Interpretation Comments Monocytes (%) (Auto) (test code = 5905-5) 8.1 4.4-11.3 [facility] HospitalEosinophils (%) (Auto)2017-12-13 22:08:00 * Test Item Value Reference Range Interpretation Comments Eosinophils (%) (Auto) (test code = 713-8) 3.3 0.0-6.0 [facility] HospitalBasophils (%) (Auto)2017-12-13 22:08:00* Test Item Value Reference Range Interpretation Comments Basophils (%) (Auto) (test code = 706-2) 0.5 0.0-1.0 [facility] HospitalIM GRANULOCYTES %2017-12-13 22:08:00* Test Item Value Reference Range Interpretation Comments IM GRANULOCYTES % (test code = IM GRANULOCYTES %) 0.4 0.0- 1.0 [facility] HospitalNeutrophils # (Auto)2017-12-13 22:08:00* Test Item Value Reference Range Interpretation Comments Neutrophils # (Auto) (test code = 751-8) 8.3 2.1-6.9 H [facility] HospitalLymphocytes # (Auto)2017-12-13 22:08:00* Test Item Value Reference Range Interpretation Comments Lymphocytes # (Auto) (test code = 45554-1) 1.5 1.0-3.2 [facility] HospitalMonocytes # (Auto)2017-12-13 22:08:00* Test Item Value Reference Range Interpretation Comments Monocytes # (Auto) (test code = 742-7) 0.9 0.2-0.8 H [facility] HospitalEosinophils # (Auto)2017-12-13 22:08:00* Test Item Value Reference Range Interpretation Comments Eosinophils # (Auto) (test code = 711-2) 0.4 0.0-0.4 [facility] HospitalBasophils # (Auto)2017-12-13 22:08:00* Test Item Value Reference Range Interpretation Comments Basophils # (Auto) (test code = 704-7) 0.1 0.0-0.1 [facility] HospitalAbsolute Immature Granulocyte (auto 2017-12-13 22:08:00* Test Item Value Reference Range Interpretation Comments Absolute Immature Granulocyte (auto (jeyson t code = Absolute Immature Granulocyte (auto) 0.05 0-0.1 [facility] HospitalBlood Trtotnr5040-89-42 22:21:00* Test Item Value Reference Range Interpretation Comments Blood Culture (test code = 37389632) NO GROWTH AFTER 5 DAYS, FINAL REPORT [facility] Osdzqdf0683-37-08 22:21:00* Test Item Value Reference Range Interpretation Comments Blood Culture (test code = 42328409) NO GROWTH AFTER 5 DAYS, FINAL REPORT [facility] HospitalCreatine Kinase [id number] 15:30:00* Test Item Value Reference Range Interpretation Comments Creatine Kinase MB (test code = 89977-3) 1.90 0.00-5.00 [facility]nin F7356-90-20 15:30:00* Test Item Value Reference Range Interpretation Comments Troponin I (test code = VJI6878) 0.012 0-0.300 [facility] HospitalCreatine Kinase XJ5696-53-81 15:30:00* Test Item Value Reference Range Interpretation Comments Creatine Kinase MB (test code = 13263-7) 1.90 0.00-5.00 [place] 25857017-09-19 15:30:00* Test Item Value Reference Range Interpretation Comments Troponin I (test code = GLQ1110) 0.012 0-0.300 [facility] HospitalCreatine Ubapby8565-00-39 15:23:00* Test Item Value Reference Range Interpretation Comments Creatine Kinase (test code = 2157-6) 105 30-200 [facility] HospitalCreatine Qdwjle8480-87-63 15:23:00* Test Item Value Reference Range Interpretation Comments Creatine Kinase (test code = 2157-6) 105 30-200 [facility] HospitalUrine OHX8131-46-67 21:51:00* Test Item Value Reference Range Interpretation Comments Urine WBC (test code = 5821-4) 0-5 0-5 [facility] HospitalUrine GYK2739-32-69 21:51:00* Test Item Value Reference Range Interpretation Comments Urine RBC (test code = 54800-0) 21-50 0-5 H [facility] HospitalUrine Qdbeyzsd3294-09-62 21:51:00* Test Item Value Reference Range Interpretation Comments Urine Bacteria (test code = 21242-6) RARE NONE [facility] HospitalUrine Epithelial Afsat5945-71-13 21:51:00 * Test Item Value Reference Range Interpretation Comments Urine Epithelial Cells (test code = 26581-7) FEW NONE [facility] HospitalUrine Jtxtw0949-70-07 21:46:00* Test Item Value Reference Range Interpretation Comments Urine Color (test code = 5778-6) YELLOW YELLOW [facility] HospitalUrine Wttqevy0162-46-67 21:46:00* Test Item Value Reference Range Interpretation Comments Urine Clarity (test code = 92519-0) CLEAR CLEAR [facility] HospitalUrine Specific Qpkcdvc5001-59-46 21:46:00 * Test Item Value Reference Range Interpretation Comments Urine Specific [place] (test code = 5811-5) 1.015 1.010-1.02 5 [facility] HospitalUrine fB3121-31-50 21:46:00* Test Item Value Reference Range Interpretation Comments Urine pH (test code = 11665-7) 6 5-7 [facility] HospitalUrine Leukocyte Flpmyumy0142-19-42 21:46:00* Test Item Value Reference Range Interpretation Comments Urine Leukocyte Esterase (test code = 5799-2) NEGATIVE NEGATIVE [facility] HospitalUrine Bkheuwq5651-03-98 21:46:00* Test Item Value Reference Range Interpretation Comments Urine Nitrite (test code = 86807-8) NEGATIVE NEGATIVE [facility] HospitalUrine Vhhuuua8020-15-59 21:46:00* Test Item Value Reference Range Interpretation Comments Urine Protein (test code = 5804-0) 1+ NEGATIVE H [facility] HospitalUrine Glucose (UA)2017-04-26 21:46:00* Test Item Value Reference Range Interpretation Comments Urine Glucose (UA) (test code = 2349-9) NEGATIVE NEGATIVE [facility] HospitalUrine Fdzlool3012-13-87 21:46:00* Test Item Value Reference Range Interpretation Comments Urine Ketones (test code = 30848-8) NEGATIVE NEGATIVE [facility] Izabfzlirhsf4416-26-09 21:46:00* Test Item Value Reference Range Interpretation Comments Urine Urobilinogen (test code = 64136-7) 0.2 0.2-1 [facility] HospitalUrine Ewpfysecy6119-45-06 21:46:00* Test Item Value Reference Range Interpretation Comments Urine Bilirubin (test code = 1978-6) NEGATIVE NEGATIVE [facility] HospitalUrine Jqvrp4445-92-92 21:46:00* Test Item Value Reference Range Interpretation Comments Urine Blood (test code = 59643-4) 3+ NEGATIVE H [facility] HospitalB-Type Natriuretic Thoagkg0801-13-64 21:44:00* Test Item Value Reference Range Interpretation Comments B-Type Natriuretic Peptide (test code = 91178-7) 68.3 0-100 [facility] HospitalB-Type Natriuretic Vdhorhw1697-22-25 21:44:00* Test Item Value Reference Range Interpretation Comments B-Type Natriuretic Peptide (test code = 97893-9) 68.3 0-100 [facility] [id number] 21:37:00* Test Item Value Reference Range Interpretation Comments Magnesium Level (test code = 22175-0) 2.1 1.3-2.1 [facility] [id number] 21:37:00* Test Item Value Reference Range Interpretation Comments Magnesium Level (test code = 91126-3) 2.1 1.3-2.1 [facility] (PE/DVT)2017-04-26 21:31:00* Test Item Value Reference Range Interpretation Comments D-Dimer Quantitative (PE/DVT) (test code = 04682-4) 0.22 0. 00-0.45 [facility] (PE/DVT)2017-04-26 21:31:00* Test Item Value Reference Range Interpretation Comments D-Dimer Quantitative (PE/DVT) (test code = 96983-7) 0.22 0. 00-0.45 [facility]Act[facility] Partial Thromboplast Time 2017-04-26 21:28:00* Test Item Value Reference Range Interpretation Comments Activated Partial Thromboplast Time (test code = 50636-0) 46.8 23.8-35.5 [facility] Partial Thromboplast Time 2017-04-26 21:28:00* Test Item Value Reference Range Interpretation Comments Activated Partial Thromboplast Time (test code = 39883-4) 46.8 23.8-35.5 H [facility] HospitalProthrombin [id number] 21:26:00* Test Item Value Reference Range Interpretation Comments Prothrombin Time (test code = 5902-2) 27.0 11.9-14.5 H [facility] HospitalProthromb Time International Ratio 2017-04-26 21:26:00* Test Item Value Reference Range Interpretation Comments Prothromb Time International Ratio (test code = 6301-6) 2.35 Oral Anticoagulant Therapy INR Values:1. Low Intensity Therapy 1.5 - 2.02 . Moderate Intensity Therapy 2.0 - 3.03. High Intensity Therapy(1) 2.5 - 3. 54. High Intensity Therapy(2) 3.0 - 4.05. Panic Value INR > 5.0 [facility]Proth[facility] [id number] 21:26:00* Test Item Value Reference Range Interpretation Comments Prothrombin Time (test code = 5902-2) 27.0 11.9-14.5 [facility]Proth[facility] International Ratio 2017-04-26 21:26:00* Test Item Value Reference Range Interpretation Comments Prothromb Time International Ratio (test code = 6301-6) 2.35 Oral Anticoagulant Therapy INR Values:1. Low Intensity Therapy 1.5 - 2.02 . Moderate Intensity Therapy 2.0 - 3.03. High Intensity Therapy(1) 2.5 - 3. 54. High Intensity Therapy(2) 3.0 - 4.05. Panic Value INR > 5.0 [facility] [place] [address] Patient Name: SHARMILA TORRES MR #: [id number] : 1965 Age/Sex: 52/M Req #: [id number] Adm Physician: Ordered by: PAM WEBB MD Report #: [id number] Location: ER Room/Bed: Procedure: [id number] DX/CHEST 2 VIEWS Exam Date: 12/29/17 Exam Time: 1600 REPORT STATUS: Signed PROCEDURE: Frontal and lateral views of the chest. COMPARISON: [facility], DX, CHEST 2 VIEWS, 04/26/2017, 21:11. [...] 16:32 Dictated By: TAMY FRIEDMAN MD, MD 31 Transcribed By: SHAHLA on 12/29/171631 COPY TO: PAM WEBB MD CT MAXIO FAC/PARANAS [place] [address] Patient Name: SHARMILA TORRES MR #: [id number] : 1965 Age/Sex: 52/M Req #: [id number] Adm Physician: Ordered by: ELVA VIVEROS MD Report #: [id number] Location: ER Room/Bed: Procedure: [id number] CT/CT MAXIO FAC/PARANAS W O Exam Date: [...] and dilatation of left Stensen's duct. No discret e hypodense fluid collection however suboptimal evaluation for [...] Wiley M.D. on 12/13/2017 10:53 PM Dictated By : KHADIJAH WILEY MD 2 253 Transcribed By: DEE DEE on 12/13/17 7127 COPY TO: LAMAR VIVEROS MD CT ABDOMEN/PELVIS WO [place] [address] Patient Name: SHARMILA TORRES MR #: [id number] : 1965 Age/Sex: 52/M Req #: [id number] Adm Physician: Ordered by: OLEGARIO WILLIAM MD Report #: [id number] Location: ER Room/Bed: Procedure: CT/CT ABDOMEN/PELVIS WO Exam Da te: 04/26/17 [...] REPRODUCTIVE ORGANS/BLADDER: Bladder is decompressed precluding its evaluation . Prostate appears normal size. SOFT TISSUES: Rectus muscle diastases wit h small ventral fat-containing hernias at the level [...] on 04/26/2017 11:45 PM Dictated By: NKECHI MEDLEY MD [facility] Signed By: NKECHI MEDLEY MD on 04/26/17 2345 Transcribed By: DEE DEE on 04/26/17 2345 COPY TO: OLEGARIO WILLIAM MD CHEST 2 VIEWS [place] [address] Patient Name: SHARMILA TORRES MR #: [id number] : Age/Sex: 52/M Req #: [id number] Adm Physician: Ordered by: OLEGARIO WILLIAM MD Report #: [id number] Location: ER Room/Bed: Procedure: [id number] DX/CHEST 2 VIEWS Exam Date: Exam Time: [...]
--- NOTE | 2020-04-26 15:29 | Diagnostic Imaging Report ---
EXAM: CT Abdomen and Pelvis WITHOUT intravenous contrast INDICATION: Abdominal distention COMPARISON: CT abdomen and pelvis of 04/26/2017 TECHNIQUE: Abdomen and pelvis were scanned utilizing a multidetector helical scanner from the lung base to the pubic symphysis without administration of IV contrast. Coronal and sagittal reformations were obtained. IV CONTRAST: None ORAL CONTRAST: None COMPLICATIONS: None RADIATION DOSE: Total DLP: 1723 mGy*cm Dose modulation, iterative reconstruction, and/or weight based adjustment of the mA/kV was utilized to reduce the radiation dose to as low as reasonably achievable. FINDINGS: LOWER THORAX: Pulmonary vascular congestion and interstitial pulmonary edema. No pleural effusion. 6 mm right lower lobe pulmonary nodule. HEPATOBILIARY: Hepatic cirrhosis. No definite focal liver lesion. Cholelithiasis of the decompressed gallbladder. No CT evidence of cholecystitis. SPLEEN: No splenomegaly. PANCREAS: No focal masses or ductal dilatation. ADRENALS: No adrenal nodules. KIDNEYS/URETERS: No hydronephrosis, stones, or solid mass lesions. PELVIC ORGANS/BLADDER: Unremarkable. PERITONEUM / RETROPERITONEUM: Trace abdominal ascites. No free air. LYMPH NODES: No lymphadenopathy. VESSELS: Unremarkable. GI TRACT: Diverticulosis without CT evidence of diverticulitis. No abnormal bowel thickening. No bowel obstruction. BONES AND SOFT TISSUES: No acute osseous injury. No suspicious lytic or blastic lesions. IMPRESSION: Hepatic cirrhosis. Trace abdominal ascites. Interstitial pulmonary edema. 6 mm right lower lobe pulmonary nodule. If the patient is high risk, chest CT at 12 months is optional. Signed by: Lupe Hogan MD on 04/26/2020 3:26 PM
[2020-04-26] MEDS ORDERED: ASPIRIN 81 MG CHEW TAB PO ONE (15:30)
--- OUTSIDE RECORDS SUMMARY | 2020-04-26 15:36 | XMS REPORT | Continuity of Care Document ---
Author Author [facility] t Organization [facility] Address [address] [place] [address] Phone Unavailable Care Team Providers Care Cellular Equipment Repairer Name Role Phone EMILIANO JOYCE, MD PERALTA PCP Garland ROBERTS Attphys Unavailable Fidelia WILLIAM Attphys Unavailable Tierra YBARRA Attphys Unavailable KATHRYN CUMMINGS Attphys Unavailable Luis A WEBB Attphys Unavailable Marvin VIVEROS Attphys Unavailable KATHRYN CUMMINGS Admphygarland Unavailable Payers Payer Name Policy Type Policy Number Effective Date Expiration Date S ource Medicare A & B [id number] 2008 00:00:00 [facility] Problems Condition Name Condition Details Condition Category Status Onset Date Resolution Date Last Treatment Date Treating Clinician Comments Source Congestive heart failure CHF exacerbation Problem Active 00:00:00 [facility] Dyspnea Dyspnea Problem Active 2016-04-14 00:00:00 [facility] Morbid obesity Morbid obesity Problem Active 2016-04-14 00:00:00 [facility] Chronic atrial fibrillation Chronic atrial fibrillation Problem Active [facility] Flank pain Flank pain Problem Active [facility] Hypoxia Hypoxia Problem Active [facility] Acute on chronic congestive heart failure Problem Active [facility] Allergies, Adverse Reactions, Alerts Allergy Name Allergy Type Status Severity Reaction(s) Onset Date Inacti ve Date Treating Clinician Comments Source Iodine Allergy to substance Active Severe Anaphylaxis 2018-11-20 00:00:00 [facility] iodine DA Active 2015-09-09 00:00:00 [facility] shellfish derived DA Active 2015-09-09 00:00:00 [facility] Social History Social Habit Start Date Stop Date Quantity Comments Source Sex Assigned At 1965 00:00:00 1965 00[birth year]00:00 Male [facility] Medications Ordered Medication Name Filled Medication Name Start Date Stop Da te Current Medication? Ordering Clinician Indication Dosage Frequency Signature (SIG) Comments Components Source Azithromycin (Z-Terrell) 250 Mg TABLET Azithromycin (Z-Terrell) 250 Mg TABLET 2017-12-29 17:28:00 2018-09-08 00:00:00 No 250 Use As Directed [facility] Albuterol Sulfate (Ventolin Hfa) 18 Gm HFA.AER.AD Albu terol Sulfate (Ventolin Hfa) 18 Gm HFA.AER.AD Yes 2 Ev aura 6 Hours as needed for Shortness Of Breath [facility] Aspirin (Aspir 81) 81 Mg TABLET. Aspirin (Aspir 81) 81 Mg TABLET. Yes 81 Daily [facility] Furosemide Furosemide Yes 80 Daily [facility] Furosemide Furosemide Yes 40 Daily [facility] Metoprolol Tartrate Metoprolol Tartrate Yes 25 Every 12 Hours [facility] Potassium Chloride Potassium Chloride Yes 10 Tw ice A Day [facility] Simvastatin (Zocor) 10 Mg TABLET Simvastatin (Zocor) 10 Mg TABLET Yes 20 Daily [facility] Warfarin Sodium (Coumadin) 1 Mg TABLET Warfarin Sodium (Coumadin ) 1 Mg TABLET Yes 5 Mtwthf [facility] Warfarin Sodium (Coumadin) 5 Mg TABLET Warfarin Sodium (Coumadin ) 5 Mg TABLET Yes 7.5 Wednesday And Wednesday [facility] Tramadol Hcl (Ultram) 50 Mg TABLET Tramadol Hcl (Ultram) 50 Mg T ABLET 2018-09-08 00:00:00 No 50 Every 6 Hours as nee ded for Pain [facility] Benzonatate (Tessalon Perle) 100 Mg CAPSULE Benzonatat e (Tessalon Perle) 100 Mg CAPSULE 2017-04-26 00:00:00 No Every 6 Hours fo r Cough [facility] Levofloxacin (Levaquin) 500 Mg TABLET Levofloxacin (Levaquin) 50 0 Mg TABLET 2017-04-26 00:00:00 No 500 Daily [facility] Albuterol Sulfate (Proair Hfa Inhaler*) 8.5 Gm INH Alb uterol Sulfate (Proair Hfa Inhaler*) 8.5 Gm INH 2016-08-17 00:00:00 No [facility] Benzonatate (Tessalon Perle) 100 Mg CAPSULE Benzonatat e (Tessalon Perle) 100 Mg CAPSULE 2016-08-16 00:00:00 No Every 4 Hours [facility] Levofloxacin (Levaquin) 500 Mg TABLET Levofloxacin (Levaquin) 50 0 Mg TABLET 2016-08-16 00:00:00 No 500 Daily [facility] Lisinopril Lisinopril 2016-08-16 00:00:00 No 5 Merlene ly [facility] Omeprazole Omeprazole 2016-08-16 00:00:00 No 20 Merlene ly [facility] Potassium Chloride Potassium Chloride 2016-08-16 00:00:00 No 20 Twice A Day [facility] Spironolactone Spironolactone 2016-08-16 00:00:00 No 25 Daily [facility] Xaroxolyn Xaroxolyn 2016-08-16 00:00:00 No 5 Twice A Day for Swelling [facility] Furosemide Furosemide 2016-04-18 00:00:00 No 40 Merlene ly [facility] Warfarin Sodium (Coumadin) 5 Mg TABLET Warfarin Sodium (Coumadin ) 5 Mg TABLET 2012-09-27 00:00:00 No Daily [facility] Warfarin Sodium (Coumadin) 10 Mg TABLET Warfarin Sodium (Cou madin) 10 Mg TABLET 2012-09-27 00:00:00 No 10 Daily [facility] Vital Signs Vital Name Observation Time Observation Value Comments Source Body Temperature 2020-03-29 12:16:00 98.6 [degF] [facility] BMI (Body Mass Index) 2020-03-25 14:30:00 52.8 kg/m2 [facility] Weight 2020-03-25 09:56:00 368 [lb_av] [facility] Procedures This patient has no known procedures. Plan of Care Planned Activity Planned Date Details Comments Source Instructions Congestive Heart Failure [facility] Encounters Start Date/Time End Date/Time Encounter Type Ad[facility] ID Source 2020-03-25 11:41:00 2020-03-29 15:01:00 Discharged Inpatient 1 NATALIIA OLEGARIO [facility] [id number] [facility] 2018-11-20 17:49:00 2018-11-20 20:42:00 Departed Emergency Room 1 RAVIN YBARRA [facility] [id number] [facility] 2018-09-08 05:51:00 2018-09-14 16:44:00 Discharged Inpatient 1 KATHRYN CUMMINGS [facility] [id number] [facility] 2017-12-29 13:56:00 2017-12-29 18:40:00 Departed Emergency Room 1 JONPAM RICHARDSON [facility] [id number] [facility] 2017-12-13 20:51:00 2017-12-14 00:44:00 Departed Emergency Room ER ELVA VIVEROS [facility] [id number] [facility] 2017-04-27 00:28:00 2017-04-27 18:02:00 Discharged Inpatient (obs) ER NATALIIAFELICARYL [facility] [id number] [facility] Results Test Description Test Time Test Comments Results Result Comments Source CT ABDOMEN/PELVIS WO 2020-04-26 15:19:00 [facility] [address] [address] Patient Name: SHARMILA TORRES MR #: [id number] : 1965 Age/Sex: 55/M Req #: [id number] Adm Physician: Ordered by: HOLGER ROBERTS DO Report #: [id number] Location: ER Room/Bed: Procedure: [id number] CT/CT ABDOMEN/PELVIS WO Exam Date: 04/26/20 Exam Time: 1440 REPORT STATUS: Signed EXAM: CT Abdomen and Pelvis WITHOUT intravenous contrast INDICATION: Abdominal distention COMPARISON: CT abdomen and pelvis of 04/26/2017 TECHNIQUE: Abdomen and pelvis were scanned utilizing a multidetector helical scanner from the lung base to the pubic symphysis without administration of IV contrast. Coronal and sagittal reformations were obtained. IV CONTRAST: None ORAL CONTRAST: None COMPLICATIONS: None RADIATION DOSE: Total DLP: 1723 mGy*cm Dose modulation, iterative reconstruction, and/or weight based adjustment of the mA/kV was utilized to reduce the radiation dose to as low as reasonably achievable. FINDINGS: LOWER THORAX: Pulmonary vascular congestion and interstitial pulmonary edema. No pleural effusion. 6 mm right lower lobe pulmonary nodule. HEPATOBILIARY: Hepatic cirrhosis. No definite focal liver lesion. Cholelithiasis of the decompressed gallbladder. No CT evidence of cholecystitis. SPLEEN: No splenomegaly. PANCREAS: No focal masses or ductal dilatation. ADRENALS: No adrenal nodules. KIDNEYS/URETERS: No hydronephrosis, stones, or solid mass lesions. PELVIC ORGANS/BLADDER: Unremarkable. PERITONEUM / RETROPERITONEUM: Trace abdominal ascites. No free air. LYMPH NODES: No lymphadenopathy. VESSELS: Unremarkable. GI TRACT: Diverticulosis without CT evidence of diverticulitis. No abnormal bowel thickening. No bowel obstruction. BONES AND SOFT TISSUES: No acute osseous injury. No suspicious lytic or blastic lesions. IMPRESSION: Hepatic cirrhosis. Trace abdominal ascites. Interstitial pulmonary edema. 6 mm right lower lobe pulmonary nodule. If the patient is high risk, chest CT at 12 months is optional. Signed by: Farhana Devlin MD on 04/26/2020 3:26 PM Dictated By: FARHANA DEVLIN MD Elect ronically Signed By: FARHANA DEVLIN MD on 04/26/20 1526 Transcribed By: DEE DEE on 04/26/20 1526 COPY TO: HOLGER ROBERTS DO CHEST SINGLE (PORTABLE) 2020-04-26 14:40:[address] [address] Patient Name: SHARMLIA TORRES MR #: [id number] : 1965 Age/Sex: 55/M Req #: [id number] Adm Physician: Ordered by: HOLGER ROBERTS DO Report #: [id number] Location: ER Room/Bed: Procedure: [id number] DX/CHEST SINGLE (PORTABLE) Exam Date: 04/26/20 Exam [...] 2:45 PM Dictated By: YOLANDA ABERNATHY MD 44 Transcribed By: DEE DEE on 04/26/201444 COPY TO: HOLGER ROBERTS DO Prothrombin time (PT) in platelet poor plasma by coagu lation assay 2020-03-29 07:10:00 Test Item Prothrombin Time (test code = 5902-2) 32.3 11.9-14.5 [facility] Platelet poor plasma by Coagulation nyvaz9524-28-16 07:10:00* Test Item Value Reference Range Interpretation Comments Prothromb Time International Ratio (test code = 6301-6) 2.90 Oral Anticoagulant Therapy INR Values:1. Low Intensity Therapy 1.5 - 2.02 . Moderate Intensity Therapy 2.0 - 3.03. High Intensity Therapy(1) 2.5 - 3. 54. High Intensity Therapy(2) 3.0 - 4.05. Panic Value INR > 5.0 [facility] leukocytes automated count (number/volume)2020-03-28 05:30:00* Test Item Value Reference Range Interpretation Comments White Blood Count (test code = 6690-2) 8.61 4.8-10.8 [facility] erythrocytes automated count (number/volume)2020-03-28 05:30:00* Test Item Value Reference Range Interpretation Comments Red Blood Count (test code = 789-8) 3.85 4.3-5.7 [facility] ClubBlood hemoglobin measurement (moles/volume)2020-03-28 05:30:00* Test Item Value Reference Range Interpretation Comments Hemoglobin (test code = 99936-9) 12.0 14.0-18.0 [facility] ClubAutomated blood hematocrit (volume fraction)2020-03-28 05:30:00* Test Item Value Reference Range Interpretation Comments Hematocrit (test code = 4544-3) 38.2 38.2-49.6 [facility] ClubAutomated erythrocyte mean corpuscular imahwv6503-76-21 05:30:00* Test Item Value Reference Range Interpretation Comments Mean Corpuscular Volume (test code = 787-2) 99.2 81-99 [facility] ClubAutomated erythrocyte mean corpuscular hemoglobin (mass per erythrocyte)2020-03-28 05:30:00* Test Item Value Reference Range Interpretation Comments Mean Corpuscular Hemoglobin (test code = 785-6) 31.2 28-32 [facility] ClubAutomated erythrocyte mean corpuscular hemoglobin concentration measurement (mass/volume)2020-03-28 05:30:00* Test Item Value Reference Range Interpretation Comments Mean Corpuscular Hemoglobin Concent (test code = 786-4) 31.4 31-35 [facility] ClubRDW CbtPt-Fzi1236-69-20 05:30:00* Test Item Value Reference Range Interpretation Comments Red Cell Distribution Width (test code = 83770-3) 17.2 11.7 -14.4 [facility] ClubAutomated blood platelet count (count/volume)2020-03-28 05:30:00* Test Item Value Reference Range Interpretation Comments Platelet Count (test code = 777-3) 159 140-360 [facility] segmented neutrophil count as percentage of total ssaoqjkint9527-61-97 05:30:00* Test Item Value Reference Range Interpretation Comments Neutrophils (%) (Auto) (test code = 84832-5) 74.6 38.7-80.0 [facility] ClubAutomated blood lymphocyte count as percentage ot total hsyfzfxsdi2498-22-14 05:30:00* Test Item Value Reference Range Interpretation Comments Lymphocytes (%) (Auto) (test code = 736-9) 11.8 18.0-39.1 [facility] blood monocyte count as percentage of total smrxltprbr4206-90-64 05:30:00* Test Item Value Reference Range Interpretation Comments Monocytes (%) (Auto) (test code = 5905-5) 10.1 4.4-11.3 [facility] ClubAutom[facility] blood eosinophil count as percentage of total xibnrjhskg2337-13-20 05:30:00* Test Item Value Reference Range Interpretation Comments Eosinophils (%) (Auto) (test code = 713-8) 2.2 0.0-6.0 [facility] ClubAutomated blood basophil count as percentage of total saddqjxfxg9176-45-53 05:30:00* Test Item Value Reference Range Interpretation Comments Basophils (%) (Auto) (test code = 706-2) 0.7 0.0-1.0 [facility] ClubFluoroscopic procedure less than one hour hjgesxia4168-63-81 05:30:00* Test Item Value Reference Range Interpretation Comments IM GRANULOCYTES % (test code = IM GRANULOCYTES %) 0.6 0.0- 1.0 [facility] ClubAutom[facility] blood neutrophil count 2020-03-28 05:30:00* Test Item Value Reference Range Interpretation Comments Neutrophils # (Auto) (test code = 751-8) 6.4 2.1-6.9 [facility] ClubBlood lymphocytes count (number/volume) 2020-03-28 05:30:00* Test Item Value Reference Range Interpretation Comments Lymphocytes # (Auto) (test code = 05417-8) 1.0 1.0-3.2 [facility]Bl[facility] monocytes automated count (number/volume)2020-03-28 05:30:00* Test Item Value Reference Range Interpretation Comments Monocytes # (Auto) (test code = 742-7) 0.9 0.2-0.8 [facility] ClubAutomated blood eosinophil count 2020-03-28 05:30:00* Test Item Value Reference Range Interpretation Comments Eosinophils # (Auto) (test code = 711-2) 0.2 0.0-0.4 [facility] ClubAutomated blood basophil count (count/volume)2020-03-28 05:30:00* Test Item Value Reference Range Interpretation Comments Basophils # (Auto) (test code = 704-7) 0.1 0.0-0.1 [facility] ClubFluoroscopic procedure less than one hour oqnuammp5450-35-40 05:30:00* Test Item Value Reference Range Interpretation Comments Absolute Immature Granulocyte (auto (jeyson t code = Absolute Immature Granulocyte (auto) 0.05 0-0.1 [facility] sodium measurement (moles/volume)2020-03-28 05:30:00* Test Item Value Reference Range Interpretation Comments Sodium Level (test code = 2951-2) 137 136-145 [facility] or plasma potassium measurement (moles/volume)2020-03-28 05:30:00* Test Item Value Reference Range Interpretation Comments Potassium Level (test code = 2823-3) 4.1 3.5-5.1 [facility] Atlanta[facility] or plasma chloride measurement (moles/volume)2020-03-28 05:30:00* Test Item Value Reference Range Interpretation Comments Chloride Level (test code = 2075-0) 93 98-107 [facility] Atlanta[facility]um or plasma carbon dioxide, total measurement (moles/volume)2020-03-28 05:30:00* Test Item Value Reference Range Interpretation Comments Carbon Dioxide Level (test code = 2028-9) 35 22-29 [facility] Atlantaerum or plasma anion abf8456-34-75 05:30:00* Test Item Value Reference Range Interpretation Comments Anion Gap (test code = 42578-5) 13.1 8-16 [facility] Atlanta[facility] or plasma urea nitrogen measurement (mass/volume)2020-03-28 05:30:00* Test Item Value Reference Range Interpretation Comments Blood Urea Nitrogen (test code = 3094-0) 21 7-26 [facility] Atlanta[facility] or plasma creatinine measurement (mass/volume)2020-03-28 05:30:00* Test Item Value Reference Range Interpretation Comments Creatinine (test code = 2160-0) 0.94 0.72-1.25 [facility] Atlanta[facility] or plasma urea nitrogen/creatinine mass xplgy9483-51-79 05:30:00* Test Item Value Reference Range Interpretation Comments BUN/Creatinine Ratio (test code = 3097-3) 22 6-25 [facility] ClubEstimated glomerular filtration rate (GFR) fihooijmynqre5090-85-97 05:30:00* Test Item Value Reference Range Interpretation Comments Estimat Glomerular Filtration Rate (test code = 796529620) > 60 >60 Ranges were taken from the National Kidney Disease Education Program and the [facility] Kid[facility] Foundation literature.Reference ranges:60 or greater: Jqujnc28-54 ( for 3 consecutive months): Chronic kidney disease 15 or less: Kidney failureB[facility] ClubGlucose ofmsvoqvcag7028-45-29 05:30:00* Test Item Value Reference Range Interpretation Comments Glucose Level (test code = PEC3532) 107 74-118 [facility] Atlantaerum or plasma calcium measurement (mass/volume)2020-03-28 05:30:00* Test Item Value Reference Range Interpretation Comments Calcium Level (test code = 52477-0) 8.8 8.4-10.2 [facility] Atlanta[facility]um or plasma creatine kinase measurement (enzymatic activity/volume)2020-03-26 07:10:00* Test Item Value Reference Range Interpretation Comments Creatine Kinase (test code = 2157-6) 80 30-200 [facility] Atlantaerum or plasma creatine kinase MB measurement (mass/volume)2020-03-26 07:10:00* Test Item Value Reference Range Interpretation Comments Creatine Kinase MB (test code = 07431-8) 3.10 0-5.0 [facility] ClubTroponin I measurement by highly sensitive enzyme kydkabawwjn7407-63-68 07:10:00* Test Item Value Reference Range Interpretation Comments Troponin I (test code = 24581-5) 0.090 0-0.300 [facility] ClubBNP Ygu-vPom0984-77-17 18:20:00* Test Item Value Reference Range Interpretation Comments B-Type Natriuretic Peptide (test code = 57404-4) 100.6 0-100 [facility] ClubFluoroscopic procedure less than one hour vambrhxx9801-84-57 12:02:00* Test Item Value Reference Range Interpretation Comments Coronavirus (PCR) (test code = Coronavirus (PCR)) NOT DETECTED NOTD ETECTED Why[employer] Aptima SARS-CoV-2 assay is a nucleic amplification test intended for the qualitative detection of RNA from SARS-CoV-2 from nasopharyngeal (OPERATIONS LEADER) specimens . It is used under Emergency [...] for reprat testing oc clinically indicated.Tesing performed by:[facility] [address] [place] [address] [id number], Elva Baugh MD, PhD [facility] ClubUrine color idaznnubdeemw8189-22-54 10:52:00* Test Item Value Reference Range Interpretation Comments Urine Color (test code = 5778-6) YELLOW YELLOW [facility] ClubUrine pylclot3902-10-63 10:52:00* Test Item Value Reference Range Interpretation Comments Urine Clarity (test code = 10402-8) CLEAR CLEAR [facility] Atlantapecific gravity of Urine by Test strip 2020-03-25 10:52:00* Test Item Value Reference Range Interpretation Comments Urine Specific [place] (test code = 5811-5) 1.020 1.010-1.02 5 [facility] ClubUrine pH measurement by automated test xhgdo7963-74-81 10:52:00* Test Item Value Reference Range Interpretation Comments Urine pH (test code = 69251-9) 7 5-7 [facility] ClubUrine leukocyte esterase detection by akptrjrn1886-18-89 10:52:00* Test Item Value Reference Range Interpretation Comments Urine Leukocyte Esterase (test code = 5799-2) NEGATIVE NEGATIVE [facility] ClubUrine nitrite nxcxklvty5414-22-79 10:52:00* Test Item Value Reference Range Interpretation Comments Urine Nitrite (test code = 36400-0) NEGATIVE NEGATIVE [facility] ClubUrine protein measurement by test strip (mass/volume)2020-03-25 10:52:00* Test Item Value Reference Range Interpretation Comments Urine Protein (test code = 5804-0) NEGATIVE NEGATIVE [facility] ClubUrine glucose hibnzdhqm2224-94-22 10:52:00* Test Item Value Reference Range Interpretation Comments Urine Glucose (UA) (test code = 2349-9) NEGATIVE NEGATIVE [facility] ClubUrine ketones detection by automated test cffkr8610-89-11 10:52:00* Test Item Value Reference Range Interpretation Comments Urine Ketones (test code = 82274-1) NEGATIVE NEGATIVE [facility] ClubUrine urobilinogen measurement by test strip (mass/volume)2020-03-25 10:52:00* Test Item Value Reference Range Interpretation Comments Urine Urobilinogen (test code = 39488-0) 1 0.2-1 [facility] ClubUrine total bilirubin measurement (mass/volume)2020-03-25 10:52:00* Test Item Value Reference Range Interpretation Comments Urine Bilirubin (test code = 1978-6) NEGATIVE NEGATIVE [facility] ClubUrine erythrocytes grlbdbfya7893-48-71 10:52:00* Test Item Value Reference Range Interpretation Comments Urine Blood (test code = 83128-1) TRACE NEGATIVE [facility] ClubAutomated urine sediment leukocyte count by microscopy (number/high power field)2020-03-25 10:52:00* Test Item Value Reference Range Interpretation Comments Urine WBC (test code = 5821-4) 6-10 0-5 [facility] ClubErythrocytes detection in urine sediment by light xfkfzulppg8913-65-02 10:52:00* Test Item Value Reference Range Interpretation Comments Urine RBC (test code = 40109-5) 6-10 0-5 [facility] ClubBacteria detection in urine sediment by light bmvzettxcd5307-58-24 10:52:00* Test Item Value Reference Range Interpretation Comments Urine Bacteria (test code = 43230-7) RARE NONE [facility] ClubEpithelial cells detection in urine sediment by light grtyelkbwj0909-63-72 10:52:00* Test Item Value Reference Range Interpretation Comments Urine Epithelial Cells (test code = 82416-9) FEW NONE [facility] ClubCHEST SINGLE (PORTABLE)2020-03-25 10:41:00 [facility] [address] [place] [address] Patient Name: SHARMILA TORRES MR #: [id number] : 1965 Age/Sex: 55/M Req #: [id number] [facility] Physician: Ordered by: OLEGARIO WILLIAM MD Report #: [id number] Location: ER Room/Bed: Procedure: [id number] DX/CHEST SINGLE (PORTABLE) Exam Date: 03/25/20 Exam [...] Activated Partial Thromboplast Time (test code = 83165-2) 50.9 23.8-35.5 [facility] [place] plasma magnesium measurement (mass/volume)2020-03-25 09:54:00* Test Item Value Reference Range Interpretation Comments Magnesium Level (test code = 62879-0) 2.0 1.3-2.1 [facility] [place] total bilirubin measurement (mass/volume)2020-03-25 09:54:00* Test Item Value Reference Range Interpretation Comments Total Bilirubin (test code = 1975-2) 1.1 0.2-1.2 [facility] ClubFluoroscopic procedure less than one hour dakycnxv0042-41-90 09:54:00* Test Item Value Reference Range Interpretation Comments Aspartate Amino Transf (AST/SGOT) (test code = Aspartate Amino Transf (AST/SGOT)) 22 5-34 [facility] [place] plasma alanine aminotransferase measurement (enzymatic activity/volume)2020-03-25 09:54:00* Test Item Value Reference Range Interpretation Comments Alanine Aminotransferase (ALT/SGPT) (test code = 1742-6) 14 0-55 [facility] [place] protein measurement (mass/volume)2020-03-25 09:54:00* Test Item Value Reference Range Interpretation Comments Total Protein (test code = 2885-2) 8.7 6.5-8.1 [facility] [place] albumin measurement (mass/volume)2020-03-25 09:54:00* Test Item Value Reference Range Interpretation Comments Albumin (test code = 1751-7) 3.8 3.5-5.0 [facility] ClubPlasma globulin measurement (mass/volume) 2020-03-25 09:54:00* Test Item Value Reference Range Interpretation Comments Globulin (test code = 36888-8) 4.9 2.3-3.5 [facility] [place] plasma albumin/globulin mass pcbmk3481-95-95 09:54:00* Test Item Value Reference Range Interpretation Comments Albumin/Globulin Ratio (test code = 1759-0) 0.8 0.8-2.0 [facility] [place] alkaline phosphatase measurement (enzymatic activity/volume)2020-03-25 09:54:00* Test Item Value Reference Range Interpretation Comments Alkaline Phosphatase (test code = 6768-6) 121 40-150 [facility] ClubBlood kmjuvof8367-61-59 09:54:00* Test Item Value Reference Range Interpretation Comments Blood Culture (test code = 34953167) NO GROWTH AFTER 72 HOURS [facility] ClubProthrombin Fzny6028-37-98 20:17:00* Test Item Value Reference Range Interpretation Comments Prothrombin Time (test code = 5902-2) 29.0 11.9-14.5 H [facility] ClubProthromb Time International Ratio 2018-11-20 20:17:00* Test Item [...] [facility] Trophy ClubWRIST COMPLETE AVPD0667-12-52 19:38:00 [facility] [address] [place] [address] Patient Name: SHARMILA TORRES MR #: [id number] : 1965 Age/Sex: 53/M Req #: [id number] Adm Physician: Ordered by: RAVIN YBARRA MD Report #: [id number] Location: ER Room/Bed: Procedure: [id number] DX/ WRIST COMPLETE LEFT Exam Date: 11/20/18 [...] [facility] ClubProthrombin Oovb6064-56-86 06:00:00* Test Item Value Reference Range Interpretation Comments Prothrombin Time (test code = 5902-2) 24.7 11.9-14.5 H [facility] ClubProthromb Time International Ratio 2018-09-14 06:00:00* Test Item [...] [facility] Trophy ClubActivated Partial Thromboplast Time 2018-09-14 05:39:00* Test Item Value Reference Range Interpretation Comments Activated Partial Thromboplast Time (test code = 23893-9) 64.9 23.8-35.5 H [facility] ClubActivated Partial Thromboplast Time 2018-09-14 05:39:00* Test Item Value Reference Range Interpretation Comments Activated Partial Thromboplast Time (test code = 63564-1) 64.9 23.8-35.5 H [facility] ClubWhite Blood Kbokv4627-30-26 05:24:00* Test Item Value Reference Range Interpretation Comments White Blood Count (test code = 6690-2) 6.12 4.8-10.8 [facility] ClubRed Blood Ndnsi1706-57-38 05:24:00* Test Item Value Reference Range Interpretation Comments Red Blood Count (test code = 789-8) 4.49 4.3-5.7 [facility] ClubHemoglobin2019-02-06 05:24:00* Test Item Value Reference Range Interpretation Comments Hemoglobin (test code = 41495-4) 12.9 14.0-18.0 L [facility] ClubHematocrit2019-02-06 05:24:00* Test Item Value Reference Range Interpretation Comments Hematocrit (test code = 4544-3) 41.3 38.2-49.6 [facility] Trophy ClubMean Corpuscular Ggtecg4477-37-00 05:24:00* Test Item Value Reference Range Interpretation Comments Mean Corpuscular Volume (test code = 787-2) 92.0 81-99 [facility] ClubMean Corpuscular Lcqaglkwcu4171-35-74 05:24:00* Test Item Value Reference Range Interpretation Comments Mean Corpuscular Hemoglobin (test code = 785-6) 28.7 28-32 [facility] Trophy ClubMean Corpuscular Hemoglobin Concent 2018-09-14 05:24:00* Test Item Value Reference Range Interpretation Comments Mean Corpuscular Hemoglobin Concent (test code = 786-4) 31.2 31-35 [facility] ClubRed Cell Distribution Sqyiz0238-48-71 05:24:00* Test Item Value Reference Range Interpretation Comments Red Cell Distribution Width (test code = 57658-4) 15.0 11.7 -14.4 H [facility] Trophy ClubPlatelet Yslpr3351-11-80 05:24:00* Test Item Value Reference Range Interpretation Comments Platelet Count (test code = 777-3) 147 140-360 [facility] ClubNeutrophils (%) (Auto)2018-09-14 05:24:00 * Test Item Value Reference Range Interpretation Comments Neutrophils (%) (Auto) (test code = 64966-0) 62.2 38.7-80.0 [facility] ClubLymphocytes (%) (Auto)2018-09-14 05:24:00 * Test Item Value Reference Range Interpretation Comments Lymphocytes (%) (Auto) (test code = 736-9) 20.8 18.0-39.1 [facility] ClubMonocytes (%) (Auto)2018-09-14 05:24:00* Test Item Value Reference Range Interpretation Comments Monocytes (%) (Auto) (test code = 5905-5) 12.6 4.4-11.3 H [facility] ClubEosinophils (%) (Auto)2018-09-14 05:24:00 * Test Item Value Reference Range Interpretation Comments Eosinophils (%) (Auto) (test code = 713-8) 3.3 0.0-6.0 [facility] ClubBasophils (%) (Auto)2018-09-14 05:24:00* Test Item Value Reference Range Interpretation Comments Basophils (%) (Auto) (test code = 706-2) 0.8 0.0-1.0 [facility] Trophy ClubIM GRANULOCYTES %2018-09-14 05:24:00* Test Item Value Reference Range Interpretation Comments IM GRANULOCYTES % (test code = IM GRANULOCYTES %) 0.3 0.0- 1.0 [facility] ClubNeutrophils # (Auto)2018-09-14 05:24:00* Test Item Value Reference Range Interpretation Comments Neutrophils # (Auto) (test code = 751-8) 3.8 2.1-6.9 [facility] ClubLymphocytes # (Auto)2018-09-14 05:24:00* Test Item Value Reference Range Interpretation Comments Lymphocytes # (Auto) (test code = 38972-6) 1.3 1.0-3.2 [facility] ClubMonocytes # (Auto)2018-09-14 05:24:00* Test Item Value Reference Range Interpretation Comments Monocytes # (Auto) (test code = 742-7) 0.8 0.2-0.8 [facility] ClubEosinophils # (Auto)2018-09-14 05:24:00* Test Item Value Reference Range Interpretation Comments Eosinophils # (Auto) (test code = 711-2) 0.2 0.0-0.4 [facility] ClubBasophils # (Auto)2018-09-14 05:24:00* Test Item Value Reference Range Interpretation Comments Basophils # (Auto) (test code = 704-7) 0.1 0.0-0.1 [facility] Trophy ClubAbsolute Immature Granulocyte (auto 2018-09-14 05:24:00* Test Item Value Reference Range Interpretation Comments Absolute Immature Granulocyte (auto (jeyson t code = Absolute Immature Granulocyte (auto) 0.02 0-0.1 [facility] ClubWhite Blood Funis5783-39-03 05:24:00* Test Item Value Reference Range Interpretation Comments White Blood Count (test code = 6690-2) 6.12 4.8-10.8 [facility] Trophy ClubRed Blood Khgmd2448-62-41 05:24:00* Test Item Value Reference Range Interpretation Comments Red Blood Count (test code = 789-8) 4.49 4.3-5.7 [facility] ClubHemoglobin2019-02-06 05:24:00* Test Item Value Reference Range Interpretation Comments Hemoglobin (test code = 98095-5) 12.9 14.0-18.0 L [facility] ClubHematocrit2019-02-06 05:24:00* Test Item Value Reference Range Interpretation Comments Hematocrit (test code = 4544-3) 41.3 38.2-49.6 [facility] ClubMean Corpuscular Kvwcnt1133-84-35 05:24:00* Test Item Value Reference Range Interpretation Comments Mean Corpuscular Volume (test code = 787-2) 92.0 81-99 [facility] ClubMean Corpuscular Hbsoafixxz2631-61-41 05:24:00* Test Item Value Reference Range Interpretation Comments Mean Corpuscular Hemoglobin (test code = 785-6) 28.7 28-32 [facility] Trophy ClubMean Corpuscular Hemoglobin Concent 2018-09-14 05:24:00* Test Item Value Reference Range Interpretation Comments Mean Corpuscular Hemoglobin Concent (test code = 786-4) 31.2 31-35 [facility] ClubRed Cell Distribution Udifu8992-03-65 05:24:00* Test Item Value Reference Range Interpretation Comments Red Cell Distribution Width (test code = 61107-0) 15.0 11.7 -14.4 H [facility] Trophy ClubPlatelet Yngvc7601-64-02 05:24:00* Test Item Value Reference Range Interpretation Comments Platelet Count (test code = 777-3) 147 140-360 [facility] Trophy ClubNeutrophils (%) (Auto)2018-09-14 05:24:00 * Test Item Value Reference Range Interpretation Comments Neutrophils (%) (Auto) (test code = 15794-4) 62.2 38.7-80.0 [facility] ClubLymphocytes (%) (Auto)2018-09-14 05:24:00 * Test Item Value Reference Range Interpretation Comments Lymphocytes (%) (Auto) (test code = 736-9) 20.8 18.0-39.1 [facility] ClubMonocytes (%) (Auto)2018-09-14 05:24:00* Test Item Value Reference Range Interpretation Comments Monocytes (%) (Auto) (test code = 5905-5) 12.6 4.4-11.3 H [facility] ClubEosinophils (%) (Auto)2018-09-14 05:24:00 * Test Item Value Reference Range Interpretation Comments Eosinophils (%) (Auto) (test code = 713-8) 3.3 0.0-6.0 [facility] ClubBasophils (%) (Auto)2018-09-14 05:24:00* Test Item Value Reference Range Interpretation Comments Basophils (%) (Auto) (test code = 706-2) 0.8 0.0-1.0 [facility] Trophy ClubIM GRANULOCYTES %2018-09-14 05:24:00* Test Item Value Reference Range Interpretation Comments IM GRANULOCYTES % (test code = IM GRANULOCYTES %) 0.3 0.0- 1.0 [facility] ClubNeutrophils # (Auto)2018-09-14 05:24:00* Test Item Value Reference Range Interpretation Comments Neutrophils # (Auto) (test code = 751-8) 3.8 2.1-6.9 [facility] ClubLymphocytes # (Auto)2018-09-14 05:24:00* Test Item Value Reference Range Interpretation Comments Lymphocytes # (Auto) (test code = 31165-7) 1.3 1.0-3.2 [facility] ClubMonocytes # (Auto)2018-09-14 05:24:00* Test Item Value Reference Range Interpretation Comments Monocytes # (Auto) (test code = 742-7) 0.8 0.2-0.8 [facility] ClubEosinophils # (Auto)2018-09-14 05:24:00* Test Item Value Reference Range Interpretation Comments Eosinophils # (Auto) (test code = 711-2) 0.2 0.0-0.4 [facility] ClubBasophils # (Auto)2018-09-14 05:24:00* Test Item Value Reference Range Interpretation Comments Basophils # (Auto) (test code = 704-7) 0.1 0.0-0.1 [facility] Trophy ClubAbsolute Immature Granulocyte (auto 2018-09-14 05:24:00* Test Item Value Reference Range Interpretation Comments Absolute Immature Granulocyte (auto (jeyson t code = Absolute Immature Granulocyte (auto) 0.02 0-0.1 [facility] Atlantaodium Gwtyg2940-68-23 06:39:00* Test Item Value Reference Range Interpretation Comments Sodium Level (test code = 2951-2) 137 136-145 [facility] Trophy ClubPotassium Bcurk5632-33-36 06:39:00* Test Item Value Reference Range Interpretation Comments Potassium Level (test code = 2823-3) 4.2 3.5-5.1 [facility] Trophy ClubChloride Ybkrr9094-40-84 06:39:00* Test Item Value Reference Range Interpretation Comments Chloride Level (test code = 2075-0) 93 98-107 L [facility] Trophy ClubCarbon Dioxide Urwwl8181-30-75 06:39:00* Test Item Value Reference Range Interpretation Comments Carbon Dioxide Level (test code = 2028-9) 35 22-29 H [facility] Trophy ClubAnion Mhf0729-74-96 06:39:00* Test Item Value Reference Range Interpretation Comments Anion Gap (test code = 78307-8) 13.2 8-16 [facility] Trophy ClubBlood Urea Mtuwacai5359-76-20 06:39:00* Test Item Value Reference Range Interpretation Comments Blood Urea Nitrogen (test code = 3094-0) 12 7-26 [facility] Trophy ClubCreatinine2019-02-05 06:39:00* Test Item Value Reference Range Interpretation Comments Creatinine (test code = 2160-0) 0.83 0.72-1.25 [facility] Trophy ClubBUN/Creatinine Fqwor8165-04-41 06:39:00* Test Item Value Reference Range Interpretation Comments BUN/Creatinine Ratio (test code = 3097-3) 14 6-25 [facility] Trophy ClubEstimat Glomerular Filtration Rate 2018-09-13 06:39:00* Test Item Value Reference Range Interpretation Comments Estimat Glomerular Filtration Rate (test code = 965314806) > 60 >60 Ranges were taken from the National Kidney Disease Education Program and the [facility] literature.Reference ranges:60 or greater: Xborrf92-86 ( for 3 consecutive months): Chronic kidney disease 15 or less: Kidney failureBaylor Scott & White Medical Center – Trophy ClubGlucose Hylrb2217-13-51 06:39:00* Test Item Value Reference Range Interpretation Comments Glucose Level (test code = PBW8295) 95 74-118 [facility] Trophy ClubCalcium Ufsei4360-47-06 06:39:00* Test Item Value Reference Range Interpretation Comments Calcium Level (test code = 36670-2) 8.9 8.4-10.2 [facility] [place]odium Jfdcq5775-07-07 06:39:00* Test Item Value Reference Range Interpretation Comments Sodium Level (test code = 2951-2) 137 136-145 [facility] ClubPotassium Hjwfu9045-64-44 06:39:00* Test Item Value Reference Range Interpretation Comments Potassium Level (test code = 2823-3) 4.2 3.5-5.1 [facility] Trophy ClubChloride Igyav3767-54-18 06:39:00* Test Item Value Reference Range Interpretation Comments Chloride Level (test code = 2075-0) 93 98-107 L [facility] Trophy ClubCarbon Dioxide Ytwqb1675-26-56 06:39:00* Test Item Value Reference Range Interpretation Comments Carbon Dioxide Level (test code = 2028-9) 35 22-29 H [facility] Trophy ClubAnion Qhd7478-72-98 06:39:00* Test Item Value Reference Range Interpretation Comments Anion Gap (test code = 52367-8) 13.2 8-16 [facility] Trophy ClubBlood Urea Netgpswp9725-64-41 06:39:00* Test Item Value Reference Range Interpretation Comments Blood Urea Nitrogen (test code = 3094-0) 12 7-26 [facility] Trophy ClubCreatinine2019-02-05 06:39:00* Test Item Value Reference Range Interpretation Comments Creatinine (test code = 2160-0) 0.83 0.72-1.25 [facility] ClubBUN/Creatinine Irzsa8493-49-11 06:39:00* Test Item Value Reference Range Interpretation Comments BUN/Creatinine Ratio (test code = 3097-3) 14 6-25 [facility] Trophy ClubEstimat Glomerular Filtration Rate 2018-09-13 06:39:00* Test Item Value Reference Range Interpretation Comments Estimat Glomerular Filtration Rate (test code = 610109795) > 60 >60 Ranges were taken from the National Kidney Disease Education Program and the [facility] literature.Reference ranges:60 or greater: Jtszab23-91 ( for 3 consecutive months): Chronic kidney disease 15 or less: Kidney failureBaylor Scott & White Medical Center – Trophy ClubGlucose Faeff5022-28-19 06:39:00* Test Item Value Reference Range Interpretation Comments Glucose Level (test code = OVB9687) 95 74-118 [facility] ClubCalcium Ccwlh3738-14-73 06:39:00* Test Item Value Reference Range Interpretation Comments Calcium Level (test code = 90931-6) 8.9 8.4-10.2 [facility] SINGLE (PORTABLE)2018-09-12 14:35:00 [facility] [address] [address] Patient Name: SHARMILA TORRES MR #: [id number] : 1965 Age/Sex: 53/M Req #: [id number] Adm Physician: KATHRYN CUMMINGS MD Ordered by: SAL MAXWELL MD Report #: [id number] Location: MED/SURG2 Room/Bed: [facility] Procedure: [id number] DX/CH EST SINGLE (PORTABLE) Exam Date: 09/12/18 [...] of lobar pneumonia. Signed by: Dr. Garland Wnikler MD on 09/12/2018 2:40 PM Dictated By: YASEMIN WINKLER MD [employer] Signed By: YASEMIN WINKLER MD on 09/12/18 1440 Transcribed By: DEE DEE on 1440 COPY TO: SAL MAXWELL MD CT BRAIN RQ8567-14-72 14:14:00 [address] [address] Patient Name: SHARMILA TORRES MR #: [id number] : 1965 Age/Sex: 53/M Req #: [id number] Adm Physician: KATHRYN CUMMINGS MD Ordered by: SAL MAXWELL MD Report #: [id number] Location: MED/SURG2 Room/Bed: [facility] Procedure: [id number] CT/CT BRAIN WO Exam Date: 09/12/18 Exam [...] PM Dictated B y: CRISTIAN DIAZ MD 21 COPY TO: CARMENZA MAXWELL MD KNEE LEFT 1-2 CWAKI0277-44-62 05:13:00 [facility] [address] [address] Patient Name: SHARMILA TORRES MR #: [id number] : 1965 Age/Sex: 53/M Req #: [id number] Adm Physician: KATHRYN CUMMINGS MD Ordered by: SAL MAXWELL MD Report #: [id number] Location: MED/SURG2 Room/Bed: [facility] Procedure: [id number] DX/KN EE LEFT 1-2 VIEWS Exam Date: [...] TO : SAL MAXWELL MD Creatine Kinase EA8444-13-07 21:06:00* Test Item Value Reference Range Interpretation Comments Creatine Kinase MB (test code = 68932-5) 1.60 0-5.0 [facility] CenterTrop[facility] O4020-00-22 21:06:00* Test Item Value Reference Range Interpretation Comments Troponin I (test code = WPO0531) 0.021 0-0.300 [facility] Trophy ClubCreatine Kinase NW5981-64-42 21:06:00* Test Item Value Reference Range Interpretation Comments Creatine Kinase MB (test code = 84971-1) 1.60 0-5.0 [facility] Trophy ClubTroponin M8489-87-56 21:06:00* Test Item Value Reference Range Interpretation Comments Troponin I (test code = KJF0861) 0.021 0-0.300 [facility] ClubCreatine Ldcgde2631-36-12 20:57:00* Test Item Value Reference Range Interpretation Comments Creatine Kinase (test code = 2157-6) 50 30-200 [facility] ClubCreatine Xnciav2020-06-80 20:57:00* Test Item Value Reference Range Interpretation Comments Creatine Kinase (test code = 2157-6) 50 30-200 [facility] Trophy ClubB-Type Natriuretic Kzlcvqy3863-46-85 05:16:00* Test Item Value Reference Range Interpretation Comments B-Type Natriuretic Peptide (test code = 97921-2) 128.2 0-100 H [facility] Trophy ClubB-Type Natriuretic Aksokzx4254-63-16 05:16:00* Test Item Value Reference Range Interpretation Comments B-Type Natriuretic Peptide (test code = 97689-9) 128.2 0-100 H [facility] Trophy ClubCHEST SINGLE (PORTABLE)2018-09-08 05:14:00 [address] [address] Patient Name: SHARMILA TORRES MR #: [id number] : 1965 Age/Sex: 53/M Req #: [id number] Adm Physician: Ordered by: ELVA VIVEROS MD Report #: [id number] Location: ER Room/Bed: Procedure: [id number] DX/CHEST SINGLE (PORTABLE) Exam Date: 09/08/18 Bladimir varela Time: 0445 REPORT STATUS: Signed CHEST SINGLE (PORTABLE), 09/08/2018 [...] 09/08/18514 COPY TO: ELVA VIVEROS MD Total Fxwruhxvj1490-40-21 05:06:00 * Test Item Value Reference Range Interpretation Comments Total Bilirubin (test code = 1975-2) 1.0 0.2-1.2 [facility] Trophy ClubAspartate Amino Transf (AST/SGOT) 2018-09-08 05:06:00* Test Item Value Reference Range Interpretation Comments Aspartate Amino Transf (AST/SGOT) (test code = Aspartate Amino Transf (AST/SGOT)) 27 5-34 [facility] Trophy ClubAlanine Aminotransferase (ALT/SGPT) 2018-09-08 05:06:00* Test Item Value Reference Range Interpretation Comments Alanine Aminotransferase (ALT/SGPT) (test code = 1742-6) 15 0-55 [facility] Trophy ClubTotal Viuybxf2621-27-24 05:06:00* Test Item Value Reference Range Interpretation Comments Total Protein (test code = 2885-2) 8.7 6.5-8.1 H [facility] Trophy ClubAlbumin2019-01-31 05:06:00* Test Item Value Reference Range Interpretation Comments Albumin (test code = 1751-7) 3.8 3.5-5.0 [facility] Trophy ClubGlobulin2019-01-31 05:06:00* Test Item Value Reference Range Interpretation Comments Globulin (test code = 98160-4) 4.9 2.3-3.5 H [facility] ClubAlbumin/Globulin Upaqu6577-12-25 05:06:00 * Test Item Value Reference Range Interpretation Comments Albumin/Globulin Ratio (test code = 1759-0) 0.8 0.8-2.0 [facility] Trophy ClubAlkaline Xxqsxzzliac1853-66-60 05:06:00* Test Item Value Reference Range Interpretation Comments Alkaline Phosphatase (test code = 6768-6) 129 40-150 [facility] Trophy ClubTotal Vsjwejcyo3553-32-93 05:06:00* Test Item Value Reference Range Interpretation Comments Total Bilirubin (test code = 1975-2) 1.0 0.2-1.2 [facility] Trophy ClubAspartate Amino Transf (AST/SGOT) 2018-09-08 05:06:00* Test Item Value Reference Range Interpretation Comments Aspartate Amino Transf (AST/SGOT) (test code = Aspartate Amino Transf (AST/SGOT)) 27 5-34 [facility] Trophy ClubAlanine Aminotransferase (ALT/SGPT) 2018-09-08 05:06:00* Test Item Value Reference Range Interpretation Comments Alanine Aminotransferase (ALT/SGPT) (test code = 1742-6) 15 0-55 [facility] Trophy ClubTotal Xrvnhyh9649-49-49 05:06:00* Test Item Value Reference Range Interpretation Comments Total Protein (test code = 2885-2) 8.7 6.5-8.1 H [facility] Trophy ClubAlbumin2019-01-31 05:06:00* Test Item Value Reference Range Interpretation Comments Albumin (test code = 1751-7) 3.8 3.5-5.0 [facility] Trophy ClubGlobulin2019-01-31 05:06:00* Test Item Value Reference Range Interpretation Comments Globulin (test code = 69466-3) 4.9 2.3-3.5 H [facility] Trophy ClubAlbumin/Globulin Egilt0464-63-57 05:06:00 * Test Item Value Reference Range Interpretation Comments Albumin/Globulin Ratio (test code = 1759-0) 0.8 0.8-2.0 [facility] Trophy ClubAlkaline Mrkdmgcvwtg3730-22-83 05:06:00* Test Item Value Reference Range Interpretation Comments Alkaline Phosphatase (test code = 6768-6) 129 40-150 [facility] Ceeeyfe3690-98-23 04:57:00* Test Item Value Reference Range Interpretation Comments Bedside Glucose (test code = 33922-7) 105 70-120 Meter ID: [id number] [facility] [facility] Glucose 2018-09-08 04:57:00* Test Item Value Reference Range Interpretation Comments Bedside Glucose (test code = 41854-0) 105 70-120 Meter ID: [id number] [facility] ClubBlood Culture 2018-01-03 16:13:00* Test Item Value Reference Range Interpretation Comments Blood Culture (test code = 84928895) NO GROWTH AFTER 5 DAYS, FINAL REPORT [facility] ClubUrine [id number] 16:51:00* Test Item Value Reference Range Interpretation Comments Urine WBC (test code = 5821-4) 50- 0-5 H [facility] ClubUrine BBS9578-68-62 16:51:00* Test Item Value Reference Range Interpretation Comments Urine RBC (test code = 08423-0) 21-50 0-5 H [facility] ClubU[facility] Oxaezima1022-72-29 16:51:00* Test Item Value Reference Range Interpretation Comments Urine Bacteria (test code = 29876-1) FEW NONE [facility] ClubUrine Epithelial Btzkv5501-20-13 16:51:00 * Test Item Value Reference Range Interpretation Comments Urine Epithelial Cells (test code = 57679-4) FEW NONE [facility] ClubUrine Transitional Epithelial Cells 2017-12-29 16:51:00* Test Item Value Reference Range Interpretation Comments Urine Transitional Epithelial Cells (test code = 8249-5) MODERATE NONE [facility] ClubU[facility] ETV2520-32-37 16:51:00* Test Item Value Reference Range Interpretation Comments Urine WBC (test code = 5821-4) >50 0-5 H [facility] ClubU[facility] HXF7394-25-63 16:51:00* Test Item Value Reference Range Interpretation Comments Urine RBC (test code = 86216-2) 21-50 0-5 H [facility] ClubU[facility] Sdnyriog9640-85-33 16:51:00* Test Item Value Reference Range Interpretation Comments Urine Bacteria (test code = 59165-8) FEW NONE [facility] ClubU[facility] Epithelial Swpvs7809-50-59 16:51:00 * Test Item Value Reference Range Interpretation Comments Urine Epithelial Cells (test code = 98721-9) FEW NONE [facility] ClubU[facility] Transitional Epithelial Cells 2017-12-29 16:51:00* Test Item Value Reference Range Interpretation Comments Urine Transitional Epithelial Cells (test code = 8249-5) MODERATE NONE [facility] ClubU[facility] Ctdsr5705-73-99 16:36:00* Test Item Value Reference Range Interpretation Comments Urine Color (test code = 5778-6) YELLOW YELLOW [facility] ClubU[facility] Wuzxzkr1290-85-18 16:36:00* Test Item Value Reference Range Interpretation Comments Urine Clarity (test code = 22457-6) HAZY CLEAR [facility] ClubUrine Specific Mtxjhlj7102-99-71 16:36:00 * Test Item Value Reference Range Interpretation Comments Urine Specific [place] (test code = 5811-5) 1.015 1.010-1.02 5 [facility] ClubU[facility] eT0323-08-13 16:36:00* Test Item Value Reference Range Interpretation Comments Urine pH (test code = 40081-9) 8 5-7 H [facility] ClubU[facility] Leukocyte Cfjsxslu0770-07-78 16:36:00* Test Item Value Reference Range Interpretation Comments Urine Leukocyte Esterase (test code = 5799-2) 1+ NEGATIVE H [facility] ClubU[facility] Didtuxf4510-25-81 16:36:00* Test Item Value Reference Range Interpretation Comments Urine Nitrite (test code = 76516-8) NEGATIVE NEGATIVE [facility] Club[facility] Ayniuav5469-76-93 16:36:00* Test Item Value Reference Range Interpretation Comments Urine Protein (test code = 5804-0) 2+ NEGATIVE H [facility] ClubUrine Glucose (UA)2017-12-29 16:36:00* Test Item Value Reference Range Interpretation Comments Urine Glucose (UA) (test code = 2349-9) NEGATIVE NEGATIVE [facility] ClubU[facility] Hgnjcou8271-24-50 16:36:00* Test Item Value Reference Range Interpretation Comments Urine Ketones (test code = 27567-4) NEGATIVE NEGATIVE [facility] ClubU[facility] Azxfrdvjdocz3698-81-87 16:36:00* Test Item Value Reference Range Interpretation Comments Urine Urobilinogen (test code = 55349-4) 1 0.2-1 [facility] ClubU[facility] Udujcvrvd3649-01-77 16:36:00* Test Item Value Reference Range Interpretation Comments Urine Bilirubin (test code = 1978-6) NEGATIVE NEGATIVE [facility] Zeaya2046-23-56 16:36:00* Test Item Value Reference Range Interpretation Comments Urine Blood (test code = 91074-7) 2+ NEGATIVE H [facility] ClubU[facility] Hvqjy8638-79-28 16:36:00* Test Item Value Reference Range Interpretation Comments Urine Color (test code = 5778-6) YELLOW YELLOW [facility] ClubU[facility] Opngvds3873-23-84 16:36:00* Test Item Value Reference Range Interpretation Comments Urine Clarity (test code = 75814-4) HAZY CLEAR [facility] ClubUrine Specific Kmbooqs8995-85-13 16:36:00 * Test Item Value Reference Range Interpretation Comments Urine Specific [place] (test code = 5811-5) 1.015 1.010-1.02 5 [facility] ClubU[facility] mA5940-87-79 16:36:00* Test Item Value Reference Range Interpretation Comments Urine pH (test code = 68159-0) 8 5-7 H [facility] ClubU[facility] Leukocyte Nipaluwd7571-20-44 16:36:00* Test Item Value Reference Range Interpretation Comments Urine Leukocyte Esterase (test code = 5799-2) 1+ NEGATIVE H [facility] ClubU[facility] Mherpfp4072-66-06 16:36:00* Test Item Value Reference Range Interpretation Comments Urine Nitrite (test code = 93087-8) NEGATIVE NEGATIVE [facility] ClubU[facility] Qmvtepl7233-00-93 16:36:00* Test Item Value Reference Range Interpretation Comments Urine Protein (test code = 5804-0) 2+ NEGATIVE H [facility] ClubUrine Glucose (UA)2017-12-29 16:36:00* Test Item Value Reference Range Interpretation Comments Urine Glucose (UA) (test code = 2349-9) NEGATIVE NEGATIVE [facility] ClubU[facility] Emqymtw9196-55-06 16:36:00* Test Item Value Reference Range Interpretation Comments Urine Ketones (test code = 63625-3) NEGATIVE NEGATIVE [facility] ClubU[facility] Zgdzjucrvaca9829-09-16 16:36:00* Test Item Value Reference Range Interpretation Comments Urine Urobilinogen (test code = 33226-6) 1 0.2-1 [facility] ClubUrine Sgcntdzmw1633-89-97 16:36:00* Test Item Value Reference Range Interpretation Comments Urine Bilirubin (test code = 1978-6) NEGATIVE NEGATIVE [facility] ClubUrine Ekbya2449-54-67 16:36:00* Test Item Value Reference Range Interpretation Comments Urine Blood (test code = 42886-1) 2+ NEGATIVE [facility] Kdors0010-03-27 16:26:00* Test Item Value Reference Range Interpretation Comments Sodium Level (test code = 2951-2) 136 136-145 [facility] ClubPotassium Blvgd2297-96-01 16:26:00* Test Item Value Reference Range Interpretation Comments Potassium Level (test code = 2823-3) 4.0 3.5-5.1 [facility] ClubChloride Mdssn3351-96-50 16:26:00* Test Item Value Reference Range Interpretation Comments Chloride Level (test code = 2075-0) 95 98-107 L [facility] Trophy ClubCarbon Dioxide Mikop0282-16-55 16:26:00* Test Item Value Reference Range Interpretation Comments Carbon Dioxide Level (test code = 2028-9) 32 22-29 H [facility] Trophy ClubAnion Qyw2172-66-67 16:26:00* Test Item Value Reference Range Interpretation Comments Anion Gap (test code = 60556-9) 13.0 8-16 [facility] ClubBlood Urea Vlqeoaqi9473-86-22 16:26:00* Test Item Value Reference Range Interpretation Comments Blood Urea Nitrogen (test code = 3094-0) 12 7-26 [facility] ClubCreatinine2018-05-23 16:26:00* Test Item Value Reference Range Interpretation Comments Creatinine (test code = 2160-0) 0.85 0.72-1.25 [facility] ClubBUN/Creatinine Psirh6642-30-81 16:26:00* Test Item Value Reference Range Interpretation Comments BUN/Creatinine Ratio (test code = 3097-3) 14 6- [facility] Trophy ClubEstimat Glomerular Filtration Rate 2017-12-29 16:26:00* Test Item Value Reference Range Interpretation Comments Estimat Glomerular Filtration Rate (test code = 50903-8) 60- >60 Ranges were taken from the National Kidney Disease Education Program and the [facility] Kidney Foundation literature.Reference ranges:60 or greater: Gmkiqv37-51 ( for 3 consecutive months): Chronic kidney disease 15 or less: Kidney failureBaylor Scott & White Medical Center – Trophy ClubGlucose Iuwcz8620-04-20 16:26:00* Test Item Value Reference Range Interpretation Comments Glucose Level (test code = EFF5030) 100 74-118 [facility] ClubCalcium Kjihx6243-04-09 16:26:00* Test Item Value Reference Range Interpretation Comments Calcium Level (test code = 00875-9) 9.8 8.4-10.2 [facility] Trophy ClubLactic Acid Sfnzx1644-68-68 16:26:00* Test Item Value Reference Range Interpretation Comments Lactic Acid Level (test code = Lactic Acid Level) 10.5 4.5- 19.8 [facility] ClubTotal Cclvrfgev9803-46-80 16:26:00* Test Item Value Reference Range Interpretation Comments Total Bilirubin (test code = 1975-2) 1.9 0.2-1.2 H [facility] Trophy ClubAspartate Amino Transf (AST/SGOT) 2017-12-29 16:26:00* Test Item Value Reference Range Interpretation Comments Aspartate Amino Transf (AST/SGOT) (test code = Aspartate Amino Transf (AST/SGOT)) 18 5-34 [facility] ClubAlanine Aminotransferase (ALT/SGPT) 2017-12-29 16:26:00* Test Item Value Reference Range Interpretation Comments Alanine Aminotransferase (ALT/SGPT) (test code = 1742-6) 12 0-55 [facility] ClubTotal Ftrecxc4647-29-35 16:26:00* Test Item Value Reference Range Interpretation Comments Total Protein (test code = 2885-2) 8.7 6.5-8.1 H [facility] ClubAlbumin2018-05-23 16:26:00* Test Item Value Reference Range Interpretation Comments Albumin (test code = 1751-7) 3.8 3.5-5.0 [facility] ClubGlobulin2018-05-23 16:26:00* Test Item Value Reference Range Interpretation Comments Globulin (test code = 17181-6) 4.9 2.3-3.5 H [facility] Trophy ClubAlbumin/Globulin Pmtro7429-66-24 16:26:00 * Test Item Value Reference Range Interpretation Comments Albumin/Globulin Ratio (test code = 1759-0) 0.8 0.8-2.0 [facility] ClubAlkaline Btrleuzbgop2148-71-43 16:26:00* Test Item Value Reference Range Interpretation Comments Alkaline Phosphatase (test code = 6768-6) 98 40-150 [facility] Trophy ClubLactic Acid Hmhju6261-54-78 16:26:00* Test Item Value Reference Range Interpretation Comments Lactic Acid Level (test code = Lactic Acid Level) 10.5 4.5- 19.8 [facility] ClubWhite Blood Vjbag4195-54-92 16:14:00* Test Item Value Reference Range Interpretation Comments White Blood Count (test code = 6690-2) 14.28 4.8-10.8 H [facility] Trophy ClubRed Blood Ildtm7951-80-04 16:14:00* Test Item Value Reference Range Interpretation Comments Red Blood Count (test code = 789-8) 5.25 4.3-5.7 [facility] ClubHemoglobin2018-05-23 16:14:00* Test Item Value Reference Range Interpretation Comments Hemoglobin (test code = 58346-3) 15.7 14.0-18.0 [facility] ClubHematocrit2018-05-23 16:14:00* Test Item Value Reference Range Interpretation Comments Hematocrit (test code = 4544-3) 46.9 38.2-49.6 [facility] Trophy ClubMean Corpuscular Zkojig2006-47-34 16:14:00* Test Item Value Reference Range Interpretation Comments Mean Corpuscular Volume (test code = 787-2) 89.3 81-99 [facility] Trophy ClubMean Corpuscular Ftcrisxlci2435-00-46 16:14:00* Test Item Value Reference Range Interpretation Comments Mean Corpuscular Hemoglobin (test code = 785-6) 29.9 28-32 [facility] Trophy ClubMean Corpuscular Hemoglobin Concent 2017-12-29 16:14:00* Test Item Value Reference Range Interpretation Comments Mean Corpuscular Hemoglobin Concent (test code = 786-4) 33.5 31-35 [facility] Trophy ClubRed Cell Distribution Yagvi6126-53-02 16:14:00* Test Item Value Reference Range Interpretation Comments Red Cell Distribution Width (test code = 55694-9) 13.8 11.7 -14.4 [facility] Trophy ClubPlatelet Dxmpk5186-45-71 16:14:00* Test Item Value Reference Range Interpretation Comments Platelet Count (test code = 777-3) 184 140-360 [facility] ClubNeutrophils (%) (Auto)2017-12-29 16:14:00 * Test Item Value Reference Range Interpretation Comments Neutrophils (%) (Auto) (test code = 91369-3) 81.5 38.7-80.0 H [facility] ClubLymphocytes (%) (Auto)2017-12-29 16:14:00 * Test Item Value Reference Range Interpretation Comments Lymphocytes (%) (Auto) (test code = 736-9) 9.5 18.0-39.1 L [facility] ClubMonocytes (%) (Auto)2017-12-29 16:14:00* Test Item Value Reference Range Interpretation Comments Monocytes (%) (Auto) (test code = 5905-5) 7.2 4.4-11.3 [facility] ClubEosinophils (%) (Auto)2017-12-29 16:14:00 * Test Item Value Reference Range Interpretation Comments Eosinophils (%) (Auto) (test code = 713-8) 0.7 0.0-6.0 [facility] ClubBasophils (%) (Auto)2017-12-29 16:14:00* Test Item Value Reference Range Interpretation Comments Basophils (%) (Auto) (test code = 706-2) 0.5 0.0-1.0 [facility] Trophy ClubIM GRANULOCYTES %2017-12-29 16:14:00* Test Item Value Reference Range Interpretation Comments IM GRANULOCYTES % (test code = IM GRANULOCYTES %) 0.6 0.0- 1.0 [facility] ClubNeutrophils # (Auto)2017-12-29 16:14:00* Test Item Value Reference Range Interpretation Comments Neutrophils # (Auto) (test code = 751-8) 11.6 2.1-6.9 H [facility] ClubLymphocytes # (Auto)2017-12-29 16:14:00* Test Item Value Reference Range Interpretation Comments Lymphocytes # (Auto) (test code = 61726-9) 1.4 1.0-3.2 [facility] ClubMonocytes # (Auto)2017-12-29 16:14:00* Test Item Value Reference Range Interpretation Comments Monocytes # (Auto) (test code = 742-7) 1.0 0.2-0.8 H [facility] ClubEosinophils # (Auto)2017-12-29 16:14:00* Test Item Value Reference Range Interpretation Comments Eosinophils # (Auto) (test code = 711-2) 0.1 0.0-0.4 [facility] ClubBasophils # (Auto)2017-12-29 16:14:00* Test Item Value Reference Range Interpretation Comments Basophils # (Auto) (test code = 704-7) 0.1 0.0-0.1 [facility] Trophy ClubAbsolute Immature Granulocyte (auto 2017-12-29 16:14:00* Test Item Value Reference Range Interpretation Comments Absolute Immature Granulocyte (auto (jeyson t code = Absolute Immature Granulocyte (auto) 0.08 0-0.1 [facility] [place] Jwtyk8268-76-30 22:25:00* Test Item Value Reference Range Interpretation Comments Sodium Level (test code = 2951-2) 136 136-145 [facility] ClubPotassium Onenb6390-88-13 22:25:00* Test Item Value Reference Range Interpretation Comments Potassium Level (test code = 2823-3) 3.9 3.5-5.1 [facility] ClubChloride Rdaqm4046-85-88 22:25:00* Test Item Value Reference Range Interpretation Comments Chloride Level (test code = 2075-0) 95 98-107 L [facility] Trophy ClubCarbon Dioxide Cdlls8958-33-98 22:25:00* Test Item Value Reference Range Interpretation Comments Carbon Dioxide Level (test code = 2028-9) 30 22-29 H [facility] Trophy ClubAnion Pui7717-84-44 22:25:00* Test Item Value Reference Range Interpretation Comments Anion Gap (test code = 78384-8) 14.9 8-16 [facility] ClubBlood Urea Geaxturq9972-81-66 22:25:00* Test Item Value Reference Range Interpretation Comments Blood Urea Nitrogen (test code = 3094-0) 14 7-26 [facility] ClubCreatinine2018-05-07 22:25:00* Test Item Value Reference Range Interpretation Comments Creatinine (test code = 2160-0) 0.84 0.72-1.25 [facility] ClubBUN/Creatinine Amixi1692-51-74 22:25:00* Test Item Value Reference Range Interpretation Comments BUN/Creatinine Ratio (test code = 3097-3) 17 6-25 [facility] Trophy ClubEstimat Glomerular Filtration Rate 2017-12-13 22:25:00* Test Item Value Reference Range Interpretation Comments Estimat Glomerular Filtration Rate (test code = 56953-2) 60- >60 Ranges were taken from the National Kidney Disease Education Program and the [facility] Kidney Foundation literature.Reference ranges:60 or greater: Uzdsdl45-51 ( for 3 consecutive months): Chronic kidney disease 15 or less: Kidney failureBaylor Scott & [facility] – Trophy ClubGlucose Hvcpg6282-27-71 22:25:00* Test Item Value Reference Range Interpretation Comments Glucose Level (test code = WZI5651) 95 74-118 [facility] ClubCalcium Thkmz8263-83-47 22:25:00* Test Item Value Reference Range Interpretation Comments Calcium Level (test code = 21637-4) 9.4 8.4-10.2 [facility] ClubTotal Bxgpktpac4166-64-82 22:25:00* Test Item Value Reference Range Interpretation Comments Total Bilirubin (test code = 1975-2) 1.0 0.2-1.2 [facility] Trophy ClubAspartate Amino Transf (AST/SGOT) 2017-12-13 22:25:00* Test Item Value Reference Range Interpretation Comments Aspartate Amino Transf (AST/SGOT) (test code = Aspartate Amino Transf (AST/SGOT)) 22 5-34 [facility] ClubAlanine Aminotransferase (ALT/SGPT) 2017-12-13 22:25:00* Test Item Value Reference Range Interpretation Comments Alanine Aminotransferase (ALT/SGPT) (test code = 1742-6) 14 0-55 [facility] ClubTotal Rvupnuq7810-86-01 22:25:00* Test Item Value Reference Range Interpretation Comments Total Protein (test code = 2885-2) 8.6 6.5-8.1 H [facility] ClubAlbumin2018-05-07 22:25:00* Test Item Value Reference Range Interpretation Comments Albumin (test code = 1751-7) 3.5 3.5-5.0 [facility] ClubGlobulin2018-05-07 22:25:00* Test Item Value Reference Range Interpretation Comments Globulin (test code = 46043-0) 5.1 2.3-3.5 H [facility] ClubAlbumin/Globulin Msojv7880-40-46 22:25:00 * Test Item Value Reference Range Interpretation Comments Albumin/Globulin Ratio (test code = 1759-0) 0.7 0.8-2.0 L [facility] ClubAlkaline Doziozhizkp3470-45-39 22:25:00* Test Item Value Reference Range Interpretation Comments Alkaline Phosphatase (test code = 6768-6) 107 40-150 [facility] ClubWhite Blood Cpqwz9978-68-70 22:08:00* Test Item Value Reference Range Interpretation Comments White Blood Count (test code = 6690-2) 11.20 4.8-10.8 H [facility] ClubRed Blood Uxlpr8792-67-55 22:08:00* Test Item Value Reference Range Interpretation Comments Red Blood Count (test code = 789-8) 5.41 4.3-5.7 [facility] ClubHemoglobin2018-05-07 22:08:00* Test Item Value Reference Range Interpretation Comments Hemoglobin (test code = 88772-1) 15.9 14.0-18.0 [facility] Trophy ClubHematocrit2018-05-07 22:08:00* Test Item Value Reference Range Interpretation Comments Hematocrit (test code = 4544-3) 48.4 38.2-49.6 [facility] ClubMean Corpuscular Zxxlpu0384-65-35 22:08:00* Test Item Value Reference Range Interpretation Comments Mean Corpuscular Volume (test code = 787-2) 89.5 81-99 [facility] ClubMean Corpuscular Caaotvmnzj0918-13-69 22:08:00* Test Item Value Reference Range Interpretation Comments Mean Corpuscular Hemoglobin (test code = 785-6) 29.4 28-32 [facility] Trophy ClubMean Corpuscular Hemoglobin Concent 2017-12-13 22:08:00* Test Item Value Reference Range Interpretation Comments Mean Corpuscular Hemoglobin Concent (test code = 786-4) 32.9 31-35 [facility] ClubRed Cell Distribution Xqjdk9667-04-84 22:08:00* Test Item Value Reference Range Interpretation Comments Red Cell Distribution Width (test code = 93578-9) 13.7 11.7 -14.4 [facility] Trophy ClubPlatelet Lpgmi5967-32-19 22:08:00* Test Item Value Reference Range Interpretation Comments Platelet Count (test code = 777-3) 206 140-360 [facility] ClubNeutrophils (%) (Auto)2017-12-13 22:08:00 * Test Item Value Reference Range Interpretation Comments Neutrophils (%) (Auto) (test code = 53470-8) 74.4 38.7-80.0 [facility] ClubLymphocytes (%) (Auto)2017-12-13 22:08:00 * Test Item Value Reference Range Interpretation Comments Lymphocytes (%) (Auto) (test code = 736-9) 13.3 18.0-39.1 L [facility] ClubMonocytes (%) (Auto)2017-12-13 22:08:00* Test Item Value Reference Range Interpretation Comments Monocytes (%) (Auto) (test code = 5905-5) 8.1 4.4-11.3 [facility] ClubEosinophils (%) (Auto)2017-12-13 22:08:00 * Test Item Value Reference Range Interpretation Comments Eosinophils (%) (Auto) (test code = 713-8) 3.3 0.0-6.0 [facility] ClubBasophils (%) (Auto)2017-12-13 22:08:00* Test Item Value Reference Range Interpretation Comments Basophils (%) (Auto) (test code = 706-2) 0.5 0.0-1.0 [facility] Trophy ClubIM GRANULOCYTES %2017-12-13 22:08:00* Test Item Value Reference Range Interpretation Comments IM GRANULOCYTES % (test code = IM GRANULOCYTES %) 0.4 0.0- 1.0 [facility] ClubNeutrophils # (Auto)2017-12-13 22:08:00* Test Item Value Reference Range Interpretation Comments Neutrophils # (Auto) (test code = 751-8) 8.3 2.1-6.9 H [facility] ClubLymphocytes # (Auto)2017-12-13 22:08:00* Test Item Value Reference Range Interpretation Comments Lymphocytes # (Auto) (test code = 73753-6) 1.5 1.0-3.2 [facility] ClubMonocytes # (Auto)2017-12-13 22:08:00* Test Item Value Reference Range Interpretation Comments Monocytes # (Auto) (test code = 742-7) 0.9 0.2-0.8 H [facility] ClubEosinophils # (Auto)2017-12-13 22:08:00* Test Item Value Reference Range Interpretation Comments Eosinophils # (Auto) (test code = 711-2) 0.4 0.0-0.4 [facility] ClubBasophils # (Auto)2017-12-13 22:08:00* Test Item Value Reference Range Interpretation Comments Basophils # (Auto) (test code = 704-7) 0.1 0.0-0.1 [facility] Trophy ClubAbsolute Immature Granulocyte (auto 2017-12-13 22:08:00* Test Item Value Reference Range Interpretation Comments Absolute Immature Granulocyte (auto (jeyson t code = Absolute Immature Granulocyte (auto) 0.05 0-0.1 [facility] Trophy ClubBlood Dcjecdr6840-68-92 22:21:00* Test Item Value Reference Range Interpretation Comments Blood Culture (test code = 67992380) NO GROWTH AFTER 5 DAYS, FINAL REPORT [facility] ClubBlood Isksami0741-37-11 22:21:00* Test Item Value Reference Range Interpretation Comments Blood Culture (test code = 59495804) NO GROWTH AFTER 5 DAYS, FINAL REPORT [facility] Club[facility]ine Kinase [id number] 15:30:00* Test Item Value Reference Range Interpretation Comments Creatine Kinase MB (test code = 23995-0) 1.90 0.00-5.00 [facility] ClubTroponin [id number] 15:30:00* Test Item Value Reference Range Interpretation Comments Troponin I (test code = PVS2757) 0.012 0-0.300 [facility] ClubCreatine Kinase [id number] 15:30:00* Test Item Value Reference Range Interpretation Comments Creatine Kinase MB (test code = 35312-7) 1.90 0.00-5.00 [facility] ClubTroponin [id number] 15:30:00* Test Item Value Reference Range Interpretation Comments Troponin I (test code = ZOD4935) 0.012 0-0.300 [facility] ClubCreat[facility] Ijzsyg8686-58-69 15:23:00* Test Item Value Reference Range Interpretation Comments Creatine Kinase (test code = 2157-6) 105 30-200 [facility] ClubCreat[facility] Ysguqd5192-76-76 15:23:00* Test Item Value Reference Range Interpretation Comments Creatine Kinase (test code = 2157-6) 105 30-200 [facility] ClubU[facility] [id number] 21:51:00* Test Item Value Reference Range Interpretation Comments Urine WBC (test code = 5821-4) 0-5 0-5 [facility] [id number] 21:51:00* Test Item Value Reference Range Interpretation Comments Urine RBC (test code = 12048-1) 21-50 0-5 H [facility] Club[facility] Vqmpviub7867-84-72 21:51:00* Test Item Value Reference Range Interpretation Comments Urine Bacteria (test code = 49320-4) RARE NONE [facility] Epithelial Ruwhh2275-13-32 21:51:00 * Test Item Value Reference Range Interpretation Comments Urine Epithelial Cells (test code = 51407-8) FEW NONE [facility] Club[facility] Xbfiu3701-73-16 21:46:00* Test Item Value Reference Range Interpretation Comments Urine Color (test code = 5778-6) YELLOW YELLOW [facility] Gawmnfb2754-00-54 21:46:00* Test Item Value Reference Range Interpretation Comments Urine Clarity (test code = 89844-1) CLEAR CLEAR [facility] Specific Ojpyjdr1320-01-37 21:46:00 * Test Item Value Reference Range Interpretation Comments Urine Specific [place] (test code = 5811-5) 1.015 1.010-1.02 5 [facility] Club[facility] [id number] 21:46:00* Test Item Value Reference Range Interpretation Comments Urine pH (test code = 21673-7) 6 5-7 [facility] Leukocyte Pxrmnofd8671-38-32 21:46:00* Test Item Value Reference Range Interpretation Comments Urine Leukocyte Esterase (test code = 5799-2) NEGATIVE NEGATIVE [facility] Cpqhpwe7311-32-43 21:46:00* Test Item Value Reference Range Interpretation Comments Urine Nitrite (test code = 55634-8) NEGATIVE NEGATIVE [facility] Qasimac8148-69-18 21:46:00* Test Item Value Reference Range Interpretation Comments Urine Protein (test code = 5804-0) 1+ NEGATIVE H [facility] Club[facility] Glucose (UA)2017-04-26 21:46:00* Test Item Value Reference Range Interpretation Comments Urine Glucose (UA) (test code = 2349-9) NEGATIVE NEGATIVE [facility] Pcgdpka5289-34-19 21:46:00* Test Item Value Reference Range Interpretation Comments Urine Ketones (test code = 89928-1) NEGATIVE NEGATIVE [facility] Feggyqiihuft0572-49-84 21:46:00* Test Item Value Reference Range Interpretation Comments Urine Urobilinogen (test code = 50728-4) 0.2 0.2-1 [facility] Nltpfkskm8742-78-73 21:46:00* Test Item Value Reference Range Interpretation Comments Urine Bilirubin (test code = 1978-6) NEGATIVE NEGATIVE [facility] Gpdiy0324-20-44 21:46:00* Test Item Value Reference Range Interpretation Comments Urine Blood (test code = 55060-2) 3+ NEGATIVE H [facility] ClubB-Type Natriuretic Rpbtwjt9709-96-45 21:44:00* Test Item Value Reference Range Interpretation Comments B-Type Natriuretic Peptide (test code = 88918-8) 68.3 0-100 [facility] ClubB-Type Natriuretic Zgcyuhw1938-28-90 21:44:00* Test Item Value Reference Range Interpretation Comments B-Type Natriuretic Peptide (test code = 21375-6) 68.3 0-100 [facility] ClubMagnesium Nmjyh2361-87-94 21:37:00* Test Item Value Reference Range Interpretation Comments Magnesium Level (test code = 42353-5) 2.1 1.3-2.1 [facility] ClubMagnesium Gotxa3755-30-64 21:37:00* Test Item Value Reference Range Interpretation Comments Magnesium Level (test code = 28356-6) 2.1 1.3-2.1 [facility] ClubD-Dimer Quantitative (PE/DVT)2017-04-26 21:31:00* Test Item Value Reference Range Interpretation Comments D-Dimer Quantitative (PE/DVT) (test code = 95156-2) 0.22 0. 00-0.45 [facility] ClubD-Dimer Quantitative (PE/DVT)2017-04-26 21:31:00* Test Item Value Reference Range Interpretation Comments D-Dimer Quantitative (PE/DVT) (test code = 95842-3) 0.22 0. 00-0.45 [facility] ClubActivated Partial Thromboplast Time 2017-04-26 21:28:00* Test Item Value Reference Range Interpretation Comments Activated Partial Thromboplast Time (test code = 44090-2) 46.8 23.8-35.5 H [facility] ClubAct[facility] Partial Thromboplast Time 2017-04-26 21:28:00* Test Item Value Reference Range Interpretation Comments Activated Partial Thromboplast Time (test code = 49533-4) 46.8 23.8-35.5 H [facility] ClubProthrombin Prpx8207-67-68 21:26:00* Test Item Value Reference Range Interpretation Comments Prothrombin Time (test code = 5902-2) 27.0 11.9-14.5 H [facility] ClubProthromb Time International Ratio 2017-04-26 21:26:00* Test Item [...] [facility] ClubProthrombin Aczy0194-73-97 21:26:00* Test Item Value Reference Range Interpretation Comments Prothrombin Time (test code = 5902-2) 27.0 11.9-14.5 H [facility] ClubProthromb Time International Ratio 2017-04-26 21:26:00* Test Item [...] [facility] ClubCHES [facility] V[facility]WS [place] [address] Patient Name: SHARMILA TORRES MR #: [id number] : 1965 Age/Sex: 52/M Req #: [id number] [facility] Physician: Ordered by: PAM WEBB MD Report #: [id number] Location: Room/Bed: Procedure: [id number] DX/CHEST 2 VIEWS Exam Date: 12/29/17 Exam Time: 1600 REPORT STATUS: Signed PROCEDURE: Frontal and lateral views of the chest. COMPARISON: [facility], DX, CHEST 2 VIEWS, 04/26/2017, 21:11. [...] 16:32 Dictated By: TAMY FRIEDMAN MD, MD 1632 Transcribed By: SHAHLA on 12/29/17 1632 COPY TO: PAM WEBB MD CT [facility]/JAYME [place] [address] Patient Name: SHARMILA TORRES MR #: [id number] : 1965 Age/Sex: 52/M Req #: [id number] Adm Physician: Ordered by: ELVA VIVEROS MD Report #: [id number] Location: ER Room/Bed: Procedure: [id number] CT/CT MAXIO FAC/PARANAS W O Exam Date: [...] KHADIJAH WILEY MD 2 253 Transcribed By: DEED EE on 12/13/17 8435 COPY TO: LAMAR VIVEROS MD CT ABDOMEN/PELVIS [place] [address] Patient Name: SHARMILA TORRES MR #: [id number] : 1965 Age/Sex: 52/M Req #: [id number] Adm Physician: Ordered by: OLEGARIO WILLIAM MD Report #: [id number] Location: ER Room/Bed: Procedure: [id number] CT/CT ABDOMEN/PELVIS WO Exam Da te: 04/26/17 [...] engel Signed By: NKECHI MEDLEY MD on 04/26/172344 Transcribed By: DEE DEE on 04/26/172344 COPY TO: OLEGARIO WILLIAM MD CHEST 2 VIEWS [place] [address] Patient Name: SHARMILA TORRES MR #: [id number] : Age/Sex: 52/M Req #: [id number] Adm Physician: Ordered by: OLEGARIO WILLIAM MD Report #: [id number] Location: ER Room/Bed: Procedure: [id number] DX/CHEST 2 VIEWS Exam Date: Exam Time: [...]
[2020-04-26] MEDS ORDERED: FUROSEMIDE INJ 10 MG/ML 4 ML VIAL IV SCH (17:00)
[2020-04-26] MEDS: FUROSEMIDE INJ 10 MG/ML 4 ML VIAL IV SCH ×3 (17:32→22:30)
--- NOTE | 2020-04-26 19:00 | NUR ---
pt very lethargic, easy to arouse, SOB at rest . tachypneic. O2 96 % on 12 l hi flow NC , have a hard time breathing laying in a bed , prefer to sit on a side of the bed or in a beny.skin condition : reddened folds . barrier cream applied.Pt ambulate to the bathroom with walker , refused to use urinal .
[2020-04-26 19:33] VITALS: BP 130/93
[2020-04-26 19:38] VITALS: BP 130/93
--- NOTE | 2020-04-26 19:44 | NUR ---
patient is a new admit. patient is resting in the bed. continues on oxygenvia high flow nasal cannula. denies pain or discomfort. will continue to monitor patient.
[2020-04-26 23:19] LABS: CREATINE KINASE MB 6.8 ng/mL (0-5.0)
[2020-04-27] VITALS: BP 116/70
[2020-04-27] MEDS: FUROSEMIDE INJ 10 MG/ML 4 ML VIAL IV SCH ×4 (00:40→17:13)
--- NOTE | 2020-04-27 02:08 | Consultation ---
DATE OF CONSULTATION: 04/26/2020 Cardiology consultation REQUESTING PHYSICIAN: Dr. Iyer. REASON FOR CONSULTATION: Congestive heart failure. HISTORY OF PRESENT ILLNESSS: This is a 55-year-old man with history of mechanical aortic and mitral valve replacements, chronic systolic and diastolic heart failure, paroxysmal atrial fibrillation, hypertension, hyperlipidemia, and morbid obesity, who presented with increasing abdominal distention. The patient was recently discharged from the hospital last month after an admission for acute on chronic systolic heart failure. He reports that after his discharge, he began having increasing abdominal distention and then he has gained approximately 20 pounds in the last three weeks. He does endorse chronic lower extremity edema, but does not notice any significant change in his edema. However, he has noted increasing dyspnea on exertion. He denies any chest pain, orthopnea, PND, or palpitations. REVIEW OF SYSTEMS: Negative except as per HPI. PAST MEDICAL HISTORY: 1. History of mechanical and aortic valve replacement. 2. Chronic systolic heart failure. 3. Paroxysmal atrial fibrillation. 4. Hypertension. 5. Hyperlipidemia. 6. Morbid obesity. 7. Chronic hypoxic respiratory failure on home O2. PAST SURGICAL HISTORY: 1. Mechanical aortic valve replacement. 2. Tonsillectomy. ALLERGIES: PLEASE SEE EMR. MEDICATIONS: Please see medication list. SOCIAL HISTORY: No tobacco or illicit drugs, but does endorse occasional alcohol. FAMILY HISTORY: Noncontributory to current illness. PHYSICAL EXAMINATION: VITAL SIGNS: Temperature 98.5 degrees, pulse 74, respiratory rate 24, blood pressure 127/92, and oxygen saturation 97% on 6 L nasal cannula. GENERAL: Morbidly obese gentleman, in no acute distress, sitting upright in bed, awake and alert. HEENT: Normocephalic, atraumatic. Pupils equal. No scleral icterus. NECK: Supple. No thyromegaly or cervical lymphadenopathy. No carotid bruits. LUNGS: Decreased breath sounds at the bases. No wheezes or crackles. CARDIOVASCULAR: Irregularly irregular. Systolic murmur at the left sternal border with mechanical valve sounds. ABDOMEN: Soft and distended. EXTREMITIES: 2+ pitting edema bilaterally. NEUROLOGIC: Nonfocal exam. LABORATORY DATA: WBC 7.54, hemoglobin 12.1, hematocrit 40.2, platelets 201. Sodium 139, potassium 3.8, chloride 91, CO2 37, BUN 17 and creatinine 0.92. Troponin 0.033. BNP 267. Chest x-ray enlargement of the cardiac silhouette with interstitial pulmonary edema and small bilateral pleural effusions. CT of abdomen and pelvis, hepatic structures, trace abdominal ascites, interstitial pulmonary edema, a 6 mm right lower lobe pulmonary nodule. EKG, atrial fibrillation. IMPRESSION: 1. Acute on chronic systolic heart failure. 2. History of mechanical aortic and mitral valve replacement. 3. Atrial fibrillation. 4. Hypertension. 5. Hyperlipidemia. 6. Morbid obesity. 7. Cirrhosis suggested by CT imaging. RECOMMENDATIONS: Increase IV Lasix to t.i.d. Monitor creatinine. Replete electrolytes. He may require transition to be Bumex or torsemide when he is ready for discharge to maintain volume status. Continue warfarin for CVA prophylaxis. His INR target is 2.5 to 3.5, given his mechanical aortic and mitral valve, blood pressure is acceptable, strict I's and O's as well as daily weights. He will need initiation of optimal therapy for heart failure as blood pressure tolerates. Thank you for this consult. We will continue to follow. Asha Keys MD ABS/MODL /[id number]
[2020-04-27 05:25] VITALS: BP 108/67
[2020-04-27 05:25] LABS: BASOPHILS # (AUTO) 0.1 (0.0-0.1); BASOPHILS % 0.6 % (0.0-1.0); EOSINOPHILS # (AUTO) 0.1 (0.0-0.4); EOSINOPHILS % 0.7 % (0.0-6.0); HEMATOCRIT 42.5 % (38.2-49.6); HEMOGLOBIN 12.3 g/dL (14.0-18.0); LYMPHOCYTES % 10.8 % (18.0-39.1); MEAN CORPUSCULAR HEMOGLOBIN 27.9 pg (28-32); MEAN CORPUSCULAR HGB CONC 28.9 g/dL (31-35); MEAN CORPUSCULAR VOLUME 96.4 fL (81-99); MONOCYTES # (AUTO) 0.8 (0.2-0.8); NEUTROPHILS # (AUTO) 7.1 (2.1-6.9); NEUTROPHILS % 78.6 % (38.7-80.0); PLATELET COUNT 205 x10e3/uL (140-360); RED BLOOD COUNT 4.41 x10e6/uL (4.3-5.7); RED CELL DISTRIBUTION WIDTH 15.7 % (11.7-14.4)
[2020-04-27 05:57] LABS: ANION GAP 17.6 mmol/L (8-16); BLOOD UREA NITROGEN 15 mg/dL (7-26); BUN/CREATININE RATIO 17 (6-25); CALCIUM 9.3 mg/dL (8.4-10.2); CARBON DIOXIDE 35 mmol/L (22-29); CHLORIDE 93 mmol/L (98-107); EST GLOMERULAR FILTRATION RATE > 60 ML/MIN (60-); GLUCOSE 113 mg/dL (74-118); POTASSIUM 4.6 mmol/L (3.5-5.1); SODIUM 141 mmol/L (136-145)
[2020-04-27 06:51] VITALS: BP 108/67
[2020-04-27 10:36] LABS: INR 2.58; PROTHROMBIN TIME 28.9 seconds (11.9-14.5)
--- NOTE | 2020-04-27 11:09 | Progress Note ---
DATE: Cardiology Progress Note SUBJECTIVE: The patient reports having not slept all night. He is very tired this morning. Denies any chest pain. Continues to have some trouble breathing and also extensive abdominal swelling. OBJECTIVE: VITAL SIGNS: Temperature 99.4, pulse 74, respiratory rate 20, blood pressure 106/67, oxygen saturation 95% on 12 L nasal cannula. GENERAL: Alert and oriented x2, resting comfortably in the bed, drowsy this morning. NECK: No JVD noted. Supple. LUNGS: Diminished breath sounds throughout. No wheezing. No rhonchi or crackles noted. CARDIOVASCULAR: Tachycardic irregular rate and rhythm. Systolic murmur noted with a mechanical valve sound auscultated. ABDOMEN: Rounded, slightly hardened, edematous. EXTREMITIES: Lower extremities 2+ pitting edema bilaterally. CURRENT MEDICATIONS: Furosemide 40 mg IV q.6 hours. LABORATORY DATA: WBC 8.98, hemoglobin 12.2, hematocrit 42.5, platelets 205. Sodium 141, potassium 4.6, BUN 15, creatinine 0.90, CK-MB 7, creatine kinase 77, troponin 0.045. BNP 301.3. IMPRESSION: 1. Acute on chronic systolic heart failure. 2. History of a mechanical aortic and mitral valve replacement. 3. Atrial fibrillation. 4. Hypertension. 5. Hyperlipidemia. 6. Morbid obesity. 7. Cirrhosis suggested by CT. RECOMMENDATION: Increase IV Lasix to t.i.d. Continue to monitor creatinine. Replete electrolytes if needed. This patient may require transition to Bumex or torsemide when ready for discharge to maintain volume status. Continue warfarin for CVA prophylaxis, this will be re-initiated. His INR goal is 2.5 to 3.5, given his mechanical valve. Monitor I's and O's strictly. Re-initiate optimal management for heart failure and monitor blood pressure closely. Dictated by Xuan Zarate NP MD MAX Bean/YARITZA /[id number]
[2020-04-27] MEDS ORDERED: ALBUTEROL/IPRATROPIUM 3 ML NEB NEB PRN (11:15)
[2020-04-27] MEDS ORDERED: ALPRAZOLAM 0.25 MG TAB PO PRN (11:15)
[2020-04-27] MEDS ORDERED: MORPHINE SULFATE INJ 4 MG/ML INJ 1ML IV PRN (11:15)
[2020-04-27] MEDS ORDERED: ONDANSETRON HCL INJ 2MG/ML 2ML 2 MG/ML VIAL IV PRN (11:15)
[2020-04-27 11:24] LABS: EOSINOPHILS % (MANUAL) 1 % (0-7); LYMPHOCYTES % (MANUAL) 11 % (19-48); MONOCYTES % (MANUAL) 9 % (3.4-9.0); NEUTROPHILS % (MANUAL) 78 % (40-74); PLATELET ESTIMATE ADEQUATE
[2020-04-27 11:25] LABS: PLATELET MORPHOLOGY COMMENT NORMAL; RBC MORPHOLOGY COMMENT NORMAL
--- NOTE | 2020-04-27 11:30 | NUR ---
no changes with respiratory status over night . more lethargic in am. per pt he is so tired because he was up all night to the bathroom ( iv Lasix) . continue to monitor .
[2020-04-27] MEDS: CEFTRIAXONE SOD 1 GM/NS 50 ML 50 ML IV SCH ×2 (11:55→20:47)
[2020-04-27] MEDS: ENOXAPARIN SODIUM INJ 100 MG/ML SYR SC SCH ×2 (11:55→20:47)
[2020-04-27 12:00] VITALS: BP 154/93
--- NOTE | 2020-04-27 12:59 | NUR ---
Nutrition Screen Note RD Recommendation for Physician: -Recommend cardiac diet Plan of Care: RD following, monitoring for tolerance and adequacy Nutrition reason for involvement: Diagnosis - CHF Primary Diagnose(s): CHF PMH: History of mechanical and aortic valve replacement, Chronic systolic heart failure, Paroxysmal atrial fibrillation, Hypertension, Hyperlipidemia, Morbid obesity, Chronic hypoxic respiratory failure on home O2. Ht: 70 in Wt:368 lb BMI: 52.8 kg/m2 IBW:[address] Assessment: (04/27/20) Chart reviewed. Labs and meds reviewed. Pt is a 55 year old male admitted with CHF. Pt reports no changes in his appetite and usually eats well. Per nutrition assessment note from previous admission in Mar 2020, pt reported his dry weight is 340 lbs. No N/V/D/C or chewing/swallowing issues. Pt declined the need for diet education. Diet education was previously provided on 03/26/20 per previous nutrition assessment note. Will continue to monitor Current Diet: 2gm sodium Malnutrition Evaluation (04/27/20) The patient does not meet criteria for a specified degree of malnutrition at this time. Will re-evaluate at follow-up as appropriate. Diet Education Needs Assessment: Pt declined the need for diet education Nutrition Care Level: moderate Signed: Shira Altman, RD, LD
[2020-04-27] MEDS: ALBUTEROL/IPRATROPIUM 3 ML NEB NEB SCH ×2 (13:00→20:35)
--- NOTE | 2020-04-27 13:55 | History and Physical ---
CHIEF COMPLAINT: Acute exacerbation of chronic systolic congestive heart failure, abdominal distention, shortness of breath. HISTORY OF PRESENT ILLNESS: This is a 55-year-old male with end-stage congestive heart failure, ejection fraction 15 to 20%, AICD, history of aortic valve replacement, paroxysmal atrial fibrillation, anticoagulant therapy, recently was here, but now came back in again with exacerbation of his heart failure. The patient is severely edematous of lower extremity, but also his abdomen is more distended and anasarca. The patient's CT scan showed that he has liver cirrhosis, but trace abdominal fluid; however, his abdomen is tensed with third-spacing of fluid. The patient is also on anticoagulant therapy for mechanical aortic valve replacement. The patient had very dry mouth because he is breathing through his mouth . He does have oxygen support. PAST MEDICAL HISTORY: End-stage congestive heart failure, ejection fraction less than 20%. AICD. Severe morbidly obese. Paroxysmal atrial fibrillation. Anticoagulant therapy for aortic valve replacement history. Hypertension, dyslipidemia, chronic hypoxic respiratory failure on home oxygen. SOCIAL HISTORY: The patient lives at home by himself. He does not smoke or use alcohol. No regular drug. ALLERGIES: IODINE. HOME MEDICATIONS: List is reviewed. He is on albuterol aspirin, Lasix, metoprolol, potassium, simvastatin, and warfarin. PHYSICAL EXAMINATION: VITAL SIGNS: Temperature is 99, blood pressure 108/67, pulse rate is 102, atrial fibrillation. GENERAL: The patient is not in acute distress, although he is having short of breath. He is on oxygen support. HEENT: Normocephalic, atraumatic. Anicteric. NECK: Difficult to assess due to morbidly obese. His mouth is very dry with skin breakdown. PULMONARY: Diminished breath sounds bilaterally. CARDIOVASCULAR: Atrial fibrillation with slight increase in heart rate. Mechanical valve. AICD. ABDOMEN: Tense with anasarca. EXTREMITIES: Positive edema with chronic skin changes. NEUROLOGIC: The patient is awake and alert x3. LABORATORY DATA: Sodium is 141, potassium 4.6, chloride 93, bicarb 35, BUN 15, creatinine 0.9, glucose 113. WBC 7.5, hemoglobin 12, hematocrit 40, platelets 201. Coagulation is still pending. Coronavirus PCR is pending. Abdomen CT showed that the patient has hepatic cirrhosis, trace abdominal ascites. Dense tissue pulmonary edema. Chest x-ray show enlarged cardiac pulmonary interstitial edema, small pleural effusion. IMPRESSION: 1. Acute on chronic systolic dysfunction, congestive heart failure exacerbation. 2. Atrial fibrillation, rapid ventricular response. 3. Anticoagulant therapy with aortic valve replacement. 4. Liver cirrhosis. 5. Anasarca, third spacing of the abdominal wall. 6. Morbidly severe obesity. 7. Anticoagulant therapy. PLAN: Aggressive diuresis. Resume anticoagulant therapy. Check ammonia level. Check the patient's lab work. Resume warfarin when INR is available. Start the patient on empiric antibiotics for possible early pneumonia. We will follow up on the patient's status. MD TED Reynoso/MODL /[id number]
[2020-04-27 16:00] VITALS: BP 151/107
[2020-04-27] MEDS ORDERED: WARFARIN SOD 5 MG TAB PO SCH (17:00)
[2020-04-27] MEDS: CARVEDILOL 3.125 MG TAB PO SCH (17:08)
[2020-04-27] MEDS: POTASSIUM CHLORIDE 10MEQ EA PO SCH (17:09)
--- NOTE | 2020-04-27 19:00 | NUR ---
@ afternoon pt more alert . respiratory status with no changes. unable to monitor output , pt refused use urinal , he ambulate to the bathroom with walker . 720 ml po intake from 7a -7p. pt instructed to call for assistance to the bathroom
[2020-04-27 20:00] VITALS: BP 136/90
[2020-04-27] MEDS ORDERED: SIMVASTATIN 20 MG TAB PO SCH (21:00)
[2020-04-27] MEDS ORDERED: SIMVASTATIN 40 MG TAB PO SCH (21:00)
[2020-04-28] VITALS (21 sets, daily range): BP systolic 92–148; BP diastolic 62–102
[2020-04-28] MEDS: FUROSEMIDE INJ 10 MG/ML 4 ML VIAL IV SCH ×5 (00:03→23:35)
[2020-04-28] MEDS: ALBUTEROL/IPRATROPIUM 3 ML NEB NEB SCH ×4 (00:50→19:35)
[2020-04-28 06:54] LABS: INR 3.53
[2020-04-28 07:00] LABS: ANION GAP 19.1 mmol/L (8-16); BLOOD UREA NITROGEN 22 mg/dL (7-26); BUN/CREATININE RATIO 18 (6-25); CARBON DIOXIDE 34 mmol/L (22-29); CHLORIDE 92 mmol/L (98-107); CREATININE, SERUM 1.22 mg/dL (0.72-1.25); EST GLOMERULAR FILTRATION RATE > 60 ML/MIN (60-); GLUCOSE 130 mg/dL (74-118); POTASSIUM 5.1 mmol/L (3.5-5.1); SODIUM 140 mmol/L (136-145)
[2020-04-28] MEDS: ENOXAPARIN SODIUM INJ 100 MG/ML SYR SC SCH (09:00)
[2020-04-28] MEDS: CEFTRIAXONE SOD 1 GM/NS 50 ML 50 ML IV SCH ×2 (09:21→21:15)
[2020-04-28] MEDS: CARVEDILOL 3.125 MG TAB PO SCH (09:22)
[2020-04-28] MEDS: POTASSIUM CHLORIDE 10MEQ EA PO SCH ×2 (09:22→17:00)
[2020-04-28] MEDS: PANTOPRAZOLE 40 MG 10ML VIAL INJ SCH (10:15)
--- NOTE | 2020-04-28 11:48 | Diagnostic Imaging Report ---
History:Fall Comparison studies: None Technique: Axial images were obtained from the skull base to the vertex. Coronal and sagittal images reconstructed from the axial data. Dose modulation, iterative reconstruction, and/or weight based adjustment of the mA/kV was utilized to reduce the radiation dose to as low as reasonably achievable. Intravenous contrast: None Findings: Scalp/skull: No abnormalities. Extra-axial spaces: No masses. No fluid collections. Brain sulci: Mildly prominent. Ventricles: Mild compensatory dilatation. No hydrocephalus. Parenchyma: Describe hypodensities in the supratentorial white matter are small vessel ischemic changes. No masses, hemorrhage, acute or chronic cortical vascular insults. Sellar/suprasellar region: No abnormalities. Craniocervical junction: Patent foramen magnum. No Chiari one malformation. Incidental findings: Punctate calcifications (left precentral and left parietal without surrounding edema. Impression: No acute intracranial abnormalities. Signed by: Dr. Jarett Thompson M.D. on 04/28/2020 11:45 AM
[2020-04-28 12:16] LABS: ABG HCO3 45 mmol/L (22-26); ABG PCO2 122 mmHg (35-45); ABG PH 7.17 (7.35-7.45); ABG PO2 243 mmHg (80-105); ABG TCO2 48
[2020-04-28 12:20] LABS: ABG PCO2 99 mmHg (35-45); ABG PH 7.25 (7.35-7.45)
[2020-04-28 12:21] LABS: ABG HCO3 44 mmol/L (22-26); ABG PO2 76 mmHg (80-105); ABG TCO2 47
--- NOTE | 2020-04-28 12:48 | NUR ---
1130 pt moved to ICU bed 191
[2020-04-28] MEDS: CLINDAMYCIN PHOS 900MG/ 50ML 50 ML IV SCH ×3 (13:03→23:35)
--- NOTE | 2020-04-28 15:03 | Diagnostic Imaging Report ---
EXAMINATION: CHEST XRAY LINE PLACEMENT INDICATION: PICC placement COMPARISON: None FINDINGS: AP view TUBES and LINES: There is a left-sided PICC line with distal tip in SVC. Midline sternotomy wires are seen and intact. LUNGS/PLEURA: Lungs are well inflated. There are bilateral patchy opacities could represent pulmonary edema.. There is no pleural effusion or pneumothorax. HEART AND MEDIASTINUM: Cardiac size is severely enlarged. BONES AND SOFT TISSUES: No acute osseous lesion. Soft tissues are unremarkable. UPPER ABDOMEN: No free air under the diaphragm. IMPRESSION: Cardiomegaly and pulmonary edema. Superimposed pneumonia could be considered in appropriate setting. Signed by: Sam Valero MD on 04/28/2020 3:00 PM
--- NOTE | 2020-04-28 15:12 | NUR ---
PICC tip is in SVC per radiology report by Dr Valero. PICC is okay to use
[2020-04-28 16:23] LABS: ABG HCO3 44 mmol/L (22-26); ABG PCO2 91 mmHg (35-45); ABG PH 7.29 (7.35-7.45); ABG PO2 118 mmHg (80-105); ABG TCO2 47
--- NOTE | 2020-04-28 16:49 | NUR ---
Unable to inform patient's family that pt status changed( icu transfer) and fall 2 840 am 04/28/2020, due to no contact phone number recorded. tried to call [phone] (only documented number ) not in service.
[2020-04-28] MEDS ORDERED: ACETAZOLAMIDE 250 MG TAB PO ONE (17:45)
--- NOTE | 2020-04-28 17:51 | Consultation ---
DATE OF CONSULTATION: Pulmonary Consultation HISTORY OF PRESENT ILLNESS: The patient seen and willing to have CT scan, history of congestive heart failure, and chronic anticoagulated state, admitted with pulmonary edema, apparently fell this morning and may have hit his head. He is currently on BiPAP, going to a STAT CT of the brain. He has a history of aortic and mitral valve replacements, history of paroxysmal atrial fibrillation, hypertension, hyperlipidemia, and cirrhosis, possibly cardiac cirrhosis. MEDICATIONS: Include: 1. Coumadin. 2. Aspirin. 3. Lasix. 4. Metoprolol. 5. Zocor. 6. Lasix. 7. Potassium. PHYSICAL EXAMINATION: GENERAL: He is morbidly obese white male, on respiratory support, not responsive. HEAD: Normocephalic. NECK: Trachea midline. LUNGS: Bilateral rales. HEART: Regular rhythm. Distant sounds. ABDOMEN: Obese, edematous. EXTREMITIES: Edematous. IMPRESSION: Probable CO2 narcosis, less likely cerebral bleed. PLAN: Complete scan, on BiPAP, the patient has not awaken, intubation in the ICU. Empiric antibiotics, exclude aspiration. Thank you for this kind referral. Fabio Burton MD DS/MODL /[id number]
--- NOTE | 2020-04-28 19:22 | NUR ---
Patient arrived to ICU [address] scan[address] Previous RN caring for patient received consent for picc line. Patient is on bipap lethargic and withdraws to pain. Orders given for ABG now and repeat abg at 1600. Orders given for venegas catheter, and was placed. Dr. Burton called and informed of abg results, orders given to hold off on NGT for now. Dr. Burton aware of 1600 abg results. Patient became more alert and abusable throughout shift.
[2020-04-29] VITALS (22 sets, daily range): BP systolic 93–137; BP diastolic 54–92
[2020-04-29] MEDS: ALBUTEROL/IPRATROPIUM 3 ML NEB NEB SCH ×4 (00:15→19:10)
[2020-04-29] MEDS: FUROSEMIDE INJ 10 MG/ML 4 ML VIAL IV SCH ×3 (05:20→18:48)
[2020-04-29] MEDS: CLINDAMYCIN PHOS 900MG/ 50ML 50 ML IV SCH (05:20)
[2020-04-29 06:11] LABS: BASOPHILS # (AUTO) 0.1 (0.0-0.1); BASOPHILS % 0.7 % (0.0-1.0); EOSINOPHILS # (AUTO) 0.1 (0.0-0.4); EOSINOPHILS % 0.7 % (0.0-6.0); HEMATOCRIT 37.3 % (38.2-49.6); HEMOGLOBIN 10.7 g/dL (14.0-18.0); LYMPHOCYTES # (AUTO) 0.8 (1.0-3.2); LYMPHOCYTES % 8.7 % (18.0-39.1); MEAN CORPUSCULAR HEMOGLOBIN 28.8 pg (28-32); MEAN CORPUSCULAR HGB CONC 28.7 g/dL (31-35); MEAN CORPUSCULAR VOLUME 100.3 fL (81-99); MONOCYTES # (AUTO) 0.9 (0.2-0.8); NEUTROPHILS # (AUTO) 7.4 (2.1-6.9); NEUTROPHILS % 79.5 % (38.7-80.0); PLATELET COUNT 168 x10e3/uL (140-360); RED BLOOD COUNT 3.72 x10e6/uL (4.3-5.7); RED CELL DISTRIBUTION WIDTH 15.7 % (11.7-14.4)
[2020-04-29 06:25] LABS: INR 5.03
[2020-04-29 06:32] LABS: PROTHROMBIN TIME 48.9 seconds (11.9-14.5)
[2020-04-29 06:36] LABS: ALBUMIN 3.8 g/dL (3.5-5.0); ALBUMIN/GLOBULIN RATIO 0.9 (0.8-2.0); ANION GAP 14.3 mmol/L (8-16); CALCIUM 8.6 mg/dL (8.4-10.2); CREATININE, SERUM 1.32 mg/dL (0.72-1.25); POTASSIUM 5.3 mmol/L (3.5-5.1)
[2020-04-29] MEDS: POTASSIUM CHLORIDE 10MEQ EA PO SCH (07:44)
[2020-04-29 07:55] LABS: POLYCHROMASIA FEW
[2020-04-29] MEDS: PANTOPRAZOLE 40 MG 10ML VIAL INJ SCH (07:59)
--- NOTE | 2020-04-29 08:10 | NUR ---
PT SAT UP ON SIDE OF BED FOR BREAKFAST PLACED ON 8L 02 VIA HF NC, AFTER MOMENT PT HAD A LOT OF TACHYPNEA AND SOB PT OKAY AND STABLE SITTING ON SIDE OF BED, PT ENCOURAGED TO PRESERVE ENERGY TO EAT BUT CONTINUES TALKING ON PHONE AND MOVING AROUND PT BECOMES SOB WITH TOO MUCH MOVEMENT. PT MADE AWARE THAT IF HE GOT TOO SHORT OF BREATH AND GOT TIRED WE WOULD HAVE TO BUT BIPAP BACK ON PT STATES HE IS GOING TO REFUSE BECAUSE HE CANT EAT OR DRINK WITH MASK ON AND HE DID NOT SIGN UP TO STARVE. THIS RN MADE PT AWARE THAT HE WOULD BE ON NC MUCH TOLERATED FOR MEALS BUT THE NEXT STEP FOR WHEN HE GOT SOB WAS BIPAP, PT STATES "FINE I UNDERSTAND"
[2020-04-29] MEDS: CEFTRIAXONE SOD 1 GM/NS 50 ML 50 ML IV SCH ×2 (08:22→21:00)
[2020-04-29] MEDS ORDERED: ACETAZOLAMIDE 250 MG TAB PO ONE (09:30)
--- NOTE | 2020-04-29 10:41 | NUR ---
Patient is transfer from icu. patient s awake aleryt and oriented with occassional confusion but follows command. patient is currently on 6l n/c with oxygen saturation in 90s. patient is Afib control with rate in 90s.
--- NOTE | 2020-04-29 15:57 | Diagnostic Imaging Report ---
EXAMINATION: CHEST SINGLE (PORTABLE) INDICATION: Pulmonary edema COMPARISON: Chest radiograph 04/28/2020 FINDINGS: LINES/TUBES:Left PICC line unchanged. EKG leads overlie the chest. LUNGS:The lungs are moderately inflated. There is perihilar fullness and indistinctness of the pulmonary vasculature. PLEURA:No pleural effusion or pneumothorax. MEDIASTINUM:Cardiomediastinal silhouette is stably enlarged. BONES/SOFT TISSUES:No acute osseous injury. Sternotomy wires in place. ABDOMEN:No free air under the diaphragm. IMPRESSION: Unchanged cardiomegaly and pulmonary edema. Signed by: Lupe Hogan MD on 04/29/2020 3:53 PM
--- NOTE | 2020-04-29 17:28 | NUR ---
CALL TO PT'S RM. NO ANSWER. CALL TO PT'S DTR, ANSHUL @ [phone]. INFORMED HER THAT DR. GAN HAD ORDERED HER FATHER A BIPAP. SHE STATES HER FATHER HAS HOME O2, BUT DOES NOT KNOW THE NAME OF THE AGENCY HER RECEIVES IT FROM. SHE GAVE HER MOTHER'S # @ [phone]. STATES SHE IS AT HOME AND WOULD KNOW THE #. CALL TO PT'S . NO ANSWER. SHERLEY Rod CONTACT INFO. Addendum: 04/29/20 at 1731 by Celena Jordan CM RECEIVED COPY OF THE PT'S OUTPT SLEEP STUDY FROM [facility].
[2020-04-29] MEDS ORDERED: SODIUM CHLORIDE 0.9% 250ML 250 ML ONE (20:08)
--- NOTE | 2020-04-29 21:21 | NUR ---
Received pt laying in hi fowlers position in bed. Pt denies discomfort , no s/sx of acute distress noted at this time. Bed in low and locked position, call light and personal items within reach. Bedside report completed. At this time, blister/hematoma to right knee burst with bloody drainage noted. Wound cleaned and dressed. Pt denies discomfort to this area. Currently resting in bed vss. Assisted pt with ble being placed in bed and pt repostioning. IV ABX infusing to Left Picc with no difficulty.
[2020-04-30] VITALS (9 sets, daily range): BP systolic 118–144; BP diastolic 61–87
[2020-04-30] MEDS: FUROSEMIDE INJ 10 MG/ML 4 ML VIAL IV SCH ×4 (00:15→17:36)
[2020-04-30] MEDS: ALBUTEROL/IPRATROPIUM 3 ML NEB NEB SCH ×4 (00:28→18:29)
[2020-04-30 04:50] LABS: BASOPHILS # (AUTO) 0.1 (0.0-0.1); EOSINOPHILS # (AUTO) 0.2 (0.0-0.4); HEMATOCRIT 35.9 % (38.2-49.6); HEMOGLOBIN 10.6 g/dL (14.0-18.0); LYMPHOCYTES # (AUTO) 0.7 (1.0-3.2); LYMPHOCYTES % 7.7 % (18.0-39.1); MEAN CORPUSCULAR HEMOGLOBIN 28.9 pg (28-32); MEAN CORPUSCULAR HGB CONC 29.5 g/dL (31-35); MEAN CORPUSCULAR VOLUME 97.8 fL (81-99); MONOCYTES # (AUTO) 0.9 (0.2-0.8); MONOCYTES % 10.3 % (4.4-11.3); NEUTROPHILS # (AUTO) 6.9 (2.1-6.9); NEUTROPHILS % 78.4 % (38.7-80.0); PLATELET COUNT 164 x10e3/uL (140-360); RED BLOOD COUNT 3.67 x10e6/uL (4.3-5.7); RED CELL DISTRIBUTION WIDTH 15.7 % (11.7-14.4)
[2020-04-30 05:00] LABS: INR 4.57
[2020-04-30 05:11] LABS: ANION GAP 17.8 mmol/L (8-16); CALCIUM 8.7 mg/dL (8.4-10.2); CREATININE, SERUM 1.32 mg/dL (0.72-1.25); POTASSIUM 4.8 mmol/L (3.5-5.1)
[2020-04-30 05:15] LABS: PROTHROMBIN TIME 45.3 seconds (11.9-14.5)
--- NOTE | 2020-04-30 05:31 | NUR ---
Received notice of critical lab of PT 45.3. Noted that it is down from 48.9.
[2020-04-30] MEDS: PANTOPRAZOLE 40 MG 10ML VIAL INJ SCH (08:31)
[2020-04-30] MEDS: CEFTRIAXONE SOD 1 GM/NS 50 ML 50 ML IV SCH ×2 (08:31→21:16)
[2020-04-30] MEDS ORDERED: ACETAZOLAMIDE 250 MG TAB PO ONE (09:15)
--- NOTE | 2020-04-30 09:40 | Diagnostic Imaging Report ---
EXAMINATION: CHEST SINGLE (PORTABLE) INDICATION: Shortness of breath COMPARISON: Chest radiograph 04/29/2020 FINDINGS: LINES/TUBES:Left PICC line unchanged. LUNGS:The lungs are moderately inflated. There is perihilar fullness and indistinctness of the pulmonary vasculature. Unchanged bilateral interstitial and hazy airspace opacities. PLEURA:No pleural effusion or pneumothorax. MEDIASTINUM:Cardiomediastinal silhouette is stably enlarged. BONES/SOFT TISSUES:No acute osseous injury. Sternotomy wires in place. ABDOMEN:No free air under the diaphragm. IMPRESSION: Unchanged cardiomegaly and pulmonary edema. Signed by: Lupe Hogan MD on 04/30/2020 9:36 AM
--- NOTE | 2020-04-30 10:15 | Diagnostic Imaging Report ---
Bilateral chest ultrasound History: Shortness of breath Technique/findings: Limited bilateral chest ultrasound was performed to evaluate for pleural effusion. This demonstrates no right or left pleural effusion. IMPRESSION: No right or left pleural effusion. Signed by: Lupe Hogan MD on 04/30/2020 10:11 AM
--- NOTE | 2020-04-30 11:36 | NUR ---
CALL RECEIVED FROM THE PT'S . STATES PT IS ON SERVICE W [facility] FOR HIS HOME O2. STATES THEY ARE OK TO PROVIDE BIPAP CHOICE LETTER SIGNED. REFERRAL WAS FAXED TO [facility] @ OFF: [phone] / FAX: [phone]. SHERLEY TIJERINA NOTIFIED SINCE PT TRANSFERRED TO [facility].
--- NOTE | 2020-04-30 14:35 | NUR ---
CALL RECEIVED FROM [facility] STATING THEY DO NOT CARRY BIPAPS. REFERRAL WAS FAXED TO [facility] @ OFF: [phone] / FAX: [phone]. STEPHANE / BHARATHI WAS NOTIFIED OF FAX.
[2020-04-30] MEDS: NYSTATIN 100,000 UNITS/GM CRM 30GM TUBE TOP SCH (17:00)
[2020-05-01] MEDS: FUROSEMIDE INJ 10 MG/ML 4 ML VIAL IV SCH ×4 (00:06→17:10)
[2020-05-01] MEDS: ALBUTEROL/IPRATROPIUM 3 ML NEB NEB SCH ×4 (00:42→20:56)
[2020-05-01 04:00] VITALS: BP 114/73
[2020-05-01 07:11] VITALS: BP 116/66
[2020-05-01 07:12] VITALS: BP 116/66
[2020-05-01] MEDS: CEFTRIAXONE SOD 1 GM/NS 50 ML 50 ML IV SCH ×2 (08:40→20:03)
[2020-05-01] MEDS: PANTOPRAZOLE 40 MG 10ML VIAL INJ SCH (08:40)
[2020-05-01] MEDS: NYSTATIN 100,000 UNITS/GM CRM 30GM TUBE TOP SCH ×2 (09:36→17:10)
[2020-05-01 12:00] VITALS: BP 117/78
--- NOTE | 2020-05-01 13:54 | Progress Note ---
DATE: 05/01/2020 Cardiology Progress Note SUBJECTIVE: States he is breathing better. No chest pain. Complains of abdominal swelling. OBJECTIVE: VITAL SIGNS: Temperature afebrile, pulse 74, respiratory rate 20, blood pressure 106/67, and saturating 95% on high-flow nasal cannula. GENERAL: Awake, alert, no acute distress. CARDIOVASCULAR: Difficult exam. Irregular. No murmurs, rubs, or gallops. Mechanical valve sounds. ABDOMEN: Obese, nontender, and edematous. EXTREMITIES: Severe bilateral lower extremity edema. INPATIENT MEDICATIONS: Reviewed. Continue Lasix 40 mg q.6 hours IV. LABORATORY DATA: Reviewed. Hemoglobin 10 and white count 8. Potassium 4.8 and GFR 57. IMAGING DATA: Reviewed. Chest x-ray showed pulmonary edema. TELEMETRY DATA: Reviewed, shows rate controlled atrial fibrillation. ASSESSMENT AND PLAN: 1. Lyodk-lq-cmhzsye systolic congestive heart failure exacerbation. 2. History of mechanical aortic and mitral valve replacement. 3. History of chronic atrial fibrillation. 4. Hypertension. 5. Hyperlipidemia. 6. Morbid obesity. 7. Cirrhosis by imaging. RECOMMENDATIONS: Continue IV Lasix as far as renal function tolerates. INR is not supratherapeutic. His INR goal is 2.5 to 3.5. Hold warfarin for now. Resume once INR is returned to his therapeutic window at a lower dose. We will continue to optimize heart failure therapy as blood pressure tolerates. Thank you for this consult. We will continue to follow. MD ELMER Martinez/KERRIL /[id number]
[2020-05-01 20:00] VITALS: BP 114/81
[2020-05-01 21:00] VITALS: BP 114/81
[2020-05-02] VITALS (8 sets, daily range): BP systolic 97–167; BP diastolic 60–112
[2020-05-02] MEDS: FUROSEMIDE INJ 10 MG/ML 4 ML VIAL IV SCH ×4 (00:22→17:36)
[2020-05-02] MEDS: ALBUTEROL/IPRATROPIUM 3 ML NEB NEB SCH ×4 (02:01→19:30)
--- NOTE | 2020-05-02 06:25 | NUR ---
CALLED TO NOTIFY DR RAINES SERVICE THAT PT HAS HIGH BP 195/137 AND NO PRN MEDS AVAILABLE PAGED PET CARE ASSOCIATE DR ARREOLA. AWAITING CALL BACK.
--- NOTE | 2020-05-02 06:35 | NUR ---
CHANGED OUT PT BP CUFF TO NEW ONE AND RECHECKED PT BP NOW SHOWING 121/73. PT HAS NO C/O CHEST PAIN OR DISCOMFORT AT THIS TIME. WILL CONT TO MONITOR.
[2020-05-02] MEDS ORDERED: HYDRALAZINE HCL 20 MG/ML VIAL IV PRN (06:45)
[2020-05-02] MEDS: CEFTRIAXONE SOD 1 GM/NS 50 ML 50 ML IV SCH ×2 (08:15→21:40)
[2020-05-02] MEDS: LOSARTAN POTASSIUM 25 MG TAB PO SCH (08:15)
[2020-05-02] MEDS: PANTOPRAZOLE 40 MG 10ML VIAL INJ SCH (08:15)
[2020-05-02] MEDS: METOPROLOL SUCCINATE 25 MG TAB XL PO SCH (08:15)
[2020-05-02] MEDS: NYSTATIN 100,000 UNITS/GM CRM 30GM TUBE TOP SCH ×2 (08:16→17:36)
--- NOTE | 2020-05-02 10:00 | NUR ---
SHERLEY SPOKE WITH STEPHANE AT [facility] WHO CONFIRMS HE HAS ALL THE INFORMATION HE NEEDS FOR THE BIPAP WORKING ON GETTING AUTH FROM INS CO [facility] WILL CALL PT WHEN AUTH OBTAINED SO PT CAN COME TO OFFICE AND MACHINE TRIMMER BIPAP INFORMED STEPHANE THAT PT DESATS QUICKLY WHEN OFF BIPAP AND THAT WE NEED TO GET AUTH AND APPT FOR MACHINE TRIMMER SOON POSSIBLE SO PT CAN BE SAFELY DISCHARGED FROM HOSPITAL TO [facility] TO MACHINE TRIMMER BIPAP STEPHANE UNDERSTANDS AND IS EXPEDITING SHERLEY TO FOLLOW
[2020-05-02 14:11] LABS: INR 3.35; PROTHROMBIN TIME 35.5 seconds (11.9-14.5)
--- NOTE | 2020-05-02 16:23 | NUR ---
Nutrition Screen Note RD Recommendation for Physician: -Recommend cardiac diet Plan of Care: RD following, monitoring for tolerance and adequacy Nutrition reason for involvement: follow up Primary Diagnose(s): CHF PMH: History of mechanical and aortic valve replacement, Chronic systolic heart failure, Paroxysmal atrial fibrillation, Hypertension, Hyperlipidemia, Morbid obesity, Chronic hypoxic respiratory failure on home O2. Ht: 70 in Wt:380.06 lbs (05/01) 368 lb (04/26) - Suspect possible weight error or fluid related weight change BMI: 52.8 kg/m2 using wt of 368 lbs IBW:[address] Assessment: 05/02: Follow up. Pt reports he is eating about 50% of meals. No N/V/D/C reported at this time. Pt did not have any questions or concerns at time of visit. Will continue to monitor. (04/27/20) Chart reviewed. Labs and meds reviewed. Pt is a 55 year old male admitted with CHF. Pt reports no changes in his appetite and usually eats well. Per nutrition assessment note from previous admission in Mar 2020, pt reported his dry weight is 340 lbs. No N/V/D/C or chewing/swallowing issues. Pt declined the need for diet education. Diet education was previously provided on 03/26/20 per previous nutrition assessment note. Will continue to monitor Current Diet: 2gm sodium Malnutrition Evaluation (04/27/20) The patient does not meet criteria for a specified degree of malnutrition at this time. Will re-evaluate at follow-up as appropriate. Diet Education Needs Assessment: Pt declined the need for diet education (04/27) Nutrition Care Level: moderate Signed: Shira Altman, RD, LD
[2020-05-02] MEDS ORDERED: SODIUM CHLORIDE 0.9% 250ML 250 ML ONE (21:49)
--- NOTE | 2020-05-02 21:53 | Progress Note ---
DATE: 05/02/2020 Cardiology Progress Note SUBJECTIVE: No major events overnight. OBJECTIVE: VITAL SIGNS: Temperature 98.4, pulse 63, respiratory rate 20, blood pressure 115/75 saturating 99% on 4 L. GENERAL: Well-developed, well-nourished obese, no acute distress. CARDIOVASCULAR: Mechanical aortic valve sound. LUNGS: Difficult exam due to obesity. Clear to auscultation anteriorly. ABDOMEN: Obese, soft, nontender, nondistended. NEURO AND PSYCH: Alert and oriented. INPATIENT MEDICATIONS: Reviewed. LABORATORY DATA: Reviewed. Hemoglobin 10.6, INR 3.35. TELEMETRY DATA: Reviewed, shows rate controlled atrial fibrillation. ASSESSMENT AND PLAN: 1. Acute on chronic systolic congestive heart failure exacerbation. 2. History of mechanical aortic valve replacement. 3. History of chronic atrial fibrillation on Coumadin. 4. Hypertension. 5. Hyperlipidemia. 6. Morbid obesity. 7. Cirrhosis by imaging. RECOMMENDATIONS: IV Lasix continue as tolerated. Still has a lot of edema. INR is now in the goal range at 3.35. Resume warfarin tomorrow. The patient is unable to tolerate beta blockers or JAY JAY inhibitors due to low blood pressure. Thank you for this consult. We will continue to follow. MD ELMER Martinez/YARITZA /[id number]
[2020-05-03] VITALS (10 sets, daily range): BP systolic 88–112; BP diastolic 56–72
[2020-05-03] MEDS: ALBUTEROL/IPRATROPIUM 3 ML NEB NEB SCH ×4 (01:30→20:20)
[2020-05-03] MEDS: FUROSEMIDE INJ 10 MG/ML 4 ML VIAL IV SCH ×4 (05:20→17:41)
[2020-05-03 05:54] LABS: ANION GAP 13.2 mmol/L (8-16); CALCIUM 7.9 mg/dL (8.4-10.2); CREATININE, SERUM 1.31 mg/dL (0.72-1.25); POTASSIUM 4.2 mmol/L (3.5-5.1)
[2020-05-03] MEDS: PANTOPRAZOLE 40 MG 10ML VIAL INJ SCH (09:28)
[2020-05-03] MEDS: METOPROLOL SUCCINATE 25 MG TAB XL PO SCH (09:28)
[2020-05-03] MEDS: LOSARTAN POTASSIUM 25 MG TAB PO SCH (09:28)
[2020-05-03] MEDS: CEFTRIAXONE SOD 1 GM/NS 50 ML 50 ML IV SCH ×2 (09:28→21:32)
[2020-05-03] MEDS: NYSTATIN 100,000 UNITS/GM CRM 30GM TUBE TOP SCH ×2 (09:29→17:00)
[2020-05-03] MEDS ORDERED: MORPHINE SULFATE INJ 4 MG/ML INJ 1ML IV PRN (09:45)
--- NOTE | 2020-05-03 12:00 | NUR ---
Got report from Kenya Gonzáles RN. Pt sitting up in chair at this eating lunch. Pt without pain at this time.
--- NOTE | 2020-05-03 15:30 | NUR ---
Spoke with Efrain with [facility] regarding bipap. He states they have auth and can provide bipap to pt. 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 He will reach out to his wireless construction manager to see if they can do anything after hrs and get back with CM. Otherwise pt will need to stay until Wednesday. Dr. Palmer was informed of status. States to keep pt here until Wednesday. was also updated on plan. asked Dr. Palmer about setting up home health. States he will set it up in office.
[2020-05-03] MEDS: WARFARIN SOD 5 MG TAB PO SCH (17:00)
--- NOTE | 2020-05-03 17:30 | NUR ---
PT MORE ALERT AT THIS TIME ATE ABOUT 25% OF HER MEAL. NO AGITATION NOTED AT THIS TIME. TALK WITH DAUGHTER EARLIER AND IF PT BECOME AGITATED AGAIN WE CAN CALL HER IN. IV OUT GOT ORDER RECEIVED TO GIVE LASIX PO Addendum: 05/03/20 at 1814 by Marisa Greene RN NOTE WRITTEN ON WRONG PT.
--- NOTE | 2020-05-03 17:50 | NUR ---
GOT ORDER TO DC RAYGOZA, PT WANTED TO LAY DOWN BEFORE REMOVING HE RAYGOZA. NO OTHER CHANGES AT TIME. ONLY ONE LINE OF THE PICC WORKING.
--- NOTE | 2020-05-03 18:45 | NUR ---
PT'S RAYGOZA DC. 200 RESIDUAL NOTED. PT TOLERATES WELL.
--- NOTE | 2020-05-03 22:42 | Progress Note ---
DATE: 05/03/2020 Cardiology Progress Note SUBJECTIVE: No major events overnight. Asking when he can go home. OBJECTIVE: VITAL SIGNS: Temperature afebrile, pulse 65, respiratory rate 18, blood pressure 109/67, and saturating 99% on 8 L. GENERAL: Well-developed, well-nourished, in no acute distress. CARDIOVASCULAR: Irregular rate and rhythm. Mechanical valve sounds. No murmurs, rubs, or gallops. LUNGS: Clear to auscultation anteriorly. ABDOMEN: Obese, soft, nontender, and nondistended. NEURO AND PSYCH: Alert and oriented to person, place, and time. Normal affect. INPATIENT MEDICATIONS: Reviewed. LABORATORY DATA: Reviewed. Hemoglobin 10.6. INR was 3.35 yesterday. IMAGING DATA: Reviewed. TELEMETRY DATA: Reviewed, shows rate controlled atrial fibrillation. ASSESSMENT AND PLAN: 1. Hyhno-xu-kotbtfm systolic and diastolic congestive heart failure exacerbation. 2. Chronic atrial fibrillation. 3. History of mechanical aortic valve replacement. 4. Morbid obesity. 5. Venous insufficiency and lymphedema. 6. Possible cirrhosis. RECOMMENDATIONS: Continue IV Lasix. He still has a lot of edema. Continue heart failure therapy. INR is now in therapeutic range. Resume 5 mg of warfarin daily today. Thank you for this consult. We will continue to follow. MD ELMER Martinez/YARITZA /[id number]
[2020-05-04] VITALS (9 sets, daily range): BP systolic 93–118; BP diastolic 46–65
[2020-05-04] MEDS: FUROSEMIDE INJ 10 MG/ML 4 ML VIAL IV SCH ×5 (00:18→23:58)
[2020-05-04] MEDS: ALBUTEROL/IPRATROPIUM 3 ML NEB NEB SCH ×5 (01:15→23:00)
[2020-05-04 06:29] LABS: INR 2.51; PROTHROMBIN TIME 28.3 seconds (11.9-14.5)
[2020-05-04] MEDS: METOPROLOL SUCCINATE 25 MG TAB XL PO SCH (09:00)
[2020-05-04] MEDS: CEFTRIAXONE SOD 1 GM/NS 50 ML 50 ML IV SCH ×2 (12:41→20:53)
[2020-05-04] MEDS: ACETAZOLAMIDE 250 MG TAB PO SCH (12:41)
[2020-05-04] MEDS: PANTOPRAZOLE 40 MG 10ML VIAL INJ SCH (12:41)
[2020-05-04] MEDS: NYSTATIN 100,000 UNITS/GM CRM 30GM TUBE TOP SCH ×2 (12:46→18:31)
--- NOTE | 2020-05-04 17:50 | Progress Note ---
DATE: 05/04/2020 Cardiology Progress Note SUBJECTIVE: The patient denies chest pain. He reports he still has shortness of breath, but this has improved. OBJECTIVE: VITAL SIGNS: Temperature 97.8 degrees, pulse 79, respiratory rate 18, blood pressure 96/62, oxygen saturation 99% on 2 L nasal cannula. GENERAL: Morbidly obese gentleman, awake and alert, in no acute distress. LUNGS: Clear to auscultation bilaterally. No wheezes or crackles. CARDIOVASCULAR: Irregularly irregular, mechanical S1 and S2. Systolic murmur at the left sternal border. ABDOMEN: Soft, nontender. EXTREMITIES: Trace edema. CARDIAC MEDICATIONS: 1. Furosemide 40 mg IV q.6 hours. 2. Acetazolamide 250 mg p.o. daily. 3. Warfarin 5 mg p.o. daily. 4. Losartan 12.5 mg p.o. daily. 5. Metoprolol succinate 25 mg p.o. daily. LABORATORY DATA: None today. TELEMETRY: Personally reviewed and interpreted, revealing atrial fibrillation. IMPRESSION: 1. Acute on chronic systolic and diastolic heart failure. 2. Chronic atrial fibrillation. 3. History of mechanical aortic and mitral valve replacement. 4. Hypertension. 5. Hyperlipidemia. 6. Morbid obesity. 7. Cirrhosis suggested by CT imaging. RECOMMENDATIONS: Continue IV Lasix. He remains volume overloaded. Continue optimal heart failure therapy. Blood pressure is borderline. Monitor closely. INR is therapeutic. Continue warfarin 5 mg daily. Monitor the patient on telemetry. Thank you for this consult. We will continue to follow. Asha Keys MD ABS/MODL /[id number]
[2020-05-04] MEDS: LOSARTAN POTASSIUM 25 MG TAB PO SCH (19:01)
[2020-05-04] MEDS: WARFARIN SOD 5 MG TAB PO SCH (19:02)
--- NOTE | 2020-05-04 21:03 | NUR ---
patient is awake alert oriented, just went to bathroom with walker and assistance, now he is sitting on the side of the bed, he stated will need bipap in about 30 mins. no distress noted, will continue to monitor.
[2020-05-05] VITALS (7 sets, daily range): BP systolic 87–150; BP diastolic 54–79
[2020-05-05 05:54] LABS: BASOPHILS # (AUTO) 0.1 (0.0-0.1); BASOPHILS % 0.9 % (0.0-1.0); EOSINOPHILS # (AUTO) 0.4 (0.0-0.4); EOSINOPHILS % 5.9 % (0.0-6.0); HEMATOCRIT 33.2 % (38.2-49.6); HEMOGLOBIN 9.8 g/dL (14.0-18.0); LYMPHOCYTES % 14.7 % (18.0-39.1); MEAN CORPUSCULAR HEMOGLOBIN 28.5 pg (28-32); MEAN CORPUSCULAR HGB CONC 29.5 g/dL (31-35); MEAN CORPUSCULAR VOLUME 96.5 fL (81-99); MONOCYTES # (AUTO) 0.7 (0.2-0.8); MONOCYTES % 9.5 % (4.4-11.3); NEUTROPHILS # (AUTO) 4.8 (2.1-6.9); NEUTROPHILS % 68.7 % (38.7-80.0); PLATELET COUNT 106 x10e3/uL (140-360); RED BLOOD COUNT 3.44 x10e6/uL (4.3-5.7); RED CELL DISTRIBUTION WIDTH 15.7 % (11.7-14.4)
[2020-05-05 06:06] LABS: INR 2.28; PROTHROMBIN TIME 26.2 seconds (11.9-14.5)
[2020-05-05 06:20] LABS: ANION GAP 11.9 mmol/L (8-16); BLOOD UREA NITROGEN 30 mg/dL (7-26); BUN/CREATININE RATIO 29 (6-25); CALCIUM 8.6 mg/dL (8.4-10.2); CARBON DIOXIDE 39 mmol/L (22-29); CHLORIDE 90 mmol/L (98-107); CREATININE, SERUM 1.03 mg/dL (0.72-1.25); EST GLOMERULAR FILTRATION RATE > 60 ML/MIN (60-); GLUCOSE 101 mg/dL (74-118); POTASSIUM 3.9 mmol/L (3.5-5.1); SODIUM 137 mmol/L (136-145)
[2020-05-05] MEDS: FUROSEMIDE INJ 10 MG/ML 4 ML VIAL IV SCH ×4 (06:31→23:36)
[2020-05-05] MEDS: ALBUTEROL/IPRATROPIUM 3 ML NEB NEB SCH ×3 (06:50→18:42)
[2020-05-05] MEDS: ACETAZOLAMIDE 250 MG TAB PO SCH (09:34)
[2020-05-05] MEDS: NYSTATIN 100,000 UNITS/GM CRM 30GM TUBE TOP SCH ×2 (09:35→17:59)
[2020-05-05] MEDS: CEFTRIAXONE SOD 1 GM/NS 50 ML 50 ML IV SCH ×2 (09:35→20:12)
[2020-05-05] MEDS: METOPROLOL SUCCINATE 25 MG TAB XL PO SCH (09:35)
[2020-05-05] MEDS: LOSARTAN POTASSIUM 25 MG TAB PO SCH (09:36)
--- NOTE | 2020-05-05 15:44 | Progress Note ---
DATE: 05/05/2020 Cardiology Progress Note. SUBJECTIVE: The patient denies chest pain or shortness of breath. His main complaint is extensive bruising. OBJECTIVE: VITAL SIGNS: Temperature 98.7 degrees, pulse 70, respiratory rate 18, blood pressure 113/79, oxygen saturation 99% on 2 L nasal cannula. GENERAL: Morbidly obese gentleman, awake and alert, in no acute distress. LUNGS: Clear to auscultation bilaterally. No wheezes or crackles. CARDIOVASCULAR: Normal rate. Irregularly irregular, mechanical S1 and S2. Systolic murmur at the left sternal border. ABDOMEN: Soft, nontender. EXTREMITIES: Trace edema. Extensive bruising is noted. CARDIAC MEDICATIONS: 1. Lasix 40 mg IV q.6 hours. 2. Losartan 12.5 mg p.o. daily. 3. Metoprolol succinate 25 mg p.o. daily. 4. Acetazolamide 250 mg p.o. daily. 5. Warfarin 6 mg p.o. daily. LABORATORY DATA: WBC 6.92, hemoglobin 9.8, hematocrit 33.2, platelets 106. Sodium 137, potassium 3.9, chloride 90, CO2 39, BUN 30, creatinine 1.03. TELEMETRY: Personally reviewed and interpreted, revealing atrial fibrillation IMPRESSION: 1. Acute on chronic systolic and diastolic heart failure. 2. Chronic atrial fibrillation. 3. History of mechanical aortic and mitral valve replacement. 4. Hypertension. 5. Hyperlipidemia. 6. Morbid obesity. 7. Cirrhosis suggested by CT imaging. RECOMMENDATIONS: Continue IV Lasix. Continue optimal heart failure therapy. His blood pressure is acceptable. Monitor closely. INR is slightly subtherapeutic today. No increase in warfarin. Follow INR closely to maintain the patient on telemetry. Thank you for this consult. We will continue to follow. Asha Keys MD ABS/MODL /[id number]
[2020-05-05] MEDS ORDERED: WARFARIN SOD 3 MG TAB PO SCH (17:00)
--- NOTE | 2020-05-05 17:28 | Progress Note ---
DATE: SUBJECTIVE: The patient is breathing well. No distress. Noninvasive ventilation arrangement or BiPAP arrangement is in progress. He is denying any chest pain. The patient has history of mitral valve replacement and CHF. He also has diastolic and systolic heart failure. PHYSICAL EXAMINATION: VITAL SIGNS: Temperature 98.7, pulse of 70, blood pressure 113/79. CHEST: Clear to auscultation bilaterally. No wheezing. HEART: S1 and S2 audible. ABDOMEN: Soft, morbidly obese. LABORATORY DATA: White count of 6.9, hemoglobin 9.8, and platelets 106. Chemistry reviewed. Creatinine is down normal. ASSESSMENT/PLAN: Mr. Albright is a 55-year-old male with acute on chronic systolic heart failure, history of mitral valve replacement and aortic valve replacement, on anticoagulation. The patient is morbidly obese and has sleep apnea. A noninvasive ventilation in the form of BiPAP is being arranged. The patient is awaiting the arrangement. MD PATRICK Sena/YARITZA /[id number]
[2020-05-06 00:10] VITALS: BP 86/73
[2020-05-06] MEDS: ALBUTEROL/IPRATROPIUM 3 ML NEB NEB SCH ×3 (02:21→13:02)
[2020-05-06 04:09] VITALS: BP 94/57
[2020-05-06 04:13] VITALS: BP 88/65
[2020-05-06 05:32] LABS: INR 1.91; PROTHROMBIN TIME 22.8 seconds (11.9-14.5)
[2020-05-06] MEDS: FUROSEMIDE INJ 10 MG/ML 4 ML VIAL IV SCH ×2 (06:00→12:23)
[2020-05-06 08:00] VITALS: BP 108/61
[2020-05-06 09:00] VITALS: BP 108/61
[2020-05-06] MEDS: METOPROLOL SUCCINATE 25 MG TAB XL PO SCH (09:00)
[2020-05-06] MEDS ORDERED: WARFARIN SOD 3 MG TAB PO ONE (09:30)
[2020-05-06] MEDS ORDERED: WARFARIN SOD 5 MG TAB PO ONE (09:30)
[2020-05-06] MEDS: NYSTATIN 100,000 UNITS/GM CRM 30GM TUBE TOP SCH (09:39)
[2020-05-06] MEDS: ACETAZOLAMIDE 250 MG TAB PO SCH (09:39)
[2020-05-06] MEDS: LOSARTAN POTASSIUM 25 MG TAB PO SCH (09:40)
[2020-05-06] MEDS: CEFTRIAXONE SOD 1 GM/NS 50 ML 50 ML IV SCH (09:40)
--- NOTE | 2020-05-06 12:59 | NUR ---
DC ORDERS TODAY CM SPOKE WITH STEPHANE AT [facility] WHO STATES PT CAN COME TO OFFICE TODAY AT 3PM TO TREATMENT COORDINATOR BIPAP AND MASK PT'S S/O WILL PICK HIM UP AND TAKE HIM TO THE STORE GAVE PT ADDRESS AND PHONE NUMBER AND APPT TIME FOR [facility] [address] [facility] [id number] PH: [phone] APPT 3PM
[2020-05-06] MEDS ORDERED: ONDANSETRON HCL 4 MG ORAL DISINTEGRATING TAB PO PRN (13:15)
--- NOTE | 2020-05-06 14:53 | NUR ---
Patient was d/c home with instruction including oxygen, bipap mechine and coumadin risk. 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
--- NOTE | 2020-05-06 18:49 | Discharge Summary ---
PCP: Dr. Channing Palmer. CONSULTANTS: 1. Dr. Srini Amaral. 2. Dr. Devin Hoyt. FINAL DIAGNOSES: 1. Acute respiratory failure secondary to yyntn-lr-lynktzy systolic dysfunction congestive heart failure exacerbation. 2. Xvnor-ih-afrgiou congestive heart failure systolic dysfunction as above. 3. Atrial fibrillation, chronically on anticoagulant therapy. 4. Baseline history of aortic valve replacement and mitral regurgitation, on anticoagulant therapy due to mechanical valve. 5. Morbid obesity. 6. Baseline liver cirrhosis. 7. Noncompliance to medical treatment. SUMMARY: The patient is a 55-year-old male, noncompliant to his CPAP due to his obstructive sleep apnea. The patient also had multiple other medical problems as mentioned above. He came in with congestive heart failure exacerbation and fluid overload because he is not restricting his oral fluid and also not taking his medication because he repeatedly stating that he did not want to pee too much. I discussed with the patient multiple time regarding if he increase in water intake, then he need to pee it out due to his heart failure. His ejection fraction is less than 20%. He has AICD. The patient is also on anticoagulant therapy due to his AVR and MR. The patient has recurrent hospitalizations due to his noncompliance. The more important now is that he has also has severe obstructive sleep apnea due to his weight gain. He also not using his CPAP. The patient has already been arranged now for CPAP/BiPAP for usage at home. Arrangement has been made. The patient instructed to use the machine when he sleeps or taking nap. The patient is otherwise stable. His home medication is adequate if he can restrict his fluid and be compliant to using CPAP. The patient is otherwise stable. He will go home today, resume his home medication. CPAP has been arranged for the patient. It took some time to have the patient machine for him and I instructed him clearly that he need to use the machine when he take a nap or sleeping. Otherwise, he will be unresponsive and will not wake up from his sleep. The patient is stable, discharged today. MD TED Reynoso/KERRIL /[id number]
== END 2020-05-06 14:31 | disposition home or self-care (01) | DRG 291 ==
LOC: ER 14:05 → ERHOLD 15:25 → MED/SURG2 19:05 → ICU 04-28 11:55 → IMCU 04-29 10:18
PROVIDERS: ADMIT Internal Medicine; ATTEND Internal Medicine
PROC: 02HV33Z Insertion of Infusion Device into Superior Vena Cava, Percutaneous Approach (ICD-10-PCS; principal; 2020-04-28)
PROC: B548ZZA Ultrasonography of Superior Vena Cava, Guidance (ICD-10-PCS; 2020-04-28)
DX: I11.0 Hypertensive heart disease with heart failure (principal); J96.21 Acute and chronic respiratory failure with hypoxia; Z68.43 Body mass index [BMI] 50.0-59.9, adult; I48.20 Chronic atrial fibrillation, unspecified; K74.60 Unspecified cirrhosis of liver; E66.01 Morbid (severe) obesity due to excess calories; I50.23 Acute on chronic systolic (congestive) heart failure; E78.5 Hyperlipidemia, unspecified; Z99.81 Dependence on supplemental oxygen; Z95.2 Presence of prosthetic heart valve; Z95.810 Presence of automatic (implantable) cardiac defibrillator; Z79.01 Long term (current) use of anticoagulants; I87.2 Venous insufficiency (chronic) (peripheral); Z91.19 Patient's noncompliance with other medical treatment and regimen; Z11.59 Encounter for screening for other viral diseases
CPT/HCPCS: 36415; 36569; 36600; 70450; 71045; 74176; 76604; 80048; 80053; 82140; 82550; 82553; 82805; 82948; 83690; 83880; 84484; 85025; 85610; 87040; 93005; 94640; 94660; 97139; 99251; 99284; J0696; J1650; J1940; J2270; J2405; J7050; U0002

== ENCOUNTER 2022-10-27 16:47 | Inpatient (IN) | payer MEDICARE ==
[~2022-10-27] VITALS: Ht 177.8 cm; Wt 171.5 kg
[2022-10-27] MEDS ORDERED: ASPIRIN 81 MG CHEW TAB PO ONE (17:15)
[2022-10-27 17:25] LABS: BASOPHILS # (AUTO) 0.1 (0.0-0.1); BASOPHILS % 0.6 % (0.0-1.0); EOSINOPHILS # (AUTO) 0.3 (0.0-0.4); EOSINOPHILS % 4.1 % (0.0-6.0); HEMATOCRIT 42.1 % (38.2-49.6); HEMOGLOBIN 13.3 g/dL (14.0-18.0); LYMPHOCYTES # (AUTO) 2.2 (1.0-3.2); MEAN CORPUSCULAR HEMOGLOBIN 28.7 pg (28-32); MEAN CORPUSCULAR HGB CONC 31.6 g/dL (31-35); MEAN CORPUSCULAR VOLUME 90.7 fL (81-99); MONOCYTES # (AUTO) 0.6 (0.2-0.8); MONOCYTES % 7.7 % (4.4-11.3); NEUTROPHILS % 60.4 % (38.7-80.0); PLATELET COUNT 194 x10e3/uL (140-360); RED BLOOD COUNT 4.64 x10e6/uL (4.3-5.7); RED CELL DISTRIBUTION WIDTH 14.2 % (11.7-14.4)
[2022-10-27 17:36] LABS: INR 2.96; PROTHROMBIN TIME 31.2 seconds (11.9-14.5)
[2022-10-27 17:37] LABS: PARTIAL THROMBOPLASTIN TIME 54.2 seconds (23.8-35.5)
[2022-10-27 17:47] LABS: ALBUMIN 3.6 g/dL (3.5-5.0); ALBUMIN/GLOBULIN RATIO 0.7 (0.8-2.0); ANION GAP 16.4 mmol/L (8-16); CREATININE, SERUM 0.96 mg/dL (0.72-1.25); POTASSIUM 3.4 mmol/L (3.5-5.1)
[2022-10-27 17:54] LABS: CREATINE KINASE MB 1.9 ng/mL (0-5.0)
[2022-10-27 19:33] LABS: CREATINE KINASE MB 1.8 ng/mL (0-5.0)
[2022-10-27] MEDS ORDERED: Morphine 4mg INJECTION 4 MG/ML INJ IV PRN (19:45)
[2022-10-27] MEDS ORDERED: ONDANSETRON HCL INJ 2MG/ML 2ML 2 MG/ML VIAL IV PRN (19:45)
[2022-10-27] MEDS ORDERED: FUROSEMIDE INJ 10 MG/ML 4 ML VIAL IV SCH (21:00)
[2022-10-27] MEDS ORDERED: FUROSEMIDE INJ 10 MG/ML 4 ML VIAL IV ONE (21:15)
[2022-10-27 23:10] VITALS: BP 110/66
[2022-10-28] VITALS (7 sets, daily range): BP systolic 110–141; BP diastolic 64–76
[2022-10-28] MEDS: METOPROLOL TARTRATE 25 MG TAB PO SCH ×2 (00:15→08:30)
[2022-10-28] MEDS ORDERED: ALBUTEROL SULFATE HFA 8GM INHALATION AEROSOL INH PRN (00:15)
[2022-10-28 05:57] LABS: BASOPHILS # (AUTO) 0.1 (0.0-0.1); EOSINOPHILS # (AUTO) 0.3 (0.0-0.4); EOSINOPHILS % 4.8 % (0.0-6.0); HEMATOCRIT 44.6 % (38.2-49.6); HEMOGLOBIN 13.8 g/dL (14.0-18.0); LYMPHOCYTES # (AUTO) 1.4 (1.0-3.2); LYMPHOCYTES % 21.4 % (18.0-39.1); MEAN CORPUSCULAR HEMOGLOBIN 28.9 pg (28-32); MEAN CORPUSCULAR HGB CONC 30.9 g/dL (31-35); MEAN CORPUSCULAR VOLUME 93.3 fL (81-99); MONOCYTES # (AUTO) 0.3 (0.2-0.8); MONOCYTES % 5.4 % (4.4-11.3); NEUTROPHILS # (AUTO) 4.2 (2.1-6.9); NEUTROPHILS % 67.2 % (38.7-80.0); PLATELET COUNT 161 x10e3/uL (140-360); RED BLOOD COUNT 4.78 x10e6/uL (4.3-5.7); RED CELL DISTRIBUTION WIDTH 14.1 % (11.7-14.4)
[2022-10-28 06:39] LABS: ALBUMIN 3.6 g/dL (3.5-5.0); ALBUMIN/GLOBULIN RATIO 0.7 (0.8-2.0); ANION GAP 14.4 mmol/L (8-16); CREATININE, SERUM 0.87 mg/dL (0.72-1.25); POTASSIUM 3.4 mmol/L (3.5-5.1)
[2022-10-28 08:22] LABS: CREATINE KINASE MB 2.6 ng/mL (0-5.0)
[2022-10-28] MEDS: FUROSEMIDE INJ 10 MG/ML 4 ML VIAL IV SCH ×2 (08:29→12:15)
[2022-10-28] MEDS: ASPIRIN 81 MG CHEW TAB PO SCH (08:30)
[2022-10-28] MEDS: SIMVASTATIN 20 MG TAB PO SCH (08:30)
[2022-10-28] MEDS: POTASSIUM CHLORIDE 10MEQ EA PO SCH ×2 (08:30→16:38)
[2022-10-28] MEDS ORDERED: FUROSEMIDE INJ 10 MG/ML 4 ML VIAL IV SCH (09:00)
[2022-10-28 16:27] LABS: CREATINE KINASE MB 2.3 ng/mL (0-5.0)
[2022-10-28] MEDS: WARFARIN SOD 5 MG TAB PO SCH (16:39)
[2022-10-28] MEDS: CARVEDILOL 3.125 MG TAB PO SCH (16:41)
[2022-10-29 05:29] LABS: BASOPHILS # (AUTO) 0.1 (0.0-0.1); EOSINOPHILS # (AUTO) 0.4 (0.0-0.4); EOSINOPHILS % 6.1 % (0.0-6.0); HEMATOCRIT 41.4 % (38.2-49.6); LYMPHOCYTES # (AUTO) 1.4 (1.0-3.2); LYMPHOCYTES % 20.7 % (18.0-39.1); MEAN CORPUSCULAR HEMOGLOBIN 28.6 pg (28-32); MEAN CORPUSCULAR HGB CONC 31.4 g/dL (31-35); MONOCYTES # (AUTO) 0.5 (0.2-0.8); MONOCYTES % 7.4 % (4.4-11.3); NEUTROPHILS # (AUTO) 4.3 (2.1-6.9); NEUTROPHILS % 64.5 % (38.7-80.0); PLATELET COUNT 184 x10e3/uL (140-360); RED BLOOD COUNT 4.55 x10e6/uL (4.3-5.7)
[2022-10-29 05:47] LABS: ANION GAP 13.2 mmol/L (8-16); CALCIUM 8.9 mg/dL (8.4-10.2); CREATININE, SERUM 0.85 mg/dL (0.72-1.25); POTASSIUM 4.2 mmol/L (3.5-5.1)
[2022-10-29 08:21] VITALS: BP 127/77
[2022-10-29] MEDS: ASPIRIN 81 MG CHEW TAB PO SCH (08:25)
[2022-10-29] MEDS: SIMVASTATIN 20 MG TAB PO SCH (08:25)
[2022-10-29] MEDS: POTASSIUM CHLORIDE 10MEQ EA PO SCH ×2 (08:25→17:31)
[2022-10-29] MEDS: LOSARTAN POTASSIUM 25 MG TAB PO SCH (08:26)
[2022-10-29] MEDS: CARVEDILOL 3.125 MG TAB PO SCH ×2 (08:27→17:33)
[2022-10-29] MEDS: FUROSEMIDE INJ 10 MG/ML 4 ML VIAL IV SCH ×2 (08:28→12:05)
[2022-10-29 08:39] VITALS: BP 127/77
[2022-10-29 11:44] VITALS: BP 127/84
[2022-10-29] MEDS ORDERED: ONDANSETRON HCL 4 MG ORAL DISINTEGRATING TAB PO PRN (14:15)
[2022-10-29 16:13] VITALS: BP 108/62
[2022-10-29] MEDS: WARFARIN SOD 5 MG TAB PO SCH (17:31)
[2022-10-29 20:00] VITALS: BP 109/57
[2022-10-29 20:19] VITALS: BP 108/62
[2022-10-30] VITALS: BP 98/67
[2022-10-30 05:53] VITALS: BP 117/71
[2022-10-30 09:00] VITALS: BP 117/71
[2022-10-30] MEDS: POTASSIUM CHLORIDE 10MEQ EA PO SCH (10:14)
[2022-10-30] MEDS: ASPIRIN 81 MG CHEW TAB PO SCH (10:14)
[2022-10-30] MEDS: LOSARTAN POTASSIUM 25 MG TAB PO SCH (10:14)
[2022-10-30] MEDS: SIMVASTATIN 20 MG TAB PO SCH (10:15)
[2022-10-30] MEDS: CARVEDILOL 3.125 MG TAB PO SCH (10:15)
[2022-10-30] MEDS: FUROSEMIDE INJ 10 MG/ML 4 ML VIAL IV SCH ×2 (10:16→13:31)
[2022-10-30 12:00] VITALS: BP 134/73
[2022-10-31] MEDS ORDERED: FUROSEMIDE 20 MG TAB PO SCH (08:00)
[2022-10-31] MEDS ORDERED: WARFARIN SOD 5 MG TAB PO SCH (17:00)
== END 2022-10-30 14:38 | disposition home or self-care (01) | DRG 291 ==
LOC: ER 17:12 → ERHOLD 19:39 → MED/SURG 21:54 → OBSVTOIN 10-28 08:39
PROVIDERS: ADMIT Internal Medicine; ATTEND Internal Medicine
DX: I11.0 Hypertensive heart disease with heart failure (principal); I50.23 Acute on chronic systolic (congestive) heart failure; I47.1 Supraventricular tachycardia; I48.20 Chronic atrial fibrillation, unspecified; Z68.43 Body mass index [BMI] 50.0-59.9, adult; J96.11 Chronic respiratory failure with hypoxia; E78.5 Hyperlipidemia, unspecified; M54.9 Dorsalgia, unspecified; G89.29 Other chronic pain; Z20.822 Contact with and (suspected) exposure to COVID-19; E66.01 Morbid (severe) obesity due to excess calories; G47.33 Obstructive sleep apnea (adult) (pediatric); Z79.01 Long term (current) use of anticoagulants; Z79.82 Long term (current) use of aspirin; Z91.14 Patient's other noncompliance with medication regimen; Z91.199 Patient's noncompliance with other medical treatment and regimen due to unspecified reason; Z95.2 Presence of prosthetic heart valve; Z99.81 Dependence on supplemental oxygen
CPT/HCPCS: 36415; 71045; 80048; 80053; 82550; 82553; 83880; 84484; 85025; 85610; 85730; 93005; 93306; 94660; 94799; 99284; G0378; J1940

== ENCOUNTER 2024-10-30 15:27 | Inpatient (IN) | payer MEDICARE ==
[~2024-10-30] VITALS: Ht 177.8 cm; Wt 149.2 kg
[2024-10-30 15:35] VITALS: TEMP 98.1
[2024-10-30 16:27] LABS: BASOPHILS % 0.3 % (0.0-1.0); EOSINOPHILS # (AUTO) 0.6 (0.0-0.4); EOSINOPHILS % 6.2 % (0.0-6.0); HEMATOCRIT 29.8 % (38.2-49.6); HEMOGLOBIN 10.2 g/dL (14.0-18.0); LYMPHOCYTES # (AUTO) 1.2 (1.0-3.2); LYMPHOCYTES % 13.2 % (18.0-39.1); MEAN CORPUSCULAR HEMOGLOBIN 29.1 pg (28-32); MEAN CORPUSCULAR HGB CONC 34.2 g/dL (31-35); MEAN CORPUSCULAR VOLUME 85.1 fL (81-99); MONOCYTES # (AUTO) 0.9 (0.2-0.8); MONOCYTES % 10.1 % (4.4-11.3); NEUTROPHILS # (AUTO) 6.4 (2.1-6.9); NEUTROPHILS % 69.5 % (38.7-80.0); PLATELET COUNT 260 x10e3/uL (140-360); RED CELL DISTRIBUTION WIDTH 15.1 % (11.7-14.4); WHITE BLOOD COUNT 9.17 x10e3/uL (4.8-10.8)
[2024-10-30 16:52] LABS: TROPONIN I 0.168 ng/mL (0-0.300)
[2024-10-30 16:54] LABS: ALANINE AMINOTRANSFERASE 25 IU/L (0-55); ALBUMIN 4.2 g/dL (3.5-5.0); ALBUMIN/GLOBULIN RATIO 0.8 (0.8-2.0); ALKALINE PHOSPHATASE 105 IU/L (40-150); ANION GAP 26.3 mmol/L (8-16); BILIRUBIN,TOTAL 0.9 mg/dL (0.2-1.2); CALCIUM 7.8 mg/dL (8.4-10.2); CARBON DIOXIDE 24 mmol/L (22-29); CHLORIDE 82 mmol/L (98-107); CREATININE, SERUM 4.16 mg/dL (0.72-1.25); EST GLOMERULAR FILTRATION RATE 16 ML/MIN (>=60); GLUCOSE 111 mg/dL (74-118); SODIUM 129 mmol/L (136-145); TOTAL PROTEIN 9.7 g/dL (6.5-8.1)
[2024-10-30 16:58] LABS: POTASSIUM 3.3 mmol/L (3.5-5.1)
[2024-10-30 16:59] LABS: BLOOD UREA NITROGEN 138 mg/dL (7-26)
[2024-10-30] MEDS ORDERED: FUROSEMIDE INJ 10 MG/ML 4 ML VIAL IV ONE (17:30)
[2024-10-30] MEDS ORDERED: SODIUM CHLORIDE 0.9% 500ML 500 ML IV ONE (17:45)
[2024-10-30] MEDS: SODIUM CHLORIDE FLUSH 10 ML SYR IV PRN (17:59)
[2024-10-30] MEDS: ONDANSETRON HCL INJ 2MG/ML 2ML 2 MG/ML VIAL IV PRN (18:02)
[2024-10-30] MEDS: SODIUM CHLORIDE 0.9% 1000ML 1,000 ML IV ONE (18:02)
[2024-10-30 18:57] LABS: INR 2.62; PROTHROMBIN TIME 29.3 seconds (11.9-14.5)
[2024-10-30 18:58] LABS: PARTIAL THROMBOPLASTIN TIME 76.6 seconds (23.8-35.5)
[2024-10-30 20:27] VITALS: PULSE 79; RESP 19
[2024-10-30 20:54] VITALS: BP 114/73; PULSE 78; RESP 27; TEMP 98.2; O2SAT 87
[2024-10-30 21:00] VITALS: BP 90/54; PULSE 72; RESP 18; TEMP 98.2; O2SAT 93
[2024-10-30 21:15] VITALS: BP 100/66; PULSE 77; RESP 17; O2SAT 96
[2024-10-30 23:08] VITALS: PULSE 71; RESP 20; O2SAT 100
[2024-10-31] VITALS (25 sets, daily range): BP systolic 70–124; BP diastolic 42–85; PULSE 48–76; RESP 15–30; TEMP 98.2–99.8; O2SAT 88–100
[2024-10-31 01:31] LABS: TROPONIN I 0.157 ng/mL (0-0.300)
[2024-10-31 07:01] LABS: BASOPHILS % 0.4 % (0.0-1.0); EOSINOPHILS # (AUTO) 0.6 (0.0-0.4); EOSINOPHILS % 5.2 % (0.0-6.0); HEMATOCRIT 30.6 % (38.2-49.6); HEMOGLOBIN 10.2 g/dL (14.0-18.0); LYMPHOCYTES # (AUTO) 1.2 (1.0-3.2); LYMPHOCYTES % 11.2 % (18.0-39.1); MEAN CORPUSCULAR HEMOGLOBIN 29.1 pg (28-32); MEAN CORPUSCULAR HGB CONC 33.3 g/dL (31-35); MEAN CORPUSCULAR VOLUME 87.2 fL (81-99); MONOCYTES # (AUTO) 0.9 (0.2-0.8); MONOCYTES % 8.6 % (4.4-11.3); NEUTROPHILS # (AUTO) 7.9 (2.1-6.9); PLATELET COUNT 246 x10e3/uL (140-360); RED BLOOD COUNT 3.51 x10e6/uL (4.3-5.7); WHITE BLOOD COUNT 10.62 x10e3/uL (4.8-10.8)
[2024-10-31 07:32] LABS: ALANINE AMINOTRANSFERASE 23 IU/L (0-55); ALBUMIN 3.9 g/dL (3.5-5.0); ALBUMIN/GLOBULIN RATIO 0.7 (0.8-2.0); ALKALINE PHOSPHATASE 99 IU/L (40-150); ANION GAP 24.9 mmol/L (8-16); CALCIUM 7.8 mg/dL (8.4-10.2); CARBON DIOXIDE 25 mmol/L (22-29); CHLORIDE 84 mmol/L (98-107); CHOL/HDL RATIO 6.6 (3.9-4.7); CHOLESTEROL 166 MD/DL (0-199); CREATININE, SERUM 3.64 mg/dL (0.72-1.25); EST GLOMERULAR FILTRATION RATE 19 ML/MIN (>=60); GLUCOSE 113 mg/dL (74-118); HDL CHOLESTEROL 25 MG/DL (40-60); LDL CHOLESTEROL 104 MG/DL (60-130); MAGNESIUM 1.4 MG/DL (1.3-2.1); SODIUM 131 mmol/L (136-145); TOTAL PROTEIN 9.3 g/dL (6.5-8.1); TRIGLYCERIDES 185 MG/DL (0-149)
[2024-10-31 07:34] LABS: BLOOD UREA NITROGEN 130 mg/dL (7-26)
[2024-10-31 07:36] LABS: POTASSIUM 2.9 mmol/L (3.5-5.1)
[2024-10-31 07:47] LABS: TROPONIN I 0.171 ng/mL (0-0.300)
[2024-10-31] MEDS: METOPROLOL TARTRATE 25 MG TAB PO SCH (08:30)
[2024-10-31] MEDS: SODIUM CHLORIDE 0.9% 1000ML 1,000 ML IV SCH (08:38)
[2024-10-31] MEDS: POTASSIUM CHLORIDE 20 MEQ TAB CR PO ONE ×2 (08:39→10:33)
[2024-10-31] MEDS ORDERED: LEVALBUTEROL HCL SOLN NEBU 1.25 MG/3 ML NEB INH PRN (08:45)
[2024-10-31] MEDS ORDERED: HYDROCODONE/APAP 7.5MG-325MG 1 EA TAB PO PRN (08:45)
[2024-10-31] MEDS ORDERED: HYDRALAZINE HCL 25 MG TAB PO PRN (08:45)
[2024-10-31] MEDS: ASPIRIN 81 MG CHEW TAB PO SCH (08:52)
[2024-10-31] MEDS: AMLODIPINE BESYLATE 10 MG TAB PO ONE (08:54)
[2024-10-31] MEDS: LEVALBUTEROL HCL SOLN NEBU 1.25 MG/3 ML NEB INH SCH (10:41)
[2024-10-31] MEDS: IPRATROPIUM BROMIDE 0.02% 2.5 ML NEB INH SCH (13:42)
[2024-10-31] MEDS: WARFARIN SOD 3 MG TAB PO SCH (16:34)
[2024-11-01] VITALS (21 sets, daily range): BP systolic 55–131; BP diastolic 32–73; PULSE 54–80; RESP 17–30; TEMP 98.4–100.3; O2SAT 90–99
[2024-11-01] MEDS: AMLODIPINE BESYLATE 10 MG TAB PO SCH (06:12)
[2024-11-01 07:24] LABS: BASOPHILS % 0.2 % (0.0-1.0); EOSINOPHILS # (AUTO) 0.1 (0.0-0.4); EOSINOPHILS % 0.6 % (0.0-6.0); HEMATOCRIT 30.5 % (38.2-49.6); HEMOGLOBIN 10.1 g/dL (14.0-18.0); LYMPHOCYTES # (AUTO) 0.8 (1.0-3.2); LYMPHOCYTES % 6.2 % (18.0-39.1); MEAN CORPUSCULAR HEMOGLOBIN 28.6 pg (28-32); MEAN CORPUSCULAR HGB CONC 33.1 g/dL (31-35); MEAN CORPUSCULAR VOLUME 86.4 fL (81-99); MONOCYTES # (AUTO) 1.1 (0.2-0.8); NEUTROPHILS # (AUTO) 10.1 (2.1-6.9); NEUTROPHILS % 83.3 % (38.7-80.0); PLATELET COUNT 250 x10e3/uL (140-360); RED BLOOD COUNT 3.53 x10e6/uL (4.3-5.7); WHITE BLOOD COUNT 12.15 x10e3/uL (4.8-10.8)
[2024-11-01 07:44] LABS: INR 3.17
[2024-11-01 07:55] LABS: ANION GAP 22.1 mmol/L (8-16); CALCIUM 8.2 mg/dL (8.4-10.2); CREATININE, SERUM 2.53 mg/dL (0.72-1.25)
[2024-11-01 07:56] LABS: MAGNESIUM 1.4 MG/DL (1.3-2.1); PHOSPHORUS 3.1 MG/DL (2.3-4.7)
[2024-11-01 07:57] LABS: POTASSIUM 3.1 mmol/L (3.5-5.1)
[2024-11-01] MEDS: MAGNESIUM SULFATE 2GM/50ML 50 ML IV ONE (18:06)
[2024-11-01 18:38] LABS: BACTERIA,URINE FEW /HPF; BILIRUBIN,URINE NEGATIVE (NEGATIVE); CLARITY,URINE CLEAR (CLEAR); COLOR,URINE YELLOW (YELLOW); EPITHELIAL CELLS,URINE FEW /LPF; GLUCOSE, URINE NEGATIVE (NEGATIVE); KETONES,URINE NEGATIVE (NEGATIVE); LEUKOCYTE ESTERASE ,URINE NEGATIVE (NEGATIVE); NITRITE,URINE NEGATIVE (NEGATIVE); PH,URINE 5.5 (5 - 7); PROTEIN,URINE DIPSTICK TRACE (NEGATIVE); RBC,URINE 0-5 /HPF (0-5); URINE UROBILINOGEN 0.2 mg/dL (0.2 - 1); WBC,URINE (MAN) 0-5 /HPF (0-5)
[2024-11-02] VITALS (16 sets, daily range): BP systolic 96–127; BP diastolic 51–83; PULSE 59–81; RESP 18–33; TEMP 98.6–99.8; O2SAT 88–99
[2024-11-02 07:34] LABS: ANION GAP 19.2 mmol/L (8-16); CALCIUM 8.6 mg/dL (8.4-10.2); CREATININE, SERUM 2.02 mg/dL (0.72-1.25); POTASSIUM 3.2 mmol/L (3.5-5.1)
[2024-11-02 09:21] LABS: INR 3.87; PROTHROMBIN TIME 39.7 seconds (11.9-14.5)
[2024-11-02] MEDS: POTASSIUM CHLORIDE 20 MEQ TAB CR PO STA (18:06)
[2024-11-03] VITALS (21 sets, daily range): BP systolic 97–127; BP diastolic 51–90; PULSE 82–102; RESP 20–36; TEMP 97.4–100.8; O2SAT 94–100
[2024-11-03] MEDS: ACETAMINOPHEN 325 MG TAB PO PRN (01:46)
[2024-11-03 07:39] LABS: INR 5.32; PROTHROMBIN TIME 50.9 seconds (11.9-14.5)
[2024-11-03 07:54] LABS: ANION GAP 16.3 mmol/L (8-16); CALCIUM 9.5 mg/dL (8.4-10.2); CREATININE, SERUM 1.8 mg/dL (0.72-1.25)
[2024-11-03 07:57] LABS: POTASSIUM 3.3 mmol/L (3.5-5.1)
[2024-11-03] MEDS: WARFARIN SOD 2 MG TAB PO SCH (08:22)
[2024-11-04] VITALS (19 sets, daily range): BP systolic 81–120; BP diastolic 62–89; PULSE 43–105; RESP 20–35; TEMP 97.6–98.2; O2SAT 95–100
[2024-11-04 06:45] LABS: BASOPHILS # (AUTO) 0.1 (0.0-0.1); BASOPHILS % 0.4 % (0.0-1.0); EOSINOPHILS # (AUTO) 0.4 (0.0-0.4); EOSINOPHILS % 2.1 % (0.0-6.0); HEMOGLOBIN 9.1 g/dL (14.0-18.0); LYMPHOCYTES # (AUTO) 1.2 (1.0-3.2); LYMPHOCYTES % 6.8 % (18.0-39.1); MEAN CORPUSCULAR HEMOGLOBIN 28.5 pg (28-32); MEAN CORPUSCULAR HGB CONC 31.4 g/dL (31-35); MEAN CORPUSCULAR VOLUME 90.9 fL (81-99); MONOCYTES # (AUTO) 1.4 (0.2-0.8); MONOCYTES % 8.3 % (4.4-11.3); NEUTROPHILS # (AUTO) 14.1 (2.1-6.9); NEUTROPHILS % 81.9 % (38.7-80.0); PLATELET COUNT 283 x10e3/uL (140-360); RED BLOOD COUNT 3.19 x10e6/uL (4.3-5.7); WHITE BLOOD COUNT 17.27 x10e3/uL (4.8-10.8)
[2024-11-04 07:11] LABS: ANION GAP 17.6 mmol/L (8-16); CALCIUM 9.9 mg/dL (8.4-10.2); CREATININE, SERUM 1.64 mg/dL (0.72-1.25); POTASSIUM 3.6 mmol/L (3.5-5.1)
[2024-11-04 07:35] LABS: INR 6.27; PROTHROMBIN TIME 57.9 seconds (11.9-14.5)
[2024-11-04] MEDS: METOPROLOL TARTRATE 25 MG TAB PO SCH (20:25)
[2024-11-05] VITALS (12 sets, daily range): BP systolic 103–130; BP diastolic 50–98; PULSE 60–110; RESP 17–24; TEMP 97.2–98.9; O2SAT 94–100
[2024-11-05 06:59] LABS: INR 7.13
[2024-11-05 07:06] LABS: ANION GAP 15.3 mmol/L (8-16); CALCIUM 9.6 mg/dL (8.4-10.2); CREATININE, SERUM 1.55 mg/dL (0.72-1.25)
[2024-11-05 07:19] LABS: POTASSIUM 3.3 mmol/L (3.5-5.1)
[2024-11-05 15:06] LABS: ALBUMIN 2.7 g/dL (3.5-5.0); ALBUMIN/GLOBULIN RATIO 0.5 (0.8-2.0); ANION GAP 16.8 mmol/L (8-16); BILIRUBIN,TOTAL 1.3 mg/dL (0.2-1.2); CALCIUM 9.2 mg/dL (8.4-10.2); CREATININE, SERUM 1.65 mg/dL (0.72-1.25); POTASSIUM 3.8 mmol/L (3.5-5.1); TOTAL PROTEIN 7.8 g/dL (6.5-8.1)
[2024-11-05 15:07] LABS: ALBUMIN 2.7 g/dL (3.5-5.0); BILIRUBIN,DIRECT 0.9 mg/dL (0.0-0.5); BILIRUBIN,TOTAL 1.3 mg/dL (0.2-1.2); TOTAL PROTEIN 7.7 g/dL (6.5-8.1)
[2024-11-05] MEDS: PHYTONADIONE 5 MG TAB PO ONE (15:28)
[2024-11-06] VITALS (12 sets, daily range): BP systolic 99–121; BP diastolic 50–86; PULSE 69–91; RESP 17–21; TEMP 97.1–99.4; O2SAT 89–100
[2024-11-06 06:10] LABS: BASOPHILS # (AUTO) 0.1 (0.0-0.1); BASOPHILS % 0.7 % (0.0-1.0); EOSINOPHILS # (AUTO) 0.6 (0.0-0.4); EOSINOPHILS % 4.7 % (0.0-6.0); HEMATOCRIT 24.9 % (38.2-49.6); LYMPHOCYTES # (AUTO) 1.1 (1.0-3.2); LYMPHOCYTES % 9.2 % (18.0-39.1); MEAN CORPUSCULAR HEMOGLOBIN 28.7 pg (28-32); MEAN CORPUSCULAR HGB CONC 31.3 g/dL (31-35); MEAN CORPUSCULAR VOLUME 91.5 fL (81-99); MONOCYTES % 8.4 % (4.4-11.3); NEUTROPHILS % 76.1 % (38.7-80.0); PLATELET COUNT 285 x10e3/uL (140-360); RED BLOOD COUNT 2.72 x10e6/uL (4.3-5.7); RED CELL DISTRIBUTION WIDTH 15.3 % (11.7-14.4)
[2024-11-06 06:15] LABS: HEMOGLOBIN 7.8 g/dL (14.0-18.0)
[2024-11-06 06:28] LABS: INR 2.7
[2024-11-06 06:37] LABS: ANION GAP 15.1 mmol/L (8-16); CALCIUM 9.3 mg/dL (8.4-10.2); CREATININE, SERUM 1.61 mg/dL (0.72-1.25)
[2024-11-06 06:38] LABS: POTASSIUM 3.1 mmol/L (3.5-5.1)
[2024-11-06] MEDS: WARFARIN SOD 5 MG TAB PO ONE (12:20)
[2024-11-06] MEDS ORDERED: WARFARIN SOD 2 MG TAB PO SCH (23:45)
[2024-11-07] VITALS (11 sets, daily range): BP systolic 109–152; BP diastolic 60–86; PULSE 66–92; RESP 16–20; TEMP 97.1–98.9; O2SAT 97–99
[2024-11-07 05:42] LABS: INR 1.82
[2024-11-07] MEDS: WARFARIN SOD 5 MG TAB PO ONE (11:00)
[2024-11-07] MEDS: ENOXAPARIN SOD INJ 60 MG/0.6 ML SYR SC STA (11:01)
[2024-11-07] MEDS ORDERED: WARFARIN SOD 2 MG TAB PO SCH (17:00)
[2024-11-08] VITALS (7 sets, daily range): BP systolic 113–148; BP diastolic 57–82; PULSE 62–93; RESP 17–20; TEMP 97.4–97.9; O2SAT 94–100
[2024-11-08 05:39] LABS: BASOPHILS # (AUTO) 0.1 (0.0-0.1); BASOPHILS % 0.7 % (0.0-1.0); EOSINOPHILS # (AUTO) 0.5 (0.0-0.4); EOSINOPHILS % 5.1 % (0.0-6.0); HEMATOCRIT 25.8 % (38.2-49.6); LYMPHOCYTES % 9.8 % (18.0-39.1); MEAN CORPUSCULAR HEMOGLOBIN 29.3 pg (28-32); MEAN CORPUSCULAR VOLUME 94.5 fL (81-99); MONOCYTES # (AUTO) 0.9 (0.2-0.8); MONOCYTES % 8.5 % (4.4-11.3); NEUTROPHILS # (AUTO) 7.5 (2.1-6.9); PLATELET COUNT 311 x10e3/uL (140-360); RED BLOOD COUNT 2.73 x10e6/uL (4.3-5.7); RED CELL DISTRIBUTION WIDTH 15.7 % (11.7-14.4); WHITE BLOOD COUNT 10.03 x10e3/uL (4.8-10.8)
[2024-11-08 05:49] LABS: INR 2.03
[2024-11-08 05:59] LABS: ANION GAP 14.3 mmol/L (8-16); CALCIUM 9.1 mg/dL (8.4-10.2); CREATININE, SERUM 1.38 mg/dL (0.72-1.25)
[2024-11-08 06:02] LABS: POTASSIUM 3.3 mmol/L (3.5-5.1)
[2024-11-08] MEDS ORDERED: ONDANSETRON HCL 4 MG ORAL DISINTEGRATING TAB PO PRN (10:00)
[2024-11-08] MEDS: POTASSIUM CHLORIDE 10MEQ EA PO ONE (10:22)
== END 2024-11-08 15:20 | disposition home or self-care (01) | DRG 917 ==
LOC: ER 17:33 → ERHOLD 17:53 → ICU 20:57 → MED/SURG3 11-04 21:51
PROVIDERS: ADMIT Internal Medicine; ATTEND Internal Medicine
DX: T50.1X1A Poisoning by loop [high-ceiling] diuretics, accidental (unintentional), initial encounter (principal); I50.23 Acute on chronic systolic (congestive) heart failure; J69.0 Pneumonitis due to inhalation of food and vomit; N17.0 Acute kidney failure with tubular necrosis; D68.9 Coagulation defect, unspecified; I42.8 Other cardiomyopathies; Z68.42 Body mass index [BMI] 45.0-49.9, adult; I48.20 Chronic atrial fibrillation, unspecified; E87.1 Hypo-osmolality and hyponatremia; M62.82 Rhabdomyolysis; E86.0 Dehydration; I11.0 Hypertensive heart disease with heart failure; E87.6 Hypokalemia; E66.01 Morbid (severe) obesity due to excess calories; G47.33 Obstructive sleep apnea (adult) (pediatric); E78.5 Hyperlipidemia, unspecified; M19.90 Unspecified osteoarthritis, unspecified site; R79.89 Other specified abnormal findings of blood chemistry; Z79.01 Long term (current) use of anticoagulants; Z79.82 Long term (current) use of aspirin; Z95.2 Presence of prosthetic heart valve; Z91.041 Radiographic dye allergy status; Z99.81 Dependence on supplemental oxygen
CPT/HCPCS: 36415; 71045; 71250; 76770; 80048; 80053; 80061; 80076; 81001; 82550; 83735; 83880; 84100; 84484; 85025; 85610; 85730; 93005; 93306; 94640; 94760; 94799; 99252; 99284; J1650; J2405; J2543; J3475; J7030